=== PATIENT | female | born 1975 | race Caucasian/White ===

== ENCOUNTER 2017-06-08 20:56 | Inpatient (IN) ==
[2017-06-08] MEDS ORDERED: 0.9 % Sodium Chloride 1,000 ML IVC ONE (21:13)
[2017-06-08] MEDS: *HR* Nalbuphine 20 MG/ML AMPUL IVP PRN (21:21)
--- NOTE | 2017-06-08 21:22 | Emergency Department Note ---
Disposition Clinical Impression: Abdominal pain, Ecchymosis Disposition: Still a Patient Condition: Fair Referrals: NONE,PCP [Primary Care Provider] - Forms: ED Satisfaction Letter, Work/School Release Abdominal Pain HPI - General Chief Complaint: ED Abdominal Pain Stated Complaint: Abd Pain Time Seen by Provider: 06/08/17 21:06 Source: patient Mode of arrival: ambulatory Limitations: no limitations Nursing Notes Reviewed: Yes Vital Signs Reviewed: Yes - History of Present Illness HPI Narrative: 41-year-old female presented to the emergency room with abdominal pain and abdominal distention. 4 days onset. She has noted some ecchymosis that are spontaneously of appearing throughout her abdominal wall. The pain is worsening. She is also noted some ecchymosis to the right arm as well as some lower extremity edema. She denies any vomiting. No blood in her stool or urine. She does not take any blood thinners. She denies any history of liver or kidney problems. Pain Scale: 10 - Related Data Home Medications Medication Instructions Recorded Confirmed Amitriptyline [Elavil] 50 mg PO HS 02/23/15 10/23/15 Fenofibrate [Tricor] 145 mg PO DAILY 02/23/15 10/23/15 Gabapentin [Neurontin] 800 mg PO TID 02/23/15 10/23/15 HYDROcodone/Acet 7.5/325 mg [[place] 1 tab PO Q6H 02/23/15 10/23/15 7.5-325 mg] Lipase/Protease/Amylase [[place] Dr 1 each PO TID 02/23/15 10/23/15 12,000 Units Capsule] Lisinopril [Zestril] 2.5 mg PO DAILY 02/23/15 10/23/15 Pioglitazone HCl [Actos] 30 mg PO DAILY 02/23/15 10/23/15 Simvastatin [Zocor] 20 mg PO HS 02/23/15 10/23/15 Tizanidine [Zanaflex] 4 mg PO TID 02/23/15 10/23/15 metFORMIN [Glucophage] 1,000 mg PO BIDWM 02/23/15 10/23/15 Methylphenidate HCl [Ritalin] 20 mg PO BID 10/23/15 10/23/15 Quetiapine Fumarate [Seroquel] 50 mg PO HS 10/23/15 10/23/15 Previous Rx's Medication Instructions Recorded Dicyclomine HCl [Bentyl] 20 mg PO QID #14 tablet 11/17/14 Omeprazole [PriLOSEC] 20 mg PO BIDAC #20 capsule. 11/17/14 OxyCODONE Immed Rel [Roxicodone 5 10 mg PO Q6HR PRN #30 tablet 02/25/15 MG] ClonazePAM [Klonopin] 1 mg PO BID #20 tablet 02/26/15 HYDROcodone/Acet 7.5/325 mg [[place] 1 tab PO Q6H #20 tablet 02/26/15 7.5-325 mg] Naproxen [Naprosyn] 250 mg PO BID 10 Days tablet 03/06/15 predniSONE [PredniSONE] 40 mg PO DAILY 5 Days tablet 03/06/15 Cyclobenzaprine [Flexeril] 10 mg PO TID PRN #20 tablet 03/21/15 Hydrocodone/Acetaminophen [[place] 1 - 2 tab PO Q6H PRN #15 tab 07/16/15 5-325 Tablet] diazePAM [Valium] 5 mg PO TID #10 tablet 07/16/15 Oxycodone HCl/Acetaminophen 1 each PO Q4-6H PRN #10 tablet 08/02/15 [Percocet 5-325 mg Tablet] methylPREDNISolone [Medrol] 1 each PO DAILY #1 packet 08/02/15 hydrOXYzine HCl [Hydroxyzine HCl] 50 mg PO QID 30 Days tablet 08/19/15 Dicyclomine [Bentyl] 10 mg PO DAILY PRN #30 capsule 09/22/15 Cyclobenzaprine [Flexeril] 10 mg PO TID PRN #15 tablet 11/29/15 methylPREDNISolone [Medrol] 1 each PO DAILY #1 packet 11/29/15 Oxycodone HCl/Acetaminophen 1 each PO Q6-8H PRN #15 tablet 12/09/15 [Percocet 5-325 mg Tablet] Oxycodone HCl/Acetaminophen 1 each PO QID PRN #8 tablet 08/19/16 [Percocet 5-325 mg Tablet] Promethazine [Phenergan] 25 mg PO Q6HR PRN #12 tablet 08/19/16 Hyoscyamine SL [Levsin SL] 0.125 mg SL TID #12 tab.subl 10/20/16 Sucralfate [Carafate] 1 gm PO [facility] #120 tablet 10/20/16 Allergies Allergy/AdvReac Type Severity Reaction Status Date / Time Amoxicillin Allergy Hives Verified 10/27/15 23:53 clarithromycin [From Biaxin] Allergy Hives Verified 10/27/15 23:53 moxifloxacin [From Avelox] Allergy Hives Verified 10/27/15 23:53 propoxyphene Allergy Hives Verified 10/27/15 23:53 [From Darvocet-N] All systems ED: reviewed and negative except as stated. Constitutional: Reports: as per HPI. Denies: fever, chills Eyes: Reports: as per HPI ENT ED: Reports: as per HPI Cardiovascular: Denies: chest pain, palpitations Respiratory: Denies: cough Gastrointestinal: Reports: abdominal pain, nausea Genitourinary: Reports: as per HPI Musculoskeletal: Reports: as per HPI Integumentary: Reports: as per HPI, rash, other (Ecchymosis) Neurological: Reports: as per HPI Psychiatric: Reports: as per HPI Endocrine: Reports: as per HPI Hematological/Lymphatic: Reports: as per HPI Allergic/Immunologic: Reports: as per HPI Abdominal Pain PMH - Past Medical History Medical history: Reports: diabetes, hyperlipidemia, hypertension, kidney stones , other Female Surgical History: Reports: cholecystectomy, hysterectomy, orthopedic, other, 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 Psychiatric history: Reports: anxiety, ADHD, bipolar, PTSD, previous psychiatric hospitalization, other - Social History Smoking status: Never smoker Alcohol use: Reports: none Drug use: Reports: none Physical Exam - General Limitations: no limitations General appearance: alert, in distress - Head Head exam: atraumatic, normocephalic - Eye Eye exam: Present: normal appearance - ENT ENT exam: normal exam - Chest Chest inspection: Present: normal inspection - Respiratory Respiratory exam: Present: normal lung sounds bilaterally - Cardiovascular Cardiovascular exam: Present: normal rhythm, tachycardia - Abdominal Exam Abdominal exam: Present: tenderness, distention, guarding, normal bowel sounds, other (Diffuse ecchymosis over the abdomen) - Extremities Exam Extremities exam: Present: pedal edema, other (Some scattered ecchymosis to the right forearm.) - Back Exam Back exam: Present: normal inspection - Neurological Exam Neurological exam: Present: alert, oriented X3 - Psychiatric Psychiatric exam: Present: normal affect - Skin Skin exam: Present: warm, dry, intact Course Vital Signs Temperature 97.5 F L 06/08/17 20:57 Pulse Rate 99 06/08/17 20:57 Respiratory Rate 16 06/08/17 20:57 Blood Pressure 129/86 06/08/17 20:57 O2 Sat by Pulse Oximetry 98 06/08/17 20:57 Temperature 97.5 F L 06/08/17 20:57 Pulse Rate 99 06/08/17 20:57 Respiratory Rate 16 06/08/17 20:57 Blood Pressure 129/86 06/08/17 20:57 O2 Sat by Pulse Oximetry 98 06/08/17 20:57 Oxygen Delivery Oxygen Delivery Room Air Abdominal Pain - MDM Narrative Medical decision making narrative: Patient will be signed out to Dr. Cortés - Medical Records Medical records reviewed: Yes I reviewed the patient's medical records. - Lab Data Lab results reviewed: Yes I reviewed the patient's lab results. Lab Results 06/08/17 Range/Units 21:15 PT 11.2 (9.4-12.1) Seconds INR 1.0 APTT 32.4 (26.0-36.0) Seconds
[2017-06-08] MEDS ORDERED: Ondansetron 4 MG/2 ML VIAL IVP ONE ×2 (21:49→22:26)
[2017-06-08 21:50] LABS: Prothrombin Time 11.2 Seconds (9.4-12.1)
[2017-06-08 21:52] LABS: Activated Partial Thrombo Time 32.4 Seconds (26.0-36.0)
[2017-06-08 21:56] LABS: Basophils % 0.3 %; Eosinophils # 0.2 K/mcL (0.0-0.6); Eosinophils % 2.3 %; Immature Granulocytes % 0.1 % (0-4); Lymphocytes # 3.2 K/mcL (0.6-4.6); Mean Corpuscular Volume 84.3 fL (83.0-100.0); Mean Platelet Volume 10.2 fL (9.4-12.4); Monocytes # 0.6 K/mcL (0.0-1.3); Monocytes % 5.9 %; Platelet Count 218 K/mcL (140-400); Red Blood Count 4.15 M/mcL (3.82-4.97); Red Cell Distribution Width 12.9 % (11.5-14.5); Segmented Neutrophils % 59.4 %
--- NOTE | 2017-06-08 22:17 | Emergency Department Note ---
Disposition Clinical Impression: Ecchymosis Abdominal pain Qualifiers: Abdominal location: unspecified location Qualified Code(s): R10.9 - Unspecified abdominal pain Nausea & vomiting Qualifiers: Vomiting type: unspecified Vomiting Intractability: unspecified Qualified Code( s): R11.2 - Nausea with vomiting, unspecified Disposition: Admitted As Inpatient Condition: Fair Referrals: NONE,PCP [Primary Care Provider] - Forms: ED Satisfaction Letter, Work/School Release Time of Disposition: 00:02 General Adult HPI - General Chief complaint: ED Abdominal Pain Stated complaint: Abd Pain Time Seen by Provider: 06/08/17 21:06 Source: patient Mode of arrival: ambulatory Limitations: no limitations - History of Present Illness Pain Scale: 10 - Related Data Home Medications Medication Instructions Recorded Confirmed Amitriptyline [Elavil] 50 mg PO HS 02/23/15 10/23/15 Fenofibrate [Tricor] 145 mg PO DAILY 02/23/15 10/23/15 Gabapentin [Neurontin] 800 mg PO TID 02/23/15 10/23/15 HYDROcodone/Acet 7.5/325 mg [[place] 1 tab PO Q6H 02/23/15 10/23/15 7.5-325 mg] Lipase/Protease/Amylase [[place]amara Victor 1 each PO TID 02/23/15 10/23/15 12,000 Units Capsule] Lisinopril [Zestril] 2.5 mg PO DAILY 02/23/15 10/23/15 Pioglitazone HCl [Actos] 30 mg PO DAILY 02/23/15 10/23/15 Simvastatin [Zocor] 20 mg PO HS 02/23/15 10/23/15 Tizanidine [Zanaflex] 4 mg PO TID 02/23/15 10/23/15 metFORMIN [Glucophage] 1,000 mg PO BIDWM 02/23/15 10/23/15 Methylphenidate HCl [Ritalin] 20 mg PO BID 10/23/15 10/23/15 Quetiapine Fumarate [Seroquel] 50 mg PO HS 10/23/15 10/23/15 Previous Rx's Medication Instructions Recorded Dicyclomine HCl [Bentyl] 20 mg PO QID #14 tablet 11/17/14 Omeprazole [PriLOSEC] 20 mg PO BIDAC #20 capsule. 11/17/14 OxyCODONE Immed Rel [Roxicodone 5 10 mg PO Q6HR PRN #30 tablet 02/25/15 MG] ClonazePAM [Klonopin] 1 mg PO BID #20 tablet 02/26/15 HYDROcodone/Acet 7.5/325 mg [[place] 1 tab PO Q6H #20 tablet 02/26/15 7.5-325 mg] Naproxen [Naprosyn] 250 mg PO BID 10 Days tablet 03/06/15 predniSONE [PredniSONE] 40 mg PO DAILY 5 Days tablet 03/06/15 Cyclobenzaprine [Flexeril] 10 mg PO TID PRN #20 tablet 03/21/15 Hydrocodone/Acetaminophen [[place] 1 - 2 tab PO Q6H PRN #15 tab 07/16/15 5-325 Tablet] diazePAM [Valium] 5 mg PO TID #10 tablet 07/16/15 Oxycodone HCl/Acetaminophen 1 each PO Q4-6H PRN #10 tablet 08/02/15 [Percocet 5-325 mg Tablet] methylPREDNISolone [Medrol] 1 each PO DAILY #1 packet 08/02/15 hydrOXYzine HCl [Hydroxyzine HCl] 50 mg PO QID 30 Days tablet 08/19/15 Dicyclomine [Bentyl] 10 mg PO DAILY PRN #30 capsule 09/22/15 Cyclobenzaprine [Flexeril] 10 mg PO TID PRN #15 tablet 11/29/15 methylPREDNISolone [Medrol] 1 each PO DAILY #1 packet 11/29/15 Oxycodone HCl/Acetaminophen 1 each PO Q6-8H PRN #15 tablet 12/09/15 [Percocet 5-325 mg Tablet] Oxycodone HCl/Acetaminophen 1 each PO QID PRN #8 tablet 08/19/16 [Percocet 5-325 mg Tablet] Promethazine [Phenergan] 25 mg PO Q6HR PRN #12 tablet 08/19/16 Hyoscyamine SL [Levsin SL] 0.125 mg SL TID #12 tab.subl 10/20/16 Sucralfate [Carafate] 1 gm PO QIDAC #120 tablet 10/20/16 Allergies Allergy/AdvReac Type Severity Reaction Status Date / Time Amoxicillin Allergy Hives Verified 10/27/15 23:53 clarithromycin [From Biaxin] Allergy Hives Verified 10/27/15 23:53 moxifloxacin [From Avelox] Allergy Hives Verified 10/27/15 23:53 propoxyphene Allergy Hives Verified 10/27/15 23:53 [From Darvocet-N] Constitutional: Reports: as per HPI. Denies: fever, chills Eyes: Reports: as per HPI ENT ED: Reports: as per HPI Cardiovascular: Denies: chest pain, palpitations Respiratory: Denies: cough Gastrointestinal: Reports: abdominal pain, nausea Genitourinary: Reports: as per HPI Musculoskeletal: Reports: as per HPI Integumentary: Reports: as per HPI, rash, other (Ecchymosis) Neurological: Reports: as per HPI Psychiatric: Reports: as per HPI Endocrine: Reports: as per HPI Hematological/Lymphatic: Reports: as per HPI Allergic/Immunologic: Reports: as per HPI Past Medical History - Past Medical History Medical history: Reports: diabetes, hyperlipidemia, hypertension, kidney stones , other Surgical history: Reports: cholecystectomy, hysterectomy, orthopedic, other Psychiatric history: Reports: anxiety, ADHD, bipolar, PTSD, previous psychiatric hospitalization, 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 Peralta who was worked up by Dr. Peralta of labs and CT scan pending. Complains of diffuse abdominal pain not able to eat or drink. She has had bruising on her anterior abdominal wall. Vital signs are stable. Initial exam shows the abdomen to be diffusely tender without guarding or rebound. Time: 22:17 Reevaluation #2: Patient states she still feels nauseated cannot eat. Patient will be admitted for further evaluation and treatment. Time: 00:01 - Consultations Consultation #1: Discussed with Dr. Heller, admit. Time: 00:03 Vital Signs Temperature 97.5 F L 06/08/17 20:57 Pulse Rate 99 06/08/17 20:57 Respiratory Rate 16 06/08/17 20:57 Blood Pressure 129/86 06/08/17 20:57 O2 Sat by Pulse Oximetry 98 06/08/17 20:57 Temperature 97.5 F L 06/08/17 20:57 Pulse Rate 79 06/08/17 23:50 Respiratory Rate 22 06/08/17 23:50 Blood Pressure 134/58 06/08/17 23:50 O2 Sat by Pulse Oximetry 96 06/08/17 23:50 Oxygen Delivery Oxygen Delivery Room Air Medical Decision Making - Lab Data Result diagrams: 06/08/17 21:15 06/08/17 21:15 Lab Results 06/08/17 06/08/17 06/08/17 Range/Units 21:15 21:15 21:15 WBC 10.0 (4.3-11.1) K/mcL RBC 4.15 (3.82-4.97) M/mcL Hgb 11.2 L (11.5-15.4) g/dL Hct 35.0 L (35.3-44.9) % MCV 84.3 (83.0-100.0) fL MCH 26.9 L (28.0-33.3) pg MCHC 32.0 (31.6-35.5) g/dL RDW 12.9 (11.5-14.5) % Plt Count 218 (140-400) K/mcL MPV 10.2 (9.4-12.4) fL Immature Gran % 0.1 (0-4) % Seg Neutrophils % 59.4 % Lymphocytes % 32.0 % Monocytes % 5.9 % Eosinophils % 2.3 % Basophils % 0.3 % Neutrophils # 6.0 (1.6-8.9) K/mcL Lymphocytes # 3.2 (0.6-4.6) K/mcL Monocytes # 0.6 (0.0-1.3) K/mcL Eosinophils # 0.2 (0.0-0.6) K/mcL Basophils # 0.0 (0.0-0.2) K/mcL PT 11.2 (9.4-12.1) Seconds INR 1.0 APTT 32.4 (26.0-36.0) Seconds Sodium 134 L (136-145) mEq/L Potassium 3.6 (3.5-5.1) mEq/L Chloride 98 (98-107) mEq/L Carbon Dioxide 22 L (23-29) mEq/L BUN 11 (6-20) mg/dL Creatinine 0.58 L (0.60-1.20) mg/dL Est GFR ( Amer) > 60 (> 60) Est GFR (Non-Af Amer) > 60 (> 60) BUN/Creatinine Ratio 19 (6-26) Glucose 180 H (70-105) mg/dL Calculated Osmolality 282 (280-300) Calcium 9.0 (8.6-10.3) mg/dL Total Bilirubin 0.4 (0.3-1.0) mg/dL Direct Bilirubin 0.1 (0.0-0.2) mg/dL Indirect Bilirubin 0.3 (0.0-1.2) mg/dL AST 17 (13-39) Units/L ALT 13 (7-52) Units/L Alkaline Phosphatase 61 (34-104) Units/L Serum Total Protein 6.4 (6.4-8.9) g/dL Albumin 4.1 (3.5-5.7) g/dL Globulin 2.3 L (2.4-3.5) g/dL Albumin/Globulin Ratio 1.8 (1.1-2.2) Lipase 41 (11-82) Units/L
[2017-06-08] MEDS ORDERED: *HR* FentaNYL (PF) 100 MCG/2 ML VIAL IVP ONE (22:26)
[2017-06-08 22:29] LABS: Hemoglobin 11.2 g/dL (11.5-15.4)
[2017-06-08 22:31] LABS: Mean Corpuscular Hemoglobin 26.9 pg (28.0-33.3)
[2017-06-08 23:17] LABS: Alanine Aminotransferase 13 Units/L (7-52); Albumin 4.1 g/dL (3.5-5.7); Albumin/Globulin Ratio 1.8 (1.1-2.2); Alkaline Phosphatase 61 Units/L (34-104); Aspartate Amino Transferase 17 Units/L (13-39); BUN/Creatinine Ratio 19 (6-26); Bilirubin,Direct 0.1 mg/dL (0.0-0.2); Bilirubin,Indirect 0.3 mg/dL (0.0-1.2); Bilirubin,Total 0.4 mg/dL (0.3-1.0); Blood Urea Nitrogen 11 mg/dL (6-20); Carbon Dioxide 22 mEq/L (23-29); Chloride 98 mEq/L (98-107); Globulin 2.3 g/dL (2.4-3.5); Glucose 180 mg/dL (70-105); Lipase 41 Units/L (11-82); Osmolality,Calculated 282 (280-300); Potassium 3.6 mEq/L (3.5-5.1); Sodium 134 mEq/L (136-145); Total Protein 6.4 g/dL (6.4-8.9); eGFR For African Americans > 60 (> 60); eGFR For Non-African Americans > 60 (> 60)
[2017-06-09] MEDS ORDERED: *HR* FentaNYL (PF) 100 MCG/2 ML VIAL IVP ONE
[2017-06-09] MEDS ORDERED: Naloxone 0.4 MG/ML INJ IVP PRN (05:05)
[2017-06-09] MEDS ORDERED: 0.9 % Sodium Chloride 1,000 ML IVC SCH (05:15)
--- NOTE | 2017-06-09 05:15 | Internal Med History&Physical ---
Date of Encounter: 06/09/17 Time of Encounter: 05:11 Assessment and Plan (1) Ecchymosis Current visit: Yes Status: Acute 41/female Patient has extensive ecchymosis over her anterior abdominal wall. Patient has a multiple ecchymosis in various stages in her both upper as well as lower extremities. Platelet count: Normal PT/INR: Within normal limit BUN/creatinine: Within normal limit Bilirubin/AST-ALT: Within normal limits CT abdomen pelvis: Within normal limits Patient denies any abuse/trauma Plan: Admit as observation Close observation of bruises. We need hematology oncology review. Please call consult tomorrow morning. I examined this patient with BATSHEVA Rodrigues in her room. Patient's family member was at bedside. Plan of care explained to the patient. Verbalize understanding. (2) Abdominal pain Current visit: Yes Status: Acute Patient has persistent abdominal pain. Patient claims that her abdominal pain is more than 6 months duration. Qualifiers: Abdominal location: unspecified location Qualified Code(s): R10.9 - Unspecified abdominal pain (3) Diabetes mellitus Current visit: Yes Status: Acute We will start subcutaneous insulin order set. We will follow the recommendations from subcutaneous insulin orders. 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 We will follow and keep a close observation Qualifiers: Vomiting type: unspecified Vomiting Intractability: unspecified Qualified Code(s): R11.2 - Nausea with vomiting, unspecified (5) DVT prophylaxis Current visit: Yes Status: Acute SCD In view of the multiple bruises this is not a candidate for pharmacological DVT prophylaxis Medical decision making: This patient has a moderate to severe risk of worsening in spite of being on appropriate medication due to the underlying chronic comorbid conditions Internal Medicine - H&P: HPI Chief complaint: multiple bruises Admitted From: Emergency Dept Plans for Post Hospital Care: Home History of present illness: Ms. Henderson is a 41 year old female who lives in [facility] and has a primary care from the [facility] system. Patient came to emergency department as she was getting multiple bruises in different sites with the different intensity and spreading irregularly for the past 5 days. Patient was complaining of ongoing bruises for past 5 days. In last 48 hours the bruises over her abdomen was progressively getting worse and that was the reason she decided to come to this hospital for further evaluation. Patient denies any trauma/abuse/physical encounter which can lead to this bruises. Patient also concerned that for the past 6 months she has worsening swelling of her legs for which she was getting evaluated by her primary physician. Patient was evaluated in the emergency room. CT abdomen was done. CT abdomen did not show any intra-abdominal abnormality but it did show increased density within the subcutaneous fat and the anterior upper abdominal wall which was compatible with known history of ecchymosis. There was no fluid collection. Patient was admitted for further workup. Past Med Surg Social Fam HX - Past Medical History Medical history: diabetes, hyperlipidemia, hypertension, kidney stones, other Psychiatric history: anxiety, ADHD, bipolar, PTSD, previous psychiatric hospitalization, other - Past Surgical History Surgical History: cholecystectomy, hysterectomy, orthopedic, other - Social History Smoking Status: Never smoker Smokeless Tobacco Status: No Alcohol use: none Drug use: none - Family History Mother Living Status: Still Living Hx Family Cardiac Disorders: Yes (high blood pressure, high cholesterol) Hx Family Endocrine Disorder: Yes (diabetes) Internal Medicine - H&P: Meds Dicyclomine HCl [Bentyl] 20 mg PO QID #14 tablet 11/17/14 [Rx] Omeprazole [PriLOSEC] 20 mg PO BIDAC #20 capsule. 11/17/14 [Rx] Amitriptyline [Elavil] 50 mg PO HS 02/23/15 [History] Fenofibrate [Tricor] 145 mg PO DAILY 02/23/15 [History] Gabapentin [Neurontin] 800 mg PO TID 02/23/15 [History] HYDROcodone/Acet 7.5/325 mg [[place] 7.5-325 mg] 1 tab PO Q6H 02/23/15 [History] Lipase/Protease/Amylase [Tamara Victor 12,000 Units Capsule] 1 each PO TID 02/23/15 [ History] Lisinopril [Zestril] 2.5 mg PO DAILY 02/23/15 [History] Pioglitazone HCl [Actos] 30 mg PO DAILY 02/23/15 [History] Simvastatin [Zocor] 20 mg PO HS 02/23/15 [History] Tizanidine [Zanaflex] 4 mg PO TID 02/23/15 [History] metFORMIN [Glucophage] 1,000 mg PO BIDWM 02/23/15 [History] OxyCODONE Immed Rel [Roxicodone 5 MG] 10 mg PO Q6HR PRN #30 tablet 02/25/15 [Rx] ClonazePAM [Klonopin] 1 mg PO BID #20 tablet 02/26/15 [Rx] HYDROcodone/Acet 7.5/325 mg [[place] 7.5-325 mg] 1 tab PO Q6H #20 tablet 02/26/15 [Rx] Naproxen [Naprosyn] 250 mg PO BID 10 Days tablet 03/06/15 [Rx] predniSONE [PredniSONE] 40 mg PO DAILY 5 Days tablet 03/06/15 [Rx] Cyclobenzaprine [Flexeril] 10 mg PO TID PRN #20 tablet 03/21/15 [Rx] Hydrocodone/Acetaminophen [[place] 5-325 Tablet] 1 - 2 tab PO Q6H PRN #15 tab 12/22 [Rx] diazePAM [Valium] 5 mg PO TID #10 tablet 07/16/15 [Rx] Oxycodone HCl/Acetaminophen [Percocet 5-325 mg Tablet] 1 each PO Q4-6H PRN #10 tablet 08/02/15 [Rx] methylPREDNISolone [Medrol] 1 each PO DAILY #1 packet 08/02/15 [Rx] hydrOXYzine HCl [Hydroxyzine HCl] 50 mg PO QID 30 Days tablet 08/19/15 [Rx] Dicyclomine [Bentyl] 10 mg PO DAILY PRN #30 capsule 09/22/15 [Rx] Methylphenidate HCl [Ritalin] 20 mg PO BID 10/23/15 [History] Quetiapine Fumarate [Seroquel] 50 mg PO HS 10/23/15 [History] Cyclobenzaprine [Flexeril] 10 mg PO TID PRN #15 tablet 11/29/15 [Rx] methylPREDNISolone [Medrol] 1 each PO DAILY #1 packet 11/29/15 [Rx] Oxycodone HCl/Acetaminophen [Percocet 5-325 mg Tablet] 1 each PO Q6-8H PRN #15 tablet 12/09/15 [Rx] Oxycodone HCl/Acetaminophen [Percocet 5-325 mg Tablet] 1 each PO QID PRN #8 tablet 08/19/16 [Rx] Promethazine [Phenergan] 25 mg PO Q6HR PRN #12 tablet 08/19/16 [Rx] Hyoscyamine SL [Levsin SL] 0.125 mg SL TID #12 tab.subl 10/20/16 [Rx] Sucralfate [Carafate] 1 gm PO QIDAC #120 tablet 10/20/16 [Rx] 3 Allergy/AdvReac Type Severity Reaction Status Date / Time Amoxicillin Allergy Hives Verified 10/27/15 23:53 clarithromycin [From Biaxin] Allergy Hives Verified 10/27/15 23:53 moxifloxacin [From Avelox] Allergy Hives Verified 10/27/15 23:53 propoxyphene Allergy Hives Verified 10/27/15 23:53 [From Darvocet-N] All Systems PM: A 10-system review of systems was performed and is negative for pertinent findings except as documented above in the HPI. - Constitutional Constitutional: no chills, no fever(s), no night sweats - EENT Eyes: no change in vision, no discharge, no pain, no photophobia Ears: no ear discharge, no ear pain, no tinnitus Nose, mouth and throat: no dysphagia, no nasal discharge, no neck pain, no sore throat - Cardiovascular Cardiovascular ROS IM: no chest pain, no diaphoresis, no dyspnea, no lightheadedness, no palpitations, no syncope - Respiratory Respiratory: no cough, no dyspnea, no wheezing, no excessive phlegm production - Gastrointestinal Gastrointestinal: no abdominal pain, no diarrhea, no hematemesis, no hematochezia, no melena, no nausea, no vomiting - Genitourinary Genitourinary: no change in urinary stream, no dysuria, no flank pain, no hematuria - Musculoskeletal Musculoskeletal ROS IM: no numbness, no tingling Additional comments: Patient has multiple bruises all over her body P - Integumentary Integumentary IM: no rash, no unusual bruising - Neurological Neurological ROS: no confusion, no convulsions, no focal weakness, no numbness, no tingling, no tremor(s) - Hematologic/Lymphatic Hematologic/Lymphatic: no easy bruising - Constitutional Vitals: Temp Pulse Resp BP Pulse Ox 98.1 F 84 14 133/73 97 06/09/17 04:47 06/09/17 04:47 06/09/17 04:47 06/09/17 04:47 06/09/17 04:47 General appearance: Present: A&O X 3, pleasant, no acute distress, answers questions appropriately - Head Head exam: Present: atraumatic, normocephalic - Eye Eye exam: Present: PERRL, conjuntiva pink, sclera anicteric Pupils: Present: PERRL - Neck Neck exam general surgery: Present: supple, trachea midline. Absent: lymphadenopathy - Respiratory Respiratory exam: Present: CTAB. Absent: accessory muscle use, rales, rhonchi, wheezes - Cardiovascular Cardiovascular exam: Present: RRR, +S1, +S2. Absent: diastolic murmur, gallop, rubs, systolic murmur - GI/Abdominal GI/Abdominal exam: Present: normal bowel sounds, soft, no peritoneal signs. Absent: distended, tenderness Additional comments: Patient has extensive bruises on her anterior abdominal wall. Patient has bruises also on bilateral extremity. Patient also has a bruise on the inner side of the thyroid which was told to me by RN. I have examined this patient with BATSHEVA Rodrigues. - Extremities Exam Extremities exam: Present: warm, radial pulses palpable and symmetrical. Absent : calf tenderness, cyanotic, pedal edema - Neurological Exam Neurological exam: Present: CN II-XII intact, oriented X3, no focal deficits. Absent: pronater drift, facial droop, speech deficit - Skin Skin exam: Present: dry, intact Internal Med - H&P Results - Labs CBC & Chem 7: 06/08/17 21:15 06/08/17 21:15
[2017-06-09] MEDS ORDERED: Dextrose Gel 15 GM/37.5 ML TUBE PO PRN ×2 (05:17)
[2017-06-09] MEDS ORDERED: *HR* Dextrose 50 % in Water (Syg) 50 ML SYRINGE IVP PRN (05:17)
[2017-06-09] MEDS: *HR* OxyCODONE Immed Rel 5 MG TABLET PO PRN ×3 (05:24→17:43)
[2017-06-09 06:52] LABS: Basophils % 0.4 %; Red Blood Count 3.41 M/mcL (3.82-4.97)
[2017-06-09 06:54] LABS: Eosinophils # 0.2 K/mcL (0.0-0.6); Eosinophils % 2.7 %; Hematocrit 29.5 % (35.3-44.9); Immature Granulocytes % 0.2 % (0-4); Lymphocytes # 3.2 K/mcL (0.6-4.6); Lymphocytes % 39.5 %; Mean Corpuscular Volume 86.5 fL (83.0-100.0); Mean Platelet Volume 10.9 fL (9.4-12.4); Monocytes # 0.5 K/mcL (0.0-1.3); Monocytes % 6.6 %; Neutrophils # 4.1 K/mcL (1.6-8.9); Platelet Count 196 K/mcL (140-400); Prothrombin Time 10.5 Seconds (9.4-12.1); Red Cell Distribution Width 12.9 % (11.5-14.5); Segmented Neutrophils % 50.6 %
[2017-06-09] MEDS: Gabapentin 400 MG CAPSULE PO SCH ×3 (08:10→21:05)
[2017-06-09] MEDS: clonazePAM 1 MG TABLET PO SCH ×2 (08:11→21:05)
[2017-06-09] MEDS: tiZANidine 4 MG TABLET PO SCH ×3 (08:11→21:05)
[2017-06-09] MEDS: Fenofibrate 54 MG TABLET PO SCH (08:14)
[2017-06-09 08:30] LABS: Hemoglobin 8.4 g/dL (11.5-15.4); Mean Corpuscular Hemoglobin 29.6 pg (28.0-33.3)
[2017-06-09] MEDS: Methylphenidate HCl 10 MG TABLET PO SCH ×2 (08:48→21:02)
[2017-06-09] MEDS: Insulin LISPRO 300 UNITS/3 ML VIAL SQ SCH ×3 (09:22→17:34)
[2017-06-09] MEDS: *HR* Nalbuphine 20 MG/ML AMPUL IVP PRN (09:23)
[2017-06-09 09:27] LABS: Cholesterol 940 mg/dL (< 200); HDL Cholesterol 29 mg/dL (40-59); Triglycerides 3551 mg/dL (< 150)
[2017-06-09 09:28] LABS: Chol/HDL Ratio 32.4 (0-4.9)
[2017-06-09 09:43] LABS: Alanine Aminotransferase 12 Units/L (7-52); Alkaline Phosphatase 48 Units/L (34-104); Aspartate Amino Transferase 16 Units/L (13-39); BUN/Creatinine Ratio 22 (6-26); Bilirubin,Total 0.1 mg/dL (0.3-1.0); Blood Urea Nitrogen 12 mg/dL (6-20); Carbon Dioxide 18 mEq/L (23-29); Chloride 103 mEq/L (98-107); Glucose 282 mg/dL (70-105); Magnesium 1.4 mg/dL (1.6-2.6); Osmolality,Calculated 280 (280-300); Phosphorous 3.7 mg/dL (2.7-4.5); Potassium 3.8 mEq/L (3.5-5.1); Total Protein 5.8 g/dL (6.4-8.9); eGFR For African Americans > 60 (> 60); eGFR For Non-African Americans > 60 (> 60)
[2017-06-09 09:44] LABS: Albumin 3.5 g/dL (3.5-5.7); Albumin/Globulin Ratio 1.5 (1.1-2.2); Globulin 2.3 g/dL (2.4-3.5); Sodium 130 mEq/L (136-145)
[2017-06-09 12:56] LABS: Bilirubin,Urine Negative (Negative); Blood,Urine Negative (Negative); Clarity,Urine Cloudy (Clear); Color,Urine Yellow (Yellow); Glucose,Urine (UA) 500 mg/dL (Normal); Ketones,Urine Negative (Negative); Leukocyte Esterase,Urine Trace (Negative); Nitrite,Urine Negative (Negative); Protein,Urine Negative (Neg-Trace); Specific Gravity,Urine 1.016 (1.010-1.025); Urobilinogen,Urine Normal (Normal)
[2017-06-09 12:59] LABS: Bacteria,Urine None Seen per hpf (None-Few); Hyaline Casts,Urine None Seen per lpf (None-Few); Squamous Epithelial Cell,Urine Many per lpf (None-Few)
[2017-06-09] MEDS: *HR* HYDROcodone/Acet 5/325 mg TABLET PO PRN ×2 (15:24→21:05)
--- NOTE | 2017-06-09 18:58 | Event Note ---
Date of Encounter: 06/09/17 Time of Encounter: 18:49 S: Patient had no acute events overnight after admission. She states that she still has significant abdominal pain, generalized. Daughter is in room today. She has no other complaints. O: Vitals - Temp 98.2 degrees F., HR 93, RR 15, BP 116/72 Gen - Awake, alert, in mild distress due to pain HEENT - NCAT, PERRLA, EOMI, hearing grossly intact, oropharynx benign Resp - Normal WOB, CTAB, no W/R/R CV - RRR, normal S1 and S2, no M/R/G, trace BLE edema GI - Soft, mild generalized TTP across epigastrium, no rebound or guarding, no distension, no masses, normal bowel sounds, no HSP Skin - Warm, dry, multiple ecchymoses across abdomen, BUE, and BLE in multiple stages of healing Psych - Normal mood and congruent affect, no depression or anxiety A/P: 1) Ecchymoses - Heme/onc consulted; appreciate input. Hgb down somewhat this AM. Given abdominal pain as per below, obtain FOBT. Continue omeprazole. 2) Abdominal Pain - FOBT and omeprazole as per above. Continue zofran PRN for N /V. Continue home pain medications.
[2017-06-10 02:53] LABS: Hepatitis A Antibody IgM Nonreactive (Nonreactive); Hepatitis B Surface Antigen Nonreactive (Nonreactive); Hepatitis C Virus Antibody Nonreactive (Nonreactive)
[2017-06-10 02:58] LABS: Hepatitis B Core IgM Reactive (Nonreactive)
[2017-06-10] MEDS: clonazePAM 1 MG TABLET PO SCH (08:06)
[2017-06-10] MEDS: tiZANidine 4 MG TABLET PO SCH ×3 (08:06→21:08)
[2017-06-10] MEDS: Gabapentin 400 MG CAPSULE PO SCH ×3 (08:13→21:09)
[2017-06-10] MEDS: *HR* HYDROcodone/Acet 5/325 mg TABLET PO PRN ×2 (08:13→16:31)
[2017-06-10] MEDS: Methylphenidate HCl 10 MG TABLET PO SCH (08:14)
[2017-06-10] MEDS: Fenofibrate 54 MG TABLET PO SCH (08:14)
[2017-06-10] MEDS: Insulin LISPRO 300 UNITS/3 ML VIAL SQ SCH ×4 (08:15→22:14)
[2017-06-10 09:35] LABS: Basophils % 0.4 %; Eosinophils # 0.1 K/mcL (0.0-0.6); Eosinophils % 1.7 %; Hematocrit 30.1 % (35.3-44.9); Immature Granulocytes % 0.3 % (0-4); Lymphocytes # 2.6 K/mcL (0.6-4.6); Lymphocytes % 33.5 %; Mean Corpuscular Volume 88.3 fL (83.0-100.0); Mean Platelet Volume 10.4 fL (9.4-12.4); Monocytes # 0.4 K/mcL (0.0-1.3); Monocytes % 5.7 %; Neutrophils # 4.6 K/mcL (1.6-8.9); Platelet Count 147 K/mcL (140-400); Red Blood Count 3.41 M/mcL (3.82-4.97); Red Cell Distribution Width 13.1 % (11.5-14.5); Segmented Neutrophils % 58.4 %
[2017-06-10 09:58] LABS: BUN/Creatinine Ratio 19 (6-26); Blood Urea Nitrogen 10 mg/dL (6-20); Calcium 8.8 mg/dL (8.6-10.3); Carbon Dioxide 22 mEq/L (23-29); Chloride 99 mEq/L (98-107); Glucose 233 mg/dL (70-105); Osmolality,Calculated 279 (280-300); Potassium 3.5 mEq/L (3.5-5.1); Sodium 131 mEq/L (136-145); eGFR For African Americans > 60 (> 60); eGFR For Non-African Americans > 60 (> 60)
[2017-06-10 11:11] LABS: Mean Corpuscular HGB Conc 34.9 g/dL (31.6-35.5)
[2017-06-10 11:12] LABS: Hemoglobin 9.7 g/dL (11.5-15.4)
[2017-06-10] MEDS ORDERED: *HR* Magnesium Sulfate 1 GM/2 ML VIAL IM ONE (11:26)
[2017-06-10] MEDS: Pantoprazole 40 MG VIAL IVP SCH ×2 (12:25→16:38)
[2017-06-10 14:32] LABS: Hematocrit 29.4 % (35.3-44.9)
--- NOTE | 2017-06-10 17:39 | Oncology Inp Consult Note ---
<Adele Wilder L - Last Filed: 06/11/17 10:53> Date of Encounter: 06/10/17 Time of Encounter: 16:00 Assessment and Plan (1) Ecchymosis Status: Acute Assessment and plan: Workup for ecchymosis and abdominal distention of unknown etiology. Platelet, PT/INR, BUN/creatinine, Bilirubin/AST-ALT normal. Lab work from 06/08 indicating acute hepatitis B infection. CT abdomen pelvis did not show any intra-abdominal abnormality but it did show increased density within the subcutaneous fat and the anterior upper abdominal wall which was compatible with known history of ecchymosis Patient denies any abuse/trauma, denies illegal substance abuse. Hgb stable at 10, however hgb has decreased over hospital stay. fecal hemoccult pending. Will obtain ESR, CRP, Iron studies, MADELEINE, urine tox, cryoglobulin panel, PFA-100 for further assessment. Abdominal pain/distention and ecchymosis may be related to acute hepatitis infection, however vasculitis/cryoglobulinemia remains in differentials pending further workup. Please refer to Dr. Caldwell's attestation below for further details. - Data of Consult Patient: new to practice Consult date: 06/10/17 Requesting Physician: Tony Rivas Primary Care Provider: Macrina Montes CNP - Consult Narrative Reason for consult: unexplained ecchymosis History of present illness: Ms. Henderson is a 41 year old female with past medical history significant for spondylolisthesis and diabetes mellitus. Patient presented to emergency department with report of multiple bruises in different sites with the different intensity and spreading irregularly for the past 5 days. Most recently within the past 48 hours she found bruises over her abdomen which were progressively getting worse and that was the reason she decided to come to this hospital for further evaluation. Patient denies any trauma/abuse/physical encounter which can lead to this bruises. CT abdomen did not show any intra-abdominal abnormality but it did show increased density within the subcutaneous fat and the anterior upper abdominal wall which was compatible with known history of ecchymosis. There was no fluid collection. Ms. Henderson is postmenopausal following partial hysterectomy, she does not report issues with prior menstrual periods, she has undergone major previous surgeries without reported adverse effects following. No other family member has prior issues associated with hemophilia type disorders. Past Med Surg Social Fam HX - Past Medical History Medical history: diabetes, hyperlipidemia, hypertension, kidney stones, other Psychiatric history: anxiety, ADHD, bipolar, PTSD, previous psychiatric hospitalization, other - Past Surgical History Surgical History: cholecystectomy, hysterectomy, orthopedic, other - Social History Smoking Status: Never smoker Smokeless Tobacco Status: No Alcohol use: none Drug use: none - Family History Mother Living Status: Still Living Hx Family Cardiac Disorders: Yes (high blood pressure, high cholesterol) Hx Family Endocrine Disorder: Yes (diabetes) Medications and Allergies Fenofibrate [Tricor] 145 mg PO DAILY 02/23/15 [History] Gabapentin [Neurontin] 800 mg PO TID 02/23/15 [History] Lipase/Protease/Amylase [Creon Dr 12,000 Units Capsule] 1 each PO TID 02/23/15 [ History] Lisinopril [Zestril] 2.5 mg PO DAILY 02/23/15 [History] Pioglitazone HCl [Actos] 30 mg PO DAILY 02/23/15 [History] Simvastatin [Zocor] 20 mg PO HS 02/23/15 [History] metFORMIN [Glucophage] 1,000 mg PO BIDWM 02/23/15 [History] Naproxen [Naprosyn] 250 mg PO BID 10 Days tablet 03/06/15 [Rx] Cyclobenzaprine [Flexeril] 10 mg PO TID PRN #15 tablet 11/29/15 [Rx] Promethazine [Phenergan] 25 mg PO Q6HR PRN #12 tablet 08/19/16 [Rx] Hyoscyamine SL [Levsin SL] 0.125 mg SL TID #12 tab.subl 10/20/16 [Rx] Sucralfate [Carafate] 1 gm PO QIDAC #120 tablet 10/20/16 [Rx] Methylphenidate HCl [Ritalin] 20 mg PO 0800,1200 06/10/17 [History] Quetiapine Fumarate [SEROquel] 100 mg PO HS 06/10/17 [History] Quetiapine Fumarate [Seroquel] 50 mg PO 0900,1600 06/10/17 [History] Venlafaxine HCl [Venlafaxine HCl ER] 150 mg PO DAILY 06/10/17 [History] Omeprazole [PriLOSEC] 40 mg PO BID 06/11/17 [History] Oxycodone HCl/Acetaminophen [Percocet 5-325 mg Tablet] 1 each PO Q12H PRN [History] Tizanidine HCl [Zanaflex] 2 mg PO Q6H PRN 06/11/17 [History] 3 Allergy/AdvReac Type Severity Reaction Status Date / Time Amoxicillin Allergy Hives Verified 10/27/15 23:53 clarithromycin [From Biaxin] Allergy Hives Verified 10/27/15 23:53 moxifloxacin [From Avelox] Allergy Hives Verified 10/27/15 23:53 propoxyphene Allergy Hives Verified 10/27/15 23:53 [From Darvocet-N] Constitutional: Present: as per HPI. Absent: chills, fever(s), frequent falls Eyes: Absent: change in vision Cardiovascular: Absent: chest pain, irregular heart rhythm, palpitations Respiratory: Absent: cough, dyspnea Gastrointestinal: Present: abdominal pain, bloating, constipation, hematemesis, hematochezia, melena. Absent: nausea, vomiting Genitourinary: Absent: dysuria, hematuria Musculoskeletal: Absent: joint swelling Integumentary: Present: as per HPI Neurological: Absent: focal weakness, frequent falls Hematologic/Lymphatic: Present: as per HPI, easy bruising Oncology - Exam - Constitutional Vitals: Temp Pulse Resp BP Pulse Ox 97.9 F 85 16 108/81 98 06/10/17 16:19 06/10/17 16:19 06/10/17 16:19 06/10/17 16:19 06/10/17 16:19 General appearance: cooperative, no acute distress, no febrile - Head Head exam: Present: atraumatic - ENT ENT exam: Present: mucous membranes moist - Respiratory Respiratory exam: Present: CTAB. Absent: respiratory distress - Cardiovascular Cardiovascular exam: Present: RRR, +S1, +S2 - GI/Abdominal GI/Abdominal exam: Present: distended, normal bowel sounds, soft, tenderness Additional comments: scattered ecchymosis to abdomen - Extremities Exam Extremities exam: Present: normal inspection, pedal edema. Absent: calf tenderness - Neurological Exam Neurological exam: Present: alert, oriented X3, no focal deficits, strengths equal and symetr throughout - Psychiatric Psychiatric exam: Present: normal affect, normal mood - Skin Skin exam: Present: pallor, warm Additional comments: scattered ecchymosis to abdomen and BLE Oncology - Results Labs: Short CBC 06/10/17 06/10/17 Range/Units 08:58 13:44 WBC 7.8 (4.3-11.1) K/mcL Hgb 9.7 L 10.0 L (11.5-15.4) g/dL Hct 30.1 L 29.4 L (35.3-44.9) % Plt Count 147 (140-400) K/mcL Neutrophils # 4.6 (1.6-8.9) K/mcL BMP 06/10/17 08:58 Sodium 131 L Potassium 3.5 Chloride 99 Carbon Dioxide 22 L BUN 10 Creatinine 0.53 L Glucose 233 H Calcium 8.8 Cardiac Enzymes 06/09/17 Range/Units 17:19 Troponin I < 0.03 (< 0.04) ng/mL Consult Discharge Plan - Plan Referrals: Macrina Montes CNP [Primary Care Provider] - <Denton Caldwell - Last Filed: 06/12/17 08:20> Date of Encounter: 06/10/17 - Data of Consult Requesting Physician: Wilfred Beatty DO Primary Care Provider: Macrina Montes CNP - Consult Narrative History of present illness: Ms. Henderson is a 41 year old female Oncology - Exam - Constitutional Vitals: Temp Pulse Resp BP Pulse Ox 98.1 F 83 15 95/52 98 06/12/17 07:05 06/12/17 07:05 06/12/17 07:05 06/12/17 07:05 06/12/17 07:05 Oncology - Results Labs: Short CBC 06/11/17 06/11/17 06/12/17 Range/Units 08:41 14:51 06:07 WBC 9.0 6.8 (4.3-11.1) K/mcL Hgb 10.8 L 11.0 L 11.0 L (11.5-15.4) g/dL Hct 31.7 L 32.0 L 29.9 L (35.3-44.9) % Plt Count 175 186 (140-400) K/mcL Neutrophils # 5.2 2.8 (1.6-8.9) K/mcL BMP 06/11/17 14:51 Sodium 131 L Potassium 3.8 Chloride 98 Carbon Dioxide 25 BUN 9 Creatinine 0.64 Glucose 249 H Calcium 8.7 Liver Function 06/11/17 Range/Units 14:51 Total Bilirubin 0.3 (0.3-1.0) mg/dL AST 16 (13-39) Units/L ALT 11 (7-52) Units/L Alkaline Phosphatase 51 (34-104) Units/L Albumin 3.3 L (3.5-5.7) g/dL - Attending Attestation sdeen and examined patient and agree with assessment and plan. Patient has bruising. Unclear etiology. Also has acute hepatitis B infection. could be vacuilitic phenomenon. Coagulation profile is normal. Anemia of unclear etiology also.
[2017-06-10] MEDS: *HR* OxyCODONE Immed Rel 5 MG TABLET PO PRN (19:16)
--- NOTE | 2017-06-10 19:45 | Internal Med Progress Note ---
Date of Encounter: 06/10/17 Time of Encounter: 19:43 - Assessment and plan (1) Ecchymosis Current Visit: Yes Status: Acute Assessment and plan: Somewhat improving. Heme/onc consulted; appreciate input. Will follow their recommendations. I personally discussed case with heme/onc Dr. Caldwell. He thinks this may be related to acute hepatitis B infection. He will order additional tests. Will continue to monitor. (2) Abdominal pain Current Visit: Yes Status: Acute Assessment and plan: Unchanged. Continue pain control. Denies N/V. Tolerating cardiac diet. Continue anti-emetics PRN. Hemoglobin up today. Continue IV protonix. Recheck CBC in AM. Qualifiers: Abdominal location: unspecified location Qualified Code(s): R10.9 - Unspecified abdominal pain (3) Nausea & vomiting Current Visit: Yes Status: Acute Assessment and plan: As per above. Qualifiers: Vomiting type: unspecified Vomiting Intractability: unspecified Qualified Code(s): R11.2 - Nausea with vomiting, unspecified (4) DVT prophylaxis Current Visit: Yes Status: Acute Assessment and plan: Continue SCDs. Defer anticoagulation due to possible GI bleed and bruising. (5) Diabetes mellitus Current Visit: Yes Status: Acute Assessment and plan: Continue accuchecks and SSI QID AC/HS. 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 She still complains of abdominal pain. She states N/V controlled. Tolerating diet. She has constipation. She denies fever, chills, dizziness, or lightheadedness. She has no other complaints. - Constitutional Vitals: Temp Pulse Resp BP Pulse Ox 97.9 F 85 16 108/81 98 06/10/17 16:19 06/10/17 16:19 06/10/17 16:19 06/10/17 16:19 06/10/17 16:19 General appearance: Present: A&O X 3, no acute distress, answers questions appropriately - Respiratory Respiratory exam: Present: CTAB. Absent: accessory muscle use, rales, rhonchi, wheezes Additional comments: Normal WOB - Cardiovascular Cardiovascular exam: Present: RRR, +S1, +S2. Absent: diastolic murmur, gallop, rubs, systolic murmur Additional comments: Trace BUE and BLE edema - GI/Abdominal GI/Abdominal exam: Present: normal bowel sounds, soft. Absent: distended, hepatomegaly, mass, splenomegaly Additional comments: Moderate TTP diffusely across abdomen - Psychiatric Psychiatric exam: Present: normal affect, normal mood. Absent: anxious, depressed - Skin Skin exam: Present: dry, intact, warm. Absent: cyanosis, rash Additional comments: Multiple bruises across multiple stages of healing across abdomen, BUE, and BLE Internal Medicine: Result - Labs CBC & Chem 7: 06/10/17 13:44 06/10/17 08:58 Labs: Short CBC 06/10/17 06/10/17 Range/Units 08:58 13:44 WBC 7.8 (4.3-11.1) K/mcL Hgb 9.7 L 10.0 L (11.5-15.4) g/dL Hct 30.1 L 29.4 L (35.3-44.9) % Plt Count 147 (140-400) K/mcL Neutrophils # 4.6 (1.6-8.9) K/mcL BMP 06/10/17 08:58 Sodium 131 L Potassium 3.5 Chloride 99 Carbon Dioxide 22 L BUN 10 Creatinine 0.53 L Glucose 233 H Calcium 8.8 - ABG Interpretation ABG results: PT/INR, D-dimer PT 10.5 Seconds (9.4-12.1) 06/09/17 05:21 - VTE Reasons for not Prescribing Prophylaxis: Medical contraindication Documentation of Mechanical Device: Intermittent pneumatic compression device Consult Discharge Plan - Plan Referrals: NONE,PCP [Non-Partnered Physician] -
[2017-06-10 20:19] LABS: Hematocrit 31.3 % (35.3-44.9); Hemoglobin 11.1 g/dL (11.5-15.4)
[2017-06-10 20:57] LABS: % Iron Saturation 15 % (15-50); Ferritin 280 ng/ml (10-120); Iron 47 mcg/dL (50-170); Transferrin 218 mg/dL (203-362)
[2017-06-10] MEDS: Sennosides/Docusate Sodium TABLET PO SCH (21:09)
[2017-06-11] MEDS: Acetaminophen 325 MG TABLET PO PRN ×2 (01:05→07:30)
[2017-06-11 01:29] LABS: Hematocrit 29.8 % (35.3-44.9); Hemoglobin 10.4 g/dL (11.5-15.4)
[2017-06-11 01:31] LABS: Basophils % 0.4 %; Eosinophils # 0.2 K/mcL (0.0-0.6); Eosinophils % 2.9 %; Hematocrit 30.6 % (35.3-44.9); Hemoglobin 10.3 g/dL (11.5-15.4); Immature Granulocytes % 0.3 % (0-4); Lymphocytes # 3.7 K/mcL (0.6-4.6); Lymphocytes % 49.1 %; Mean Corpuscular HGB Conc 33.7 g/dL (31.6-35.5); Mean Corpuscular Hemoglobin 30.2 pg (28.0-33.3); Mean Corpuscular Volume 89.7 fL (83.0-100.0); Mean Platelet Volume 10.5 fL (9.4-12.4); Monocytes # 0.5 K/mcL (0.0-1.3); Monocytes % 6.3 %; Neutrophils # 3.1 K/mcL (1.6-8.9); Platelet Count 154 K/mcL (140-400); Red Blood Count 3.41 M/mcL (3.82-4.97); Red Cell Distribution Width 12.9 % (11.5-14.5)
[2017-06-11 02:46] LABS: BUN/Creatinine Ratio 16 (6-26); Blood Urea Nitrogen 9 mg/dL (6-20); Calcium 8.6 mg/dL (8.6-10.3); Carbon Dioxide 24 mEq/L (23-29); Chloride 98 mEq/L (98-107); Glucose 191 mg/dL (70-105); Osmolality,Calculated 276 (280-300); Potassium 3.7 mEq/L (3.5-5.1); Sodium 131 mEq/L (136-145); eGFR For African Americans > 60 (> 60); eGFR For Non-African Americans > 60 (> 60)
[2017-06-11] MEDS: Pantoprazole 40 MG VIAL IVP SCH ×2 (05:00→17:00)
[2017-06-11] MEDS ORDERED: Acetaminophen 325 MG TABLET PO ONE (09:22)
[2017-06-11 09:24] LABS: Hematocrit 31.7 % (35.3-44.9); Hemoglobin 10.8 g/dL (11.5-15.4)
[2017-06-11] MEDS: Gabapentin 400 MG CAPSULE PO SCH ×3 (09:37→20:42)
[2017-06-11] MEDS: Fenofibrate 54 MG TABLET PO SCH (09:37)
[2017-06-11] MEDS: Sennosides/Docusate Sodium TABLET PO SCH ×2 (09:38→20:42)
[2017-06-11] MEDS: Methylphenidate HCl 10 MG TABLET PO SCH ×2 (09:38→12:28)
[2017-06-11] MEDS: tiZANidine 4 MG TABLET PO SCH (09:38)
[2017-06-11] MEDS: Insulin LISPRO 300 UNITS/3 ML VIAL SQ SCH ×4 (09:39→21:26)
[2017-06-11] MEDS: *HR* HYDROcodone/Acet 5/325 mg TABLET PO PRN ×2 (12:28→20:42)
[2017-06-11] MEDS ORDERED: tiZANidine 4 MG TABLET PO PRN (13:58)
--- NOTE | 2017-06-11 14:27 | Internal Med Progress Note ---
<Jeffrey Pompa - Last Filed: 06/11/17 16:19> Date of Encounter: 06/11/17 Time of Encounter: 14:25 - Assessment and plan (1) Ecchymosis Current Visit: Yes Status: Acute Assessment and plan: Patient has ecchymosis over the abdomen with abdominal pain This is possibly secondary to acute hepatitis B infection. Patient does state that her boyfriend has been exposed to hepatitis B was not made aware of this until she found papers stating that he had been exposed. Patient denies any trauma, abuse or falls that may be the cause of the ecchymosis. Will obtain a CBC, CMP, lipase, amylase, lipid panel, HIV testing and ultrasound of the liver and Doppler of the abdomen and pelvis. Will continue to monitor. (2) Abdominal pain Current Visit: Yes Status: Acute Assessment and plan: Patient is still having abdominal pain We will recheck laboratory testing and obtain ultrasound to evaluate the liver and abdominal vasculature. Qualifiers: Abdominal location: unspecified location Qualified Code(s): R10.9 - Unspecified abdominal pain (3) Hepatitis B Current Visit: Yes Status: Suspected Assessment and plan: Patient has had exposure to her boyfriend who may have had Hep B Hep B core IgM antibody was reactive. Qualifiers: Viral hepatitis chronicity: acute Hepatic coma status: without hepatic coma Hepatitis delta agent presence: without delta-agent Qualified Code(s): B16.9 - Acute hepatitis B without delta-agent and without hepatic coma (4) Anemia Current Visit: Yes Status: Acute Assessment and plan: Patient has a hemoglobin of 10.8. Has been as low as 8.4 on this admission. Currently stable no need for transfusion at this time. Will continue to monitor the patients Hbg Qualifiers: Anemia type: unspecified type Qualified Code(s): D64.9 - Anemia, unspecified (5) Hyperlipidemia Current Visit: Yes Status: Chronic Assessment and plan: Patient is significantly elevated triglycerides at 3551 Cholesterol of 940 LDL and VLDL were not performed due to the elevated triglycerides. Qualifiers: Hyperlipidemia type: mixed hyperlipidemia Qualified Code(s): E78.2 - Mixed hyperlipidemia (6) Nausea & vomiting Current Visit: Yes Status: Acute Assessment and plan: Patient was asking for more food at the time of exam. Qualifiers: Vomiting type: unspecified Vomiting Intractability: unspecified Qualified Code(s): R11.2 - Nausea with vomiting, unspecified (7) Diabetes mellitus Current Visit: Yes Status: Acute Assessment and plan: Continue with sliding scale insulin. Qualifiers: Diabetes mellitus type: type 2 Diabetes mellitus complication status: with unspecified complications Diabetes mellitus terminal clerk insulin use: unspecified [facility] insulin use status Qualified Code(s): E11.8 - Type 2 diabetes mellitus with unspecified complications (8) DVT prophylaxis Current Visit: Yes Status: Acute Assessment and plan: SCDs Avoid anticoagulation at this point due to unknown definitive reason for ecchymosis - Subjective Interval history: Patient states that she does not feel her well and is having ongoing abdominal pain. She states that she has had ecchymosis over her abdomen for the past 4-5 days prior to being admitted. She states that she has not had any falls or injuries. She does state that she recently broke up with her boyfriend who she found out have been exposed to possible hepatitis B. She states that she was never notified of this but found paper stating that he had been exposed. - Constitutional Vitals: Temp Pulse Resp BP Pulse Ox 99.6 F 91 18 104/67 96 06/11/17 10:19 06/11/17 10:19 06/11/17 10:19 06/11/17 10:19 06/11/17 10:19 General appearance: Present: A&O X 3, no acute distress, answers questions appropriately - Head Head exam: Present: atraumatic, normocephalic - Neck Neck exam general surgery: Present: full ROM, normal inspection, trachea midline - Respiratory Respiratory exam: Present: CTAB. Absent: accessory muscle use, rales, rhonchi, wheezes - Cardiovascular Cardiovascular exam: Present: RRR, +S1, +S2. Absent: diastolic murmur, gallop, rubs, systolic murmur - GI/Abdominal GI/Abdominal exam: Present: distended, normal bowel sounds, soft, tenderness ( Diffuse tenderness throughout the abdomen) Additional comments: Patient has ecchymosis over the upper abdomen bilaterally - Extremities Exam Additional comments: Patient has nonpitting edema in bilateral lower extremities. - Neurological Exam Neurological exam: Present: alert, motor sensory deficit, oriented X3, no focal deficits. Absent: facial droop, speech deficit - Psychiatric Psychiatric exam: Present: normal affect, normal mood - Skin Skin exam: Present: dry, intact, warm Additional comments: Ecchymosis over the upper abdomen. Internal Medicine: Result - Labs CBC & Chem 7: 06/11/17 14:51 06/11/17 14:51 Labs: Short CBC 06/10/17 06/10/17 06/11/17 Range/Units 13:44 18:57 01:00 WBC 7.5 (4.3-11.1) K/mcL Hgb 10.0 L 11.1 L 10.3 L (11.5-15.4) g/dL Hct 29.4 L 31.3 L 30.6 L (35.3-44.9) % Plt Count 154 (140-400) K/mcL Neutrophils # 3.1 (1.6-8.9) K/mcL 06/11/17 06/11/17 Range/Units 01:00 08:41 WBC (4.3-11.1) K/mcL Hgb 10.4 L 10.8 L (11.5-15.4) g/dL Hct 29.8 L 31.7 L (35.3-44.9) % Plt Count (140-400) K/mcL Neutrophils # (1.6-8.9) K/mcL BMP 06/11/17 01:00 Sodium 131 L Potassium 3.7 Chloride 98 Carbon Dioxide 24 BUN 9 Creatinine 0.58 L Glucose 191 H Calcium 8.6 - ABG Interpretation ABG results: PT/INR, D-dimer PT 10.5 Seconds (9.4-12.1) 06/09/17 05:21 - VTE Reasons for not Prescribing Prophylaxis: Medical contraindication Documentation of Mechanical Device: Intermittent pneumatic compression device Consult Discharge Plan - Plan Referrals: Macrina Montes CNP [Primary Care Provider] - <Wilfred Beatty - Last Filed: 06/11/17 19:37> Date of Encounter: 06/11/17 - Assessment and plan (1) Hepatitis B Current Visit: Yes Status: Suspected Qualifiers: Viral hepatitis chronicity: acute Hepatic coma status: without hepatic coma Hepatitis delta agent presence: without delta-agent Qualified Code(s): B16.9 - Acute hepatitis B without delta-agent and without hepatic coma (2) Abdominal pain Current Visit: Yes Status: Acute Qualifiers: Abdominal location: generalized Qualified Code(s): R10.84 - Generalized abdominal pain (3) Diabetes mellitus Current Visit: Yes Status: Acute Qualifiers: Diabetes mellitus type: type 2 Diabetes mellitus complication status: with hyperglycemia Diabetes mellitus [facility] insulin use: without terminal clerk use Qualified Code(s): E11.65 - Type 2 diabetes mellitus with hyperglycemia (4) Hyperlipidemia Current Visit: Yes Status: Chronic Qualifiers: Hyperlipidemia type: mixed hyperlipidemia Qualified Code(s): E78.2 - Mixed hyperlipidemia (5) Ecchymosis Current Visit: Yes Status: Acute - Constitutional Vitals: Temp Pulse Resp BP Pulse Ox 98.0 F 90 18 105/64 95 06/11/17 14:26 06/11/17 14:26 06/11/17 14:26 06/11/17 14:26 06/11/17 14:26 Internal Medicine: Result - Labs CBC & Chem 7: 06/11/17 14:51 06/11/17 14:51 Labs: Short CBC 06/10/17 06/11/17 06/11/17 Range/Units 18:57 01:00 01:00 WBC 7.5 (4.3-11.1) K/mcL Hgb 11.1 L 10.3 L 10.4 L (11.5-15.4) g/dL Hct 31.3 L 30.6 L 29.8 L (35.3-44.9) % Plt Count 154 (140-400) K/mcL Neutrophils # 3.1 (1.6-8.9) K/mcL 06/11/17 06/11/17 Range/Units 08:41 14:51 WBC 9.0 (4.3-11.1) K/mcL Hgb 10.8 L 11.0 L (11.5-15.4) g/dL Hct 31.7 L 32.0 L (35.3-44.9) % Plt Count 175 (140-400) K/mcL Neutrophils # 5.2 (1.6-8.9) K/mcL BMP 06/11/17 06/11/17 01:00 14:51 Sodium 131 L 131 L Potassium 3.7 3.8 Chloride 98 98 Carbon Dioxide 24 25 BUN 9 9 Creatinine 0.58 L 0.64 Glucose 191 H 249 H Calcium 8.6 8.7 Liver Function 06/11/17 Range/Units 14:51 Total Bilirubin 0.3 (0.3-1.0) mg/dL AST 16 (13-39) Units/L ALT 11 (7-52) Units/L Alkaline Phosphatase 51 (34-104) Units/L Albumin 3.3 L (3.5-5.7) g/dL - ABG Interpretation ABG results: PT/INR, D-dimer PT 11.6 Seconds (9.4-12.1) 06/11/17 14:51 - Attending Attestation I examined this patient and my medical decision-making was reviewed with the Resident Physician on 06/11/17. I agree with the documented findings, disposition and treatment plan as described except to the extent set forth below. Ms Henderson is currently admitted for abd pain and ecchymoses with recent hep B infection. She remains moderate to high risk due to potential for worsening clinical status. Ms Henderson is still having abd pain. She feels swollen and diffusely tender. Having low grade temp today. No nausea. Exam alert Moderate distress Mucus membranes dry Heart reg No wheeze Abd distended. Diffusely tender. Bowel sounds heard. No rebound. Ecchymoses noted Edema bilateral lower extremities. I/P 1. Abd pain 2. Recent Hep B Further diagnoses and plan as above. Check duplex of liver to r/o thrombus. Repeat labs. May need GI eval.
[2017-06-11 15:05] LABS: Basophils % 0.4 %; Eosinophils % 2.5 %; Immature Granulocytes % 0.3 % (0-4); Lymphocytes % 32.9 %; Mean Corpuscular HGB Conc 34.4 g/dL (31.6-35.5); Mean Corpuscular Hemoglobin 30.4 pg (28.0-33.3); Mean Corpuscular Volume 88.4 fL (83.0-100.0); Mean Platelet Volume 10.4 fL (9.4-12.4); Monocytes % 5.8 %; Platelet Count 175 K/mcL (140-400); Red Blood Count 3.62 M/mcL (3.82-4.97); Red Cell Distribution Width 12.4 % (11.5-14.5); Segmented Neutrophils % 58.1 %
[2017-06-11 15:06] LABS: Eosinophils # 0.2 K/mcL (0.0-0.6); Monocytes # 0.5 K/mcL (0.0-1.3); Neutrophils # 5.2 K/mcL (1.6-8.9)
[2017-06-11 15:08] LABS: INR 1.1; Prothrombin Time 11.6 Seconds (9.4-12.1)
[2017-06-11 15:10] LABS: Activated Partial Thrombo Time 31.4 Seconds (26.0-36.0)
[2017-06-11 15:25] LABS: Alanine Aminotransferase 11 Units/L (7-52); Albumin 3.3 g/dL (3.5-5.7); Albumin/Globulin Ratio 1.2 (1.1-2.2); Alkaline Phosphatase 51 Units/L (34-104); Aspartate Amino Transferase 16 Units/L (13-39); BUN/Creatinine Ratio 14 (6-26); Bilirubin,Total 0.3 mg/dL (0.3-1.0); Blood Urea Nitrogen 9 mg/dL (6-20); Calcium 8.7 mg/dL (8.6-10.3); Carbon Dioxide 25 mEq/L (23-29); Chloride 98 mEq/L (98-107); Globulin 2.7 g/dL (2.4-3.5); Glucose 249 mg/dL (70-105); Osmolality,Calculated 279 (280-300); Potassium 3.8 mEq/L (3.5-5.1); Sodium 131 mEq/L (136-145); eGFR For African Americans > 60 (> 60); eGFR For Non-African Americans > 60 (> 60)
[2017-06-11 15:26] LABS: Amylase 13 Units/L (29-103); Lipase 44 Units/L (11-82)
[2017-06-11] MEDS: *HR* OxyCODONE Immed Rel 5 MG TABLET PO PRN (15:43)
[2017-06-11 16:14] LABS: Chol/HDL Ratio 29.2 (0-4.9); Cholesterol 848 mg/dL (< 200); HDL Cholesterol 29 mg/dL (40-59); Triglycerides 1962 mg/dL (< 150)
[2017-06-11 16:19] LABS: Amphetamine Screen,Urine Negative ng/mL (Cutoff=1000); Barbiturate Screen,Urine Negative ng/mL (Cutoff=200); Benzodiazepines Screen,Urine Negative ng/mL (Cutoff=200); Cannabinoid Screen,Urine Negative ng/mL (Cutoff = 50); Cocaine Screen,Urine Negative ng/mL (Cutoff= 300); Opiate Screen,Urine Negative ng/mL (Cutoff=300); Phencyclidine Screen,Urine Negative ng/mL (Cutoff=25)
--- NOTE | 2017-06-11 17:22 | Oncology Inp Progress Note ---
<Denton Caldwell - Last Filed: 06/12/17 08:26> Date of Encounter: 06/11/17 (1) Ecchymosis Current Visit: Yes Status: Acute (2) Hepatitis B Current Visit: Yes Status: Suspected Assessment and plan: bruising of unclear etiology. Outpatient w/u may be necessary. Hgb is stable. Vasculitic w/u so far unremarkable. Iron studies are normal. Bruising is stable at the moment. f/u as outpatient. Qualifiers: Viral hepatitis chronicity: acute Hepatic coma status: without hepatic coma Hepatitis delta agent presence: without delta-agent Qualified Code(s): B16.9 - Acute hepatitis B without delta-agent and without hepatic coma - Constitutional Vitals: Vital Signs Temp Pulse Resp BP Pulse Ox 06/12/17 07:05 98.1 F 83 15 95/52 98 06/12/17 04:00 98.0 F 87 18 103/64 97 06/11/17 20:04 97.9 F 91 18 100/58 94 06/11/17 14:26 98.0 F 90 18 105/64 95 06/11/17 10:19 99.6 F 91 18 104/67 96 06/11/17 09:30 96 Intake and Output 06/11/17 06/12/17 06/12/17 16:59 00:59 08:59 Intake Total 360 / 360 0 / 0 600 / 600 Output Total 1050 / 1050 900 / 900 1500 / 1500 Balance -690 / -690 -900 / -900 -900 / -900 Intake: Oral 360 / 360 0 / 0 600 / 600 Output: Urine 1050 / 1050 900 / 900 1500 / 1500 Other: Meal Lunch Stool Size Copious Stool Consistency soft Stool Characteristics Normal for Patient Stool Color Brown # Bowel Movements 1 Weight 93.4 kg Blood Glucose* 163 221 305 Patient Weight 06/13/17 00:59 Weight 93.4 kg Oncology: Obj Data - Labs CBC & Chem 7: 06/12/17 06:07 06/11/17 14:51 Labs: Laboratory Results - last 24 hr 06/09/17 06/09/17 06/09/17 11:26 14:50 16:15 WBC RBC Hgb Hct MCV MCH MCHC RDW Plt Count MPV Immature Gran % Seg Neutrophils % Lymphocytes % Monocytes % Eosinophils % Basophils % Neutrophils # Lymphocytes # Monocytes # Eosinophils # Basophils # PT INR APTT Sodium Potassium Chloride Carbon Dioxide BUN Creatinine Est GFR ( Amer) Est GFR (Non-Af Amer) BUN/Creatinine Ratio Glucose POC Glucose 132 H 266 H Calculated Osmolality Calcium Total Bilirubin AST ALT Alkaline Phosphatase Ammonia Lactate Dehydrogenase Serum Total Protein Albumin Globulin Albumin/Globulin Ratio Triglycerides Cholesterol LDL Cholesterol, Calc VLDL Cholesterol, Calc HDL Cholesterol Cholesterol/HDL Ratio Amylase Lipase Stool Occult Blood Negative Urine Opiates Screen Ur Barbiturates Screen Ur Phencyclidine Scrn Ur Amphetamines Screen U Benzodiazepines Scrn Urine Cocaine Screen U Marijuana (THC) Screen HIV Ag/Ab Combo Qual Specimen Rejected 06/10/17 06/11/17 06/11/17 08:12 08:18 08:41 WBC RBC Hgb 10.8 L Hct 31.7 L MCV MCH MCHC RDW Plt Count MPV Immature Gran % Seg Neutrophils % Lymphocytes % Monocytes % Eosinophils % Basophils % Neutrophils # Lymphocytes # Monocytes # Eosinophils # Basophils # PT INR APTT Sodium Potassium Chloride Carbon Dioxide BUN Creatinine Est GFR ( Amer) Est GFR (Non-Af Amer) BUN/Creatinine Ratio Glucose POC Glucose 206 H 157 H Calculated Osmolality Calcium Total Bilirubin AST ALT Alkaline Phosphatase Ammonia Lactate Dehydrogenase Serum Total Protein Albumin Globulin Albumin/Globulin Ratio Triglycerides Cholesterol LDL Cholesterol, Calc VLDL Cholesterol, Calc HDL Cholesterol Cholesterol/HDL Ratio Amylase Lipase Stool Occult Blood Urine Opiates Screen Ur Barbiturates Screen Ur Phencyclidine Scrn Ur Amphetamines Screen U Benzodiazepines Scrn Urine Cocaine Screen U Marijuana (THC) Screen HIV Ag/Ab Combo Qual Specimen Rejected 06/11/17 06/11/17 06/11/17 12:20 14:51 14:51 WBC 9.0 RBC 3.62 L Hgb 11.0 L Hct 32.0 L MCV 88.4 MCH 30.4 MCHC 34.4 RDW 12.4 Plt Count 175 MPV 10.4 Immature Gran % 0.3 Seg Neutrophils % 58.1 Lymphocytes % 32.9 Monocytes % 5.8 Eosinophils % 2.5 Basophils % 0.4 Neutrophils # 5.2 Lymphocytes # 3.0 Monocytes # 0.5 Eosinophils # 0.2 Basophils # 0.0 PT INR APTT Sodium 131 L Potassium 3.8 Chloride 98 Carbon Dioxide 25 BUN 9 Creatinine 0.64 Est GFR ( Amer) > 60 Est GFR (Non-Af Amer) > 60 BUN/Creatinine Ratio 14 Glucose 249 H POC Glucose 177 H Calculated Osmolality 279 L Calcium 8.7 Total Bilirubin 0.3 AST 16 ALT 11 Alkaline Phosphatase 51 Ammonia Lactate Dehydrogenase Serum Total Protein 6.0 L Albumin 3.3 L Globulin 2.7 Albumin/Globulin Ratio 1.2 Triglycerides Cholesterol LDL Cholesterol, Calc VLDL Cholesterol, Calc HDL Cholesterol Cholesterol/HDL Ratio Amylase Lipase Stool Occult Blood Urine Opiates Screen Ur Barbiturates Screen Ur Phencyclidine Scrn Ur Amphetamines Screen U Benzodiazepines Scrn Urine Cocaine Screen U Marijuana (THC) Screen HIV Ag/Ab Combo Qual Specimen Rejected 06/11/17 06/11/17 06/11/17 14:51 14:51 14:51 WBC RBC Hgb Hct MCV MCH MCHC RDW Plt Count MPV Immature Gran % Seg Neutrophils % Lymphocytes % Monocytes % Eosinophils % Basophils % Neutrophils # Lymphocytes # Monocytes # Eosinophils # Basophils # PT 11.6 INR 1.1 APTT 31.4 Sodium Potassium Chloride Carbon Dioxide BUN Creatinine Est GFR ( Amer) Est GFR (Non-Af Amer) BUN/Creatinine Ratio Glucose POC Glucose Calculated Osmolality Calcium Total Bilirubin AST ALT Alkaline Phosphatase Ammonia Lactate Dehydrogenase Serum Total Protein Albumin Globulin Albumin/Globulin Ratio Triglycerides 1962 H Cholesterol 848 H LDL Cholesterol, Calc TNP VLDL Cholesterol, Calc TNP HDL Cholesterol 29 L Cholesterol/HDL Ratio 29.2 H Amylase Lipase Stool Occult Blood Urine Opiates Screen Ur Barbiturates Screen Ur Phencyclidine Scrn Ur Amphetamines Screen U Benzodiazepines Scrn Urine Cocaine Screen U Marijuana (THC) Screen HIV Ag/Ab Combo Qual Nonreactive Specimen Rejected 06/11/17 06/11/17 06/11/17 14:51 14:51 15:43 WBC RBC Hgb Hct MCV MCH MCHC RDW Plt Count MPV Immature Gran % Seg Neutrophils % Lymphocytes % Monocytes % Eosinophils % Basophils % Neutrophils # Lymphocytes # Monocytes # Eosinophils # Basophils # PT INR APTT Sodium Potassium Chloride Carbon Dioxide BUN Creatinine Est GFR ( Amer) Est GFR (Non-Af Amer) BUN/Creatinine Ratio Glucose POC Glucose Calculated Osmolality Calcium Total Bilirubin AST ALT Alkaline Phosphatase Ammonia Lactate Dehydrogenase 110 L Serum Total Protein Albumin Globulin Albumin/Globulin Ratio Triglycerides Cholesterol LDL Cholesterol, Calc VLDL Cholesterol, Calc HDL Cholesterol Cholesterol/HDL Ratio Amylase 13 L Lipase 44 Stool Occult Blood Urine Opiates Screen Ur Barbiturates Screen Ur Phencyclidine Scrn Ur Amphetamines Screen U Benzodiazepines Scrn Urine Cocaine Screen U Marijuana (THC) Screen HIV Ag/Ab Combo Qual Specimen Rejected Hemolyzed 06/11/17 06/11/17 06/11/17 15:48 15:50 16:27 WBC RBC Hgb Hct MCV MCH MCHC RDW Plt Count MPV Immature Gran % Seg Neutrophils % Lymphocytes % Monocytes % Eosinophils % Basophils % Neutrophils # Lymphocytes # Monocytes # Eosinophils # Basophils # PT INR APTT Sodium Potassium Chloride Carbon Dioxide BUN Creatinine Est GFR ( Amer) Est GFR (Non-Af Amer) BUN/Creatinine Ratio Glucose POC Glucose 163 H Calculated Osmolality Calcium Total Bilirubin AST ALT Alkaline Phosphatase Ammonia 78 H Lactate Dehydrogenase Serum Total Protein Albumin Globulin Albumin/Globulin Ratio Triglycerides Cholesterol LDL Cholesterol, Calc VLDL Cholesterol, Calc HDL Cholesterol Cholesterol/HDL Ratio Amylase Lipase Stool Occult Blood Urine Opiates Screen Negative Ur Barbiturates Screen Negative Ur Phencyclidine Scrn Negative Ur Amphetamines Screen Negative U Benzodiazepines Scrn Negative Urine Cocaine Screen Negative U Marijuana (THC) Screen Negative HIV Ag/Ab Combo Qual Specimen Rejected 06/12/17 06/12/17 06:07 07:04 WBC 6.8 RBC 3.36 L Hgb 11.0 L Hct 29.9 L MCV 89.0 MCH 32.7 MCHC 36.8 H RDW 12.7 Plt Count 186 MPV 10.5 Immature Gran % 0.3 Seg Neutrophils % 41.6 Lymphocytes % 47.1 Monocytes % 7.8 Eosinophils % 2.9 Basophils % 0.3 Neutrophils # 2.8 Lymphocytes # 3.2 Monocytes # 0.5 Eosinophils # 0.2 Basophils # 0.0 PT INR APTT Sodium Potassium Chloride Carbon Dioxide BUN Creatinine Est GFR ( Amer) Est GFR (Non-Af Amer) BUN/Creatinine Ratio Glucose POC Glucose 305 H Calculated Osmolality Calcium Total Bilirubin AST ALT Alkaline Phosphatase Ammonia Lactate Dehydrogenase Serum Total Protein Albumin Globulin Albumin/Globulin Ratio Triglycerides Cholesterol LDL Cholesterol, Calc VLDL Cholesterol, Calc HDL Cholesterol Cholesterol/HDL Ratio Amylase Lipase Stool Occult Blood Urine Opiates Screen Ur Barbiturates Screen Ur Phencyclidine Scrn Ur Amphetamines Screen U Benzodiazepines Scrn Urine Cocaine Screen U Marijuana (THC) Screen HIV Ag/Ab Combo Qual Specimen Rejected - Impressions Impressions Abdomen/Pelvis Ultrasound 06/11/17 20:00 IMPRESSION: Normal liver Doppler study. Diffuse hepatic steatosis. D/ / Sera Cunha MD / Sera Cunha MD Interpreting Provider: Sera Cunha MD Liver Ultrasound 06/11/17 20:00 IMPRESSION: Normal liver Doppler study. Diffuse hepatic steatosis. D/ / Sera Cunha MD / Sera Cunha MD Interpreting Provider: Sera Cunha MD - ABG Interpretation ABG results: PT/INR, D-dimer PT 11.6 Seconds (9.4-12.1) 06/11/17 14:51 Consult Discharge Plan - Plan Referrals: Macrina Montes, LYNNE [Primary Care Provider] - <Adele Wilder - Last Filed: 06/12/17 10:31> Date of Encounter: 06/11/17 Time of Encounter: 16:30 (1) Ecchymosis Current Visit: Yes Status: Acute Assessment and plan: Workup for ecchymosis and abdominal distention of unknown etiology. Platelet, PT/INR, BUN/creatinine, Bilirubin/AST-ALT normal, no elevation in amylase/lipase She does exhibit severely elevated triglycerides/cholesterol with associated increase glucose. Lab work from 06/08 indicating acute hepatitis B infection with reactive IgM Ab, would recommend follow up with GI on outpatient basis CT abdomen pelvis did not show any intra-abdominal abnormality but it did show increased density within the subcutaneous fat and the anterior upper abdominal wall which was compatible with known history of ecchymosis Patient denies any abuse/trauma, denies illegal substance abuse-awaiting urine tox screen results Hgb stable, however hgb has decreased over hospital stay. fecal hemoccult negative. ESR and CRP slightly elevated, Iron studies essentially normal; MADELEINE, cryoglobulin panel, PFA-100 for further assessment of platelet function-still pending. Abdominal pain/distention and ecchymosis may be related to acute hepatitis infection, however vasculitis/cryoglobulinemia remains in differentials pending further workup. Have also entered lab orders for LDH, Haptoglobin and von willebrand. Some of the lab tests listed above are send outs and will likely take days to result. I will arrange for further follow up in [address] Caldwell. Please refer to Dr. Caldwell's attestation below for further details. Oncology: Subj Interval history: Ms. Henderson continues to report diffuse abdominal pain and distention. No new bruising. She denies chest pain, , h/a, dizziness of focal deficits. - Constitutional Vitals: Vital Signs Temp Pulse Resp BP Pulse Ox 06/11/17 14:26 98.0 F 90 18 105/64 95 06/11/17 10:19 99.6 F 91 18 104/67 96 06/11/17 09:30 96 06/11/17 08:13 100 F H 100 18 117/64 93 06/11/17 05:21 97.9 F 06/11/17 04:51 89 18 98/63 94 06/11/17 00:41 99.1 F 82 16 95/61 96 06/10/17 21:53 98.3 F 79 17 99/63 94 Intake and Output 06/11/17 06/11/17 06/11/17 07:59 15:59 23:59 Intake Total 360 / 360 Output Total 700 / 700 1050 / 1050 Balance -700 / -700 -690 / -690 Intake: Oral 360 / 360 Output: Urine 700 / 700 1050 / 1050 Other: Meal Lunch Stool Size Copious Stool Consistency soft Stool Characteristics Normal for Patient Stool Color Brown # Bowel Movements 1 Weight 93.3 kg Blood Glucose* 177 163 Patient Weight 06/11/17 23:59 Weight 93.3 kg General appearance: cooperative, no acute distress, no febrile - Head Head exam: Present: atraumatic - ENT ENT exam: Present: mucous membranes moist - Respiratory Respiratory exam: Present: CTAB. Absent: respiratory distress - Cardiovascular Cardiovascular exam: Present: RRR, +S1, +S2 - GI/Abdominal GI/Abdominal exam: Present: distended, normal bowel sounds, soft, tenderness Additional comments: scattered ecchymosis of different ages to abdomen, patient reports no new ecchymosis - Extremities Exam Extremities exam: Present: pedal edema. Absent: calf tenderness - Neurological Exam Neurological exam: Present: alert, oriented X3, no focal deficits, strengths equal and symetr throughout - Psychiatric Psychiatric exam: Present: normal affect, normal mood - Skin Skin exam: Present: normal color, warm Oncology: Obj Data - Labs CBC & Chem 7: 06/12/17 06:07 06/12/17 06:07 - ABG Interpretation ABG results: PT/INR, D-dimer PT 11.6 Seconds (9.4-12.1) 06/11/17 14:51
[2017-06-11] MEDS: Lactulose Oral Soln 20 GM/30 ML UDC PO SCH (20:43)
[2017-06-12] MEDS: *HR* OxyCODONE Immed Rel 5 MG TABLET PO PRN (01:29)
[2017-06-12] MEDS ORDERED: *HR* OxyCODONE Immed Rel 5 MG TABLET PO ONE (02:04)
[2017-06-12] MEDS: Pantoprazole 40 MG VIAL IVP SCH ×2 (06:24→18:35)
[2017-06-12 06:26] LABS: Basophils % 0.3 %; Eosinophils # 0.2 K/mcL (0.0-0.6); Eosinophils % 2.9 %; Hematocrit 29.9 % (35.3-44.9); Immature Granulocytes % 0.3 % (0-4); Lymphocytes # 3.2 K/mcL (0.6-4.6); Lymphocytes % 47.1 %; Mean Corpuscular HGB Conc 36.8 g/dL (31.6-35.5); Mean Corpuscular Hemoglobin 32.7 pg (28.0-33.3); Mean Platelet Volume 10.5 fL (9.4-12.4); Monocytes # 0.5 K/mcL (0.0-1.3); Monocytes % 7.8 %; Neutrophils # 2.8 K/mcL (1.6-8.9); Platelet Count 186 K/mcL (140-400); Red Blood Count 3.36 M/mcL (3.82-4.97); Red Cell Distribution Width 12.7 % (11.5-14.5); Segmented Neutrophils % 41.6 %
[2017-06-12] MEDS: *HR* HYDROcodone/Acet 5/325 mg TABLET PO PRN (06:28)
[2017-06-12 08:55] LABS: Alanine Aminotransferase 10 Units/L (7-52); Albumin/Globulin Ratio 1.4 (1.1-2.2); Alkaline Phosphatase 44 Units/L (34-104); Aspartate Amino Transferase 13 Units/L (13-39); BUN/Creatinine Ratio 18 (6-26); Bilirubin,Total 0.1 mg/dL (0.3-1.0); Blood Urea Nitrogen 10 mg/dL (6-20); Calcium 8.2 mg/dL (8.6-10.3); Carbon Dioxide 25 mEq/L (23-29); Chloride 97 mEq/L (98-107); Globulin 2.2 g/dL (2.4-3.5); Glucose 320 mg/dL (70-105); Osmolality,Calculated 285 (280-300); Sodium 132 mEq/L (136-145); Total Protein 5.2 g/dL (6.4-8.9); eGFR For African Americans > 60 (> 60); eGFR For Non-African Americans > 60 (> 60)
[2017-06-12] MEDS: Lactulose Oral Soln 20 GM/30 ML UDC PO SCH ×2 (09:04→21:58)
[2017-06-12] MEDS: Sennosides/Docusate Sodium TABLET PO SCH ×2 (09:04→21:58)
[2017-06-12] MEDS: Insulin LISPRO 300 UNITS/3 ML VIAL SQ SCH ×2 (09:04→11:33)
[2017-06-12] MEDS: Methylphenidate HCl 10 MG TABLET PO SCH ×2 (09:05→11:33)
[2017-06-12] MEDS: Fenofibrate 54 MG TABLET PO SCH (09:05)
[2017-06-12] MEDS: *HR* OxyCODONE Immed Rel 15 MG TABLET PO PRN ×3 (09:05→21:58)
[2017-06-12] MEDS: Gabapentin 400 MG CAPSULE PO SCH ×3 (09:05→21:57)
[2017-06-12] MEDS: Venlafaxine XR (24 HR) 150 MG CAP.ER.24H PO SCH (09:06)
--- NOTE | 2017-06-12 10:21 | Internal Med Progress Note ---
<Jeffrey Pompa - Last Filed: 06/12/17 13:03> Date of Encounter: 06/12/17 Time of Encounter: 10:19 - Assessment and plan (1) Ecchymosis Current Visit: Yes Status: Acute Assessment and plan: Patient has ecchymosis over the abdomen with abdominal pain This is possibly secondary to acute hepatitis B infection. Patient does state that her boyfriend has been exposed to hepatitis B was not made aware of this until she found papers stating that he had been exposed. Patient denies any trauma, abuse or falls that may be the cause of the ecchymosis. I spoke with GI and they have recommended further hepatits B testing. We will also get labs for hep D and Be Will continue to monitor US showed: Normal liver Doppler study. Diffuse hepatic steatosis. (2) Abdominal pain Current Visit: Yes Status: Acute Assessment and plan: Patient is still having abdominal pain Will continue to monitor the patient. Qualifiers: Abdominal location: generalized Qualified Code(s): R10.84 - Generalized abdominal pain (3) Hepatitis B Current Visit: Yes Status: Suspected Assessment and plan: Patient has had exposure to her boyfriend who may have had Hep B Hep B core IgM antibody was reactive. Will Consult GI Qualifiers: Viral hepatitis chronicity: acute Hepatic coma status: without hepatic coma Hepatitis delta agent presence: without delta-agent Qualified Code(s): B16.9 - Acute hepatitis B without delta-agent and without hepatic coma (4) Anemia Current Visit: Yes Status: Acute Assessment and plan: Patient has a hemoglobin of 11.0. Has been as low as 8.4 on this admission. Currently stable no need for transfusion at this time. Will continue to monitor the patients Hbg Qualifiers: Anemia type: unspecified type Qualified Code(s): D64.9 - Anemia, unspecified (5) Hyperlipidemia Current Visit: Yes Status: Chronic Assessment and plan: Patient is significantly elevated triglycerides at 1961 Cholesterol of 848 LDL and VLDL were not performed due to the elevated triglycerides. Qualifiers: Hyperlipidemia type: mixed hyperlipidemia Qualified Code(s): E78.2 - Mixed hyperlipidemia (6) Nausea & vomiting Current Visit: Yes Status: Acute Assessment and plan: Patient has been eating Qualifiers: Vomiting type: unspecified Vomiting Intractability: unspecified Qualified Code(s): R11.2 - Nausea with vomiting, unspecified (7) Diabetes mellitus Current Visit: Yes Status: Acute Assessment and plan: Continue with sliding scale insulin. Qualifiers: Diabetes mellitus type: type 2 Diabetes mellitus complication status: with hyperglycemia Diabetes mellitus penitentiary insulin use: without penitentiary use Qualified Code(s): E11.65 - Type 2 diabetes mellitus with hyperglycemia (8) DVT prophylaxis Current Visit: Yes Status: Acute Assessment and plan: SCDs Avoid anticoagulation at this point due to unknown definitive reason for ecchymosis - Subjective Interval history: Patient states that she does not feel her well and is having ongoing abdominal pain. She states that she has had ecchymosis over her abdomen for the past 4-5 days prior to being admitted. She states that she has not had any falls or injuries. She does state that she recently broke up with her boyfriend who she found out have been exposed to possible hepatitis B. She states that she was never notified of this but found paper stating that he had been exposed. Patient showed me a piece of paper stating hepatitis exposure that she says was her boyfriend's. - Constitutional Vitals: Temp Pulse Resp BP Pulse Ox 98.1 F 83 15 95/52 98 06/12/17 07:05 06/12/17 07:05 06/12/17 07:05 06/12/17 07:05 06/12/17 07:05 General appearance: Present: A&O X 3, no acute distress, answers questions appropriately - Head Head exam: Present: atraumatic, normocephalic - Neck Neck exam general surgery: Present: full ROM, normal inspection, trachea midline - Respiratory Respiratory exam: Present: CTAB. Absent: accessory muscle use, rales, rhonchi, wheezes - Cardiovascular Cardiovascular exam: Present: RRR, +S1, +S2. Absent: diastolic murmur, gallop, rubs, systolic murmur - GI/Abdominal GI/Abdominal exam: Present: distended (Mildly), soft, tenderness (Diffuse), no peritoneal signs Additional comments: Ecchymosis over the upper abdomen. - Extremities Exam Extremities exam: Present: warm. Absent: tenderness Additional comments: Nonpitting edema bilateral lower extremities. - Neurological Exam Neurological exam: Present: alert, oriented X3, no focal deficits. Absent: facial droop, speech deficit - Psychiatric Psychiatric exam: Present: normal affect, normal mood - Skin Skin exam: Present: dry, intact, warm Internal Medicine: Result - Labs CBC & Chem 7: 06/12/17 06:07 06/12/17 06:07 Labs: Short CBC 06/11/17 06/12/17 Range/Units 14:51 06:07 WBC 9.0 6.8 (4.3-11.1) K/mcL Hgb 11.0 L 11.0 L (11.5-15.4) g/dL Hct 32.0 L 29.9 L (35.3-44.9) % Plt Count 175 186 (140-400) K/mcL Neutrophils # 5.2 2.8 (1.6-8.9) K/mcL BMP 06/11/17 06/12/17 14:51 06:07 Sodium 131 L 132 L Potassium 3.8 4.0 Chloride 98 97 L Carbon Dioxide 25 25 BUN 9 10 Creatinine 0.64 0.56 L Glucose 249 H 320 H Calcium 8.7 8.2 L Liver Function 06/11/17 06/12/17 Range/Units 14:51 06:07 Total Bilirubin 0.3 0.1 L (0.3-1.0) mg/dL AST 16 13 (13-39) Units/L ALT 11 10 (7-52) Units/L Alkaline Phosphatase 51 44 (34-104) Units/L Albumin 3.3 L 3.0 L (3.5-5.7) g/dL - ABG Interpretation ABG results: PT/INR, D-dimer PT 11.6 Seconds (9.4-12.1) 06/11/17 14:51 - Impressions Impressions Abdomen/Pelvis Ultrasound 06/11/17 20:00 IMPRESSION: Normal liver Doppler study. Diffuse hepatic steatosis. D/ / Sera Cunha MD / Sera Cunha MD Interpreting Provider: Sera Cunha MD Liver Ultrasound 06/11/17 20:00 IMPRESSION: Normal liver Doppler study. Diffuse hepatic steatosis. D/ / Sera Cunha MD / Sera Cunha MD Interpreting Provider: Sera Cunha MD - VTE Reasons for not Prescribing Prophylaxis: Medical contraindication Documentation of Mechanical Device: Intermittent pneumatic compression device Consult Discharge Plan - Plan Referrals: Macrina Montes CNP [Primary Care Provider] - 06/19/17 10:00 am (You will be seeing Dr. Garcia at the [facility]. office in [place]. Thank you) <Wilfred Beatty - Last Filed: 06/12/17 18:35> Date of Encounter: 06/12/17 - Assessment and plan (1) Pancreatitis, acute Current Visit: Yes Status: Acute Assessment and plan: Acute on chronic due to lipids. Qualifiers: Pancreatitis type: other Acute pancreatitis complication: unspecified Qualified Code(s): K85.80 - Other acute pancreatitis without necrosis or infection (2) Hepatitis B Current Visit: Yes Status: Suspected Qualifiers: Viral hepatitis chronicity: acute Hepatic coma status: without hepatic coma Hepatitis delta agent presence: without delta-agent Qualified Code(s): B16.9 - Acute hepatitis B without delta-agent and without hepatic coma (3) Abdominal pain Current Visit: Yes Status: Acute Qualifiers: Abdominal location: generalized Qualified Code(s): R10.84 - Generalized abdominal pain (4) Diabetes mellitus Current Visit: Yes Status: Acute Qualifiers: Diabetes mellitus type: type 2 Diabetes mellitus complication status: with hyperglycemia Diabetes mellitus intermediate accountant insulin use: without intermediate accountant use Qualified Code(s): E11.65 - Type 2 diabetes mellitus with hyperglycemia (5) Hyperlipidemia Current Visit: Yes Status: Chronic Qualifiers: Hyperlipidemia type: mixed hyperlipidemia Qualified Code(s): E78.2 - Mixed hyperlipidemia (6) Ecchymosis Current Visit: Yes Status: Acute - Constitutional Vitals: Temp Pulse Resp BP Pulse Ox 97.5 F L 109 15 133/82 98 06/12/17 14:34 06/12/17 14:34 06/12/17 14:34 06/12/17 14:34 06/12/17 14:34 Internal Medicine: Result - Labs CBC & Chem 7: 06/12/17 06:07 06/12/17 06:07 Labs: Short CBC 06/12/17 Range/Units 06:07 WBC 6.8 (4.3-11.1) K/mcL Hgb 11.0 L (11.5-15.4) g/dL Hct 29.9 L (35.3-44.9) % Plt Count 186 (140-400) K/mcL Neutrophils # 2.8 (1.6-8.9) K/mcL BMP 06/12/17 06:07 Sodium 132 L Potassium 4.0 Chloride 97 L Carbon Dioxide 25 BUN 10 Creatinine 0.56 L Glucose 320 H Calcium 8.2 L Liver Function 06/12/17 Range/Units 06:07 Total Bilirubin 0.1 L (0.3-1.0) mg/dL AST 13 (13-39) Units/L ALT 10 (7-52) Units/L Alkaline Phosphatase 44 (34-104) Units/L Albumin 3.0 L (3.5-5.7) g/dL - ABG Interpretation ABG results: PT/INR, D-dimer PT 11.6 Seconds (9.4-12.1) 06/11/17 14:51 - Impressions Impressions Abdomen/Pelvis Ultrasound 06/11/17 20:00 IMPRESSION: Normal liver Doppler study. Diffuse hepatic steatosis. D/ / Sera Cunha MD / Sera Cunha MD Interpreting Provider: Sera Cunha MD Liver Ultrasound 06/11/17 20:00 IMPRESSION: Normal liver Doppler study. Diffuse hepatic steatosis. D/ / Sera Cunha MD / Sera Cunha MD Interpreting Provider: Sera Cunha MD - Attending Attestation I examined this patient and my medical decision-making was reviewed with the Resident Physician on 06/12/17. I agree with the documented findings, disposition and treatment plan as described except to the extent set forth below. Ms Henderson is currently admitted for abdominal pain. She has markedly elevated lipids. Ms Henderson continues to have pain. We have been able to get history now that she had severe pancreatitis in 2013 and is now on Creon. Her lipids have been high for a while. Exam Alert. Moderate distress due to pain Heart reg Lungs clear Abd remains diffusely tender Edema persists I/P 1. Probable acute on chronic pancreatitis - most likely she has very little remaining pancreatic function and therefore her amylase/lipase will not elevate. Suspect this is all due to her lipids. Will get MRI of abdomen. Start on insulin drip. 2. Hyperlipidemia - restart meds 3. DM Further diagnoses and plan as above. I am going to place her in inpatient status at this time. I feel this is acute pancreatitis related to lipids.
[2017-06-12 13:41] LABS: Hepatitis B Surface Antigen Nonreactive (Nonreactive)
[2017-06-12 13:42] LABS: Hepatitis B Surface Antibody 2490.44 mIU/mL
[2017-06-12] MEDS ORDERED: *HR* Dextrose 50 % in Water (Syg) 50 ML SYRINGE IVP PRN (15:52)
[2017-06-12] MEDS ORDERED: Insulin Human Regular 100 UNIT in 0.9 % Sodium Chloride 100 ML IVC SCH ×2 (16:00→16:15)
[2017-06-12] MEDS ORDERED: D5% in 0.45% NACL 1,000 ML IVC PRN (16:03)
[2017-06-12] MEDS: Insulin Human Regular 100 UNIT in 0.9 % Sodium Chloride 100 ML IVC SCH (21:47)
[2017-06-12] MEDS: D5% in Water 1,000 ML IVC PRN (22:57)
[2017-06-13 04:48] LABS: Basophils % 0.4 %; Eosinophils # 0.1 K/mcL (0.0-0.6); Eosinophils % 1.9 %; Hematocrit 29.2 % (35.3-44.9); Hemoglobin 10.5 g/dL (11.5-15.4); Immature Granulocytes % 0.5 % (0-4); Lymphocytes # 2.6 K/mcL (0.6-4.6); Lymphocytes % 34.9 %; Mean Corpuscular Hemoglobin 31.6 pg (28.0-33.3); Mean Platelet Volume 10.2 fL (9.4-12.4); Monocytes # 0.6 K/mcL (0.0-1.3); Monocytes % 8.4 %; Neutrophils # 4.1 K/mcL (1.6-8.9); Nucleated Red Blood Cells 0.3 /100 WBC (0); Platelet Count 214 K/mcL (140-400); Red Blood Count 3.32 M/mcL (3.82-4.97); Red Cell Distribution Width 12.3 % (11.5-14.5); Segmented Neutrophils % 53.9 %
[2017-06-13] MEDS: D5% in Water 1,000 ML IVC PRN (05:24)
[2017-06-13] MEDS: Pantoprazole 40 MG VIAL IVP SCH (05:26)
[2017-06-13 06:54] LABS: Chloride 96 mEq/L (98-107); Potassium 3.5 mEq/L (3.5-5.1)
[2017-06-13 06:55] LABS: Alkaline Phosphatase 47 Units/L (34-104); Aspartate Amino Transferase 14 Units/L (13-39); BUN/Creatinine Ratio 25 (6-26); Bilirubin,Total 0.1 mg/dL (0.3-1.0); Blood Urea Nitrogen 14 mg/dL (6-20); Calcium 8.5 mg/dL (8.6-10.3); Carbon Dioxide 25 mEq/L (23-29); Glucose 77 mg/dL (70-105); Osmolality,Calculated 271 (280-300); eGFR For African Americans > 60 (> 60); eGFR For Non-African Americans > 60 (> 60)
[2017-06-13 06:56] LABS: Alanine Aminotransferase 11 Units/L (7-52); Albumin 3.4 g/dL (3.5-5.7); Albumin/Globulin Ratio 1.4 (1.1-2.2); Globulin 2.5 g/dL (2.4-3.5); Total Protein 5.9 g/dL (6.4-8.9)
[2017-06-13 06:59] LABS: Sodium 131 mEq/L (136-145)
[2017-06-13 07:05] LABS: Cholesterol 719 mg/dL (< 200)
[2017-06-13 07:06] LABS: Chol/HDL Ratio 24.8 (0-4.9); HDL Cholesterol 29 mg/dL (40-59); Triglycerides 2184 mg/dL (< 150)
[2017-06-13] MEDS: *HR* HYDROcodone/Acet 5/325 mg TABLET PO PRN ×2 (07:53→12:48)
[2017-06-13] MEDS: Gabapentin 400 MG CAPSULE PO SCH ×2 (07:53→16:00)
[2017-06-13] MEDS: Fenofibrate 54 MG TABLET PO SCH (07:53)
[2017-06-13] MEDS: Methylphenidate HCl 10 MG TABLET PO SCH ×2 (07:53→12:44)
[2017-06-13] MEDS: Venlafaxine XR (24 HR) 150 MG CAP.ER.24H PO SCH (07:54)
[2017-06-13] MEDS: Sennosides/Docusate Sodium TABLET PO SCH (07:54)
[2017-06-13] MEDS: Lactulose Oral Soln 20 GM/30 ML UDC PO SCH (07:54)
[2017-06-13] MEDS: Insulin Human Regular 100 UNIT in 0.9 % Sodium Chloride 100 ML IVC SCH (08:12)
[2017-06-13 09:34] LABS: Hepatitis B Core IgM Reactive (Nonreactive)
[2017-06-13] MEDS ORDERED: Insulin LISPRO 300 UNITS/3 ML VIAL SQ SCH ×2 (10:00→11:30)
--- NOTE | 2017-06-13 11:00 | Discharge Summary ---
<Jeffrey Pompa - Last Filed: 06/13/17 13:57> Date of Encounter: 06/13/17 Time of Encounter: 10:56 - Discharge Diagnosis (1) Ecchymosis Priority: Primary Status: Acute (2) Abdominal pain Priority: Primary Status: Acute Qualifiers: Abdominal location: generalized Qualified Code(s): R10.84 - Generalized abdominal pain (3) Hepatitis B Priority: Primary Status: Suspected Qualifiers: Viral hepatitis chronicity: acute Hepatic coma status: without hepatic coma Hepatitis delta agent presence: without delta-agent Qualified Code(s): B16.9 - Acute hepatitis B without delta-agent and without hepatic coma (4) Anemia Priority: Primary Status: Acute Qualifiers: Anemia type: unspecified type Qualified Code(s): D64.9 - Anemia, unspecified (5) Hyperlipidemia Priority: Primary Status: Chronic Qualifiers: Hyperlipidemia type: mixed hyperlipidemia Qualified Code(s): E78.2 - Mixed hyperlipidemia (6) Nausea & vomiting Priority: Secondary Status: Acute Qualifiers: Vomiting type: unspecified Vomiting Intractability: unspecified Qualified Code(s): R11.2 - Nausea with vomiting, unspecified (7) Diabetes mellitus Priority: Secondary Status: Acute Qualifiers: Diabetes mellitus type: type 2 Diabetes mellitus complication status: with hyperglycemia Diabetes mellitus long term care social worker insulin use: without long term care social worker use Qualified Code(s): E11.65 - Type 2 diabetes mellitus with hyperglycemia (8) DVT prophylaxis Priority: Secondary Status: Acute Hospital course: Ms. Henderson is a 41 year old female that presented with abdominal pain and ecchymosis. Patient was somewhat of a poor historian due to not providing all the information when asked. Patient was found to have possible hepatitis B. Patient states that she has possible exposure to a boyfriend who may have had an exposure to hepatitis but she was unaware until she found a medical paper of his that said that he had been exposed to hepatitis. Patient also has a history of pancreatitis secondary to hyperlipidemia. She states that her episode of pancreatitis was in 2013 and her lipase at that time was 36,000. A concern for possible pancreatitis and her lipase has been within normal limits, CT scan was negative, ultrasound showed hepatic steatosis and the MRI did not show any acute findings. There is concern for possible chronic pancreatitis due to the patient still having significantly elevated lipids. Her triglycerides have been greater than 2-3000. We have attempted to lower triglycerides with an insulin drip however this has been unsuccessful. We feel at this time that is necessary for the patient to be transferred to a tertiary care center for further evaluation and management. It is likely this patient may require a rn hyperbaric which is unavailable here at [place]. I called and spoke the transfer line at [facility] and we are waiting on a bed for this patient. Discharge discussed with: patient, family - Time Spent with Patient Total time spent providing and/or coordinating discharge services: Greater than 30 minutes Specific discharge activities: 40 - Discharge Medications Home Medications: Fenofibrate [Tricor] 145 mg PO DAILY 02/23/15 [History] Gabapentin [Neurontin] 800 mg PO TID 02/23/15 [History] Lipase/Protease/Amylase [Creon Dr 12,000 Units Capsule] 1 each PO TID 02/23/15 [ History] Lisinopril [Zestril] 2.5 mg PO DAILY 02/23/15 [History] Pioglitazone HCl [Actos] 30 mg PO DAILY 02/23/15 [History] Simvastatin [Zocor] 20 mg PO HS 02/23/15 [History] metFORMIN [Glucophage] 1,000 mg PO BIDWM 02/23/15 [History] Naproxen [Naprosyn] 250 mg PO BID 10 Days tablet 03/06/15 [Rx] Cyclobenzaprine [Flexeril] 10 mg PO TID PRN #15 tablet 11/29/15 [Rx] Promethazine [Phenergan] 25 mg PO Q6HR PRN #12 tablet 08/19/16 [Rx] Hyoscyamine SL [Levsin SL] 0.125 mg SL TID #12 tab.subl 10/20/16 [Rx] Sucralfate [Carafate] 1 gm PO QIDAC #120 tablet 10/20/16 [Rx] Methylphenidate HCl [Ritalin] 20 mg PO 0800,1200 06/10/17 [History] Quetiapine Fumarate [SEROquel] 100 mg PO HS 06/10/17 [History] Quetiapine Fumarate [Seroquel] 50 mg PO 0900,1600 06/10/17 [History] Venlafaxine HCl [Venlafaxine HCl ER] 150 mg PO DAILY 06/10/17 [History] Omeprazole [PriLOSEC] 40 mg PO BID 06/11/17 [History] Oxycodone HCl/Acetaminophen [Percocet 5-325 mg Tablet] 1 each PO Q12H PRN [History] Tizanidine HCl [Zanaflex] 2 mg PO Q6H PRN 06/11/17 [History] Allergies/Adverse Reactions: 3 Allergy/AdvReac Type Severity Reaction Status Date / Time Amoxicillin Allergy Hives Verified 10/27/15 23:53 clarithromycin [From Biaxin] Allergy Hives Verified 10/27/15 23:53 moxifloxacin [From Avelox] Allergy Hives Verified 10/27/15 23:53 propoxyphene Allergy Hives Verified 10/27/15 23:53 [From Darvocet-N] Date of admission: 06/12/17 18:34 Primary care physician: Macrina Montes CNP Discharging clinician: Jeffrey Pompa Anticipated date of discharge: 06/13/17 - Constitutional Vitals: Temp Pulse Resp BP Pulse Ox 97.9 F 101 15 105/67 95 06/13/17 10:04 06/13/17 10:04 06/13/17 10:04 06/13/17 10:04 06/13/17 10:04 General appearance: Present: A&O X 3, no acute distress, answers questions appropriately - Head Head exam: Present: atraumatic, normocephalic - Neck Neck exam general surgery: Present: full ROM, normal inspection, trachea midline - Respiratory Respiratory exam: Present: CTAB. Absent: accessory muscle use, rales, rhonchi, wheezes - Cardiovascular Cardiovascular exam: Present: RRR, +S1, +S2. Absent: diastolic murmur, gallop, rubs, systolic murmur - GI/Abdominal GI/Abdominal exam: Present: soft, tenderness (Diffuse abdominal tenderness), no peritoneal signs Additional comments: Ecchymosis over the upper abdomen. - Extremities Exam Extremities exam: Present: pedal edema (Nonpitting edema bilateral lower extremities), warm. Absent: tenderness - Neurological Exam Neurological exam: Present: alert, oriented X3, no focal deficits. Absent: facial droop, speech deficit - Psychiatric Psychiatric exam: Present: normal affect, normal mood - Skin Skin exam: Present: dry, intact, warm - Patient Status Disposition: Transfer Short-Term Hosp Condition: Fair Overall status at discharge: patient is not back to baseline - Discharge Instructions Follow Up With: Macrina Montes CNP [Primary Care Provider] - 06/19/17 10:00 am (You will be seeing Dr. Garcia at the [address] office in [place]. Thank you) - VTE Reasons for not Prescribing Prophylaxis: Medical contraindication Documentation of Mechanical Device: Intermittent pneumatic compression device <Wilfred Beatty Suraj - Last Filed: 06/13/17 18:24> Orders not resulted at time of discharge: Pending orders 06/14/17 04:00 Complete Blood Count [HEME] AM 0400 Comprehensive Metabolic Panel AM 0400 Lipid Panel AM 0400 Date of Encounter: 06/13/17 - Discharge Diagnosis (1) Pancreatitis, acute Priority: Primary Status: Acute Qualifiers: Pancreatitis type: other Acute pancreatitis complication: unspecified Qualified Code(s): K85.80 - Other acute pancreatitis without necrosis or infection (2) Hepatitis B Status: Acute Qualifiers: Viral hepatitis chronicity: acute Hepatic coma status: without hepatic coma Hepatitis delta agent presence: without delta-agent Qualified Code(s): B16.9 - Acute hepatitis B without delta-agent and without hepatic coma (3) Hyperlipidemia Status: Chronic Qualifiers: Hyperlipidemia type: mixed hyperlipidemia Qualified Code(s): E78.2 - Mixed hyperlipidemia (4) Abdominal pain Status: Chronic Qualifiers: Abdominal location: generalized Qualified Code(s): R10.84 - Generalized abdominal pain (5) Diabetes mellitus Status: Chronic Qualifiers: Diabetes mellitus type: type 2 Diabetes mellitus complication status: with hyperglycemia Diabetes mellitus long term care social worker insulin use: without custodial use Qualified Code(s): E11.65 - Type 2 diabetes mellitus with hyperglycemia (6) Ecchymosis Priority: Secondary Status: Chronic Hospital course: Ms. Henderson is a 41 year old female - Time Spent with Patient Total time spent providing and/or coordinating discharge services: 39min Date of admission: 06/12/17 18:34 Primary care physician: Macrina Montes CNP - Constitutional Vitals: Temp Pulse Resp BP Pulse Ox 98.2 F 104 15 121/76 96 06/13/17 15:23 06/13/17 15:23 06/13/17 15:23 06/13/17 15:23 06/13/17 15:23 - Attending Attestation I examined this patient and my medical decision-making was reviewed with the Resident Physician on 06/13/17. I agree with the documented findings, disposition and treatment plan as described except to the extent set forth below. Ms Henderson has been admitted for acute abdominal pain. She has hx of pancreatitis and most likely has chronic pancreatitis. Her lipids are markedly elevated and despite treatment here they have not improved. She also appears to have fatty liver and subacute hep B. At this time we have decided that she should be transferred to another facility. She needs hepatology and endocrinology for further evaluation. Exam alert Resting Abd remains diffusely tender Edema persists Plan Transfer to [facility] when bed available.
[2017-06-13 15:25] VITALS: BP 121/76
[2017-06-13] MEDS: *HR* OxyCODONE Immed Rel 15 MG TABLET PO PRN (16:01)
[2017-06-14 12:43] LABS: Plt Function ADP Closure TIME 82 Seconds (57-162); Plt Function Epi Closure Time 117 Seconds (74-171)
[2017-06-15 08:24] LABS: Ristocetin Cofactor-VWF Active 74 % (51-215); Von Willebrand Factor Ag 104 % (52-214)
[2017-06-15 08:27] LABS: Hepatitis B Core Ab Total POSITIVE (Negative)
[2017-06-15 08:36] LABS: Hepatitis Be Antigen NEGATIVE (Negative)
[2017-06-16 16:18] LABS: HBV Quant by PCR <20 IU/mL
[2017-06-17 08:25] LABS: Hepatitis Be Antibody POSITIVE (Negative)
[2017-06-17 08:47] LABS: HBV Quant Interpretation NOT DETECTED (Not Detected); HBV Quant Log by PCR <1.3 log IU
== END 2017-06-13 18:20 | disposition critical access hospital (66) | DRG 441 ==
LOC: 3ANU 20:56 → EMEROO 20:56 → SUATTDRO 06-09 00:39 → 3ANU 06-09 00:45
PROVIDERS: ADMIT Internal Medicine; ATTEND Internal Medicine

== ENCOUNTER 2017-09-17 17:08 | Observation (INO) ==
[2017-09-17 18:35] LABS: Basophils # 0.1 K/mcL (0.0-0.2); Basophils % 0.5 %; Eosinophils # 0.2 K/mcL (0.0-0.6); Eosinophils % 1.4 %; Hematocrit 33.4 % (35.3-44.9); Hemoglobin 11.5 g/dL (11.5-15.4); Immature Granulocytes % 0.2 % (0-4); Lymphocytes % 37.9 %; Mean Corpuscular HGB Conc 34.4 g/dL (31.6-35.5); Mean Corpuscular Hemoglobin 29.8 pg (28.0-33.3); Mean Corpuscular Volume 86.5 fL (83.0-100.0); Mean Platelet Volume 9.4 fL (9.4-12.4); Monocytes # 0.5 K/mcL (0.0-1.3); Monocytes % 4.5 %; Neutrophils # 5.9 K/mcL (1.6-8.9); Platelet Count 249 K/mcL (140-400); Red Blood Count 3.86 M/mcL (3.82-4.97); Red Cell Distribution Width 11.9 % (11.5-14.5); Segmented Neutrophils % 55.5 %
[2017-09-17 18:53] LABS: Alanine Aminotransferase 10 Units/L (7-52); Albumin 4.3 g/dL (3.5-5.7); Albumin/Globulin Ratio 1.5 (1.1-2.2); Alkaline Phosphatase 42 Units/L (34-104); Amylase 87 Units/L (29-103); Aspartate Amino Transferase 11 Units/L (13-39); BUN/Creatinine Ratio 18 (6-26); Bilirubin,Total 0.2 mg/dL (0.3-1.0); Blood Urea Nitrogen 13 mg/dL (6-20); Calcium 9.1 mg/dL (8.6-10.3); Carbon Dioxide 23 mEq/L (23-29); Chloride 105 mEq/L (98-107); Globulin 2.9 g/dL (2.4-3.5); Glucose 153 mg/dL (70-105); Lipase 57 Units/L (11-82); Osmolality,Calculated 287 (280-300); Potassium 3.7 mEq/L (3.5-5.1); Sodium 137 mEq/L (136-145); Total Protein 7.2 g/dL (6.4-8.9); eGFR For African Americans > 60 (> 60); eGFR For Non-African Americans > 60 (> 60)
[2017-09-17] MEDS ORDERED: 0.9 % Sodium Chloride 1,000 ML IVC ONE ×2 (19:15→21:53)
[2017-09-17] MEDS ORDERED: *HR* FentaNYL (PF) 100 MCG/2 ML VIAL IVP ONE ×2 (19:15→20:53)
[2017-09-17] MEDS ORDERED: Ondansetron 4 MG/2 ML VIAL IVP ONE (19:17)
[2017-09-17] MEDS ORDERED: Isovue-370 500 ML INFUS..BTL IV ONE (19:17)
--- NOTE | 2017-09-17 19:22 | Emergency Department Note ---
Disposition Clinical Impression: Nausea, Intractable pain Abdominal pain Qualifiers: Abdominal location: epigastric Qualified Code(s): R10.13 - Epigastric pain Chronic pancreatitis Qualifiers: Pancreatitis type: unspecified pancreatitis type Qualified Code(s): K86.1 - Other chronic pancreatitis Disposition: Admitted As Inpatient Condition: Fair Instructions: Pancreatitis (ED) Reasons to Return/Additional Instructions: Return to the emergency department if your abdominal pain worsens despite a clear-fluid only diet. Return to the emergency department he developed any new or concerning symptoms. Please follow-up at your scheduled appointment with gastroenterology. Please call their office first thing tomorrow morning to discuss this emergency department visit and attempts to move that appointment up to a closer date. Prescriptions: Ondansetron ODT [Zofran ODT] 4 mg SL Q4HR PRN #6 tab.rapdis PRN Reason: Nausea Referrals: Jose Arango MD [Primary Care Provider] - Forms: ED Satisfaction Letter Time of Disposition: 21:27 Abdominal Pain HPI - General Chief Complaint: ED GI Bleed Stated Complaint: rectal bleeding, low hgb Time Seen by Provider: 09/17/17 18:51 Source: patient Nursing Notes Reviewed: Yes Vital Signs Reviewed: Yes - History of Present Illness HPI Narrative: Mrs. Henderson, a 41yo female, presents from home at the instruction of her PCP ( at [facility]) for evaluation of generalized abdominal pain and low hemoglobin (Hbg 10 per patient). Patient has a history of chronic pancreatitis (secondary to hyperlipidemia) and has generalized abdominal pain most prominent in the epigastrium which is consistent to her chronic pancreatitis. For the last 5 days, she has had loose stools. Initially with maroon discoloration now with flecks of red in her stools. She was treated 3 weeks ago for C. difficile colitis at [facility] inpatient. Her bowels did return to normal after discharge. She notes her stools are now foul smelling similar to her previous C. difficile. Abdominal surgical history: cholecystectomy, hysterectomy, right oophorectomy ROS: Pos: as above Neg: fever, chills, vomiting, chest pain, palpitations, diaphoresis, dyspnea, changes in urination, back pain. Pain Scale: 9 - Related Data Home Medications Medication Instructions Recorded Confirmed Fenofibrate [Tricor] 145 mg PO DAILY 02/23/15 06/24/17 Gabapentin [Neurontin] 800 mg PO TID 02/23/15 06/24/17 Lipase/Protease/Amylase [Creon Dr 1 each PO TID 02/23/15 06/24/17 12,000 Units Capsule] Lisinopril [Zestril] 2.5 mg PO DAILY 02/23/15 06/24/17 Pioglitazone HCl [Actos] 30 mg PO DAILY 02/23/15 06/24/17 metFORMIN [Glucophage] 1,000 mg PO BIDWM 02/23/15 06/24/17 Methylphenidate HCl [Ritalin] 20 mg PO 0800,1200 06/10/17 06/24/17 Quetiapine Fumarate [SEROquel] 100 mg PO HS 06/10/17 06/24/17 Venlafaxine HCl [Venlafaxine HCl 75 mg PO DAILY 06/10/17 06/24/17 ER] Omeprazole [PriLOSEC] 40 mg PO BID 06/11/17 06/24/17 Oxycodone HCl/Acetaminophen 1 each PO Q12H PRN 06/11/17 06/24/17 [Percocet 5-325 mg Tablet] Tizanidine HCl [Zanaflex] 2 mg PO Q6H PRN 06/11/17 06/24/17 Atorvastatin [Lipitor] 80 mg PO HS 06/24/17 06/24/17 Previous Rx's Medication Instructions Recorded Naproxen [Naprosyn] 250 mg PO BID 10 Days tablet 03/06/15 Cyclobenzaprine [Flexeril] 10 mg PO TID PRN #15 tablet 11/29/15 Sucralfate [Carafate] 1 gm PO QIDAC #120 tablet 10/20/16 Hyoscyamine SL [Levsin SL] 0.125 mg SL Q4HR PRN #7 tab.subl 06/21/17 Promethazine [Phenergan] 25 mg PO Q6HR PRN #7 tablet 06/21/17 Allergies Allergy/AdvReac Type Severity Reaction Status Date / Time Amoxicillin Allergy Hives Verified 09/17/17 22:00 clarithromycin [From Biaxin] Allergy Hives Verified 09/17/17 22:00 moxifloxacin [From Avelox] Allergy Hives Verified 09/17/17 22:00 propoxyphene Allergy Hives Verified 09/17/17 22:00 [From [facility]] All systems ED: reviewed and negative except as stated. 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 Head: atraumatic, normocephalic Eye: normal appearance, no scleral icterus, no conjunctival injection ENT: mucous membranes moist, normal external ear exam Neck: normal inspection, trachea midline, full ROM Chest: normal inspection, symmetric chest rise Respiratory: Good respiratory effort. Bilateral breath sounds are clear without wheezing, crackles, or rhonchi. Cardiovascular: Regular rate and rhythm. No clicks, rubs, gallops, or murmors. Normal heart sounds. Abdomen: Bowel sounds present normoactive x-4 quadrants. Abdomen is soft, nondistended, no guarding, no rebound. Diffuse moderate abdominal tenderness most prominent in the epigastrium and hypogastrium. Rectal exam: [employer] present. External hemorrhoid present. Florinda of red on gloved finger tip. No overt blood. No stool. FOBT submitted. Musculoskeletal: Spontaneously moving all extremities. Skin: warm, dry, intact. Neuro: Alert and oriented x4. Sensation light touch intact. Psych: Patient's affect is appropriate for situation. - General Limitations: no limitations General appearance: alert Course Course Narrative: Patient is was for a rate of 20 otherwise normal vital signs. On my bedside exam, she does appear to be in pain; provide fentanyl Zofran. She is not anemic on laboratory workup today with hemoglobin 11.5. Serum hematology is unremarkable. Serum chemistries unremarkable; specifically normal lipase and unremarkable liver function tests. Even with normal lipase, to him patient's chronic pancreatitis, this could be a flare. Urinalysis is not concerning for UTI. Rectal exam showed hemorrhoid; FOBT negative. Chest x-ray unremarkable. CT abdomen pelvis with contrast shows no acute abnormality. His pain poorly controlled with serial doses of fentanyl-50 g 75 g. I provided to liter IV fluid bolus. I discussed this with the patient. She was given the choice of discharge home for self-management versus admission for pain control. She prefers admission for intractable pain, nausea, continue management of her chronic pancreatitis. I discussed the patient with the admitting hospitalist who agrees to accept the patient for continued evaluation and management. Chest X-Ray 09/17/17 17:19 IMPRESSION: Stable appearing chest without acute cardiopulmonary process. D/ / Morgan Rollins MD / Morgan Rollins MD Interpreting Provider: Morgan Rollins MD Abdomen/Pelvis CT 09/17/17 19:17 IMPRESSION: No specific, acute CT abnormality appreciated. D/ / Rivera Grover / Rivera Grover Interpreting Provider: Rivera Grover Vital Signs Temperature 98.3 F 09/17/17 17:10 Pulse Rate 71 09/17/17 17:10 Respiratory Rate 20 09/17/17 17:10 Blood Pressure 117/74 09/17/17 17:10 O2 Sat by Pulse Oximetry 96 09/17/17 17:10 Temperature 98.3 F 09/17/17 17:10 Pulse Rate 73 09/17/17 21:54 Respiratory Rate 20 09/17/17 19:37 Blood Pressure 109/58 09/17/17 21:54 O2 Sat by Pulse Oximetry 98 09/17/17 19:37 Oxygen Delivery Oxygen Delivery Room Air Abdominal Pain - Lab Data Result diagrams: 09/17/17 18:00 09/17/17 18:00 Lab Results 09/17/17 09/17/17 09/17/17 Range/Units 18:00 18:00 19:28 WBC 10.6 (4.3-11.1) K/mcL RBC 3.86 (3.82-4.97) M/mcL Hgb 11.5 (11.5-15.4) g/dL Hct 33.4 L (35.3-44.9) % MCV 86.5 (83.0-100.0) fL MCH 29.8 (28.0-33.3) pg MCHC 34.4 (31.6-35.5) g/dL RDW 11.9 (11.5-14.5) % Plt Count 249 (140-400) K/mcL MPV 9.4 (9.4-12.4) fL Immature Gran % 0.2 (0-4) % Seg Neutrophils % 55.5 % Lymphocytes % 37.9 % Monocytes % 4.5 % Eosinophils % 1.4 % Basophils % 0.5 % Neutrophils # 5.9 (1.6-8.9) K/mcL Lymphocytes # 4.0 (0.6-4.6) K/mcL Monocytes # 0.5 (0.0-1.3) K/mcL Eosinophils # 0.2 (0.0-0.6) K/mcL Basophils # 0.1 (0.0-0.2) K/mcL Sodium 137 (136-145) mEq/L Potassium 3.7 (3.5-5.1) mEq/L Chloride 105 (98-107) mEq/L Carbon Dioxide 23 (23-29) mEq/L BUN 13 (6-20) mg/dL Creatinine 0.73 (0.60-1.20) mg/dL Est GFR ( Amer) > 60 (> 60) Est GFR (Non-Af Amer) > 60 (> 60) BUN/Creatinine Ratio 18 (6-26) Glucose 153 H (70-105) mg/dL Calculated Osmolality 287 (280-300) Calcium 9.1 (8.6-10.3) mg/dL Total Bilirubin 0.2 L (0.3-1.0) mg/dL AST 11 L (13-39) Units/L ALT 10 (7-52) Units/L Alkaline Phosphatase 42 (34-104) Units/L Serum Total Protein 7.2 (6.4-8.9) g/dL Albumin 4.3 (3.5-5.7) g/dL Globulin 2.9 (2.4-3.5) g/dL Albumin/Globulin Ratio 1.5 (1.1-2.2) Amylase 87 (29-103) Units/L Lipase 57 (11-82) Units/L Urine Color Yellow (Yellow) Urine Clarity Clear (Clear) Urine pH 6.0 (5.0-8.0) pH Units Ur Specific [place] 1.018 (1.010-1.025) Urine Protein Negative (Neg-Trace) mg/dL Urine Glucose (UA) Normal (Normal) mg/dL Urine Ketones Negative (Negative) mg/dL Urine Blood Negative (Negative) Urine Nitrite Negative (Negative) Urine Bilirubin Negative (Negative) Urine Urobilinogen Normal (Normal) mg/dL Ur Leukocyte Esterase Negative (Negative) Ur Culture Indicated? NO (NO) Stool Occult Blood (Negative) 09/17/17 Range/Units 20:17 WBC (4.3-11.1) K/mcL RBC (3.82-4.97) M/mcL Hgb (11.5-15.4) g/dL Hct (35.3-44.9) % MCV (83.0-100.0) fL MCH (28.0-33.3) pg MCHC (31.6-35.5) g/dL RDW (11.5-14.5) % Plt Count (140-400) K/mcL MPV (9.4-12.4) fL Immature Gran % (0-4) % Seg Neutrophils % % Lymphocytes % % Monocytes % % Eosinophils % % Basophils % % Neutrophils # (1.6-8.9) K/mcL Lymphocytes # (0.6-4.6) K/mcL Monocytes # (0.0-1.3) K/mcL Eosinophils # (0.0-0.6) K/mcL Basophils # (0.0-0.2) K/mcL Sodium (136-145) mEq/L Potassium (3.5-5.1) mEq/L Chloride (98-107) mEq/L Carbon Dioxide (23-29) mEq/L BUN (6-20) mg/dL Creatinine (0.60-1.20) mg/dL Est GFR ( Amer) (> 60) Est GFR (Non-Af Amer) (> 60) BUN/Creatinine Ratio (6-26) Glucose (70-105) mg/dL Calculated Osmolality (280-300) Calcium (8.6-10.3) mg/dL Total Bilirubin (0.3-1.0) mg/dL AST (13-39) Units/L ALT (7-52) Units/L Alkaline Phosphatase (34-104) Units/L Serum Total Protein (6.4-8.9) g/dL Albumin (3.5-5.7) g/dL Globulin (2.4-3.5) g/dL Albumin/Globulin Ratio (1.1-2.2) Amylase (29-103) Units/L Lipase (11-82) Units/L Urine Color (Yellow) Urine Clarity (Clear) Urine pH (5.0-8.0) pH Units Ur Specific [place] (1.010-1.025) Urine Protein (Neg-Trace) mg/dL Urine Glucose (UA) (Normal) mg/dL Urine Ketones (Negative) mg/dL Urine Blood (Negative) Urine Nitrite (Negative) Urine Bilirubin (Negative) Urine Urobilinogen (Normal) mg/dL Ur Leukocyte Esterase (Negative) Ur Culture Indicated? (NO) Stool Occult Blood Negative (Negative)
[2017-09-17 19:54] LABS: Bilirubin,Urine Negative (Negative); Blood,Urine Negative (Negative); Clarity,Urine Clear (Clear); Color,Urine Yellow (Yellow); Glucose,Urine (UA) Normal (Normal); Ketones,Urine Negative (Negative); Leukocyte Esterase,Urine Negative (Negative); Nitrite,Urine Negative (Negative); Protein,Urine Negative (Neg-Trace); Specific Gravity,Urine 1.018 (1.010-1.025); Urobilinogen,Urine Normal (Normal)
--- NOTE | 2017-09-17 22:05 | Emergency Department Note ---
Disposition Clinical Impression: Abdominal pain Qualifiers: Abdominal location: epigastric Qualified Code(s): R10.13 - Epigastric pain Disposition: Admitted As Inpatient Condition: Fair Instructions: Pancreatitis (ED) Reasons to Return/Additional Instructions: Return to the emergency department if your abdominal pain worsens despite a clear-fluid only diet. Return to the emergency department he developed any new or concerning symptoms. Please follow-up at your scheduled appointment with gastroenterology. Please call their office first thing tomorrow morning to discuss this emergency department visit and attempts to move that appointment up to a closer date. Prescriptions: Ondansetron ODT [Zofran ODT] 4 mg SL Q4HR PRN #6 tab.rapdis PRN Reason: Nausea Referrals: Jose Arango MD [Primary Care Provider] - Forms: ED Satisfaction Letter General Adult HPI - General Chief complaint: ED GI Bleed Stated complaint: rectal bleeding, low hgb Time Seen by Provider: 09/17/17 18:51 Source: patient Limitations: no limitations Nursing Notes Reviewed: Yes Vital Signs Reviewed: Yes - History of Present Illness Pain Scale: 9 - Related Data Home Medications Medication Instructions Recorded Confirmed Fenofibrate [Tricor] 145 mg PO DAILY 02/23/15 09/17/17 Gabapentin [Neurontin] 800 mg PO TID 02/23/15 09/17/17 Lipase/Protease/Amylase [Creon Dr 1 each PO TID 02/23/15 09/17/17 12,000 Units Capsule] Lisinopril [Zestril] 2.5 mg PO DAILY 02/23/15 09/17/17 Pioglitazone HCl [Actos] 30 mg PO DAILY 02/23/15 09/17/17 metFORMIN [Glucophage] 1,000 mg PO BIDWM 02/23/15 09/17/17 Methylphenidate HCl [Ritalin] 20 mg PO 0800,1200 06/10/17 09/17/17 Quetiapine Fumarate [SEROquel] 100 mg PO HS 06/10/17 09/17/17 Venlafaxine HCl [Venlafaxine HCl 75 mg PO DAILY 06/10/17 09/17/17 ER] Omeprazole [PriLOSEC] 40 mg PO BID 06/11/17 09/17/17 Oxycodone HCl/Acetaminophen 1 each PO TID PRN 06/11/17 09/17/17 [Percocet 5-325 mg Tablet] Tizanidine HCl [Zanaflex] 2 mg PO Q6H PRN 06/11/17 09/17/17 Atorvastatin [Lipitor] 80 mg PO HS 06/24/17 09/17/17 Previous Rx's Medication Instructions Recorded Naproxen [Naprosyn] 250 mg PO BID 10 Days tablet 03/06/15 Cyclobenzaprine [Flexeril] 10 mg PO TID PRN #15 tablet 11/29/15 Sucralfate [Carafate] 1 gm PO QIDAC #120 tablet 10/20/16 Hyoscyamine SL [Levsin SL] 0.125 mg SL Q4HR PRN #7 tab.subl 06/21/17 Promethazine [Phenergan] 25 mg PO Q6HR PRN #7 tablet 06/21/17 Ondansetron ODT [Zofran ODT] 4 mg SL Q4HR PRN #6 tab.rapdis 09/17/17 Allergies Allergy/AdvReac Type Severity Reaction Status Date / Time Amoxicillin Allergy Hives Verified 09/17/17 22:00 clarithromycin [From Biaxin] Allergy Hives Verified 09/17/17 22:00 moxifloxacin [From Avelox] Allergy Hives Verified 09/17/17 22:00 propoxyphene Allergy Hives Verified 09/17/17 22:00 [From Darvocet-N] Past Medical History - Past Medical History Medical history: Reports: diabetes, hyperlipidemia, hypertension, kidney stones , other Surgical history: Reports: cholecystectomy, hysterectomy, orthopedic, other Psychiatric history: Reports: anxiety, ADHD, bipolar, PTSD, previous psychiatric hospitalization, other 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 history: Reports: bilateral tubal ligation - Social History Smoking Status: Never smoker Smokeless Tobacco Status: No Alcohol use: Reports: none Drug use: Reports: none Physical Exam - General Limitations: no limitations General appearance: alert Course Vital Signs Temperature 98.3 F 09/17/17 17:10 Pulse Rate 71 09/17/17 17:10 Respiratory Rate 20 09/17/17 17:10 Blood Pressure 117/74 09/17/17 17:10 O2 Sat by Pulse Oximetry 96 09/17/17 17:10 Temperature 98.3 F 09/17/17 17:10 Pulse Rate 73 06/12/18 21:54 Respiratory Rate 20 09/17/17 19:37 Blood Pressure 109/58 09/17/17 21:54 O2 Sat by Pulse Oximetry 98 09/17/17 19:37 Oxygen Delivery Oxygen Delivery Room Air Medical Decision Making - Lab Data Result diagrams: 09/17/17 18:00 09/17/17 18:00 Lab Results 09/17/17 09/17/17 09/17/17 Range/Units 18:00 18:00 19:28 WBC 10.6 (4.3-11.1) K/mcL RBC 3.86 (3.82-4.97) M/mcL Hgb 11.5 (11.5-15.4) g/dL Hct 33.4 L (35.3-44.9) % MCV 86.5 (83.0-100.0) fL MCH 29.8 (28.0-33.3) pg MCHC 34.4 (31.6-35.5) g/dL RDW 11.9 (11.5-14.5) % Plt Count 249 (140-400) K/mcL MPV 9.4 (9.4-12.4) fL Immature Gran % 0.2 (0-4) % Seg Neutrophils % 55.5 % Lymphocytes % 37.9 % Monocytes % 4.5 % Eosinophils % 1.4 % Basophils % 0.5 % Neutrophils # 5.9 (1.6-8.9) K/mcL Lymphocytes # 4.0 (0.6-4.6) K/mcL Monocytes # 0.5 (0.0-1.3) K/mcL Eosinophils # 0.2 (0.0-0.6) K/mcL Basophils # 0.1 (0.0-0.2) K/mcL Sodium 137 (136-145) mEq/L Potassium 3.7 (3.5-5.1) mEq/L Chloride 105 (98-107) mEq/L Carbon Dioxide 23 (23-29) mEq/L BUN 13 (6-20) mg/dL Creatinine 0.73 (0.60-1.20) mg/dL Est GFR ( Amer) > 60 (> 60) Est GFR (Non-Af Amer) > 60 (> 60) BUN/Creatinine Ratio 18 (6-26) Glucose 153 H (70-105) mg/dL Calculated Osmolality 287 (280-300) Calcium 9.1 (8.6-10.3) mg/dL Total Bilirubin 0.2 L (0.3-1.0) mg/dL AST 11 L (13-39) Units/L ALT 10 (7-52) Units/L Alkaline Phosphatase 42 (34-104) Units/L Serum Total Protein 7.2 (6.4-8.9) g/dL Albumin 4.3 (3.5-5.7) g/dL Globulin 2.9 (2.4-3.5) g/dL Albumin/Globulin Ratio 1.5 (1.1-2.2) Amylase 87 (29-103) Units/L Lipase 57 (11-82) Units/L Urine Color Yellow (Yellow) Urine Clarity Clear (Clear) Urine pH 6.0 (5.0-8.0) pH Units Ur Specific [place] 1.018 (1.010-1.025) Urine Protein Negative (Neg-Trace) mg/dL Urine Glucose (UA) Normal (Normal) mg/dL Urine Ketones Negative (Negative) mg/dL Urine Blood Negative (Negative) Urine Nitrite Negative (Negative) Urine Bilirubin Negative (Negative) Urine Urobilinogen Normal (Normal) mg/dL Ur Leukocyte Esterase Negative (Negative) Ur Culture Indicated? NO (NO) Stool Occult Blood (Negative) 09/17/17 Range/Units 20:17 WBC (4.3-11.1) K/mcL RBC (3.82-4.97) M/mcL Hgb (11.5-15.4) g/dL Hct (35.3-44.9) % MCV (83.0-100.0) fL MCH (28.0-33.3) pg MCHC (31.6-35.5) g/dL RDW (11.5-14.5) % Plt Count (140-400) K/mcL MPV (9.4-12.4) fL Immature Gran % (0-4) % Seg Neutrophils % % Lymphocytes % % Monocytes % % Eosinophils % % Basophils % % Neutrophils # (1.6-8.9) K/mcL Lymphocytes # (0.6-4.6) K/mcL Monocytes # (0.0-1.3) K/mcL Eosinophils # (0.0-0.6) K/mcL Basophils # (0.0-0.2) K/mcL Sodium (136-145) mEq/L Potassium (3.5-5.1) mEq/L Chloride (98-107) mEq/L Carbon Dioxide (23-29) mEq/L BUN (6-20) mg/dL Creatinine (0.60-1.20) mg/dL Est GFR ( Amer) (> 60) Est GFR (Non-Af Amer) (> 60) BUN/Creatinine Ratio (6-26) Glucose (70-105) mg/dL Calculated Osmolality (280-300) Calcium (8.6-10.3) mg/dL Total Bilirubin (0.3-1.0) mg/dL AST (13-39) Units/L ALT (7-52) Units/L Alkaline Phosphatase (34-104) Units/L Serum Total Protein (6.4-8.9) g/dL Albumin (3.5-5.7) g/dL Globulin (2.4-3.5) g/dL Albumin/Globulin Ratio (1.1-2.2) Amylase (29-103) Units/L Lipase (11-82) Units/L Urine Color (Yellow) Urine Clarity (Clear) Urine pH (5.0-8.0) pH Units Ur Specific [place] (1.010-1.025) Urine Protein (Neg-Trace) mg/dL Urine Glucose (UA) (Normal) mg/dL Urine Ketones (Negative) mg/dL Urine Blood (Negative) Urine Nitrite (Negative) Urine Bilirubin (Negative) Urine Urobilinogen (Normal) mg/dL Ur Leukocyte Esterase (Negative) Ur Culture Indicated? (NO) Stool Occult Blood Negative (Negative) Attestation Statement - Attestation Attestation: I, eTja Vázquez, examined this patient and my medical decision-making was reviewed with the BOX PRESS OPERATOR/PA/Advanced Practice Nurse/Resident Physician. I agree with the documented findings, disposition and treatment plan as described except to the extent set forth below. 41-year-old female presents emergency Department with concerns of nausea, abdominal pain. Patient states she she has been having difficulty with by mouth intake over the past 2 weeks. Patient states any by mouth intake makes her abdominal pain worse. She initially presented for concerns of rectal bleeding, and concerns of anemia. Patient hemoglobin had improved compared to her previous. CT of the abdomen today and her laboratory evaluation was largely within normal limits. Patient states she has chronic pancreatitis and this pain feels similar to her previous pancreatitis exacerbations. Patient states that her. Lipase does not usually elevated with her pancreatitis. She does not have a GI physician. Patient was given 2 doses of IV pain medication in the emergency department she was given IV fluids and nausea medication. She states her pain has not improved and she does not feel comfortable to return home. Patient will be admitted to the hospitalist for further care and evaluation of her abdominal pain.
[2017-09-18] MEDS: *HR* OxyCODONE/APAP 5/325 TABLET PO PRN ×4 (00:06→20:14)
[2017-09-18] MEDS: *HR* Promethazine 25 MG/ML VIAL IVP PRN ×2 (00:06→06:55)
[2017-09-18] MEDS ORDERED: Acetaminophen/Butalbital/CaffeineTABLET PO ONE (01:35)
[2017-09-18] MEDS ORDERED: Naloxone 0.4 MG/ML INJ IVP PRN (02:35)
[2017-09-18] MEDS ORDERED: D5% in Water 1,000 ML IVC PRN ×2 (02:38→06:50)
[2017-09-18] MEDS ORDERED: *HR* Dextrose 50 % in Water (Syg) 50 ML SYRINGE IVP PRN ×2 (02:38→06:50)
[2017-09-18] MEDS ORDERED: Dextrose Gel 15 GM/37.5 ML TUBE PO PRN ×4 (02:38→06:50)
--- NOTE | 2017-09-18 02:48 | Internal Med History&Physical ---
Date of Encounter: 09/18/17 Time of Encounter: 01:10 Internal Medicine - H&P: HPI Chief complaint: nausea, vomiting, abdominal pain, rectal bleeding Admitted From: Emergency Dept Plans for Post Hospital Care: Home History of present illness: Ms. Henderson is a 41 year old female who presents with a one to two-day history of abdominal pain, protracted nausea, vomiting, and reported rectal bleeding. She was recently hospitalized at [facility] for C. difficile colitis. She finished antibiotics and reportedly recovered from that. However, over the last 2 days, she developed the above symptoms. Her PCP recommended coming to [place] for further workup and GI consultation. Workup in ER was unremarkable but because her symptoms and chronic pancreatitis history, she was admitted to hospitalist service. Upon my assessment of the patient, she was sleeping when I entered the room. She is arousable. She looks dehydrated. She does report significant nausea, vomiting, abdominal cramping, and some diarrhea with blood-tinged stool. She denies any fevers, chills, or night sweats. She reports a history of chronic pancreatitis. She had cholecystectomy many years ago. She does not drink any alcohol. She did have an MRI of her pancreas and abdomen a few months ago which was unremarkable. She has never had an ERCP and/or recent EGD. Of note, she did have acute hepatitis B a few months ago, which she contracted from her boyfriend. She did not know that he had hepatitis B. She denies any history of IV drug use or blood transfusions. Presently, patient feels a little better than her initial presentation. She does look dry, however. She also is complaining of thirst and would like to try some clear liquids. She reports that her chronic pancreatitis is likely due to hypertriglyceridemia. However, she has not seen a GI specialist in many years. Past Med Surg Social Fam HX - Past Medical History Attestation: Yes The following information was validated with the patient. Source: patient, old records reviewed Medical history: diabetes, hyperlipidemia, hypertension, kidney stones Additional medical history: chronic pancreatitis Psychiatric history: anxiety, ADHD, bipolar, PTSD, previous psychiatric hospitalization, other - Past Surgical History Surgical History: cholecystectomy, hysterectomy, orthopedic, other Additional surgical history: back/ left foot sx - Social History Smoking Status: Never smoker Smokeless Tobacco Status: No Alcohol use: none Drug use: none Current living situation: Home, With Family Activity Level: Independent ambulation Recent Out of Country Travel Within the Last 8 Weeks: No - Family History Mother Living Status: Still Living Hx Family Cardiac Disorders: Yes (high blood pressure, high cholesterol) Hx Family Endocrine Disorder: Yes (diabetes) Internal Medicine - H&P: Meds Fenofibrate [Tricor] 145 mg PO DAILY 02/23/15 [History] Gabapentin [Neurontin] 800 mg PO TID 02/23/15 [History] Lipase/Protease/Amylase [Creon Dr 12,000 Units Capsule] 1 each PO TID 02/23/15 [ History] Lisinopril [Zestril] 2.5 mg PO DAILY 02/23/15 [History] Pioglitazone HCl [Actos] 30 mg PO DAILY 02/23/15 [History] metFORMIN [Glucophage] 1,000 mg PO BIDWM 02/23/15 [History] Naproxen [Naprosyn] 250 mg PO BID 10 Days tablet 03/06/15 [Rx] Cyclobenzaprine [Flexeril] 10 mg PO TID PRN #15 tablet 11/29/15 [Rx] Sucralfate [Carafate] 1 gm PO QIDAC #120 tablet 10/20/16 [Rx] Methylphenidate HCl [Ritalin] 20 mg PO 0800,1200 06/10/17 [History] Quetiapine Fumarate [SEROquel] 100 mg PO HS 06/10/17 [History] Venlafaxine HCl [Venlafaxine HCl ER] 75 mg PO DAILY 06/10/17 [History] Omeprazole [PriLOSEC] 40 mg PO BID 06/11/17 [History] Oxycodone HCl/Acetaminophen [Percocet 5-325 mg Tablet] 1 each PO TID PRN [History] Tizanidine HCl [Zanaflex] 2 mg PO Q6H PRN 06/11/17 [History] Hyoscyamine SL [Levsin SL] 0.125 mg SL Q4HR PRN #7 tab.subl 06/21/17 [Rx] Promethazine [Phenergan] 25 mg PO Q6HR PRN #7 tablet 06/21/17 [Rx] Atorvastatin [Lipitor] 80 mg PO HS 06/24/17 [History] 3 Allergy/AdvReac Type Severity Reaction Status Date / Time Amoxicillin Allergy Hives Verified 09/17/17 22:00 clarithromycin [From Biaxin] Allergy Hives Verified 09/17/17 22:00 moxifloxacin [From Avelox] Allergy Hives Verified 09/17/17 22:00 propoxyphene Allergy Hives Verified 09/17/17 22:00 [From Darvocet-N] - Constitutional Constitutional: no chills, no fever(s), no night sweats - EENT Eyes: no blurry vision, no change in vision Ears: no ear pain, no tinnitus Nose, mouth and throat: no sinus pressure, no sore throat - Cardiovascular Cardiovascular ROS IM: no chest pain, no dyspnea, no dyspnea on exertion - Respiratory Respiratory: no cough, no dyspnea - Gastrointestinal Gastrointestinal: abdominal pain, cramping, diarrhea, nausea, vomiting, other ( + rectal bleed), no melena - Genitourinary Genitourinary: no dysuria, no flank pain, no hematuria - Musculoskeletal Musculoskeletal ROS IM: no back pain, no joint swelling - Integumentary Integumentary IM: no rash, no jaundice - Neurological Neurological ROS: headache(s) (migraine), no focal weakness, no frequent falls - Psychiatric Psychiatric: no anxiety, no depression - Endocrine Endocrine IM: no polydipsia, no polyuria - Allergic/Immunologic Allergic/Immunologic: GI upset with certain foods - Constitutional Vitals: Temp Pulse Resp BP Pulse Ox 97.9 F 72 16 126/79 99 09/17/17 23:01 09/17/17 23:01 09/17/17 23:01 09/17/17 23:01 09/17/17 23:01 General appearance: Present: cooperative, mild distress, A&O X 3, pleasant, answers questions appropriately Exam: looks dry - Head Head exam: Present: normal inspection - Eye Eye exam: Present: EOMI, normal appearance, PERRL. Absent: scleral icterus Pupils: Present: normal accommodation - ENT ENT exam: Present: mucous membranes dry, normal exam, normal oropharynx - Neck Neck exam general surgery: Present: full ROM, supple. Absent: tenderness, nuchal rigidity, thyromegaly - Respiratory Respiratory exam: Present: CTAB. Absent: chest wall tenderness, rales, rhonchi , wheezes - Cardiovascular Cardiovascular exam: Present: RRR, +S1, +S2. Absent: diastolic murmur, systolic murmur - GI/Abdominal GI/Abdominal exam: Present: normal bowel sounds, tenderness (mild to moderate diffuse/no-specific), no peritoneal signs. Absent: guarding, hepatomegaly, mass , rebound, splenomegaly - Extremities Exam Extremities exam: Present: full ROM, normal capillary refill, warm, radial pulses palpable and symmetrical. Absent: calf tenderness, joint swelling, pedal edema, tenderness - Back Exam Back exam: Present: normal inspection. Absent: CVA tenderness (L), CVA tenderness (R) - Neurological Exam Neurological exam: Present: alert, CN II-XII intact, oriented X3, no focal deficits - Psychiatric Psychiatric exam: Present: normal affect, normal mood - Skin Skin exam: Present: dry, intact, warm Internal Med - H&P Results - Labs CBC & Chem 7: 09/17/17 18:00 09/17/17 18:00 - Diagnostic Studies Chest x-ray Status: image reviewed by me (negative) CT scan - abdomen Status: image reviewed by me (negative) - Assessment and plan (1) Nausea & vomiting Current Visit: Yes Status: Acute Assessment and plan: 1. Will treat with IV Phenergan and IVF hydration. 2. NPO, followed by clear liquid diet trial. 3. Likely due to chronic pancreatitis flare. Qualifiers: Vomiting type: unspecified Vomiting Intractability: unspecified Qualified Code(s): R11.2 - Nausea with vomiting, unspecified (2) Dehydration Current Visit: Yes Status: Acute Assessment and plan: 1. IVF hydration as well as oral fluid/clear liquid diet trial. 2. Monitor fluid balance and GI symptoms. (3) Chronic pancreatitis Current Visit: Yes Status: Chronic Assessment and plan: 1. Consult GI per patient and PCP request. 2. Continue pancreatic enzyme supplements. 3. Resume home meds when clinically appropriate and patient can tolerate them. 4. Trend amylase and lipase levels. 5. Recent abdominal/pancreas MRI negative. Qualifiers: Pancreatitis type: other Qualified Code(s): K86.1 - Other chronic pancreatitis (4) Rectal bleeding Current Visit: Yes Status: Acute Assessment and plan: 1. Hemoglobin normal. 2. Will check for C. Diff colitis and treat with Flagyl empirically for now. 2. Trend H/H. 4. May need upper/lower endoscopy --- if stable, can be done as outpatient. (5) DVT prophylaxis Current Visit: Yes Status: Acute Assessment and plan: 1. Heparin SQ.
[2017-09-18] MEDS: 0.9 % Sodium Chloride w KCl 20 MEQ/1,000 ML MLS IVC SCH ×2 (03:26→13:49)
[2017-09-18 05:17] LABS: Basophils % 0.5 %; Eosinophils # 0.2 K/mcL (0.0-0.6); Hematocrit 28.8 % (35.3-44.9); Immature Granulocytes % 0.1 % (0-4); Lymphocytes % 51.3 %; Mean Corpuscular Hemoglobin 29.4 pg (28.0-33.3); Mean Corpuscular Volume 86.5 fL (83.0-100.0); Mean Platelet Volume 9.5 fL (9.4-12.4); Monocytes # 0.4 K/mcL (0.0-1.3); Monocytes % 4.8 %; Neutrophils # 3.2 K/mcL (1.6-8.9); Platelet Count 223 K/mcL (140-400); Red Blood Count 3.33 M/mcL (3.82-4.97); Red Cell Distribution Width 12.3 % (11.5-14.5); Segmented Neutrophils % 41.3 %
[2017-09-18 05:20] LABS: Prothrombin Time 10.5 Seconds (9.4-12.1)
[2017-09-18 05:23] LABS: Activated Partial Thrombo Time 31.9 Seconds (26.0-36.0)
[2017-09-18 05:32] LABS: Alanine Aminotransferase 8 Units/L (7-52); Albumin 3.5 g/dL (3.5-5.7); Albumin/Globulin Ratio 1.5 (1.1-2.2); Alkaline Phosphatase 33 Units/L (34-104); Amylase 67 Units/L (29-103); Aspartate Amino Transferase 9 Units/L (13-39); BUN/Creatinine Ratio 19 (6-26); Bilirubin,Total 0.2 mg/dL (0.3-1.0); Blood Urea Nitrogen 10 mg/dL (6-20); Carbon Dioxide 22 mEq/L (23-29); Chloride 112 mEq/L (98-107); Chol/HDL Ratio 4.5 (0-4.9); Cholesterol 166 mg/dL (< 200); Globulin 2.4 g/dL (2.4-3.5); Glucose 135 mg/dL (70-105); HDL Cholesterol 37 mg/dL (40-59); Hemoglobin 9.8 g/dL (11.5-15.4); Lipase 52 Units/L (11-82); Magnesium 1.5 mg/dL (1.6-2.6); Osmolality,Calculated 293 (280-300); Potassium 3.6 mEq/L (3.5-5.1); Sodium 141 mEq/L (136-145); Total Protein 5.9 g/dL (6.4-8.9); Triglycerides 635 mg/dL (< 150); eGFR For African Americans > 60 (> 60); eGFR For Non-African Americans > 60 (> 60)
[2017-09-18] MEDS ORDERED: Insulin LISPRO 300 UNITS/3 ML VIAL SQ SCH (06:00)
[2017-09-18] MEDS: Sucralfate 1 GM TABLET PO SCH ×4 (06:56→21:49)
[2017-09-18] MEDS: *HR* Heparin 5,000 UNIT/ML VIAL SQ SCH ×2 (06:56→18:20)
[2017-09-18] MEDS ORDERED: Acetaminophen/Butalbital/CaffeineTABLET PO PRN (07:00)
[2017-09-18 08:11] LABS: Estimated Average Glucose 154 mg/dl
[2017-09-18] MEDS: Insulin LISPRO 300 UNITS/3 ML VIAL SQ SCH ×4 (09:28→21:49)
[2017-09-18] MEDS: MetroNIDAZOLE 500 MG/100 ML 500 MG/100 ML BAG IVPB SCH ×3 (10:00→23:53)
[2017-09-18] MEDS ORDERED: Hyoscyamine SL 0.125 MG TAB.SUBL SL PRN ×2 (10:49→13:17)
[2017-09-18] MEDS ORDERED: tiZANidine 4 MG TABLET PO PRN (10:49)
[2017-09-18 10:51] LABS: Hematocrit 28.8 % (35.3-44.9); Hemoglobin 9.9 g/dL (11.5-15.4)
--- NOTE | 2017-09-18 10:57 | Gastroenterology Consult Note ---
Date of Encounter: 09/18/17 Time of Encounter: 10:15 - Assessment and plan (1) Chronic pancreatitis Current Visit: Yes Status: Chronic Assessment and plan: CT A/P with no acute abnormality. MRI abdomen 06/12/2017 with no acute findings , pancreatic duct normal, CBD 10mm, s/p cholecystectomy, no pancreatic lesion. Triglycerides 635., Lipase 52. Continue IV fluids, pain control, and antiemetics. Continue Creon. Avoid all alcohol. Qualifiers: Pancreatitis type: other Qualified Code(s): K86.1 - Other chronic pancreatitis (2) Anemia Current Visit: No Status: Acute Assessment and plan: Hgb on admission was 11.5 and today Hgb 9.8. Continue to monitor CBC and transfuse PRBC as needed. Qualifiers: Anemia type: unspecified type Qualified Code(s): D64.9 - Anemia, unspecified (3) Rectal bleeding Current Visit: Yes Status: Acute Assessment and plan: One episode of BRBPR. Will discuss with Dr. Gonsalez need for colonoscopy. (4) Nausea & vomiting Current Visit: Yes Status: Acute Assessment and plan: Likely secondary to chronic pancreatitis. Continue antiemetics. Qualifiers: Vomiting type: unspecified Vomiting Intractability: unspecified Qualified Code(s): R11.2 - Nausea with vomiting, unspecified (5) Abdominal pain Current Visit: Yes Status: Chronic Qualifiers: Abdominal location: epigastric Qualified Code(s): R10.13 - Epigastric pain - Time Spent With Patient Total time spent is greater than 50% in coordination of care (as documented) at patient's floor/unit and/or counseling patient: GI History of Present Illness - Data of Consult Patient: new to practice Consult date: 09/18/17 Requesting Physician: Lebron Adair - Consult Narrative Reason for consult: Chronic pancreatitis, GI bleed History of present illness: Ms. Henderson is a 41 year old female with PMHx of chronic pancreatitis, DM, HLD, HTN who presented to the ED for evaluation of abdominal pain, nausea, vomiting, and diarrhea with one episode of blood-tinged stool. She was recently hospitalized at [facility] for C. difficile colitis and has completed antibiotics. She denies alcohol use. She denies fever, chills, chest pain shortness of breath, melena. She is taking creon due to her chronic pancreatitis. Lipase [address] A/P with no acute abnormality. Fecal occult blood test was negative. Hgb on admission was 11.5 and today Hgb 9.8. Pt was started on Flagyl for empiric treatment of Cdiff. Of note, she did have acute hepatitis B a few months ago, which she contracted from her boyfriend. She denies any history of IV drug use or blood transfusions. Procedures: Colonoscopy 01/12/2015 Dr. Vela: External hemorrhoids, mild chronic inflammation. NSAIDs: None Anticoagulation: None Past Med Surg Social Fam HX - Past Medical History Medical history: diabetes, hyperlipidemia, hypertension, kidney stones Additional medical history: chronic pancreatitis Psychiatric history: anxiety, ADHD, bipolar, PTSD, previous psychiatric hospitalization, other - Past Surgical History Surgical History: cholecystectomy, hysterectomy, orthopedic, other Additional surgical history: back/ left foot sx - Social History Smoking Status: Never smoker Smokeless Tobacco Status: No Alcohol use: none Drug use: none - Family History Mother Living Status: Still Living Hx Family Cardiac Disorders: Yes (high blood pressure, high cholesterol) Hx Family Endocrine Disorder: Yes (diabetes) - Gastrointestinal Gastrointestinal: Present: as per HPI - Constitutional Constitutional: as per HPI - EENT Eyes: as per HPI Ears: Present: as per HPI Nose, mouth and throat: Present: as per HPI - Cardiovascular Cardiovascular ROS: Present: as per HPI - Respiratory Respiratory IM: Present: as per HPI - Genitourinary Genitourinary: Absent: change in color, Urinary frequency - Neurological ROS Neurological GI: Present: as per HPI - Hematologic/Lymphatic Hematologic/Lymphatic pediatric: Present: as per HPI - Musculoskeletal Musculoskeletal ROS GI: Present: as per HPI - Integumentary Integumentary GI: Present: as per HPI - Psychiatric ROS Psychiatric GI: Present: as per HPI - Endocrine Endocrine IM: Present: as per HPI - Constitutional Vitals: Temp Pulse Resp BP Pulse Ox 98.1 F 70 16 132/82 99 09/18/17 05:19 09/18/17 05:19 09/18/17 05:19 09/18/17 05:19 09/18/17 05:19 General appearance: Present: cooperative, A&O X 3, no acute distress, answers questions appropriately - Head Head exam: Present: atraumatic, normocephalic - Eye Eye exam: Present: normal appearance, sclera anicteric - ENT ENT exam: Present: mucous membranes moist - Neck Neck exam general surgery: Present: normal inspection, trachea midline - Respiratory Respiratory exam: Present: CTAB. Absent: rales, rhonchi, wheezes - Cardiovascular Cardiovascular exam: Present: RRR, +S1, +S2 - GI/Abdominal GI/Abdominal exam: Present: normal bowel sounds, soft, tenderness (diffuse mild pain with palpation), no peritoneal signs. Absent: distended, firm, guarding - Rectal Rectal exam: Present: deferred - Extremities Exam Extremities exam: Present: warm - Neurological Exam Neurological exam: Present: no focal deficits - Psychiatric Psychiatric exam: Present: normal affect, normal mood - Skin Skin exam: Present: dry, intact, normal color, warm Results - Labs CBC & Chem 7: 09/18/17 10:36 09/18/17 04:27 Labs: Last Result Calcium 8.0 mg/dL (8.6-10.3) L 09/18/17 04:27 Triglycerides 635 mg/dL (< 150) H 09/18/17 04:27 Stool Occult Blood Negative (Negative) 09/17/17 20:17 Entire Visit Hgb 9.9 g/dL (11.5-15.4) L 09/18/17 10:36 Hct 28.8 % (35.3-44.9) L 09/18/17 10:36 PT 10.5 Seconds (9.4-12.1) 09/18/17 04:27 Total Bilirubin 0.2 mg/dL (0.3-1.0) L 09/18/17 04:27 AST 9 Units/L (13-39) L 09/18/17 04:27 ALT 8 Units/L (7-52) 09/18/17 04:27 Amylase 67 Units/L (29-103) 09/18/17 04:27 Lipase 52 Units/L (11-82) 09/18/17 04:27 - ABG ABG results: PT/INR, D-dimer PT 10.5 Seconds (9.4-12.1) 09/18/17 04:27 Consult Discharge Plan - Plan Referrals: Jose Arango MD [Primary Care Provider] -
[2017-09-18] MEDS: Methylphenidate HCl 10 MG TABLET PO SCH (13:50)
--- NOTE | 2017-09-18 15:38 | Internal Med Progress Note ---
Date of Encounter: 09/18/17 Time of Encounter: 15:33 - Assessment and plan (1) Rectal bleeding Current Visit: Yes Status: Acute Assessment and plan: Check for C diff Trend H&H GI consulted, recs appreciated. Hemodynamically stable (2) Nausea & vomiting Current Visit: Yes Status: Acute Assessment and plan: IV phenergan and fluid hydration Possibly acute/chronic pancreatitis but CT showed no acute findings. Lipase within normal limits. - ADAT, NPO at midnight in case patient to get endoscopy Qualifiers: Vomiting type: unspecified Vomiting Intractability: unspecified Qualified Code(s): R11.2 - Nausea with vomiting, unspecified (3) DVT prophylaxis Current Visit: Yes Status: Acute Assessment and plan: SCD (4) Chronic pancreatitis Current Visit: Yes Status: Chronic Assessment and plan: 1. Consult GI per patient and PCP request. 2. Continue pancreatic enzyme supplements. 3. Resume home meds when clinically appropriate and patient can tolerate them. 4. Trend amylase and lipase levels. 5. Recent abdominal/pancreas MRI negative. Qualifiers: Pancreatitis type: other Qualified Code(s): K86.1 - Other chronic pancreatitis (5) Dehydration Current Visit: Yes Status: Acute Assessment and plan: 1. IVF hydration as well as oral fluid/clear liquid diet trial. 2. Monitor fluid balance and GI symptoms. - Time Spent With Patient Total time spent is greater than 50% in coordination of care (as documented) at patient's floor/unit and/or counseling patient: - Subjective Interval history: Patient complaining of minor abdominal pain. She complains mostly of migraine at this point. Only able to tolerate clear liquids and states unable to handle food at this time. - Constitutional Vitals: Temp Pulse Resp BP Pulse Ox 97.6 F 73 18 113/75 99 09/18/17 11:22 09/18/17 11:22 09/18/17 11:22 09/18/17 11:22 09/18/17 11:22 General appearance: Present: cooperative, mild distress, A&O X 3, pleasant, answers questions appropriately - Head Head exam: Present: atraumatic, normocephalic - Eye Eye exam: Present: PERRL, conjuntiva pink, sclera anicteric Pupils: Present: PERRL - Neck Neck exam general surgery: Present: supple, trachea midline. Absent: lymphadenopathy - Respiratory Respiratory exam: Present: CTAB. Absent: accessory muscle use, rales, rhonchi, wheezes - Cardiovascular Cardiovascular exam: Present: RRR, +S1, +S2. Absent: diastolic murmur, gallop, rubs, systolic murmur - GI/Abdominal GI/Abdominal exam: Present: normal bowel sounds, soft, tenderness, no peritoneal signs. Absent: distended - Extremities Exam Extremities exam: Present: warm, radial pulses palpable and symmetrical. Absent : calf tenderness, cyanotic, pedal edema - Neurological Exam Neurological exam: Present: CN II-XII intact, oriented X3, no focal deficits. Absent: pronater drift, facial droop, speech deficit - Skin Skin exam: Present: dry, intact Internal Medicine: Result - Labs CBC & Chem 7: 09/18/17 10:36 09/18/17 04:27 Labs: Short CBC 09/18/17 09/18/17 Range/Units 04:27 10:36 WBC 7.9 (4.3-11.1) K/mcL Hgb 9.8 L D 9.9 L (11.5-15.4) g/dL Hct 28.8 L 28.8 L (35.3-44.9) % Plt Count 223 (140-400) K/mcL Neutrophils # 3.2 (1.6-8.9) K/mcL BMP 09/18/17 04:27 Sodium 141 Potassium 3.6 Chloride 112 H Carbon Dioxide 22 L BUN 10 Creatinine 0.54 L Glucose 135 H Calcium 8.0 L Liver Function 09/18/17 Range/Units 04:27 Total Bilirubin 0.2 L (0.3-1.0) mg/dL AST 9 L (13-39) Units/L ALT 8 (7-52) Units/L Alkaline Phosphatase 33 L (34-104) Units/L Albumin 3.5 (3.5-5.7) g/dL - ABG Interpretation ABG results: PT/INR, D-dimer PT 10.5 Seconds (9.4-12.1) 09/18/17 04:27 Consult Discharge Plan - Plan Referrals: Jose Arango MD [Primary Care Provider] -
[2017-09-18] MEDS ORDERED: SUMAtriptan succinate 50 MG TABLET PO PRN (15:47)
[2017-09-18] MEDS ORDERED: Prochlorperazine 10 MG/2 ML VIAL IVP ONE (15:48)
[2017-09-18 16:12] LABS: Hematocrit 28.5 % (35.3-44.9); Hemoglobin 9.5 g/dL (11.5-15.4)
[2017-09-18] MEDS: Gabapentin 400 MG CAPSULE PO SCH ×2 (16:41→21:49)
[2017-09-19] MEDS: *HR* Heparin 5,000 UNIT/ML VIAL SQ SCH (05:30)
[2017-09-19] MEDS: *HR* OxyCODONE/APAP 5/325 TABLET PO PRN ×3 (05:30→18:09)
[2017-09-19 06:25] LABS: Basophils % 0.6 %; Eosinophils # 0.1 K/mcL (0.0-0.6); Hematocrit 32.9 % (35.3-44.9); Hemoglobin 10.9 g/dL (11.5-15.4); Immature Granulocytes % 0.2 % (0-4); Lymphocytes # 2.8 K/mcL (0.6-4.6); Lymphocytes % 55.1 %; Mean Corpuscular HGB Conc 33.1 g/dL (31.6-35.5); Mean Corpuscular Hemoglobin 29.6 pg (28.0-33.3); Mean Corpuscular Volume 89.4 fL (83.0-100.0); Mean Platelet Volume 9.6 fL (9.4-12.4); Monocytes # 0.3 K/mcL (0.0-1.3); Monocytes % 6.6 %; Neutrophils # 1.8 K/mcL (1.6-8.9); Platelet Count 228 K/mcL (140-400); Red Blood Count 3.68 M/mcL (3.82-4.97); Red Cell Distribution Width 12.1 % (11.5-14.5); Segmented Neutrophils % 35.5 %
[2017-09-19 06:42] LABS: BUN/Creatinine Ratio 10 (6-26); Blood Urea Nitrogen 6 mg/dL (6-20); Calcium 8.4 mg/dL (8.6-10.3); Carbon Dioxide 24 mEq/L (23-29); Chloride 111 mEq/L (98-107); Glucose 126 mg/dL (70-105); Osmolality,Calculated 289 (280-300); Potassium 4.4 mEq/L (3.5-5.1); Sodium 140 mEq/L (136-145); eGFR For African Americans > 60 (> 60); eGFR For Non-African Americans > 60 (> 60)
[2017-09-19] MEDS: Fenofibrate 54 MG TABLET PO SCH (08:27)
[2017-09-19] MEDS: Venlafaxine XR (24 HR) 75 MG CAP.ER.24H PO SCH (08:27)
[2017-09-19] MEDS: Methylphenidate HCl 10 MG TABLET PO SCH ×2 (08:27→12:11)
[2017-09-19] MEDS: Gabapentin 400 MG CAPSULE PO SCH ×3 (08:27→21:06)
[2017-09-19] MEDS: MetroNIDAZOLE 500 MG/100 ML 500 MG/100 ML BAG IVPB SCH (08:28)
[2017-09-19] MEDS: Sucralfate 1 GM TABLET PO SCH ×4 (08:28→21:07)
[2017-09-19] MEDS: Insulin LISPRO 300 UNITS/3 ML VIAL SQ SCH ×4 (08:28→21:11)
--- NOTE | 2017-09-19 10:51 | Internal Med Progress Note ---
Date of Encounter: 09/19/17 Time of Encounter: 10:15 - Assessment and plan (1) C. difficile colitis Current Visit: Yes Status: Acute Assessment and plan: Stop IV Flagyl, start PO vancomycin. Unclear if she was compliant when originally treated 2 weeks ago. States she took abx for 7 days. Then changed to 2 weeks. (2) Chronic pancreatitis Current Visit: Yes Status: Chronic Assessment and plan: Amylase lipase are normal. CT abdomen does not show any new acute findings. GI is following. Qualifiers: Pancreatitis type: other Qualified Code(s): K86.1 - Other chronic pancreatitis (3) Rectal bleeding Current Visit: Yes Status: Acute Assessment and plan: Hemoglobin 10.9 today and stable. Pending GI evaluation today. (4) HTN (hypertension) Current Visit: Yes Status: Chronic Qualifiers: Qualified Code(s): I10 - Essential (primary) hypertension (5) Diabetes mellitus Current Visit: No Status: Chronic Qualifiers: Diabetes mellitus type: type 2 Diabetes mellitus terminal computer operator insulin use: without terminal computer operator use Diabetes mellitus complication status: with hyperglycemia Qualified Code(s): E11.65 - Type 2 diabetes mellitus with hyperglycemia (6) Hyperlipidemia Current Visit: No Status: Chronic Qualifiers: Hyperlipidemia type: mixed hyperlipidemia Qualified Code(s): E78.2 - Mixed hyperlipidemia (7) DVT prophylaxis Current Visit: Yes Status: Acute Assessment and plan: SCDs - Time Spent With Patient Total time spent is greater than 50% in coordination of care (as documented) at patient's floor/unit and/or counseling patient: 25 - 35 minutes - Subjective Interval history: She reports diarrhea. "Apple sauce" consistency stool. Still has abdominal pain. - Constitutional Vitals: Temp Pulse Resp BP Pulse Ox 97.9 F 65 16 112/74 98 09/19/17 07:07 09/19/17 07:07 09/19/17 07:07 09/19/17 07:07 09/19/17 07:07 General appearance: Present: cooperative, mild distress, A&O X 3, pleasant, answers questions appropriately Exam: Physical exam Gen: Comfortable, laying in bed, in no visible distress HEENT: Normocephalic, atraumatic. No conjunctival icterus. Moist oral mucosa. Neck: Supple Lungs: Clear to auscultation, no foreign sounds Heart: Normal S1-S2, no murmurs rubs or gallops Abdomen: Normoactive bowel sounds, no guarding rigidity, vague abdominal tenderness Extremities: No edema clubbing or cyanosis Neuro: Alert oriented 3, no focal deficits Skin: No skin lesions Internal Medicine: Result - Labs CBC & Chem 7: 09/19/17 05:48 09/19/17 05:48 Labs: Short CBC 09/18/17 09/18/17 09/19/17 Range/Units 10:36 15:56 05:48 WBC 5.0 (4.3-11.1) K/mcL Hgb 9.9 L 9.5 L 10.9 L (11.5-15.4) g/dL Hct 28.8 L 28.5 L 32.9 L (35.3-44.9) % Plt Count 228 (140-400) K/mcL Neutrophils # 1.8 (1.6-8.9) K/mcL BMP 09/19/17 05:48 Sodium 140 Potassium 4.4 Chloride 111 H Carbon Dioxide 24 BUN 6 Creatinine 0.60 Glucose 126 H Calcium 8.4 L - ABG Interpretation ABG results: PT/INR, D-dimer PT 10.5 Seconds (9.4-12.1) 09/18/17 04:27 Consult Discharge Plan - Plan Referrals: Jose Arango MD [Primary Care Provider] -
[2017-09-19] MEDS: Vancomycin Oral Soln 125 MG/2.5 ML UDC PO SCH ×3 (12:11→21:17)
[2017-09-19 16:03] LABS: Hematocrit 30.8 % (35.3-44.9); Hemoglobin 10.6 g/dL (11.5-15.4)
[2017-09-20] MEDS: *HR* OxyCODONE/APAP 5/325 TABLET PO PRN ×4 (00:39→19:43)
[2017-09-20 04:43] LABS: Basophils % 0.6 %; Eosinophils # 0.2 K/mcL (0.0-0.6); Eosinophils % 2.4 %; Hematocrit 30.1 % (35.3-44.9); Hematocrit 30.3 % (35.3-44.9); Hemoglobin 10.5 g/dL (11.5-15.4); Hemoglobin 10.6 g/dL (11.5-15.4); Immature Granulocytes % 0.2 % (0-4); Lymphocytes # 3.4 K/mcL (0.6-4.6); Lymphocytes % 52.7 %; Mean Corpuscular HGB Conc 34.7 g/dL (31.6-35.5); Mean Corpuscular Hemoglobin 30.3 pg (28.0-33.3); Mean Corpuscular Volume 87.3 fL (83.0-100.0); Mean Platelet Volume 9.5 fL (9.4-12.4); Monocytes # 0.4 K/mcL (0.0-1.3); Monocytes % 6.1 %; Neutrophils # 2.4 K/mcL (1.6-8.9); Platelet Count 219 K/mcL (140-400); Red Blood Count 3.47 M/mcL (3.82-4.97); Red Cell Distribution Width 11.9 % (11.5-14.5)
[2017-09-20 05:02] LABS: BUN/Creatinine Ratio 9 (6-26); Blood Urea Nitrogen 6 mg/dL (6-20); Calcium 8.7 mg/dL (8.6-10.3); Carbon Dioxide 24 mEq/L (23-29); Chloride 109 mEq/L (98-107); Glucose 114 mg/dL (70-105); Osmolality,Calculated 288 (280-300); Potassium 4.2 mEq/L (3.5-5.1); Sodium 140 mEq/L (136-145); eGFR For African Americans > 60 (> 60); eGFR For Non-African Americans > 60 (> 60)
[2017-09-20] MEDS: Insulin LISPRO 300 UNITS/3 ML VIAL SQ SCH ×4 (07:32→21:29)
[2017-09-20] MEDS: Venlafaxine XR (24 HR) 75 MG CAP.ER.24H PO SCH (09:01)
[2017-09-20] MEDS: Sucralfate 1 GM TABLET PO SCH ×4 (09:01→21:29)
[2017-09-20] MEDS: Methylphenidate HCl 10 MG TABLET PO SCH ×2 (09:01→12:02)
[2017-09-20] MEDS: Gabapentin 400 MG CAPSULE PO SCH ×3 (09:01→21:00)
[2017-09-20] MEDS: Fenofibrate 54 MG TABLET PO SCH (09:02)
[2017-09-20] MEDS: Vancomycin Oral Soln 125 MG/2.5 ML UDC PO SCH ×4 (09:46→21:01)
--- NOTE | 2017-09-20 15:34 | Internal Med Progress Note ---
<Rom Giraldo - Last Filed: 09/20/17 15:42> Date of Encounter: 09/20/17 Time of Encounter: 09:30 - Assessment and plan (1) C. difficile colitis Current Visit: Yes Status: Acute Assessment and plan: Continuing PO vancomycin. Unclear if she was compliant when originally treated 2 weeks ago. States she took abx for 7 days. Then changed to 2 weeks. (2) Rectal bleeding Current Visit: Yes Status: Acute Assessment and plan: Hemoglobin 10.5 (10.6, 10.6, 10.9), stable. Patient reports hemorrhoids in past , reports Dr. Vela performed colonoscopy; no mass identified, no famhx of colon cancer. GI following, likely outpatient colonoscopy, she is NPO for possible inpatient EGD. (3) Chronic pancreatitis Current Visit: Yes Status: Chronic Assessment and plan: Amylase lipase are normal. CT abdomen does not show any new acute findings. GI following. Patient takes Tricor for hypertriglyceridemia, currently in 600s versus 3000s earlier in the year; also on Creon. Qualifiers: Pancreatitis type: other Qualified Code(s): K86.1 - Other chronic pancreatitis (4) Diabetes mellitus Current Visit: No Status: Chronic Assessment and plan: On low-dose SSI Qualifiers: Diabetes mellitus type: type 2 Diabetes mellitus terminal make up operator insulin use: without skilled nursing use Diabetes mellitus complication status: with hyperglycemia Qualified Code(s): E11.65 - Type 2 diabetes mellitus with hyperglycemia (5) Hyperlipidemia Current Visit: No Status: Chronic Assessment and plan: Taking Tricor for hypertriglyceridemia. Qualifiers: Hyperlipidemia type: mixed hyperlipidemia Qualified Code(s): E78.2 - Mixed hyperlipidemia (6) DVT prophylaxis Current Visit: Yes Status: Acute Assessment and plan: intermittent pneumatic compression (7) HTN (hypertension) Current Visit: Yes Status: Chronic Assessment and plan: Maily normotensive this admisssion; on Lisinopril 2.5mg po daily Qualifiers: Qualified Code(s): I10 - Essential (primary) hypertension - Time Spent With Patient Total time spent is greater than 50% in coordination of care (as documented) at patient's floor/unit and/or counseling patient: - Subjective Interval history: Patient's pain is controlled, mild abdominal pain, no nausea or vomiting. Denies fever, dyspnea, has had 1 episode of diarrhea (non-bloody) today, x4 yesterday. Recent hospitalization in [facility] for C diff; re-initiating po vanc in -patient at [facility] - Constitutional Vitals: Temp Pulse Resp BP Pulse Ox 98.3 F 71 16 124/72 99 09/20/17 10:59 09/20/17 10:59 09/20/17 10:59 09/20/17 10:59 09/20/17 10:59 General appearance: Present: cooperative, mild distress, A&O X 3, pleasant, answers questions appropriately - Head Head exam: Present: atraumatic, normal inspection - Eye Eye exam: Present: EOMI - ENT ENT exam: Present: mucous membranes moist - Respiratory Respiratory exam: Present: CTAB. Absent: accessory muscle use - Cardiovascular Cardiovascular exam: Present: RRR, +S1, +S2. Absent: JVD, systolic murmur, tachycardia - GI/Abdominal Additional comments: oblique scar, old, no distention, soft, mild tenderness to palpation epigastric - Extremities Exam Extremities exam: Present: warm. Absent: pedal edema - Neurological Exam Neurological exam: Absent: facial droop, speech deficit - Psychiatric Psychiatric exam: Present: normal affect, normal mood - Skin Skin exam: Absent: cyanosis, diaphoretic Internal Medicine: Result - Labs CBC & Chem 7: 09/20/17 04:20 09/20/17 04:20 Labs: Short CBC 09/19/17 09/20/17 09/20/17 Range/Units 15:33 04:20 04:20 WBC 6.4 (4.3-11.1) K/mcL Hgb 10.6 L 10.6 L 10.5 L (11.5-15.4) g/dL Hct 30.8 L 30.1 L 30.3 L (35.3-44.9) % Plt Count 219 (140-400) K/mcL Neutrophils # 2.4 (1.6-8.9) K/mcL BMP 09/20/17 04:20 Sodium 140 Potassium 4.2 Chloride 109 H Carbon Dioxide 24 BUN 6 Creatinine 0.64 Glucose 114 H Calcium 8.7 - ABG Interpretation ABG results: PT/INR, D-dimer PT 10.5 Seconds (9.4-12.1) 09/18/17 04:27 Consult Discharge Plan - Plan Referrals: Jose Arango MD [Primary Care Provider] - Prescriptions: Vancomycin Oral Soln [Firvanq] 125 mg PO Q6H 10 Days #100 udc <Josesito Quinn - Last Filed: 09/20/17 15:52> Date of Encounter: 09/20/17 - Assessment and plan (1) DVT prophylaxis Current Visit: Yes Status: Acute (2) Diabetes mellitus Current Visit: No Status: Chronic Qualifiers: Diabetes mellitus type: type 2 Diabetes mellitus skilled nursing insulin use: without skilled nursing use Diabetes mellitus complication status: with hyperglycemia Qualified Code(s): E11.65 - Type 2 diabetes mellitus with hyperglycemia (3) Hyperlipidemia Current Visit: No Status: Chronic Qualifiers: Hyperlipidemia type: mixed hyperlipidemia Qualified Code(s): E78.2 - Mixed hyperlipidemia (4) Chronic pancreatitis Current Visit: Yes Status: Chronic Qualifiers: Pancreatitis type: other Qualified Code(s): K86.1 - Other chronic pancreatitis (5) Rectal bleeding Current Visit: Yes Status: Acute (6) C. difficile colitis Current Visit: Yes Status: Acute (7) HTN (hypertension) Current Visit: Yes Status: Chronic Qualifiers: Qualified Code(s): I10 - Essential (primary) hypertension - Time Spent With Patient Total time spent is greater than 50% in coordination of care (as documented) at patient's floor/unit and/or counseling patient: - Constitutional Vitals: Temp Pulse Resp BP Pulse Ox 98.3 F 71 16 124/72 99 09/20/17 10:59 09/20/17 10:59 09/20/17 10:59 09/20/17 10:59 09/20/17 10:59 Internal Medicine: Result - Labs CBC & Chem 7: 09/20/17 04:20 09/20/17 04:20 Labs: Short CBC 09/19/17 09/20/17 09/20/17 Range/Units 15:33 04:20 04:20 WBC 6.4 (4.3-11.1) K/mcL Hgb 10.6 L 10.6 L 10.5 L (11.5-15.4) g/dL Hct 30.8 L 30.1 L 30.3 L (35.3-44.9) % Plt Count 219 (140-400) K/mcL Neutrophils # 2.4 (1.6-8.9) K/mcL BMP 09/20/17 04:20 Sodium 140 Potassium 4.2 Chloride 109 H Carbon Dioxide 24 BUN 6 Creatinine 0.64 Glucose 114 H Calcium 8.7 - ABG Interpretation ABG results: PT/INR, D-dimer PT 10.5 Seconds (9.4-12.1) 09/18/17 04:27 - Attending Attestation I examined this patient and my medical decision-making was reviewed with the Resident Physician Dr. Giraldo. I agree with the documented findings, disposition and treatment plan as described except to the extent set forth below. Ms. Henderson is a 41 year old female who presents with a one to two-day history of abdominal pain, protracted nausea, vomiting, and reported rectal bleeding. She was recently hospitalized at [facility] for C. difficile colitis. She finished antibiotics and reportedly recovered from that. However, over the last 2 days, she developed the above symptoms.She had C. Diff positive so started her on PO Vancomycin and her diarrhea started improving now Gen: A, A, O x3 Chest: Diminsihed BS b/l Abd: Sfot, NT, BS+ a/p 1. Acute C. Diff colitis cont PO Vancomycin 2. Acute GI bleed - mostly due to C. Diff colitis improving Stable Hb No anemia noticed GI on board. .. Out pt EGD and Colonoscopy
[2017-09-20 17:27] LABS: Hematocrit 33.3 % (35.3-44.9); Hemoglobin 11.6 g/dL (11.5-15.4)
[2017-09-21 01:14] LABS: Hematocrit 30.3 % (35.3-44.9); Hemoglobin 10.5 g/dL (11.5-15.4); Mean Corpuscular HGB Conc 34.7 g/dL (31.6-35.5); Mean Corpuscular Hemoglobin 29.7 pg (28.0-33.3); Mean Corpuscular Volume 85.8 fL (83.0-100.0); Mean Platelet Volume 9.5 fL (9.4-12.4); Platelet Count 250 K/mcL (140-400); Red Blood Count 3.53 M/mcL (3.82-4.97); Red Cell Distribution Width 11.9 % (11.5-14.5)
[2017-09-21 01:27] LABS: BUN/Creatinine Ratio 17 (6-26); Blood Urea Nitrogen 12 mg/dL (6-20); Calcium 9.5 mg/dL (8.6-10.3); Carbon Dioxide 21 mEq/L (23-29); Chloride 102 mEq/L (98-107); Glucose 264 mg/dL (70-105); Osmolality,Calculated 287 (280-300); Potassium 3.9 mEq/L (3.5-5.1); Sodium 134 mEq/L (136-145); eGFR For African Americans > 60 (> 60); eGFR For Non-African Americans > 60 (> 60)
[2017-09-21] MEDS: *HR* OxyCODONE/APAP 5/325 TABLET PO PRN ×2 (01:38→08:21)
[2017-09-21 07:23] VITALS: BP 112/69
[2017-09-21] MEDS: Fenofibrate 54 MG TABLET PO SCH (08:19)
[2017-09-21] MEDS: Venlafaxine XR (24 HR) 75 MG CAP.ER.24H PO SCH (08:20)
[2017-09-21] MEDS: Sucralfate 1 GM TABLET PO SCH (08:20)
[2017-09-21] MEDS: Gabapentin 400 MG CAPSULE PO SCH (08:21)
[2017-09-21] MEDS: Insulin LISPRO 300 UNITS/3 ML VIAL SQ SCH (08:21)
[2017-09-21] MEDS: Methylphenidate HCl 10 MG TABLET PO SCH (08:21)
[2017-09-21] MEDS: Vancomycin Oral Soln 125 MG/2.5 ML UDC PO SCH (08:23)
--- NOTE | 2017-09-21 09:10 | Discharge Summary ---
- NOTES TO OUTPATIENT PROVIDER Notes to Outpatient Provider: f/u with GI Dr. Gonsalez in 1 week. avoid diary products Orders not resulted at time of discharge: Pending orders 09/21/17 16:00 Hemoglobin and Hematocrit [HEME] Q12H Date of Encounter: 09/21/17 Time of Encounter: 09:08 - Discharge Diagnosis (1) C. difficile colitis Priority: Primary Status: Acute (2) Rectal bleeding Priority: Primary Status: Acute (3) Diabetes mellitus Priority: Secondary Status: Chronic Qualifiers: Diabetes mellitus type: type 2 Diabetes mellitus assisted insulin use: without terminal operations manager use Diabetes mellitus complication status: with hyperglycemia Qualified Code(s): E11.65 - Type 2 diabetes mellitus with hyperglycemia (4) Hyperlipidemia Priority: Secondary Status: Chronic Qualifiers: Hyperlipidemia type: mixed hyperlipidemia Qualified Code(s): E78.2 - Mixed hyperlipidemia (5) Chronic pancreatitis Priority: Secondary Status: Chronic Qualifiers: Pancreatitis type: other Qualified Code(s): K86.1 - Other chronic pancreatitis (6) HTN (hypertension) Priority: Secondary Status: Chronic Qualifiers: Qualified Code(s): I10 - Essential (primary) hypertension (7) DVT prophylaxis Priority: Secondary Status: Acute Hospital course: Ms. Henderson is a 41 year old female who presents with a one to two-day history of abdominal pain, protracted nausea, vomiting, and reported rectal bleeding. She was recently hospitalized at [facility] for C. difficile colitis. She finished antibiotics and reportedly recovered from that. However, over the last 2 days, she developed the above symptoms. She had C. Diff positive so started her on PO Vancomycin and her diarrhea started improving now. She did have bright red blood per rectum initially, which resolved now. Her Hb stayed stable @ 10.5. Pt was evaluated by GI who recommend to treat C. Diff first then follow with them as an out pt for further work up. So will d/c her home with PO Vancomycin for now and recommend to f/u with GI in 1-2 weeks. Also held her PPI and started her on probiotic lactobacillus too. - Time Spent with Patient Total time spent providing and/or coordinating discharge services: - Discharge Medications Prescriptions: Lactobacillus [Culturelle] 1 each PO BID #60 cap.sprink Vancomycin Oral Soln [Firvanq] 125 mg PO Q6H 10 Days #100 udc Home Medications: Fenofibrate [Tricor] 145 mg PO DAILY 02/23/15 [History] Gabapentin [Neurontin] 800 mg PO TID 02/23/15 [History] Lipase/Protease/Amylase [Creon Dr 12,000 Units Capsule] 1 each PO TID 02/23/15 [ History] Lisinopril [Zestril] 2.5 mg PO DAILY 02/23/15 [History] Pioglitazone HCl [Actos] 30 mg PO DAILY 02/23/15 [History] metFORMIN [Glucophage] 1,000 mg PO BIDWM 02/23/15 [History] Cyclobenzaprine [Flexeril] 10 mg PO TID PRN #15 tablet 11/29/15 [Rx] Sucralfate [Carafate] 1 gm PO QIDAC #120 tablet 10/20/16 [Rx] Methylphenidate HCl [Ritalin] 20 mg PO 0800,1200 06/10/17 [History] Quetiapine Fumarate [Seroquel] 100 mg PO HS 06/10/17 [History] Venlafaxine HCl [Venlafaxine HCl ER] 75 mg PO DAILY 06/10/17 [History] Oxycodone HCl/Acetaminophen [Percocet 5-325 mg Tablet] 1 each PO TID PRN [History] Tizanidine HCl [Zanaflex] 2 mg PO Q6H PRN 06/11/17 [History] Hyoscyamine SL [Levsin Sl] 0.125 mg SL Q4HR PRN #7 tab.subl 06/21/17 [Rx] Promethazine [Phenergan] 25 mg PO Q6HR PRN #7 tablet 06/21/17 [Rx] Atorvastatin [Lipitor] 80 mg PO HS 06/24/17 [History] Vancomycin Oral Soln [Firvanq] 125 mg PO Q6H 10 Days #100 udc 09/20/17 [Rx] Lactobacillus [Culturelle] 1 each PO BID #60 cap.sprink 09/21/17 [Rx] Allergies/Adverse Reactions: 3 Allergy/AdvReac Type Severity Reaction Status Date / Time Amoxicillin Allergy Hives Verified 09/17/17 22:00 clarithromycin [From Biaxin] Allergy Hives Verified 09/17/17 22:00 moxifloxacin [From Avelox] Allergy Hives Verified 09/17/17 22:00 propoxyphene Allergy Hives Verified 09/17/17 22:00 [From Darvocet-N] Date of admission: 09/17/17 22:22 Primary care physician: Jose Arango MD Consults: 09/18/17 02:35 Consult to Gastroenterology [CONS] Routine Consulting Provider: Gastroenterology [facility] Reason for Consult: chronic panctreatitis; recent Hepatitis B; reported GI bleed Call Completed: No - Constitutional Vitals: Temp Pulse Resp BP Pulse Ox 97.7 F 97 16 112/69 97 09/21/17 07:21 09/21/17 07:21 09/21/17 07:21 09/21/17 07:21 09/21/17 07:21 General appearance: Present: cooperative, A&O X 3, pleasant, answers questions appropriately - Head Head exam: Present: atraumatic, normal inspection - Neck Neck exam general surgery: Present: supple - Respiratory Respiratory exam: Present: CTAB. Absent: accessory muscle use, rales, rhonchi, wheezes - Cardiovascular Cardiovascular exam: Present: RRR, +S1, +S2. Absent: tachycardia - GI/Abdominal GI/Abdominal exam: Present: normal bowel sounds, soft. Absent: rebound, rigid, tenderness - Extremities Exam Extremities exam: Absent: calf tenderness, pedal edema, tenderness - Back Exam Back exam: Absent: CVA tenderness (L), CVA tenderness (R) - Psychiatric Psychiatric exam: Present: normal affect, normal mood - Skin Skin exam: Absent: rash - Patient Status Disposition: Home, Self-Care Condition: Fair Overall status at discharge: patient is back to baseline - Discharge Instructions Follow Up With: Jose Arango MD [Primary Care Provider] - Ricardo Gonsalez MD [Partnered Physician] - - Diet and Activity Activity: increase activity as tolerated Diet: low salt diet
== END 2017-09-21 11:31 | disposition home or self-care (01) ==
LOC: EMEROO 17:08 → 3ANU 17:08 → SUATTDRO 22:22 → 3ANU 22:43
PROVIDERS: ADMIT Internal Medicine; ATTEND Family Medicine

== ENCOUNTER 2017-12-02 21:10 | Inpatient (IN) ==
[2017-12-03 00:42] LABS: Basophils % 0.5 %; Eosinophils # 0.2 K/mcL (0.0-0.6); Eosinophils % 2.8 %; Hemoglobin 12.1 g/dL (11.5-15.4); Immature Granulocytes % 0.2 % (0-4); Lymphocytes # 3.8 K/mcL (0.6-4.6); Lymphocytes % 45.3 %; Mean Corpuscular HGB Conc 36.7 g/dL (31.6-35.5); Mean Corpuscular Hemoglobin 30.5 pg (28.0-33.3); Mean Corpuscular Volume 83.1 fL (83.0-100.0); Mean Platelet Volume 10.1 fL (9.4-12.4); Monocytes # 0.6 K/mcL (0.0-1.3); Monocytes % 7.5 %; Neutrophils # 3.7 K/mcL (1.6-8.9); Platelet Count 261 K/mcL (140-400); Red Blood Count 3.97 M/mcL (3.82-4.97); Red Cell Distribution Width 12.6 % (11.5-14.5); Segmented Neutrophils % 43.7 %
[2017-12-03 01:07] LABS: Calcium 8.7 mg/dL (8.6-10.3); Carbon Dioxide 21 mEq/L (23-29); Chloride 98 mEq/L (98-107); Glucose 148 mg/dL (70-105); Potassium 3.1 mEq/L (3.5-5.1); Sodium 129 mEq/L (136-145); eGFR For Non-African Americans > 60 (> 60)
[2017-12-03] MEDS ORDERED: 0.9 % Sodium Chloride 1,000 ML IVC ONE (01:39)
[2017-12-03] MEDS ORDERED: 0.9 % Sodium Chloride 1,000 ML ONE (01:43)
[2017-12-03] MEDS ORDERED: 0.9 % Sodium Chloride w KCl 20 MEQ/1,000 ML MLS IVC SCH (01:45)
[2017-12-03] MEDS: *HR* OxyCODONE/APAP 5/325 TABLET PO PRN ×2 (01:57→07:53)
[2017-12-03 02:49] LABS: Magnesium 1.6 mg/dL (1.6-2.6)
[2017-12-03] MEDS: 0.9 % Sodium Chloride 1,000 ML IVC SCH ×4 (03:28→18:58)
[2017-12-03] MEDS ORDERED: Naloxone 0.4 MG/ML INJ IVP PRN (05:23)
[2017-12-03] MEDS ORDERED: Dextrose Gel 15 GM/37.5 ML TUBE PO PRN ×2 (05:24)
[2017-12-03] MEDS ORDERED: D5% in Water 1,000 ML IVC PRN (05:24)
[2017-12-03] MEDS ORDERED: *HR* Dextrose 50 % in Water (Syg) 50 ML SYRINGE IVP PRN (05:24)
[2017-12-03] MEDS: Insulin LISPRO 300 UNITS/3 ML VIAL SQ SCH ×3 (06:41→18:56)
--- NOTE | 2017-12-03 08:12 | Internal Med History&Physical ---
Date of Encounter: 12/03/17 Time of Encounter: 04:10 Internal Medicine - H&P: HPI Chief complaint: Abdominal pain Admitted From: Hospital to Hospital Transfer Plans for Post Hospital Care: Home History of present illness: Ms. Henderson is a 42 year old female Patient presented to [facility] ER for abdominal pain. She has had significant history of C. dif treatment, chronic pancreatitis, and diabetes. She has a long history of this pain, stating that it recently worsened while she was in the shower shaving her legs when she suddenly had lower abdominal pain that worsened to right sided pain. She says that she has been having this abdominal pain for some time and has seen multiple providers for it, but non definitive diagnosis has resulted. She has had colonoscopy and multiple imaging studies. She went to the [facility] ER for further evaluation. At [facility], she was thought to be in early DKA, she had an elevated blood glucose of 412, an anion gap of 15 and lactic acidosis of 2.9. The requested transfer to [place] for further management. Upon my assessment, I ordered stat repeat labs and her DKA seemed to have resolved. her blood sugar was 148, she had a potassium of 3.1, a lipase of 201 and sodium of 129. Her anion gap had closed and repeat lactic acid was 0.9. She continued to complain of abdominal pain. She denied chest pain, shortness of breath, fever, nausea and vomiting. Past Med Surg Social Fam HX - Past Medical History Medical history: diabetes, hyperlipidemia, hypertension, kidney stones Additional medical history: chronic pancreatitis Psychiatric history: anxiety, ADHD, bipolar, PTSD, previous psychiatric hospitalization, other - Past Surgical History Surgical History: cholecystectomy, hysterectomy, orthopedic, other Additional surgical history: back/ left foot sx - Social History Smoking Status: Never smoker Smokeless Tobacco Status: No Alcohol use: none Drug use: none - Family History Mother Living Status: Still Living Hx Family Cardiac Disorders: Yes (high blood pressure, high cholesterol) Hx Family Endocrine Disorder: Yes (DM 2) Internal Medicine - H&P: Meds Fenofibrate [Tricor] 145 mg PO DAILY 02/23/15 [History] Gabapentin [Neurontin] 800 mg PO TID 02/23/15 [History] Lipase/Protease/Amylase [Creon Dr 12,000 Units Capsule] 1 each PO TID 02/23/15 [ History] Lisinopril [Zestril] 2.5 mg PO DAILY 02/23/15 [History] Pioglitazone HCl [Actos] 30 mg PO DAILY 02/23/15 [History] metFORMIN [Glucophage] 1,000 mg PO BIDWM 02/23/15 [History] Cyclobenzaprine [Flexeril] 10 mg PO TID PRN #15 tablet 11/29/15 [Rx] Sucralfate [Carafate] 1 gm PO QIDAC #120 tablet 10/20/16 [Rx] Methylphenidate HCl [Ritalin] 20 mg PO 0800,1200 06/10/17 [History] Quetiapine Fumarate [Seroquel] 100 mg PO HS 06/10/17 [History] Venlafaxine HCl [Venlafaxine HCl ER] 75 mg PO DAILY 06/10/17 [History] Oxycodone HCl/Acetaminophen [Percocet 5-325 mg Tablet] 1 each PO TID PRN [History] Tizanidine HCl [Zanaflex] 2 mg PO Q6H PRN 06/11/17 [History] Promethazine [Phenergan] 25 mg PO Q6HR PRN #7 tablet 06/21/17 [Rx] Atorvastatin [Lipitor] 80 mg PO HS 06/24/17 [History] Lactobacillus [Culturelle] 1 each PO BID #60 cap.sprink 09/21/17 [Rx] 3 Allergy/AdvReac Type Severity Reaction Status Date / Time Amoxicillin Allergy Hives Verified 09/17/17 22:00 clarithromycin [From Biaxin] Allergy Hives Verified 09/17/17 22:00 moxifloxacin [From Avelox] Allergy Hives Verified 09/17/17 22:00 propoxyphene Allergy Hives Verified 09/17/17 22:00 [From Darvocet-N] All Systems PM: A 10-system review of systems was performed and is negative for pertinent findings except as documented above in the HPI. - Constitutional Vitals: Temp Pulse Resp BP Pulse Ox 97.8 F 89 18 108/67 98 12/03/17 07:41 12/03/17 07:41 12/03/17 07:41 12/03/17 07:41 12/03/17 04:04 General appearance: Present: cooperative, mild distress, A&O X 3, pleasant, answers questions appropriately Exam: as above - Head Head exam: Present: normal inspection - Eye Eye exam: Present: EOMI, normal appearance - Respiratory Respiratory exam: Present: CTAB. Absent: chest wall tenderness, wheezes - Cardiovascular Cardiovascular exam: Present: RRR. Absent: diastolic murmur, systolic murmur - GI/Abdominal GI/Abdominal exam: Present: normal bowel sounds, soft, tenderness Additional comments: Tender to palpation, right side more than left. - Extremities Exam Extremities exam: Present: warm, radial pulses palpable and symmetrical. Absent : pedal edema, tenderness - Neurological Exam Neurological exam: Present: no focal deficits, strengths equal and symetr throughout. Absent: motor sensory deficit, facial droop, speech deficit - Skin Skin exam: Present: dry, normal color, warm Internal Med - H&P Results - Labs CBC & Chem 7: 12/03/17 00:16 12/03/17 00:16 Labs: Short CBC 12/03/17 Range/Units 00:16 WBC 8.4 (4.3-11.1) K/mcL Hgb 12.1 (11.5-15.4) g/dL Hct 33.0 L (35.3-44.9) % Plt Count 261 (140-400) K/mcL Neutrophils # 3.7 (1.6-8.9) K/mcL BMP 12/03/17 00:16 Sodium 129 L Potassium 3.1 L Chloride 98 Carbon Dioxide 21 L BUN > 130 H Creatinine 0.64 Glucose 148 H Calcium 8.7 - Assessment and plan (1) Chronic pancreatitis Current Visit: No Status: Chronic Assessment and plan: Patient has a lipase of 201. According to our records, her last lipase was 52 back in September of 2017. I think pancreatitis can explain her pain. She has not been able to eat due to the pain. NPO for now until pain improves IV fluids Continue to monitor. Qualifiers: Pancreatitis type: other Qualified Code(s): K86.1 - Other chronic pancreatitis (2) Abdominal pain Current Visit: No Status: Chronic Assessment and plan: Likely secondary to above Qualifiers: Abdominal location: epigastric Qualified Code(s): R10.13 - Epigastric pain (3) C. difficile colitis Current Visit: No Status: Acute Assessment and plan: Patient states that she was recently treated, no diarrhea since arrival, no diarrhea at [facility]. Recheck stool panel Contact precautions unless cleared of infection. (4) Diabetes mellitus Current Visit: No Status: Chronic Assessment and plan: Patient not in DKA. Continue to monitor Blood sugar checks Q6H low dose sliding scale insulin. Qualifiers: Diabetes mellitus type: type 2 Diabetes mellitus long-term insulin use: without manager long term care use Diabetes mellitus complication status: with hyperglycemia Qualified Code(s): E11.65 - Type 2 diabetes mellitus with hyperglycemia (5) Hypokalemia Current Visit: Yes Status: Acute Assessment and plan: Replete recheck in AM. - Time Spent With Patient Total time spent is greater than 50% in coordination of care (as documented) at patient's floor/unit and/or counseling patient: Greater than 35 minutes
--- NOTE | 2017-12-03 12:14 | Event Note ---
Date of Encounter: 12/03/17 Time of Encounter: 12:11 Patient seen and examined at bedside. Patient had no events since admission. History and physical was reviewed and I agree with the assessment and plan. Patient states that her abdominal pain is improving and she is less nauseous. Start clear liquid diet and continue IV fluids. Potassium was replaced. We will add when necessary morphine for analgesia. We will check labs in a.m.; will restart pancreatic enzymes and fenofibrate.
[2017-12-03 14:00] LABS: Adenovirus F 40/41 PCR Not detected (Not detect); Astrovirus PCR Not detected (Not detect); C.difficile Toxin A/B by PCR See reflex test (Not detect); Campylobacter by PCR Not detected (Not detect); Cryptosporidium by PCR Not detected (Not detect); Cyclospora cayetanensis PCR Not detected (Not detect); E. coli O157 by PCR Not detected (Not detect); Entamoeba histolytica PCR Not detected (Not detect); Enteroaggregative E.coli(EAEC) Not detected (Not detect); Enteropathogenic E.coli(EPEC) Not detected (Not detect); Enterotoxigenic E.coli (ETEC) Not detected (Not detect); Giardia lamblia PCR Not detected (Not detect); Norovirus GI/GII PCR Not detected (Not detect); Plesiomonas shigelloides PCR Not detected (Not detect); Rotavirus A PCR Not detected (Not detect); Salmonella PCR Not detected (Not detect); Sapovirus PCR Not detected (Not detect); Shig/EnteroinvasiveE coli EIEC Not detected (Not detect); Shigalike tox-prod E coli STEC Not detected (Not detect); Vibrio PCR Not detected (Not detect); Vibrio cholerae PCR Not detected (Not detect); Yersinia enterocolitica PCR Not detected (Not detect)
[2017-12-03] MEDS: *HR* OxyCODONE/APAP 10/325 TABLET PO PRN ×2 (14:14→20:33)
[2017-12-03] MEDS: *HR* Heparin 5,000 UNIT/ML VIAL SQ SCH ×2 (14:18→20:33)
[2017-12-03] MEDS: Ketorolac 30 MG/ML VIAL IVP PRN (17:22)
[2017-12-03] MEDS: Vancomycin Oral Soln 125 MG/2.5 ML UDC PO SCH ×2 (18:57→20:34)
[2017-12-03] MEDS: *HR* Promethazine 25 MG/ML VIAL IVP PRN (22:50)
[2017-12-03] MEDS: Acetaminophen 325 MG TABLET PO PRN (22:50)
[2017-12-04] MEDS: Insulin LISPRO 300 UNITS/3 ML VIAL SQ SCH ×4 (00:20→20:00)
[2017-12-04 01:36] LABS: Basophils % 0.3 %; Eosinophils # 0.2 K/mcL (0.0-0.6); Eosinophils % 3.2 %; Hematocrit 27.2 % (35.3-44.9); Immature Granulocytes % 0.2 % (0-4); Lymphocytes # 3.4 K/mcL (0.6-4.6); Lymphocytes % 57.3 %; Mean Corpuscular HGB Conc 36.4 g/dL (31.6-35.5); Mean Corpuscular Hemoglobin 32.1 pg (28.0-33.3); Mean Corpuscular Volume 88.3 fL (83.0-100.0); Mean Platelet Volume 10.4 fL (9.4-12.4); Monocytes # 0.3 K/mcL (0.0-1.3); Monocytes % 5.7 %; Platelet Count 172 K/mcL (140-400); Red Blood Count 3.08 M/mcL (3.82-4.97); Segmented Neutrophils % 33.3 %
[2017-12-04 01:39] LABS: Hemoglobin 9.9 g/dL (11.5-15.4)
[2017-12-04] MEDS: 0.9 % Sodium Chloride 1,000 ML IVC SCH ×3 (02:20→10:47)
[2017-12-04 04:42] LABS: BUN/Creatinine Ratio 21 (6-26); Blood Urea Nitrogen 10 mg/dL (6-20); Calcium 7.1 mg/dL (8.6-10.3); Carbon Dioxide 16 mEq/L (23-29); Chloride 104 mEq/L (98-107); Glucose 269 mg/dL (70-105); Osmolality,Calculated 285 (280-300); Potassium 3.7 mEq/L (3.5-5.1); Sodium 133 mEq/L (136-145); eGFR For Non-African Americans > 60 (> 60)
[2017-12-04] MEDS: *HR* Heparin 5,000 UNIT/ML VIAL SQ SCH ×2 (06:33→13:56)
[2017-12-04] MEDS: *HR* OxyCODONE/APAP 10/325 TABLET PO PRN ×3 (06:40→19:11)
[2017-12-04] MEDS: Methylphenidate HCl 10 MG TABLET PO SCH ×2 (07:57→12:31)
[2017-12-04] MEDS: Lactobacillus 1 EACH CAP.SPRINK PO SCH ×2 (07:57→19:59)
[2017-12-04] MEDS: Fenofibrate 54 MG TABLET PO SCH (07:57)
[2017-12-04] MEDS: Vancomycin Oral Soln 125 MG/2.5 ML UDC PO SCH ×4 (07:58→19:59)
[2017-12-04] MEDS: Ketorolac 30 MG/ML VIAL IVP PRN ×2 (08:05→16:40)
[2017-12-04 08:47] LABS: Blood Urea Nitrogen Corrected Result mg/dL (6-20)
[2017-12-04] MEDS ORDERED: Ondansetron 4 MG/2 ML VIAL IVP PRN (12:47)
--- NOTE | 2017-12-04 12:47 | Internal Med Progress Note ---
Hospitalist Progress Note - Encounter Date of Encounter: 12/04/17 Time of Encounter: 12:44 - Subjective Interval History: Patient seen and examined at bedside. Patient no acute overnight events. Today the patient is complaining of abdominal pain and generalized body swelling. I told the patient that I do not appreciate any difference or any swelling. Has had decrease in her bowel movements and they are becoming more solid starting the vancomycin; patient states that she feels like she has alot of gas and is nauseated. Denies any chest pain, shortness of breath, fevers. - Exam Vitals: Temp Pulse Resp BP Pulse Ox 98.0 F 82 16 116/77 96 12/04/17 12:23 12/04/17 12:23 12/04/17 12:23 12/04/17 12:23 12/04/17 12:23 Exam: Constitutional: No acute distress, Alert, no appreciated generalized swelling that the patient complains about, other than very minimal edema around left upper extremity IV Psych: AAO x 3 HEENT: NCAT, EOMI Neck: supple, no JVD Cardio: regular rate and rhythm, +s1s2, no murmurs Resp: clear to ascultation bilaterally, no wheezes/rales/ronchi Abd: soft, mildly distended, mild ttp throughout with abd exam, however no significant pain response elicited with palpation during respiratory exam, bs present, no garding/rebound/regidity Extremities: no clubbing/cyanosis/edema appreciated - Assessment and Plan (1) Acute on chronic pancreatitis Current Visit: Yes Status: Acute Assessment and Plan: Pt presented with abdominal pain and hx of chronic pancreatitis; lipase was 201 this admission and 52 in September of 2017 -tolerating clear liquid diet -pancreatic enzymes and fenofibrate restrted -also with diarrhea and positive c diff toxin -> started on oral vanco -mild abd distension today; will order xray (2) C. difficile colitis Current Visit: Yes Status: Acute Assessment and Plan: Pt with hx of c diff colitis but presented with abd pain and diarrhea -c diff toxin positive; could be due to prior infection but oral vanco started yesterday with improvment in diarreah and pt reports more formed stools -will continue oral vanco for 10 total days -mild abd distension today; will order xray (3) Hypokalemia Current Visit: Yes Status: Acute Assessment and Plan: replaced and resolved (4) Nausea Current Visit: Yes Status: Acute Assessment and Plan: Persistant nausea likely 2/2 chronic pancreatitis and c diff colitis -zofran ordered (5) Abdominal pain Current Visit: No Status: Chronic Assessment and Plan: abdominal pain likely be multi-factorial secondary to acute on chronic pancreatitis and Clostridium difficile colitis - ivf were administered for pancreatitis; dc today - tolerating clear liquid diet; advance as tolerated - oral vanco for c diff colitis - analgesia - pain continues so will repeat lipase today DVT Prophylaxis: heparin sq - Time Spent with Patient Total time spent is greater than 50% in coordination of care (as documented) at patient's floor/unit and/or counseling patient: 25 - 35 minutes Plan of Care Discussed with: patient Internal Medicine: Result - Labs CBC & Chem 7: 12/04/17 01:17 12/04/17 01:17 Labs: Short CBC 12/04/17 Range/Units 01:17 WBC 6.0 (4.3-11.1) K/mcL Hgb 9.9 L D (11.5-15.4) g/dL Hct 27.2 L (35.3-44.9) % Plt Count 172 (140-400) K/mcL Neutrophils # 2.0 (1.6-8.9) K/mcL BMP 12/03/17 12/04/17 00:16 01:17 Sodium 133 L Potassium 3.7 Chloride 104 Carbon Dioxide 16 L BUN Corrected Result L 10 Creatinine 0.47 L Glucose 269 H Calcium 7.1 L - VTE Documentation of Mechanical Device: Intermittent pneumatic compression device Consult Discharge Plan - Plan Referrals: Jose Arango MD [Primary Care Provider] - (5) Abdominal pain Qualifiers: Abdominal location: epigastric Qualified Code(s): R10.13 - Epigastric pain
[2017-12-04 13:22] LABS: Lipase 125 Units/L (11-82)
[2017-12-04] MEDS: *HR* Promethazine 25 MG/ML VIAL IVP PRN (15:10)
[2017-12-04] MEDS ORDERED: Fluticasone Propionate Nasal 50 MCG/SPRAY BOTTLE NS PRN (15:21)
[2017-12-04] MEDS: Gabapentin 400 MG CAPSULE PO SCH (19:59)
[2017-12-05] MEDS: *HR* Heparin 5,000 UNIT/ML VIAL SQ SCH ×4 (00:22→21:14)
[2017-12-05] MEDS: Insulin LISPRO 300 UNITS/3 ML VIAL SQ SCH ×5 (00:49→21:15)
[2017-12-05 01:31] LABS: Basophils % 0.5 %; Eosinophils # 0.2 K/mcL (0.0-0.6); Eosinophils % 2.9 %; Hematocrit 28.2 % (35.3-44.9); Immature Granulocytes % 0.3 % (0-4); Lymphocytes # 2.4 K/mcL (0.6-4.6); Lymphocytes % 38.4 %; Mean Corpuscular HGB Conc 35.5 g/dL (31.6-35.5); Mean Corpuscular Hemoglobin 30.6 pg (28.0-33.3); Mean Corpuscular Volume 86.2 fL (83.0-100.0); Mean Platelet Volume 9.9 fL (9.4-12.4); Monocytes # 0.4 K/mcL (0.0-1.3); Neutrophils # 3.3 K/mcL (1.6-8.9); Platelet Count 180 K/mcL (140-400); Red Blood Count 3.27 M/mcL (3.82-4.97); Red Cell Distribution Width 12.9 % (11.5-14.5); Segmented Neutrophils % 51.9 %
[2017-12-05 01:53] LABS: BUN/Creatinine Ratio 12 (6-26); Blood Urea Nitrogen 5 mg/dL (6-20); Calcium 7.6 mg/dL (8.6-10.3); Carbon Dioxide 22 mEq/L (23-29); Chloride 109 mEq/L (98-107); Glucose 214 mg/dL (70-105); Magnesium 1.6 mg/dL (1.6-2.6); Osmolality,Calculated 278 (280-300); Potassium 3.6 mEq/L (3.5-5.1); Sodium 132 mEq/L (136-145); eGFR For Non-African Americans > 60 (> 60)
[2017-12-05] MEDS: *HR* OxyCODONE/APAP 10/325 TABLET PO PRN ×2 (05:55→14:09)
[2017-12-05] MEDS: Vancomycin Oral Soln 125 MG/2.5 ML UDC PO SCH ×4 (09:03→21:14)
[2017-12-05] MEDS: Lactobacillus 1 EACH CAP.SPRINK PO SCH ×2 (09:04→21:14)
[2017-12-05] MEDS: Venlafaxine XR (24 HR) 75 MG CAP.ER.24H PO SCH (09:04)
[2017-12-05] MEDS: Fenofibrate 54 MG TABLET PO SCH (09:04)
[2017-12-05] MEDS: Gabapentin 400 MG CAPSULE PO SCH ×3 (09:04→21:13)
[2017-12-05] MEDS: Cholecalciferol (D-3) 1,000 UNIT TABLET PO SCH (09:04)
[2017-12-05] MEDS: Methylphenidate HCl 10 MG TABLET PO SCH ×2 (09:04→12:02)
[2017-12-05] MEDS: *HR* Promethazine 25 MG/ML VIAL IVP PRN (09:10)
--- NOTE | 2017-12-05 11:59 | Internal Med Progress Note ---
Hospitalist Progress Note - Encounter Date of Encounter: 12/05/17 Time of Encounter: 11:56 - Subjective Interval History: Patient seen and examined at bedside. Patient no acute overnight events. Pt states she is nauseous and started vomiting last evening which has continued. Pt states her BMs are less frequent and somewhat loose but more formed. no chest pain, sob, afebrile. - Exam Vitals: Temp Pulse Resp BP Pulse Ox 98.0 F 86 20 112/68 94 12/05/17 08:05 12/05/17 08:05 12/05/17 08:05 12/05/17 08:05 12/05/17 08:05 Exam: Constitutional: No acute distress, Alert Psych: AAO x 3 HEENT: NCAT, EOMI Neck: supple, no JVD Cardio: regular rate and rhythm, +s1s2, no murmurs Resp: clear to ascultation bilaterally Abd: soft, not distended today, bs postivie, no gaurding/rebound/regidity Extremities: no clubbing/cyanosis/edema appreciated - Assessment and Plan (1) Abdominal pain Current Visit: Yes Status: Chronic Assessment and Plan: abdominal pain likely be multi-factorial secondary to acute on chronic pancreatitis and Clostridium difficile colitis - ivf were administered for pancreatitis; dced lipase improved - tolerating clear liquid diet; with intermitent vomiting - oral vanco for c diff colitis - analgesia - pain continues so will repeat lipase today - will consult GI for recs and to establish care at [place] per pt request - abd xray unremarkable (2) Acute on chronic pancreatitis Current Visit: Yes Status: Acute Assessment and Plan: Pt presented with abdominal pain and hx of chronic pancreatitis; lipase was 201 this admission and 52 in September of 2017 -tolerating clear liquid diet -pancreatic enzymes and fenofibrate restrted -also with diarrhea and positive c diff toxin -> started on oral vanco -xray of abd unremarkable -lipase improved from admission -gi consulted (3) C. difficile colitis Current Visit: Yes Status: Acute Assessment and Plan: Pt with hx of c diff colitis but presented with abd pain and diarrhea -c diff toxin positive; could be due to prior infection but oral vanco started yesterday with improvment in diarreah and pt reports more formed stools -will continue oral vanco for 10 total days -xray unremarkable of abd -gi consulted for recs (4) Hypokalemia Current Visit: Yes Status: Acute Assessment and Plan: replaced and resolved (5) Nausea Current Visit: Yes Status: Acute Assessment and Plan: Persistant nausea likely 2/2 chronic pancreatitis and c diff colitis -zofran ordered and helped but now with reported vomiting; continue antiemetic DVT Prophylaxis: hep sq - Time Spent with Patient Total time spent is greater than 50% in coordination of care (as documented) at patient's floor/unit and/or counseling patient: less than 15 minutes Plan of Care Discussed with: patient Internal Medicine: Result - Labs CBC & Chem 7: 12/05/17 01:15 12/05/17 01:15 Labs: Short CBC 12/05/17 Range/Units 01:15 WBC 6.3 (4.3-11.1) K/mcL Hgb 10.0 L (11.5-15.4) g/dL Hct 28.2 L (35.3-44.9) % Plt Count 180 (140-400) K/mcL Neutrophils # 3.3 (1.6-8.9) K/mcL BMP 12/04/17 12/05/17 01:17 01:15 Sodium 133 L 132 L Potassium 3.7 3.6 Chloride 104 109 H Carbon Dioxide 16 L 22 L BUN 10 5 L Creatinine 0.47 L 0.41 L Glucose 269 H 214 H Calcium 7.1 L 7.6 L - Impressions Impressions Chest/Abdomen X-ray 12/04/17 12:39 IMPRESSION: No acute findings. D/ / Danny Souza / Danny Souza Interpreting Provider: Danny Souza - VTE Documentation of Mechanical Device: Intermittent pneumatic compression device Consult Discharge Plan - Plan Referrals: Jose Arango MD [Primary Care Provider] - (1) Abdominal pain Qualifiers: Abdominal location: epigastric Qualified Code(s): R10.13 - Epigastric pain
[2017-12-05] MEDS: Ketorolac 30 MG/ML VIAL IVP PRN ×2 (12:02→18:42)
[2017-12-05] MEDS ORDERED: Isovue-370 500 ML INFUS..BTL IV ONE (20:41)
[2017-12-05] MEDS ORDERED: GI Cocktail 40 ML EACH PO ONE (20:44)
[2017-12-05] MEDS: OXYCODONE Oral CONC 10 MG/0.5 ML ORAL.SYG SL PRN (21:11)
[2017-12-05 21:20] LABS: Hematocrit 28.6 % (35.3-44.9); Hemoglobin 10.1 g/dL (11.5-15.4)
[2017-12-05] MEDS: Pantoprazole 40 MG in 0.9 % Sodium Chloride Mini Bag 100 ML IVC SCH (22:27)
[2017-12-06 01:43] LABS: Basophils % 0.5 %; Eosinophils # 0.1 K/mcL (0.0-0.6); Eosinophils % 2.4 %; Hematocrit 26.1 % (35.3-44.9); Hemoglobin 9.2 g/dL (11.5-15.4); Immature Granulocytes % 0.2 % (0-4); Lymphocytes # 1.9 K/mcL (0.6-4.6); Lymphocytes % 32.3 %; Mean Corpuscular HGB Conc 35.2 g/dL (31.6-35.5); Mean Corpuscular Hemoglobin 30.4 pg (28.0-33.3); Mean Corpuscular Volume 86.1 fL (83.0-100.0); Monocytes # 0.4 K/mcL (0.0-1.3); Neutrophils # 3.4 K/mcL (1.6-8.9); Platelet Count 157 K/mcL (140-400); Red Blood Count 3.03 M/mcL (3.82-4.97); Red Cell Distribution Width 12.6 % (11.5-14.5); Segmented Neutrophils % 57.6 %
[2017-12-06 01:59] LABS: BUN/Creatinine Ratio 18 (6-26); Blood Urea Nitrogen 8 mg/dL (6-20); Calcium 7.9 mg/dL (8.6-10.3); Carbon Dioxide 24 mEq/L (23-29); Chloride 103 mEq/L (98-107); Glucose 270 mg/dL (70-105); Osmolality,Calculated 282 (280-300); Potassium 3.5 mEq/L (3.5-5.1); Sodium 132 mEq/L (136-145); eGFR For Non-African Americans > 60 (> 60)
[2017-12-06] MEDS: Pantoprazole 40 MG in 0.9 % Sodium Chloride Mini Bag 100 ML IVC SCH ×3 (03:25→16:42)
[2017-12-06] MEDS: OXYCODONE Oral CONC 10 MG/0.5 ML ORAL.SYG SL PRN ×3 (05:58→19:24)
[2017-12-06] MEDS: *HR* Heparin 5,000 UNIT/ML VIAL SQ SCH ×3 (05:59→21:53)
[2017-12-06] MEDS: Insulin LISPRO 300 UNITS/3 ML VIAL SQ SCH ×4 (09:20→22:21)
[2017-12-06] MEDS: Gabapentin 400 MG CAPSULE PO SCH ×3 (09:21→22:02)
[2017-12-06] MEDS: Lactobacillus 1 EACH CAP.SPRINK PO SCH ×2 (09:21→22:02)
[2017-12-06] MEDS: Cholecalciferol (D-3) 1,000 UNIT TABLET PO SCH (09:21)
[2017-12-06] MEDS: Fenofibrate 54 MG TABLET PO SCH (09:22)
[2017-12-06] MEDS: Methylphenidate HCl 10 MG TABLET PO SCH ×2 (09:23→12:20)
[2017-12-06] MEDS: Venlafaxine XR (24 HR) 75 MG CAP.ER.24H PO SCH (09:24)
[2017-12-06] MEDS: Acetaminophen 325 MG TABLET PO PRN (09:24)
[2017-12-06] MEDS: Vancomycin Oral Soln 125 MG/2.5 ML UDC PO SCH ×4 (09:25→22:04)
--- NOTE | 2017-12-06 11:49 | Gastroenterology Consult Note ---
Addendum entered and electronically signed by Chuck Elizabeth CNP 12/06/17 12 :23: Albumin not available, complete CMP. WBC normal. CT negative. Not severe Cdiff at this time. Continue Vanco. Original Note: <Chuck Elizabeth - Last Filed: 12/06/17 11:46> Date of Encounter: 12/06/17 Time of Encounter: 11:15 - Assessment and plan (1) C. difficile colitis Current Visit: Yes Status: Acute Assessment and plan: She was treated in September for Cdiff with Flagyl which was changed to PO Vanco at discharge. She states she has been treated with PO Vanco "several times" for Cdiff. She states she was recently started on "Vanco for 8 weeks" by her PCP, but another provider told her to only take it for 10 days. She was started on PO Vanco and symptoms improved, but last night diarrhea worsened after eating. Consider Vanco taper or consult ID for further recommendations. (2) Chronic pancreatitis Current Visit: No Status: Chronic Assessment and plan: MRI abdomen 06/12/2017 with no acute findings, pancreatic duct normal, CBD 10mm , s/p cholecystectomy, no pancreatic lesion. CTA A/P with no acute findings identified in the abdomen and pelvis. Check IgG4, ionized calcium, triglycerides , and MADELEINE. Continue supportive care. Continue Creon. Qualifiers: Pancreatitis type: other Qualified Code(s): K86.1 - Other chronic pancreatitis (3) Anemia Current Visit: No Status: Acute Assessment and plan: Hgb 12.1 on admission and today Hgb 9.2. Continue to monitor CBC and transfuse PRBC as needed. Will discuss scopes with Dr. Mesa. Qualifiers: Anemia type: unspecified type Qualified Code(s): D64.9 - Anemia, unspecified - Time Spent With Patient Total time spent is greater than 50% in coordination of care (as documented) at patient's floor/unit and/or counseling patient: GI History of Present Illness - Data of Consult Patient: known to practice within the last 3 years Consult date: 12/06/17 Requesting Physician: Minor Carvalho DO - Consult Narrative Reason for consult: Chronic pancreatitis, Cdiff History of present illness: Ms. Henderson is a 42 year old female with PMHx of chronic pancreatitis, DM, HLD, HTN, Cdiff, who presented to the ED at [facility] for abdominal pain. She reports the pain recently worsened while she was in the shower shaving her legs when she suddenly had lower abdominal pain that worsened to right sided pain. At [facility], she was thought to be in early DKA, she had an elevated blood glucose of 412, an anion gap of 15 and lactic acidosis of 2.9. The requested transfer to [place] for further management. CTA A/P with no acute findings identified in the abdomen and pelvis. C diff was positive, and she was started on oral Vanco. She was treated in September for Cdiff with Flagyl which was changed to PO Vanco at discharge. She states she has been treated with PO Vanco "several times" for Cdiff. She states she was recently started on "Vanco for 8 weeks" by her PCP, but another provider told her to only take it for 10 days. She states she tried eating solid food last night, but started having watery diarrhea "almost immediately". She reports bright red blood per rectum that started last night. Procedures: Colonoscopy 01/12/2015 Dr. Vela: External hemorrhoids, mild chronic inflammation. NSAIDs: None Anticoagulation: None Past Med Surg Social Fam HX - Past Medical History Medical history: diabetes, hyperlipidemia, hypertension, kidney stones Additional medical history: chronic pancreatitis Psychiatric history: anxiety, ADHD, bipolar, PTSD, previous psychiatric hospitalization, other - Past Surgical History Surgical History: cholecystectomy, hysterectomy, orthopedic, other Additional surgical history: back/ left foot sx - Social History Smoking Status: Never smoker Smokeless Tobacco Status: No Alcohol use: none Drug use: none - Family History Mother Living Status: Still Living Hx Family Cardiac Disorders: Yes (high blood pressure, high cholesterol) Hx Family Endocrine Disorder: Yes (DM 2) - Gastrointestinal Gastrointestinal: Present: as per HPI - Constitutional Constitutional: as per HPI - EENT Eyes: as per HPI Ears: Present: as per HPI Nose, mouth and throat: Present: as per HPI - Cardiovascular Cardiovascular ROS: Present: as per HPI - Respiratory Respiratory IM: Present: as per HPI - Genitourinary Genitourinary: Absent: change in color, Urinary frequency - Neurological ROS Neurological GI: Present: as per HPI - Hematologic/Lymphatic Hematologic/Lymphatic pediatric: Present: as per HPI - Musculoskeletal Musculoskeletal ROS GI: Present: as per HPI - Integumentary Integumentary GI: Present: as per HPI - Psychiatric ROS Psychiatric GI: Present: as per HPI - Endocrine Endocrine IM: Present: as per HPI - Constitutional Vitals: Temp Pulse Resp BP Pulse Ox 98.1 F 82 14 129/84 96 12/06/17 10:55 12/06/17 10:55 12/06/17 10:55 12/06/17 10:55 12/06/17 10:55 General appearance: Present: cooperative, A&O X 3, no acute distress, answers questions appropriately - Head Head exam: Present: atraumatic, normocephalic - Eye Eye exam: Present: normal appearance, sclera anicteric - ENT ENT exam: Present: mucous membranes dry - Neck Neck exam general surgery: Present: normal inspection, trachea midline - Respiratory Respiratory exam: Present: CTAB - Cardiovascular Cardiovascular exam: Present: RRR, +S1, +S2 - GI/Abdominal GI/Abdominal exam: Present: distended, soft, tenderness (generalized), no peritoneal signs. Absent: firm, guarding - Rectal Rectal exam: Present: deferred - Extremities Exam Extremities exam: Present: warm - Neurological Exam Neurological exam: Present: no focal deficits - Psychiatric Psychiatric exam: Present: normal affect, normal mood - Skin Skin exam: Present: dry, intact, normal color, warm Results - Labs CBC & Chem 7: 12/06/17 00:51 12/06/17 00:51 Labs: Last Result Calcium 7.9 mg/dL (8.6-10.3) L 12/06/17 00:51 Entire Visit Hgb 9.2 g/dL (11.5-15.4) L 12/06/17 00:51 Hct 26.1 % (35.3-44.9) L 12/06/17 00:51 Lipase 125 Units/L (11-82) H 12/04/17 01:17 - Impressions Impressions Abdomen/Pelvis CTA 12/05/17 20:41 IMPRESSION: 1. No evidence of acute aortic abnormality. No aneurysm. No extravasation. 2. No acute findings identified in the abdomen and pelvis. 3. Nonspecific free fluid in the pelvis. D/ / Sergio Santiago MD / Sergio Santiago MD Interpreting Provider: Sergio Santiago MD Consult Discharge Plan - Plan Referrals: Jose Arango MD [Primary Care Provider] - <Deangelo Mesa - Last Filed: 12/06/17 17:11> Date of Encounter: 12/06/17 Time of Encounter: 13:00 - Time Spent With Patient Total time spent is greater than 50% in coordination of care (as documented) at patient's floor/unit and/or counseling patient: GI History of Present Illness - Data of Consult Requesting Physician: Minor Carvalho DO - Consult Narrative History of present illness: Ms. Henderson is a 42 year old female - Constitutional Vitals: Temp Pulse Resp BP Pulse Ox 98.2 F 93 16 117/71 96 12/06/17 15:40 12/06/17 15:40 12/06/17 15:40 12/06/17 15:40 12/06/17 15:40 Results - Labs CBC & Chem 7: 12/06/17 00:51 12/06/17 12:57 Labs: Last Result Calcium 8.5 mg/dL (8.6-10.3) L 12/06/17 12:57 Triglycerides 2194 mg/dL (< 150) H 12/06/17 10:11 Entire Visit Hgb 9.2 g/dL (11.5-15.4) L 12/06/17 00:51 Hct 26.1 % (35.3-44.9) L 12/06/17 00:51 Total Bilirubin 0.4 mg/dL (0.3-1.0) 12/06/17 12:57 AST 84 Units/L (13-39) H 12/06/17 12:57 ALT 53 Units/L (7-52) H 12/06/17 12:57 Lipase 125 Units/L (11-82) H 12/04/17 01:17 - Impressions Impressions Abdomen/Pelvis CTA 12/05/17 20:41 IMPRESSION: 1. No evidence of acute aortic abnormality. No aneurysm. No extravasation. 2. No acute findings identified in the abdomen and pelvis. 3. Nonspecific free fluid in the pelvis. D/ / Sergio Santiago MD / Sergio Santiago MD Interpreting Provider: Sergio Santiago MD - Attending Attestation I have personally performed a face to face evaluation on this patient. I have reviewed and agree with the care plan. History and Exam by me shows: Pt seen. Complaining of pain and recatl bleeding/diarrhea. O/E : Abd mild tandernes. A; Pt C-diff Hx but now with rectal bleed and CT with duodenitis r/o PUD. Not responding to PO Vanco but by defination C-diff not severe. Rec: EGD to r/o PUD due to abn CT of duodenum and colon to bernardo sure no other etiology.
--- NOTE | 2017-12-06 12:35 | Internal Med Progress Note ---
Hospitalist Progress Note - Encounter Date of Encounter: 12/06/17 Time of Encounter: 12:33 - Subjective Interval History: Patient seen and examined at bedside. Patient continues to have abdominal pain. Diarrhea was improving however worsened yesterday with advancement of diet. Diet was changed back to clear liquid diet. CT of the abdomen was obtained which was largely unremarkable. His night. Awaiting GI consult with recommendations. Patient denies any chest pain, shortness of breath. Admits to abdominal pain and occasional nausea. Denies further vomiting. - Exam Vitals: Temp Pulse Resp BP Pulse Ox 98.1 F 82 14 129/84 96 12/06/17 10:55 12/06/17 10:55 12/06/17 10:55 12/06/17 10:55 12/06/17 10:55 Exam: Constitutional: No acute distress, Alert Psych: AAO x 3 HEENT: NCAT Neck: supple, no JVD Cardio: regular rate and rhythm Resp: clear to ascultation bilaterally Abd: soft, mild ttp throughout, no distension, BS hyperactive no gaurding/ rebound/regidity Extremities: no clubbing/cyanosis/edema appreciated - Assessment and Plan (1) Abdominal pain Current Visit: Yes Status: Chronic Assessment and Plan: abdominal pain likely be multi-factorial secondary to acute on chronic pancreatitis and Clostridium difficile colitis - ivf were administered for pancreatitis; dced lipase improved - tolerated CLD which was advanced but with worsening of diarrhea last night; now on CLD again - oral vanco for c diff colitis; likely long taper - analgesia - pain continues; await gi recs - GI consult pending - abd xray unremarkable - CT abd and pelvis unremarkable last evening - developed blood in stool last night (2) Acute on chronic pancreatitis Current Visit: Yes Status: Acute Assessment and Plan: Pt presented with abdominal pain and hx of chronic pancreatitis; lipase was 201 this admission and 52 in September of 2017 -tolerating clear liquid diet -continue pancreatic enzymes and fenofibrate -also with diarrhea and positive c diff toxin -> started on oral vanco -xray of abd unremarkable -lipase improved from admission -gi consulted, await recs (3) C. difficile colitis Current Visit: Yes Status: Acute Assessment and Plan: Pt with hx of c diff colitis but presented with abd pain and diarrhea -c diff toxin positive; could be due to prior infection but oral vanco started -diarrhea was improving but now worsening with advancement of diet -will continue oral vanco for long taper likely -xray unremarkable of abd -gi consulted for recs (4) Anemia Current Visit: Yes Status: Acute Assessment and Plan: pt with hbg of 12.1 on admission now down to 9.2 -developed blood in stool last night -ct abd and plevis unremarkable -hemodynamically stable -suspect 2/2 dilution and GI bleed -mcv 86 -GI consulted; await recs -no active bleeding currently (5) Hypokalemia Current Visit: Yes Status: Acute Assessment and Plan: replaced and resolved (6) Nausea Current Visit: Yes Status: Acute Assessment and Plan: Persistant nausea likely 2/2 chronic pancreatitis and c diff colitis -improved -continue zofran prn - Time Spent with Patient Total time spent is greater than 50% in coordination of care (as documented) at patient's floor/unit and/or counseling patient: 25 - 35 minutes Plan of Care Discussed with: patient Internal Medicine: Result - Labs CBC & Chem 7: 12/06/17 00:51 12/06/17 00:51 Labs: Short CBC 12/05/17 12/06/17 Range/Units 21:07 00:51 WBC 5.9 (4.3-11.1) K/mcL Hgb 10.1 L 9.2 L (11.5-15.4) g/dL Hct 28.6 L 26.1 L (35.3-44.9) % Plt Count 157 (140-400) K/mcL Neutrophils # 3.4 (1.6-8.9) K/mcL BMP 12/06/17 00:51 Sodium 132 L Potassium 3.5 Chloride 103 Carbon Dioxide 24 BUN 8 Creatinine 0.44 L Glucose 270 H Calcium 7.9 L - Impressions Impressions Abdomen/Pelvis CTA 12/05/17 20:41 IMPRESSION: 1. No evidence of acute aortic abnormality. No aneurysm. No extravasation. 2. No acute findings identified in the abdomen and pelvis. 3. Nonspecific free fluid in the pelvis. D/ / Sergio Santiago MD / Sergio Santiago MD Interpreting Provider: Sergio Santiago MD - VTE Documentation of Mechanical Device: Intermittent pneumatic compression device Consult Discharge Plan - Plan Referrals: Jose Arango MD [Primary Care Provider] - (1) Abdominal pain Qualifiers: Abdominal location: epigastric Qualified Code(s): R10.13 - Epigastric pain
[2017-12-06 13:52] LABS: Alanine Aminotransferase 53 Units/L (7-52); Albumin 3.6 g/dL (3.5-5.7); Albumin/Globulin Ratio 1.3 (1.1-2.2); Alkaline Phosphatase 76 Units/L (34-104); Aspartate Amino Transferase 84 Units/L (13-39); BUN/Creatinine Ratio 10 (6-26); Bilirubin,Total 0.4 mg/dL (0.3-1.0); Blood Urea Nitrogen 5 mg/dL (6-20); Calcium 8.5 mg/dL (8.6-10.3); Carbon Dioxide 24 mEq/L (23-29); Chloride 102 mEq/L (98-107); Globulin 2.8 g/dL (2.4-3.5); Glucose 143 mg/dL (70-105); Osmolality,Calculated 284 (280-300); Potassium 3.5 mEq/L (3.5-5.1); Sodium 137 mEq/L (136-145); Total Protein 6.4 g/dL (6.4-8.9); eGFR For Non-African Americans > 60 (> 60)
[2017-12-06] MEDS ORDERED: SODIUM CHLORIDE/NAHCO3/KCL/PEG 4,000 ML SOLN.RECON PO ONE (14:01)
[2017-12-06] MEDS: *HR* Promethazine 25 MG/ML VIAL IVP PRN (22:20)
[2017-12-06] MEDS ORDERED: *HR* HYDROcodone/Acet 7.5/325 mg TABLET PO ONE (23:05)
[2017-12-07] MEDS: OXYCODONE Oral CONC 10 MG/0.5 ML ORAL.SYG SL PRN ×4 (01:11→17:43)
[2017-12-07 01:44] LABS: Basophils % 0.5 %; Eosinophils # 0.3 K/mcL (0.0-0.6); Hematocrit 30.2 % (35.3-44.9); Immature Granulocytes % 0.4 % (0-4); Lymphocytes # 2.7 K/mcL (0.6-4.6); Lymphocytes % 32.9 %; Mean Corpuscular HGB Conc 35.8 g/dL (31.6-35.5); Mean Corpuscular Hemoglobin 31.3 pg (28.0-33.3); Mean Corpuscular Volume 87.5 fL (83.0-100.0); Monocytes # 0.5 K/mcL (0.0-1.3); Monocytes % 6.5 %; Neutrophils # 4.7 K/mcL (1.6-8.9); Platelet Count 186 K/mcL (140-400); Red Blood Count 3.45 M/mcL (3.82-4.97); Red Cell Distribution Width 12.6 % (11.5-14.5); Segmented Neutrophils % 56.7 %
[2017-12-07 01:49] LABS: Hemoglobin 10.8 g/dL (11.5-15.4)
[2017-12-07 02:30] LABS: BUN/Creatinine Ratio 6 (6-26); Blood Urea Nitrogen 3 mg/dL (6-20); Calcium 8.9 mg/dL (8.6-10.3); Carbon Dioxide 25 mEq/L (23-29); Chloride 103 mEq/L (98-107); Glucose 120 mg/dL (70-105); Magnesium 1.6 mg/dL (1.6-2.6); Osmolality,Calculated 284 (280-300); Phosphorous 2.8 mg/dL (2.7-4.5); Sodium 138 mEq/L (136-145); eGFR For Non-African Americans > 60 (> 60)
[2017-12-07] MEDS: *HR* Heparin 5,000 UNIT/ML VIAL SQ SCH ×3 (06:26→21:47)
[2017-12-07] MEDS: Methylphenidate HCl 10 MG TABLET PO SCH ×2 (08:31→11:38)
[2017-12-07] MEDS: Gabapentin 400 MG CAPSULE PO SCH ×3 (08:31→21:48)
[2017-12-07] MEDS: Venlafaxine XR (24 HR) 75 MG CAP.ER.24H PO SCH (08:31)
[2017-12-07] MEDS: Pantoprazole 40 MG in 0.9 % Sodium Chloride Mini Bag 100 ML IVC SCH ×2 (08:32)
[2017-12-07] MEDS: Fenofibrate 54 MG TABLET PO SCH (08:33)
[2017-12-07] MEDS: Cholecalciferol (D-3) 1,000 UNIT TABLET PO SCH (08:33)
[2017-12-07] MEDS: Lactobacillus 1 EACH CAP.SPRINK PO SCH ×2 (08:33→21:48)
[2017-12-07] MEDS: Insulin LISPRO 300 UNITS/3 ML VIAL SQ SCH ×4 (08:33→21:51)
[2017-12-07] MEDS: Vancomycin Oral Soln 125 MG/2.5 ML UDC PO SCH ×4 (08:38→21:47)
[2017-12-07] MEDS: tiZANidine 4 MG TABLET PO PRN ×2 (08:51→21:56)
[2017-12-07] MEDS: *HR* Promethazine 25 MG/ML VIAL IVP PRN ×2 (08:51→21:55)
--- NOTE | 2017-12-07 09:14 | Internal Med Progress Note ---
Hospitalist Progress Note - Encounter Date of Encounter: 12/07/17 Time of Encounter: 09:11 - Subjective Interval History: Patient seen and examined at bedside. Patient continues to have abdominal pain. Patient states she continues to have some blood in her bowel movements states that the blood is darker today and is not a significant amount. Patient states that she continues to have intermittent nausea. Patient denies chest pain, shortness of breath, fevers, chills. GI evaluated the patient and will take for EGD and colonoscopy today. We will attempt to advance diet after procedures as tolerated. - Exam Vitals: Temp Pulse Resp BP Pulse Ox 98.1 F 76 18 121/81 94 12/07/17 07:56 12/07/17 07:56 12/07/17 07:56 12/07/17 07:56 12/07/17 07:56 Exam: Constitutional: No acute distress Psych: AAO x 3 HEENT: NCAT Neck: supple Cardio: regular rate and rhythm Resp: clear to ascultation bilaterally Abd: soft, mild ttp throughout, no distension, BS hyperactive, no gaurding/ rebound/regidity, non toxic Extremities: no clubbing/cyanosis/edema - Assessment and Plan (1) Abdominal pain Current Visit: Yes Status: Chronic Assessment and Plan: abdominal pain likely be multi-factorial secondary to acute on chronic pancreatitis and Clostridium difficile colitis - ivf were administered for pancreatitis; dced lipase improved - oral vanco for c diff colitis; likely long taper - analgesia - pain continues - GI following; reccomended long vanco taper - abd xray unremarkable - CT abd and pelvis unremarkable - EGD and clonoscopy today - attempt to advance diet after procedures today (2) Acute on chronic pancreatitis Current Visit: Yes Status: Acute Assessment and Plan: Pt presented with abdominal pain and hx of chronic pancreatitis; lipase was 201 this admission and 52 in September of 2017 -tolerating clear liquid diet -continue pancreatic enzymes and fenofibrate -also with diarrhea and positive c diff toxin -> started on oral vanco -xray of abd unremarkable -lipase improved from admission -gi following (3) C. difficile colitis Current Visit: Yes Status: Acute Assessment and Plan: Pt with hx of c diff colitis but presented with abd pain and diarrhea -c diff toxin positive; could be due to prior infection but oral vanco started -diarrhea was improving but now worsening with advancement of diet -will continue oral vanco for long taper -xray unremarkable of abd -gi following; having egd and colonoscopy today; rec long vanco taper (4) Anemia Current Visit: Yes Status: Acute Assessment and Plan: pt with hbg of 12.1 on admission down to 9.2 but increased to 10.8 today -developed blood in stool -ct abd and plevis unremarkable -hemodynamically stable -suspect 2/2 dilution and GI bleed -mcv normocytic -no active bleeding currently -egd and colonoscopy today (5) Hypokalemia Current Visit: Yes Status: Acute Assessment and Plan: replaced and resolved (6) Nausea Current Visit: Yes Status: Acute Assessment and Plan: Persistant nausea likely 2/2 chronic pancreatitis and c diff colitis -improved -continue zofran prn DVT Prophylaxis: hep sq - Time Spent with Patient Total time spent is greater than 50% in coordination of care (as documented) at patient's floor/unit and/or counseling patient: 25 - 35 minutes Plan of Care Discussed with: patient Internal Medicine: Result - Labs CBC & Chem 7: 12/07/17 01:04 12/07/17 01:04 Labs: Short CBC 12/07/17 Range/Units 01:04 WBC 8.2 (4.3-11.1) K/mcL Hgb 10.8 L D (11.5-15.4) g/dL Hct 30.2 L (35.3-44.9) % Plt Count 186 (140-400) K/mcL Neutrophils # 4.7 (1.6-8.9) K/mcL BMP 12/06/17 12/07/17 12:57 01:04 Sodium 137 138 Potassium 3.5 4.0 Chloride 102 103 Carbon Dioxide 24 25 BUN 5 L 3 L Creatinine 0.52 L 0.48 L Glucose 143 H 120 H Calcium 8.5 L 8.9 Liver Function 12/06/17 Range/Units 12:57 Total Bilirubin 0.4 (0.3-1.0) mg/dL AST 84 H (13-39) Units/L ALT 53 H (7-52) Units/L Alkaline Phosphatase 76 (34-104) Units/L Albumin 3.6 (3.5-5.7) g/dL - VTE Documentation of Mechanical Device: Intermittent pneumatic compression device Consult Discharge Plan - Plan Referrals: Jose Arango MD [Primary Care Provider] - (1) Abdominal pain Qualifiers: Abdominal location: epigastric Qualified Code(s): R10.13 - Epigastric pain (4) Anemia Qualifiers: Anemia type: other cause Other causes of anemia: other cause, not classified Qualified Code(s): D64.89 - Other specified anemias
[2017-12-07 09:29] LABS: VBG Ionized Calcium 1.16 mmol/L (1.15-1.35)
--- NOTE | 2017-12-07 11:34 | Event Note ---
Date of Encounter: 12/07/17 Time of Encounter: 11:32 Notified by RN the patient's LUE IV infiltrated with IV Protonix. Pharmacy recommend elevation and ice compress which we will preform. Patient complaining of tingling in her left arm and chest discomfort. Patient denies any shortness of breath or palpitations. EKG obtained and is unremarkable. Patient continues to ask for increase in pain medications. Notified RN she can give her scheduled pain medication early. Reassured patient; pulses palpable and normal sensation. Will monitor.
--- NOTE | 2017-12-07 13:07 | Anesthesia Evaluation PreOp ---
Date of Encounter: 12/07/17 Time of Encounter: 13:25 - Past History Planned Operation: Double Endo Cardiac History: HTN, Hyperlipidemia Pulmonary History: ARNALDO Dx LATEX CASTER History: Other (Back Pain Anxiety) Other Medical History: Diabetes Type II, GERD Anesthesia History: No Prior Anesthetic Complications : No (Hysterectomy) Alcohol Use: none Drug use: none Medications and Allergies Fenofibrate [Tricor] 145 mg PO DAILY 02/23/15 [History] Gabapentin [Neurontin] 800 mg PO TID 02/23/15 [History] Lipase/Protease/Amylase [Creon Dr 12,000 Units Capsule] 1 each PO TID 02/23/15 [ History] Lisinopril [Zestril] 2.5 mg PO DAILY 02/23/15 [History] metFORMIN [Glucophage] 1,000 mg PO BIDWM 02/23/15 [History] Methylphenidate HCl [Ritalin] 20 mg PO 0800,1200 06/10/17 [History] Quetiapine Fumarate [Seroquel] 100 mg PO HS 06/10/17 [History] Venlafaxine HCl [Venlafaxine HCl ER] 75 mg PO DAILY 06/10/17 [History] Oxycodone HCl/Acetaminophen [Percocet 5-325 mg Tablet] 1 each PO TID PRN [History] Tizanidine HCl [Zanaflex] 2 mg PO Q6H PRN 06/11/17 [History] Atorvastatin [Lipitor] 80 mg PO HS 06/24/17 [History] Ergocalciferol (VITAMIN D2) [Vitamin D2] 2,000 unit PO DAILY 12/03/17 [History] Fluticasone Propionate Nasal [Flonase] 2 spr NS DAILY PRN 12/03/17 [History] Glimepiride [Amaryl] 1 mg PO DAILY 12/03/17 [History] Lactobacillus [Culturelle] 1 cap PO BID 12/03/17 [History] Omeprazole [PriLOSEC] 40 mg PO BID 12/03/17 [History] Ondansetron [Zofran ODT] 8 mg PO Q8H PRN 12/03/17 [History] 3 Allergy/AdvReac Type Severity Reaction Status Date / Time Amoxicillin Allergy Hives Verified 12/03/17 08:45 clarithromycin [From Biaxin] Allergy Hives Verified 12/03/17 08:45 moxifloxacin [From Avelox] Allergy Hives Verified 12/03/17 08:45 propoxyphene Allergy Hives Verified 12/03/17 08:45 [From Darvocet-N] - Meds/Allergy Pre-op Review Medications Reviewed: Yes Allergies Reviewed: Yes Beta Blockers on Current Med List: No Anesthesia Results - Labs 12/07/17 01:04 12/07/17 01:04 Laboratory Tests 12/07/17 12/07/17 01:04 01:04 Hgb 10.8 L D Hct 30.2 L Plt Count 186 Sodium 138 Potassium 4.0 BUN 3 L Creatinine 0.48 L - Imaging EKG: report reviewed (SR) Anesthesia Exam Vital Signs/O2 Sat/Glucose, Most Current Temp Pulse Resp BP Pulse Ox 12/07/17 11:41 97.6 F 70 16 123/77 94 Height: 5'9 Weight: 169 lbs NPO (# of Hours): MN Pain Scale: 0 - HEENT Pupil (Motor): Pupils equal, EOMI Mallampati: III Teeth: Normal Oral Opening: Less than or equal to 3 - LATEX CASTER LOC: Oriented LATEX CASTER Motor: Normal RUE, Normal LUE, Normal RLE, Normal LLE, Normal Face LATEX CASTER Sensory: Normal: RUE, LUE, RLE, LLE, Face - Cardiac Rhythm: Regular Murmur: None JVD: No Carotid Bruit: No - Pulmonary Breath Sounds: bilateral Clear Respiratory Effort: Symmetrical Anesthesia Assess/Plan ASA Score: 3 (HTN ARNALDO DM) Modified [place] Scale for Level of Consciousness: Cooperative, oriented, and tranquil Anesthetic Plan: MAC Monitoring Plan: Standard Monitors Recovery Plan: Other (Discussed MAC, agrees to proceed)
[2017-12-07] MEDS ORDERED: *HR* Propofol 200 MG/20 ML VIAL IVP ONE ×2 (13:15→13:43)
[2017-12-07] MEDS ORDERED: Lidocaine -MPF 2% 2 ML VIAL ONE (13:15)
[2017-12-07] MEDS ORDERED: *HR* FentaNYL (PF) 100 MCG/2 ML VIAL ONE (13:27)
[2017-12-08 01:29] LABS: Basophils % 0.4 %; Eosinophils # 0.3 K/mcL (0.0-0.6); Eosinophils % 3.7 %; Hemoglobin 10.2 g/dL (11.5-15.4); Immature Granulocytes % 0.4 % (0-4); Lymphocytes # 2.4 K/mcL (0.6-4.6); Lymphocytes % 35.3 %; Mean Corpuscular HGB Conc 35.2 g/dL (31.6-35.5); Mean Corpuscular Hemoglobin 30.9 pg (28.0-33.3); Mean Corpuscular Volume 87.9 fL (83.0-100.0); Mean Platelet Volume 10.5 fL (9.4-12.4); Monocytes # 0.5 K/mcL (0.0-1.3); Monocytes % 7.1 %; Neutrophils # 3.6 K/mcL (1.6-8.9); Platelet Count 182 K/mcL (140-400); Red Cell Distribution Width 12.5 % (11.5-14.5); Segmented Neutrophils % 53.1 %
[2017-12-08 01:50] LABS: BUN/Creatinine Ratio 11 (6-26); Blood Urea Nitrogen 5 mg/dL (6-20); Calcium 8.7 mg/dL (8.6-10.3); Carbon Dioxide 28 mEq/L (23-29); Chloride 98 mEq/L (98-107); Glucose 208 mg/dL (70-105); Osmolality,Calculated 281 (280-300); Potassium 3.7 mEq/L (3.5-5.1); Sodium 134 mEq/L (136-145); eGFR For Non-African Americans > 60 (> 60)
[2017-12-08] MEDS: *HR* Heparin 5,000 UNIT/ML VIAL SQ SCH ×3 (05:07→20:57)
[2017-12-08] MEDS: OXYCODONE Oral CONC 10 MG/0.5 ML ORAL.SYG SL PRN ×3 (05:46→20:57)
--- NOTE | 2017-12-08 08:10 | Internal Med Progress Note ---
Hospitalist Progress Note - Encounter Date of Encounter: 12/08/17 Time of Encounter: 08:08 - Subjective Interval History: Patient seen and examined at bedside. Pt had egd and colonoscopy yesterday; were unremarkable. Pt states her diarrhea is much improved and has only gone once. Tolerating full liquid diet. Continues to have abdominal pain, reports nausea improved. Denies chest pain/sob/palpitations. Right arm pain almost resolved from infiltrated IV. RN reports that pts daughter has been bringing lots of food into the room; there is a question of if she has been compliant with ordered diet. - Exam Vitals: Temp Pulse Resp BP Pulse Ox 97.7 F 82 16 117/71 94 12/08/17 07:45 12/08/17 07:45 12/08/17 07:45 12/08/17 07:45 12/08/17 07:45 Exam: Constitutional: No acute distress Psych: AAO x 3 HEENT: NCAT Neck: supple Cardio: regular rate and rhythm Resp: clear to ascultation bilaterally Abd: soft, mild ttp throughout, no distension, BS normoactive, no gaurding/ rebound/regidity, non toxic Extremities: no clubbing/cyanosis/edema; RUE mildy erythematous around IV site that infiltrated yesterday; much improved. - Assessment and Plan (1) Abdominal pain Current Visit: Yes Status: Chronic Assessment and Plan: abdominal pain likely be multi-factorial secondary to acute on chronic pancreatitis and Clostridium difficile colitis - ivf were administered for pancreatitis; dced, lipase improved - oral vanco for c diff colitis; likely long taper - analgesia - pain continues; likely chronic; doubt will resolve completely - GI following; reccomended long vanco taper - abd xray unremarkable - CT abd and pelvis unremarkable - EGD and clonoscopy unremarkable - continue full liquid diet and advance slowly due to her not tolerating rapid advancement prior - encouraged compliance with diet - add ensure (2) Acute on chronic pancreatitis Current Visit: Yes Status: Acute Assessment and Plan: Pt presented with abdominal pain and hx of chronic pancreatitis; lipase was 201 this admission and 52 in September of 2017 -tolerating full liquid diet; andvance tomorrow -continue pancreatic enzymes and fenofibrate -also with diarrhea and positive c diff toxin -> started on oral vanco -xray of abd unremarkable -lipase improved from admission -gi following (3) C. difficile colitis Current Visit: Yes Status: Acute Assessment and Plan: Pt with hx of c diff colitis but presented with abd pain and diarrhea -c diff toxin positive; could be due to prior infection but oral vanco started -diarrhea was improving but now worsening with advancement of diet -will continue oral vanco for long taper -xray unremarkable of abd -ct abd unremarkable -gi following; having egd and colonoscopy today; rec long vanco taper (4) Anemia Current Visit: Yes Status: Acute Assessment and Plan: pt with hbg of 12.1 on admission down to 9.2; stable at 10.2 -developed blood in stool; resovled -ct abd and plevis unremarkable -hemodynamically stable -suspect 2/2 dilution and GI bleed -mcv normocytic -no active bleeding currently -egd and colonoscopy unremarkable (5) Hypokalemia Current Visit: Yes Status: Acute Assessment and Plan: replaced and resolved (6) Nausea Current Visit: Yes Status: Acute Assessment and Plan: Persistant nausea likely 2/2 chronic pancreatitis and c diff colitis -improved -continue zofran prn DVT Prophylaxis: hep sq - Summary of Assessment and Plan Summary of Assessment and Plan: Patient tolerating full liquid diet will continue full liquid diet and adventure today we will advance to regular diet tomorrow and anticipate discharge tomorrow. There is a question regarding the patient's compliant with her diet, encouraged compliance. She continues to ask for pain medication increase in frequency, explained at length again that increasing narcotics could further and worsen her abdominal pain. - Time Spent with Patient Total time spent is greater than 50% in coordination of care (as documented) at patient's floor/unit and/or counseling patient: 25 - 35 minutes Plan of Care Discussed with: patient Internal Medicine: Result - Labs CBC & Chem 7: 12/08/17 01:14 12/08/17 01:14 Labs: Short CBC 12/08/17 Range/Units 01:14 WBC 6.8 (4.3-11.1) K/mcL Hgb 10.2 L (11.5-15.4) g/dL Hct 29.0 L (35.3-44.9) % Plt Count 182 (140-400) K/mcL Neutrophils # 3.6 (1.6-8.9) K/mcL BMP 12/08/17 01:14 Sodium 134 L Potassium 3.7 Chloride 98 Carbon Dioxide 28 BUN 5 L Creatinine 0.47 L Glucose 208 H Calcium 8.7 - VTE Documentation of Mechanical Device: Intermittent pneumatic compression device Consult Discharge Plan - Plan Referrals: Jose Arango MD [Primary Care Provider] - (1) Abdominal pain Qualifiers: Abdominal location: epigastric Qualified Code(s): R10.13 - Epigastric pain (4) Anemia Qualifiers: Anemia type: other cause Other causes of anemia: other cause, not classified Qualified Code(s): D64.89 - Other specified anemias
[2017-12-08] MEDS: Insulin LISPRO 300 UNITS/3 ML VIAL SQ SCH ×4 (09:41→20:46)
[2017-12-08] MEDS: Gabapentin 400 MG CAPSULE PO SCH ×3 (09:46→20:56)
[2017-12-08] MEDS: Methylphenidate HCl 10 MG TABLET PO SCH ×2 (09:47→13:01)
[2017-12-08] MEDS: Fenofibrate 54 MG TABLET PO SCH (09:47)
[2017-12-08] MEDS: Cholecalciferol (D-3) 1,000 UNIT TABLET PO SCH (09:47)
[2017-12-08] MEDS: Lactobacillus 1 EACH CAP.SPRINK PO SCH ×2 (09:48→20:56)
[2017-12-08] MEDS: Venlafaxine XR (24 HR) 75 MG CAP.ER.24H PO SCH (09:48)
[2017-12-08] MEDS: Vancomycin Oral Soln 125 MG/2.5 ML UDC PO SCH ×4 (09:49→20:57)
[2017-12-08] MEDS: *HR* Promethazine 25 MG/ML VIAL IVP PRN (10:05)
[2017-12-08] MEDS ORDERED: Ondansetron ODT 4 MG TAB.RAPDIS SL PRN (14:38)
[2017-12-08] MEDS: tiZANidine 4 MG TABLET PO PRN (17:40)
[2017-12-09] MEDS: OXYCODONE Oral CONC 10 MG/0.5 ML ORAL.SYG SL PRN ×2 (03:01→09:01)
[2017-12-09] MEDS: *HR* Heparin 5,000 UNIT/ML VIAL SQ SCH (06:36)
[2017-12-09] MEDS: Cholecalciferol (D-3) 1,000 UNIT TABLET PO SCH (08:57)
[2017-12-09] MEDS: Insulin LISPRO 300 UNITS/3 ML VIAL SQ SCH ×2 (08:57→12:50)
[2017-12-09] MEDS: Venlafaxine XR (24 HR) 75 MG CAP.ER.24H PO SCH (08:58)
[2017-12-09] MEDS: Gabapentin 400 MG CAPSULE PO SCH (08:58)
[2017-12-09] MEDS: Fenofibrate 54 MG TABLET PO SCH (08:58)
[2017-12-09] MEDS: Lactobacillus 1 EACH CAP.SPRINK PO SCH (08:58)
[2017-12-09] MEDS: Methylphenidate HCl 10 MG TABLET PO SCH ×2 (08:58→12:49)
[2017-12-09] MEDS: Vancomycin Oral Soln 125 MG/2.5 ML UDC PO SCH ×2 (09:11→13:30)
--- NOTE | 2017-12-09 10:17 | Discharge Summary ---
- NOTES TO OUTPATIENT PROVIDER Notes to Outpatient Provider: Follow up with GI; saw Dr. Mesa inpatient. Follow up with psychiatry for anxiety. Given 8 week Rx for oral vanco for C. diff colitis; please taper at end of the course appropriately. Orders not resulted at time of discharge: Pending orders 12/06/17 10:11 MADELEINE IgG NEIDA rflx IFA Routine Immunoglobulin G Subclass 4 Routine 12/07/17 11:12 EKG [ECG 12 lead ECG] [ECG] NOW 12/07/17 14:33 Surgical Pathology [PTH] Routine 12/07/17 14:53 Surgical Pathology [PTH] Routine Date of Encounter: 12/09/17 Time of Encounter: 10:15 - Discharge Diagnosis (1) C. difficile colitis Priority: Primary Status: Acute (2) Abdominal pain Priority: Secondary Status: Chronic Qualifiers: Abdominal location: epigastric Qualified Code(s): R10.13 - Epigastric pain (3) Acute on chronic pancreatitis Priority: Secondary Status: Acute (4) Anemia Priority: Secondary Status: Acute Qualifiers: Anemia type: other cause Other causes of anemia: other cause, not classified Qualified Code(s): D64.89 - Other specified anemias (5) Hypokalemia Priority: Secondary Status: Acute (6) Nausea Priority: Secondary Status: Acute Hospital course: Ms. Henderson is a 42 year old female presented to the emergency room with abdominal pain. Patient was admitted for acute on chronic pancreatitis. Patient diarrhea diarrhea and was found to be C. difficile positive. Patient has had 2 recent episodes of CHF versus treated with Flagyl second was treated with oral vancomycin for 10 days. GI saw the patient and recommended 8 weeks of oral vancomycin. Patient also had prolonged course of intractable nausea and vomiting and abdominal pain. Patient developed blood in stool and was seen by GI. Patient had colonoscopy and EGD which were unremarkable. Patient's hemoglobin was stable. Patient had CT of the abdomen and pelvis which was unremarkable. Patient had hypokalemia that was resolved prior to discharge. The patient slowly improved throughout her stay and was tolerating diet prior to discharge. Patient will follow-up with GI as an outpatient. Patient should follow-up with her psychiatrist for her anxiety issues. Patient stable for discharge and agreeable to discharge on 12/09/2017. All questions answered. Patient is to follow with primary care physician within one week. Patient was instructed to return to the ED for worsening of symptoms. Discharge discussed with: patient, family, nurse - Time Spent with Patient Total time spent providing and/or coordinating discharge services: Greater than 30 minutes - Discharge Medications Prescriptions: Vancomycin Oral Soln [Firvanq] 125 mg PO QID 56 Days #560 ml Home Medications: Fenofibrate [Tricor] 145 mg PO DAILY 02/23/15 [History] Gabapentin [Neurontin] 800 mg PO TID 02/23/15 [History] Lipase/Protease/Amylase [Creon Dr 12,000 Units Capsule] 1 each PO TID 02/23/15 [ History] Methylphenidate HCl [Ritalin] 20 mg PO 0800,1200 06/10/17 [History] Quetiapine Fumarate [Seroquel] 100 mg PO HS 06/10/17 [History] Venlafaxine HCl [Venlafaxine HCl ER] 75 mg PO DAILY 06/10/17 [History] Oxycodone HCl/Acetaminophen [Percocet 5-325 mg Tablet] 1 each PO TID PRN [History] Tizanidine HCl [Zanaflex] 2 mg PO Q6H PRN 06/11/17 [History] Atorvastatin [Lipitor] 80 mg PO HS 06/24/17 [History] Ergocalciferol (VITAMIN D2) [Vitamin D2] 2,000 unit PO DAILY 12/03/17 [History] Fluticasone Propionate Nasal [Flonase] 2 spr NS DAILY PRN 12/03/17 [History] Glimepiride [Amaryl] 1 mg PO DAILY 12/03/17 [History] Lactobacillus [Culturelle] 1 cap PO BID 12/03/17 [History] Omeprazole [PriLOSEC] 40 mg PO BID 12/03/17 [History] Ondansetron [Zofran ODT] 8 mg PO Q8H PRN 12/03/17 [History] Vancomycin Oral Soln [Firvanq] 125 mg PO QID 56 Days #560 ml 12/09/17 [Rx] Allergies/Adverse Reactions: 3 Allergy/AdvReac Type Severity Reaction Status Date / Time Amoxicillin Allergy Hives Verified 12/03/17 08:45 clarithromycin [From Biaxin] Allergy Hives Verified 12/03/17 08:45 moxifloxacin [From Avelox] Allergy Hives Verified 12/03/17 08:45 propoxyphene Allergy Hives Verified 12/03/17 08:45 [From Darvocet-N] Date of admission: 12/03/17 15:39 Primary care physician: Jose Arango MD Consults: 12/02/17 23:48 Consult to [employer] [CONS] Routine Reason for SW Consult: patient needs insurance approval for ensures or equivelant. 12/05/17 11:54 Consult to Gastroenterology [CONS] Routine Consulting Provider: Gastroenterology [facility] Reason for Consult: chronic pancreatitis, c diff, abd pain nausea/vomiting; wants to establish GI care here Call Completed: Yes - Constitutional Vitals: Temp Pulse Resp BP Pulse Ox 98.4 F 78 16 104/79 96 12/09/17 06:30 12/09/17 06:30 12/09/17 06:30 12/09/17 06:30 12/09/17 06:30 General appearance: Present: cooperative, mild distress, A&O X 3, pleasant, answers questions appropriately Exam: Constitutional: No acute distress Psych: AAO x 3 HEENT: NCAT Neck: supple Cardio: regular rate and rhythm Resp: clear to ascultation bilaterally Abd: soft, nt/nd, bs normoactive, guarding rebound or rigidity Extremities: no clubbing/cyanosis/edema; infiltrated ivs removed on bl upper extremities and no erthythema - Patient Status Disposition: Home, Self-Care Condition: Good Functional capacity at discharge: independent ambulation Overall status at discharge: patient is progressing back to baseline - Discharge Instructions Instructions: Clostridium Difficile Infection (DC) Follow Up With: Jose Arango MD [Primary Care Provider] - - Diet and Activity Activity: increase activity as tolerated Diet: other (slowly advance your diet and avoid fatty and fried foods) - VTE Documentation of Mechanical Device: Intermittent pneumatic compression device
[2017-12-09 11:38] VITALS: BP 107/83
[2017-12-10 13:40] LABS: ANA IgG by ELISA NONE DETECTED (None Detected)
== END 2017-12-09 14:00 | disposition home or self-care (01) | DRG 371 ==
LOC: 2NNU → SUATTDRO 22:53 → 3NENU 12-03 15:17
PROVIDERS: ADMIT Pediatrics; ATTEND Internal Medicine
PROC: ENDOCBX (2017-12-07 11:10)
PROC: ENDOEBX (2017-12-07 11:10)

== ENCOUNTER 2018-01-28 18:51 | Inpatient (IN) ==
[2018-01-28] MEDS: *HR* Promethazine 25 MG/ML VIAL IVP PRN (05:42)
[2018-01-28 05:51] LABS: Hematocrit 31.3 % (35.3-44.9); Hemoglobin 10.7 g/dL (11.5-15.4); Mean Corpuscular HGB Conc 34.2 g/dL (31.6-35.5); Mean Corpuscular Volume 84.8 fL (83.0-100.0); Mean Platelet Volume 10.4 fL (9.4-12.4); Platelet Count 167 K/mcL (140-400); Red Blood Count 3.69 M/mcL (3.82-4.97); Red Cell Distribution Width 12.2 % (11.5-14.5)
[2018-01-28 06:13] LABS: BUN/Creatinine Ratio 25 (6-26); Blood Urea Nitrogen 19 mg/dL (6-20); Calcium 8.7 mg/dL (8.6-10.3); Carbon Dioxide 22 mEq/L (23-29); Chloride 103 mEq/L (98-107); Glucose 164 mg/dL (70-105); Osmolality,Calculated 288 (280-300); Potassium 3.9 mEq/L (3.5-5.1); Sodium 136 mEq/L (136-145); eGFR For Non-African Americans > 60 (> 60)
--- NOTE | 2018-01-28 07:33 | Internal Med History&Physical ---
Date of Encounter: 01/28/18 Time of Encounter: 04:00 Internal Medicine - H&P: HPI Chief complaint: Chronic C. dif, pancreatitis. Admitted From: Hospital to Hospital Transfer Plans for Post Hospital Care: Home History of present illness: Ms. Henderson is a 42 year old female Patient presented from [facility] ER with chronic history of C. dif, as well as pancreatitis. She was last admitted at the end of December, for similar complaints. She states that this time she has had nausea and vomiting as well as continued diarrhea. She went to her doctor on the , but she is still not getting better. She went to [facility] for further evaluation. She has been on fpc vancomycin, plan is to continue for 8 total weeks, and then perhaps have a fecal transplant. Patient also states that she has been having epigastric abdomi nal pain for the last 4-5 weeks. She has a history of chronic pancreatitis, pain is worse with eating and drinking, but not always. She was transferred to [facility] for further management of her C. dif and pancreatitis. Upon my assessment patient states that she has had C. dif since August of this year. She has had phenergan at home but it does not seem to be working. She has had some blood in her stool as well for this time. Her bowel movements are no longer runny, but instead are mushy. She denies chest pain and abdominal pain. Past Med Surg Social Fam HX - Past Medical History Medical history: diabetes, hyperlipidemia, hypertension, kidney stones Additional medical history: chronic pancreatitis Psychiatric history: anxiety, ADHD, bipolar, PTSD, previous psychiatric hospitalization, other - Past Surgical History Surgical History: cholecystectomy, hysterectomy, orthopedic, other Additional surgical history: back/ left foot sx - Social History Smoking Status: Never smoker Smokeless Tobacco Status: No Alcohol use: none Drug use: none - Family History Mother Living Status: Still Living Hx Family Cardiac Disorders: Yes (high blood pressure, high cholesterol) Hx Family Endocrine Disorder: Yes (DM 2) Internal Medicine - H&P: Meds Fenofibrate [Tricor] 145 mg PO DAILY 02/23/15 [History] Gabapentin [Neurontin] 800 mg PO TID 02/23/15 [History] Lipase/Protease/Amylase [Creon Dr 12,000 Units Capsule] 1 each PO TID 02/23/15 [History] Methylphenidate HCl [Ritalin] 20 mg PO 0800,1200 06/10/17 [History] Quetiapine Fumarate [Seroquel] 100 mg PO HS 06/10/17 [History] Venlafaxine HCl [Venlafaxine HCl ER] 75 mg PO DAILY 06/10/17 [History] Oxycodone HCl/Acetaminophen [Percocet 5-325 mg Tablet] 1 each PO TID PRN 06/11/17 [History] Tizanidine HCl [Zanaflex] 2 mg PO Q6H PRN 06/11/17 [History] Atorvastatin [Lipitor] 80 mg PO HS 06/24/17 [History] Ergocalciferol (VITAMIN D2) [Vitamin D2] 2,000 unit PO DAILY 12/03/17 [History] Fluticasone Propionate Nasal [Flonase] 2 spr NS DAILY PRN 12/03/17 [History] Glimepiride [Amaryl] 1 mg PO DAILY 12/03/17 [History] Lactobacillus [Culturelle] 1 cap PO BID 12/03/17 [History] Omeprazole [PriLOSEC] 40 mg PO BID 12/03/17 [History] Ondansetron [Zofran ODT] 8 mg PO Q8H PRN 12/03/17 [History] Vancomycin Oral Soln [Firvanq] 125 mg PO QID 56 Days #560 ml 12/09/17 [Rx] Allergy/AdvReac Type Severity Reaction Status Date / Time Amoxicillin Allergy Hives Verified 12/03/17 08:45 clarithromycin [From Biaxin] Allergy Hives Verified 12/03/17 08:45 moxifloxacin [From Avelox] Allergy Hives Verified 12/03/17 08:45 propoxyphene Allergy Hives Verified 12/03/17 08:45 [From Darvocet-N] All Systems PM: A 10-system review of systems was performed and is negative for pertinent findings except as documented above in the HPI. - Constitutional Vitals: Temp Pulse Resp BP Pulse Ox 97.9 F 79 15 110/68 97 01/28/18 07:02 01/28/18 07:02 01/28/18 07:02 01/28/18 07:02 01/28/18 07:02 General appearance: Present: cooperative, pleasant, no acute distress, answers questions appropriately Exam: As above - Head Head exam: Present: normal inspection - Eye Eye exam: Present: EOMI, normal appearance - Neck Neck exam general surgery: Present: full ROM - Respiratory Respiratory exam: Present: CTAB. Absent: decreased breath sounds, respiratory distress, wheezes - Cardiovascular Cardiovascular exam: Present: RRR. Absent: diastolic murmur, systolic murmur - GI/Abdominal GI/Abdominal exam: Present: guarding, normal bowel sounds, tenderness. Absent: hyperactive bowel sounds, hypoactive bowel sounds Additional comments: Epigastric tenderness, with less tender areas in lower right and left quadrants. - Extremities Exam Extremities exam: Present: warm, radial pulses palpable and symmetrical. Absent: calf tenderness, pedal edema, tenderness - Neurological Exam Neurological exam: Present: no focal deficits, strengths equal and symetr throughout. Absent: motor sensory deficit, facial droop, speech deficit - Skin Skin exam: Present: dry, normal color, warm Internal Med - H&P Results - Labs CBC & Chem 7: 01/28/18 05:33 01/28/18 05:33 Labs: Short CBC 01/28/18 Range/Units 05:33 WBC 8.4 (4.3-11.1) K/mcL Hgb 10.7 L (11.5-15.4) g/dL Hct 31.3 L (35.3-44.9) % Plt Count 167 (140-400) K/mcL [facility] 01/28/18 05:33 Sodium 136 Potassium 3.9 Chloride 103 Carbon Dioxide 22 L BUN 19 Creatinine 0.76 Glucose 164 H Calcium 8.7 - Assessment and plan (1) Abdominal pain Current Visit: No Status: Chronic Assessment and plan: Secondary to pancreatitis and C. dif, treatment as below. Qualifiers: Abdominal location: epigastric Qualified Code(s): R10.13 - Epigastric pain (2) C. difficile colitis Current Visit: No Status: Acute Assessment and plan: Patient currently completing 8 week course of vancomycin. Maybe some difficulty considering patient NPO for pancreatitis. Contact precautions Continue oral vancomycin Start Cholestyramine as well to help with toxin binding if tolerated. (3) Acute on chronic pancreatitis Current Visit: No Status: Acute Assessment and plan: Patient's lipase now 320. Has long history of this. Patient received IV fluids at [facility] NPO until pain improves, then advance diet as tolerated. IV fluids Continue to monitor. (4) Nausea & vomiting Current Visit: No Status: Resolved Assessment and plan: Patient takes phenergan at home, which seems to help. Continue phenergan as needed. Qualifiers: Vomiting type: unspecified Vomiting Intractability: unspecified Qualified Code(s): R11.2 - Nausea with vomiting, unspecified (5) Diabetes mellitus Current Visit: No Status: Chronic Assessment and plan: Patient does have history of poorly controlled blood sugars. Patient not on insulin at home. Continue to monitor Patient NPO, Accuchecks Q6H Low dose sliding scale insulin as needed. Qualifiers: Diabetes mellitus type: type 2 Diabetes mellitus fpc insulin use: w ithout traffic enumerator use Diabetes mellitus complication status: with hyperglycemia Qualified Code(s): E11.65 - Type 2 diabetes mellitus with hyperglycemia (6) DVT prophylaxis Current Visit: No Status: Acute Assessment and plan: SCDs - Time Spent With Patient Total time spent is greater than 50% in coordination of care (as documented) at patient's floor/unit and/or counseling patient: Greater than 35 minutes
[2018-01-28] MEDS: Insulin LISPRO 300 UNITS/3 ML VIAL SQ SCH ×4 (10:00→22:24)
[2018-01-28] MEDS: Vancomycin Oral Soln 125 MG/2.5 ML UDC PO SCH ×4 (10:02→22:21)
[2018-01-28] MEDS: OXYCODONE Oral CONC 10 MG/0.5 ML ORAL.SYG SL PRN ×4 (10:18→22:37)
[2018-01-28] MEDS: Cholestyramine 4 GM POWD.PACK PO SCH ×3 (12:00→22:22)
[2018-01-28] MEDS: Methylphenidate HCl 10 MG TABLET PO SCH (12:50)
[2018-01-28] MEDS: tiZANidine 4 MG TABLET PO SCH ×2 (14:40→22:22)
[2018-01-28] MEDS: Gabapentin 400 MG CAPSULE PO SCH ×2 (14:40→22:22)
--- NOTE | 2018-01-28 14:43 | Internal Med Progress Note ---
<Mj Treviño - Last Filed: 01/28/18 15:18> Hospitalist Progress Note - Encounter Date of Encounter: 01/28/18 Time of Encounter: 14:34 - Subjective Interval History: Pt seen and examined at bedside resting comfortably in no acute distress. States she has hx of chronic c diff infection and chronic pancreatitis. Notes over the past 2-3 weeks, she has been having non-bloody, non-bilious vomiting multiples times per day, and varying episodes of bloody diarrhea. Notes persistent nausea. Similar symptoms have persisted for the past 6 months with multiple hospital stays. Pt diagnosed with C. Diff infection on previous adm ission and started on snf vanco for total of 8 weeks. Currently notes she feels mild abdominal tenderness. Denies fevers/chills, headache, chest pain, SOB, nausea, dysuria, lower extremity pain. - Exam Vitals: Temp Pulse Resp BP Pulse Ox 97.9 F 78 15 116/76 96 01/28/18 10:23 01/28/18 10:23 01/28/18 10:23 01/28/18 10:23 01/28/18 10:23 Exam: GEN: 42 y/o F, pleasant, resting comfortably at bedside in no acute distress HEENT: EOMI, PERRLA, No anterior cervical lymphadenopathy, supple, Full ROM CARDIO: RRR, no murmurs, rubs, gallops PULM: CTAB, no wheezes, rales, rhonchi, crackles ABDOMEN: diffuse mild abdominal tenderness to palpation, more pronounced in epigastric region; soft, non distended; negative rovsing's; hx cholecystectomy EXT: full strength; radial pulses palpable NEURO: CN 2 - 12 intact - Assessment and Plan (1) C. difficile colitis Current Visit: No Status: Acute Assessment and Plan: Pt currently completing 8 week course vancomycin due to c diff colitis Hx of similar symptoms for the past 6 months with multiple admissions at [facility] PLAN: Contact precautions Cont Oral Vancomycin - currently in 8th week since start Cont with cholestyramine to help with diarrheal symptoms Plan to have pt f/u outpatient regarding possible fecal transplant (2) Acute on chronic pancreatitis Current Visit: No Status: Acute Assessment and Plan: Lipase at presentation = 320 Received IVF at [facility] ER prior to ER PLAN: Cont IV Fluids Will advance to clear liquids, then advance diet as tolerated Cont to monitor (3) Diabetes mellitus Current Visit: No Status: Chronic Assessment and Plan: Hx of poorly controlled blood sugars; managed with metformin at home - not on insulin PLAN: Cont to monitor Accuchecks q6h Low dose sliding scale insulin as needed (4) Anxiety Current Visit: Yes Status: Acute Assessment and Plan: Cont home meds - venlafaxine (5) ADHD Current Visit: Yes Status: Acute Assessment and Plan: Cont home meds - Rittalin (6) Bipolar disorder Current Visit: Yes Status: Acute Assessment and Plan: Cont home meds - Seroquel (7) PTSD (post-traumatic stress disorder) Current Visit: Yes Status: Acute Assessment and Plan: Cont home meds (8) DVT prophylaxis Current Visit: No Status: Acute Assessment and Plan: Cont with use of SCDs - Time Spent with Patient Total time spent is greater than 50% in coordination of care (as documented) at patient's floor/unit and/or counseling patient: less than 15 minutes Plan of Care Discussed with: patient Internal Medicine: Result - Labs CBC & Chem 7: 01/28/18 05:33 01/28/18 05:33 Labs: Short CBC 01/28/18 Range/Units 05:33 WBC 8.4 (4.3-11.1) K/mcL Hgb 10.7 L (11.5-15.4) g/dL Hct 31.3 L (35.3-44.9) % Plt Count 167 (140-400) K/mcL [facility] 01/28/18 05:33 Sodium 136 Potassium 3.9 Chloride 103 Carbon Dioxide 22 L BUN 19 Creatinine 0.76 Glucose 164 H Calcium 8.7 Consult Discharge Plan - Plan Referrals: NONE,PCP [Primary Care Provider] - <Spencer Britton - Last Filed: 01/28/18 17:36> Hospitalist Progress Note - Exam Vitals: Temp Pulse Resp BP Pulse Ox 98.1 F 82 15 105/61 96 01/28/18 16:02 01/28/18 16:02 01/28/18 16:02 01/28/18 16:02 01/28/18 16:02 - Time Spent with Patient Total time spent is greater than 50% in coordination of care (as documented) at patient's floor/unit and/or counseling patient: Internal Medicine: Result - Labs CBC & Chem 7: 01/28/18 05:33 01/28/18 05:33 Labs: Short CBC 01/28/18 Range/Units 05:33 WBC 8.4 (4.3-11.1) K/mcL Hgb 10.7 L (11.5-15.4) g/dL Hct 31.3 L (35.3-44.9) % Plt Count 167 (140-400) K/mcL [facility] 01/28/18 05:33 Sodium 136 Potassium 3.9 Chloride 103 Carbon Dioxide 22 L BUN 19 Creatinine 0.76 Glucose 164 H Calcium 8.7 - Attending Attestation I examined this patient and my medical decision-making was reviewed with the Resident Physician. I agree with the documented findings, disposition and treatment plan as described except to the extent set forth below. <Mj Treviño - Last Filed: 01/28/18 15:18> (3) Diabetes mellitus Qualifiers: Diabetes mellitus type: type 2 Diabetes mellitus snf insulin use: without computer terminal operator use Diabetes mellitus complication status: with hyperglycemia Qualified Code(s): E11.65 - Type 2 diabetes mellitus with hyperglycemia (5) ADHD Qualifiers: Attention deficit-hyperactivity disorder type: unspecified Qualified Code(s): F90.9 - Attention-deficit hyperactivity disorder, unspecified type (6) Bipolar disorder Qualifiers: Active/Remission status: remission status unspecified Qualified Code(s): F31.9 - Bipolar disorder, unspecified
[~2018-01-28 18:51] MED LIST: *HR* Dextrose 50 % in Water (Syg) 50 ML SYRINGE IVP PRN; 0.9 % Sodium Chloride 1,000 ML IVC ONE; D5% in Water 1,000 ML IVC PRN; Dextrose Gel 15 GM/37.5 ML TUBE PO PRN; Fluticasone Propionate Nasal 50 MCG/SPRAY BOTTLE NS PRN; Naloxone 0.4 MG/ML INJ IVP PRN; OXYCODONE Oral CONC 10 MG/0.5 ML ORAL.SYG SL PRN
[2018-01-28] MEDS: Lactobacillus 1 EACH CAP.SPRINK PO SCH (22:22)
[2018-01-29 03:47] LABS: Basophils % 0.5 %; Eosinophils # 0.2 K/mcL (0.0-0.6); Eosinophils % 3.2 %; Hematocrit 29.2 % (35.3-44.9); Hemoglobin 9.7 g/dL (11.5-15.4); Immature Granulocytes % 0.2 % (0-4); Lymphocytes # 2.7 K/mcL (0.6-4.6); Lymphocytes % 49.1 %; Mean Corpuscular HGB Conc 33.2 g/dL (31.6-35.5); Mean Corpuscular Volume 87.4 fL (83.0-100.0); Mean Platelet Volume 10.2 fL (9.4-12.4); Monocytes # 0.4 K/mcL (0.0-1.3); Monocytes % 7.6 %; Neutrophils # 2.2 K/mcL (1.6-8.9); Platelet Count 148 K/mcL (140-400); Red Blood Count 3.34 M/mcL (3.82-4.97); Red Cell Distribution Width 12.2 % (11.5-14.5); Segmented Neutrophils % 39.4 %
[2018-01-29 04:09] LABS: Alanine Aminotransferase 11 Units/L (7-52); Albumin 3.2 g/dL (3.5-5.7); Albumin/Globulin Ratio 1.3 (1.1-2.2); Alkaline Phosphatase 43 Units/L (34-104); Aspartate Amino Transferase 15 Units/L (13-39); BUN/Creatinine Ratio 17 (6-26); Bilirubin,Total 0.2 mg/dL (0.3-1.0); Blood Urea Nitrogen 9 mg/dL (6-20); Calcium 7.9 mg/dL (8.6-10.3); Carbon Dioxide 24 mEq/L (23-29); Chloride 107 mEq/L (98-107); Globulin 2.4 g/dL (2.4-3.5); Glucose 162 mg/dL (70-105); Osmolality,Calculated 286 (280-300); Potassium 3.9 mEq/L (3.5-5.1); Sodium 137 mEq/L (136-145); Total Protein 5.6 g/dL (6.4-8.9); eGFR For Non-African Americans > 60 (> 60)
[2018-01-29] MEDS: OXYCODONE Oral CONC 10 MG/0.5 ML ORAL.SYG SL PRN ×2 (06:52→10:54)
[2018-01-29] MEDS: *HR* Promethazine 25 MG/ML VIAL IVP PRN (06:57)
[2018-01-29] MEDS: Venlafaxine XR (24 HR) 75 MG CAP.ER.24H PO SCH (09:00)
[2018-01-29] MEDS: tiZANidine 4 MG TABLET PO SCH ×3 (09:00→20:27)
[2018-01-29] MEDS: Fenofibrate 54 MG TABLET PO SCH (09:00)
[2018-01-29] MEDS: Cholestyramine 4 GM POWD.PACK PO SCH ×2 (09:00→10:52)
[2018-01-29] MEDS: Methylphenidate HCl 10 MG TABLET PO SCH ×2 (09:01→12:50)
[2018-01-29] MEDS: Cholecalciferol (D-3) 1,000 UNIT TABLET PO SCH (09:01)
[2018-01-29] MEDS: Lactobacillus 1 EACH CAP.SPRINK PO SCH ×2 (09:01→20:26)
[2018-01-29] MEDS: Gabapentin 400 MG CAPSULE PO SCH ×3 (09:01→20:28)
[2018-01-29] MEDS: Acetaminophen 325 MG TABLET PO PRN (09:01)
[2018-01-29] MEDS: Insulin LISPRO 300 UNITS/3 ML VIAL SQ SCH ×4 (09:02→21:57)
[2018-01-29] MEDS: Vancomycin Oral Soln 125 MG/2.5 ML UDC PO SCH ×4 (09:02→20:25)
[2018-01-29] MEDS ORDERED: Ondansetron 4 MG/2 ML VIAL IVP PRN (09:26)
--- NOTE | 2018-01-29 09:55 | Internal Med Progress Note ---
<Louise Karimi - Last Filed: 01/29/18 11:43> Hospitalist Progress Note - Encounter Time of Encounter: 09:18 - Subjective Interval History: Pt seen and examined at bedside. Hospital day 1. Pt was brought from [facility] by ambulance yesterday morning according to her daughter due to nausea, vomiting and persistent diarrhea for several days. Pt states she has had nausea for the last month. She has been taking vancomycin, which is to be continued for a total of 8 weeks, she is currently on week 8. Pt daughter was in the room with her and states she has a chronic hx of c diff and chronic pancreatitis. She was having watery, loose diarrhea 6-7X yesterday but has not had any today. She could not recall seeing blood in her stool. Pt admits to abdominal pain after eating and drinking. Today Pt mildy uncomfortable due to onset of a migraine without aura that occured this morning. Pt admits to vomiting 4-5 times today but denies bile or blood in the vomitus. Denies fever, SOB, chest pain and hematuria. Admits to nausea, hot flashes, chills, H/A, diffuse abdominal pain primarily in the epigastric region which occasionally radiates to the mid back and mild dysuria. - Exam Vitals: Temp Pulse Resp BP Pulse Ox 97.8 F 78 16 132/90 97 01/29/18 06:56 01/29/18 06:56 01/29/18 06:56 01/29/18 06:56 01/29/18 06:56 Exam: General: mildy agitated, distressed d/t migraine HEENT: Normocephalic, atraumatic, moist mucus membranes Cardiovascular: RRR, no murmurs, no rubs, no gallops Pulmonary: CTAB, no wheezing, no rhonchi Abdomen: diffuse abdominal tenderness to palpation, soft, nondistended, normal BS X4 Extremities: no leg edema Skin: warm and dry, no lesions, no rashes - Assessment and Plan (1) C. difficile colitis Current Visit: Yes Status: Chronic Assessment and Plan: Patient has a h/o chronic c diff currently being treated with vancomycin for 8 weeks -awaiting fecal transplant tested + for c diff tox B gene on 12/03/17 pt has no signs of toxic megacolon she is afebrile has no white count and abdominal exam shows no signs of rebound tenderness or guarding plan -contact precautions -continue vancomycin currently week 8 -continue cholestyramine -keep outpatient f/u for fecal transplant (2) Nausea & vomiting Current Visit: Yes Status: Acute Assessment and Plan: pt was vomiting 3 days before coming into the ER -tolerating PO intake plan -continue zofran and phenergan -fluids are d/c (3) Acute on chronic pancreatitis Current Visit: Yes Status: Acute Assessment and Plan: Patient has a chronic h/o pancreatitis -on admission her lipase 320 plan -pancreatic replacement enzymes -clear liquid diet is tolerated -fluids have been d/c -pain control (4) Diabetes Current Visit: Yes Status: Acute Assessment and Plan: Has h/o type II DM - glucose this morning was 162 -on low dose corrective scale (5) GERD (gastroesophageal reflux disease) Current Visit: No Status: Chronic Assessment and Plan: Chronic GERD -on prilosec (6) ADHD Current Visit: No Status: Chronic Assessment and Plan: Chronic ADHD -on Ritalin (7) Anxiety Current Visit: No Status: Chronic Assessment and Plan: Chronic Anxiety -On Effexor (8) DVT prophylaxis Current Visit: No Status: Acute Assessment and Plan: On SCDs (9) HTN (hypertension) Current Visit: No Status: Chronic Assessment and Plan: Chronic HTN -on Lisinopril -132/90 today -controlled (10) Hyperlipidemia Current Visit: No Status: Chronic Assessment and Plan: Chronic HLD -on atorvastatin, fenofibrate (11) Hepatitis B Current Visit: No Status: Acute Assessment and Plan: tested + for hep B in june of 2017 -outpatient GI f/u - Time Spent with Patient Total time spent is greater than 50% in coordination of care (as documented) at patient's floor/unit and/or counseling patient: less than 15 minutes Internal Medicine: Result - Labs CBC & Chem 7: 01/29/18 03:35 01/29/18 03:35 Labs: Short CBC 01/29/18 Range/Units 03:35 WBC 5.6 (4.3-11.1) K/mcL Hgb 9.7 L (11.5-15.4) g/dL Hct 29.2 L (35.3-44.9) % Plt Count 148 (140-400) K/mcL Neutrophils # 2.2 (1.6-8.9) K/mcL BMP 01/29/18 03:35 Sodium 137 Potassium 3.9 Chloride 107 Carbon Dioxide 24 BUN 9 Creatinine 0.52 L Glucose 162 H Calcium 7.9 L Liver Function 01/29/18 Range/Units 03:35 Total Bilirubin 0.2 L (0.3-1.0) mg/dL AST 15 (13-39) Units/L ALT 11 (7-52) Units/L Alkaline Phosphatase 43 (34-104) Units/L Albumin 3.2 L (3.5-5.7) g/dL Consult Discharge Plan - Plan Referrals: NONE,PCP [Primary Care Provider] - <Spencer Britton - Last Filed: 01/29/18 18:10> Hospitalist Progress Note - Encounter Date of Encounter: 01/29/18 - Exam Vitals: Temp Pulse Resp BP Pulse Ox 97.8 F 78 16 132/90 97 01/29/18 06:56 01/29/18 06:56 01/29/18 06:56 01/29/18 06:56 01/29/18 06:56 - Assessment and Plan (1) Bipolar disorder Current Visit: Yes Status: Acute (2) Diabetes Current Visit: Yes Status: Acute (3) Nausea & vomiting Current Visit: Yes Status: Acute (4) C. difficile colitis Current Visit: Yes Status: Chronic (5) Anemia Current Visit: No Status: Acute (6) ADHD Current Visit: No Status: Chronic (7) Abdominal pain Current Visit: No Status: Chronic (8) Diabetes mellitus Current Visit: No Status: Chronic (9) GERD (gastroesophageal reflux disease) Current Visit: No Status: Chronic (10) HTN (hypertension) Current Visit: No Status: Chronic (11) Hyperlipidemia Current Visit: No Status: Chronic - Time Spent with Patient Total time spent is greater than 50% in coordination of care (as documented) at patient's floor/unit and/or counseling patient: less than 15 minutes Internal Medicine: Result - Labs CBC & Chem 7: 01/29/18 03:35 01/29/18 03:35 Labs: Short CBC 01/29/18 Range/Units 03:35 WBC 5.6 (4.3-11.1) K/mcL Hgb 9.7 L (11.5-15.4) g/dL Hct 29.2 L (35.3-44.9) % Plt Count 148 (140-400) K/mcL Neutrophils # 2.2 (1.6-8.9) K/mcL BMP 01/29/18 03:35 Sodium 137 Potassium 3.9 Chloride 107 Carbon Dioxide 24 BUN 9 Creatinine 0.52 L Glucose 162 H Calcium 7.9 L Liver Function 01/29/18 Range/Units 03:35 Total Bilirubin 0.2 L (0.3-1.0) mg/dL AST 15 (13-39) Units/L ALT 11 (7-52) Units/L Alkaline Phosphatase 43 (34-104) Units/L Albumin 3.2 L (3.5-5.7) g/dL - Attending Attestation I examined this patient and my medical decision-making was reviewed with the Medical Student. I agree with the documented findings, disposition and treatment plan as described except to the extent set forth below. Trying to advance diet patient felt nauseated and unable to tolerate PO. She complained of migraines this AM. Abdominal pain still present. She denies fevers/chills. VS: Reviewed Physical: Gen: NAD, CVS: RRR, Lungs: CTAB, Abd: soft, mild TTP diffusely, normal bowel sounds, ext: no edema. A/P: 1. Abdominal pain 2. C diff infection 3. Chronic pancreatitis - NPO at midnight for GI consult - Consult GI, recommendations appreciated. - DC cholestyramine - Continue oral vancomycin - Resume IV fluids since patient will be NPO. <Louise Karimi - Last Filed: 01/29/18 11:43> (2) Nausea & vomiting Qualifiers: Vomiting type: unspecified Vomiting Intractability: unspecified Qualified Code(s): R11.2 - Nausea with vomiting, unspecified (4) Diabetes Qualifiers: Diabetes mellitus type: type 2 Diabetes mellitus meterman insulin use: unspecified skilled nursing insulin use status Diabetes mellitus complication status: with unspecified complications Qualified Code(s): E11.8 - Type 2 diabetes mellitus with unspecified complications (5) GERD (gastroesophageal reflux disease) Qualifiers: Esophagitis presence: without esophagitis Qualified Code(s): K21.9 - Gastro- esophageal reflux disease without esophagitis (6) ADHD Qualifiers: Attention deficit-hyperactivity disorder type: unspecified Qualified Code(s): F90.9 - Attention-deficit hyperactivity disorder, unspecified type (9) HTN (hypertension) Qualifiers: Qualified Code(s): I10 - Essential (primary) hypertension (10) Hyperlipidemia Qualifiers: Hyperlipidemia type: mixed hyperlipidemia Qualified Code(s): E78.2 - Mixed hyperlipidemia (11) Hepatitis B Qualifiers: Viral hepatitis chronicity: acute Hepatic coma status: without hepatic coma Hepatitis delta agent presence: without delta-agent Qualified Code(s): B16.9 - Acute hepatitis B without delta-agent and without hepatic coma <Spencer Britton - Last Filed: 01/29/18 18:10> (1) Bipolar disorder Qualifiers: Active/Remission status: remission status unspecified Qualified Code(s): F31.9 - Bipolar disorder, unspecified (2) Diabetes Qualifiers: Diabetes mellitus type: type 2 Diabetes mellitus meterman insulin use: unspecified meterman insulin use status Diabetes mellitus complication status: with unspecified complications Qualified Code(s): E11.8 - Type 2 diabetes mellitus with unspecified complications (3) Nausea & vomiting Qualifiers: Vomiting type: unspecified Vomiting Intractability: unspecified Qualified Code(s): R11.2 - Nausea with vomiting, unspecified (5) Anemia Qualifiers: Anemia type: unspecified type Qualified Code(s): D64.9 - Anemia, unspecified (6) ADHD Qualifiers: Attention deficit-hyperactivity disorder type: unspecified Qualified Code(s): F90.9 - Attention-deficit hyperactivity disorder, unspecified type (7) Abdominal pain Qualifiers: Abdominal location: epigastric Qualified Code(s): R10.13 - Epigastric pain (8) Diabetes mellitus Qualifiers: Diabetes mellitus type: type 2 Diabetes mellitus skilled nursing insulin use: without meterman use Diabetes mellitus complication status: with hyperglycemia Qualified Code(s): E11.65 - Type 2 diabetes mellitus with hyperglycemia (9) GERD (gastroesophageal reflux disease) Qualifiers: Esophagitis presence: without esophagitis Qualified Code(s): K21.9 - Gastro- esophageal reflux disease without esophagitis (10) HTN (hypertension) Qualifiers: Qualified Code(s): I10 - Essential (primary) hypertension (11) Hyperlipidemia Qualifiers: Hyperlipidemia type: mixed hyperlipidemia Qualified Code(s): E78.2 - Mixed hyperlipidemia
[2018-01-29] MEDS ORDERED: *HR* OxyCODONE Immed Rel 5 MG TABLET PO PRN (13:39)
[2018-01-29] MEDS: *HR* OxyCODONE Immed Rel 5 MG TABLET PO PRN ×2 (15:23→20:28)
[2018-01-29] MEDS: 0.9 % Sodium Chloride 1,000 ML IVC SCH ×2 (18:29→22:44)
[2018-01-30] MEDS: *HR* OxyCODONE Immed Rel 5 MG TABLET PO PRN ×6 (00:40→21:46)
[2018-01-30 06:12] LABS: Basophils % 0.4 %; Eosinophils # 0.2 K/mcL (0.0-0.6); Hematocrit 32.3 % (35.3-44.9); Hemoglobin 11.4 g/dL (11.5-15.4); Immature Granulocytes % 0.4 % (0-4); Lymphocytes # 3.3 K/mcL (0.6-4.6); Lymphocytes % 42.8 %; Mean Corpuscular HGB Conc 35.3 g/dL (31.6-35.5); Mean Corpuscular Hemoglobin 30.6 pg (28.0-33.3); Mean Platelet Volume 9.9 fL (9.4-12.4); Monocytes # 0.4 K/mcL (0.0-1.3); Monocytes % 5.7 %; Neutrophils # 3.7 K/mcL (1.6-8.9); Platelet Count 208 K/mcL (140-400); Red Blood Count 3.72 M/mcL (3.82-4.97); Red Cell Distribution Width 12.2 % (11.5-14.5); Segmented Neutrophils % 47.7 %
[2018-01-30 06:22] LABS: Mean Corpuscular Volume 86.8 fL (83.0-100.0)
[2018-01-30 06:31] LABS: BUN/Creatinine Ratio 13 (6-26); Blood Urea Nitrogen 8 mg/dL (6-20); Calcium 8.9 mg/dL (8.6-10.3); Carbon Dioxide 24 mEq/L (23-29); Chloride 102 mEq/L (98-107); Glucose 170 mg/dL (70-105); Osmolality,Calculated 278 (280-300); Sodium 133 mEq/L (136-145); eGFR For Non-African Americans > 60 (> 60)
[2018-01-30] MEDS: Acetaminophen 325 MG TABLET PO PRN (06:37)
[2018-01-30] MEDS: Insulin LISPRO 300 UNITS/3 ML VIAL SQ SCH ×4 (07:28→22:02)
[2018-01-30] MEDS: Venlafaxine XR (24 HR) 75 MG CAP.ER.24H PO SCH (08:49)
[2018-01-30] MEDS: Lactobacillus 1 EACH CAP.SPRINK PO SCH ×2 (08:49→21:46)
[2018-01-30] MEDS: Gabapentin 400 MG CAPSULE PO SCH ×3 (08:49→21:45)
[2018-01-30] MEDS: Cholecalciferol (D-3) 1,000 UNIT TABLET PO SCH (08:50)
[2018-01-30] MEDS: Fenofibrate 54 MG TABLET PO SCH (08:51)
[2018-01-30] MEDS: Methylphenidate HCl 10 MG TABLET PO SCH ×2 (08:51→12:03)
[2018-01-30] MEDS: tiZANidine 4 MG TABLET PO SCH ×3 (08:51→21:45)
[2018-01-30] MEDS: Vancomycin Oral Soln 125 MG/2.5 ML UDC PO SCH ×4 (08:52→21:44)
[2018-01-30] MEDS: 0.9 % Sodium Chloride 1,000 ML IVC SCH ×2 (08:55→17:19)
--- NOTE | 2018-01-30 10:47 | Internal Med Progress Note ---
<Louise Karimi - Last Filed: 01/30/18 15:00> Hospitalist Progress Note - Encounter Date of Encounter: 01/30/18 Time of Encounter: 07:45 - Subjective Interval History: Pt seen and examined at bedside. Hospital day 2. Today pt resting in her bed comfortably. She denies vomiting and admits to one episode of mild diarrhea this morning. She does admit to watery loose diarrhea yesterday without blood in the stool. Pt denies fever, SOB, chest pain, hematuria and chills. Pt admits to diffuse abdominal pain worse in the epigastric region, nausea, H/A, and mild dysuria. Pt currently has IV in place and is NPO d/t GI consult. - Exam Vitals: Temp Pulse Resp BP Pulse Ox 98.0 F 80 15 100/62 96 01/30/18 07:20 01/30/18 07:20 01/30/18 07:20 01/30/18 07:20 01/30/18 07:20 Exam: General: AAOX3, NAD HEENT: Normocephalic, atraumatic Cardiovascular: RRR, no murmurs, no rubs, no gallops Pulmonary: CTAB, no wheezing, no rhonchi Abdomen: diffuse abdominal tenderness to palpation, soft, nondistended, normal BS X4 Extremities: no leg edema Skin: warm and dry, no lesions, no rashes - Assessment and Plan (1) C. difficile colitis Current Visit: Yes Status: Chronic Assessment and Plan: Patient has a h/o chronic c diff that is currently being treated with vancomycin for 8 weeks -awaiting fecal transplant tested + for c diff tox B gene on 12/03/17 pt has no signs of toxic megacolon she is afebrile has no white count and abdominal exam shows no signs of rebound tenderness or guarding plan -contact precautions -continue vancomycin currently on week 8 -cholestyramine has been d/c -GI consult -NPO currently, start on clear liquids advance diet as tolerated -IV fluids -keep outpatient f/u for fecal transplant (2) Acute on chronic pancreatitis Current Visit: Yes Status: Acute Assessment and Plan: pt has a chronic h/o pancreatitis -lipase on admission was 320 plan -pancreatic replacement enzymes -NPO -IV fluids -pain control (3) Nausea & vomiting Current Visit: Yes Status: Acute Assessment and Plan: pt vomiting yesterday and c/o nausea today -NPO Plan -continue zofran and phenergan -IV fluids (4) Diabetes Current Visit: Yes Status: Acute Assessment and Plan: H/o type II DM -glucose today was 170 -on low dose corrective scale (5) GERD (gastroesophageal reflux disease) Current Visit: No Status: Chronic Assessment and Plan: Chronic GERD -on prilosec (6) ADHD Current Visit: No Status: Chronic Assessment and Plan: Chronic ADHD -on Ritalin (7) Anxiety Current Visit: No Status: Chronic Assessment and Plan: Chronic Anxiety -on Effexor (8) DVT prophylaxis Current Visit: No Status: Acute Assessment and Plan: on SCDs (9) HTN (hypertension) Current Visit: No Status: Chronic Assessment and Plan: Chronic HTN -on Lisinopril -100/62 today -controlled (10) Hyperlipidemia Current Visit: No Status: Chronic Assessment and Plan: Chronic HLD -on atorvastatin, fenofibrate (11) Hepatitis B Current Visit: No Status: Acute Assessment and Plan: tested + for hep B in june of 2017 -outpatient GI f/u - Time Spent with Patient Total time spent is greater than 50% in coordination of care (as documented) at patient's floor/unit and/or counseling patient: Internal Medicine: Result - Labs CBC & Chem 7: 01/30/18 05:57 01/30/18 05:57 Labs: Short CBC 01/30/18 Range/Units 05:57 WBC 7.8 (4.3-11.1) K/mcL Hgb 11.4 L D (11.5-15.4) g/dL Hct 32.3 L (35.3-44.9) % Plt Count 208 (140-400) K/mcL Neutrophils # 3.7 (1.6-8.9) K/mcL BMP 01/30/18 05:57 Sodium 133 L Potassium 4.0 Chloride 102 Carbon Dioxide 24 BUN 8 Creatinine 0.62 Glucose 170 H Calcium 8.9 Consult Discharge Plan - Plan Referrals: Macrina Montes, SOCIAL SERVICE MANAGER [Advanced Practice Nurse] - <Mj Treviño - Last Filed: 01/30/18 15:59> Hospitalist Progress Note - Subjective Interval History: I have re-performed and reviewed the history documented by the medical student, and I confirm its accuracy except as noted below - Exam Vitals: Temp Pulse Resp BP Pulse Ox 98.4 F 112 13 121/74 97 01/30/18 13:56 01/30/18 13:56 01/30/18 13:56 01/30/18 13:56 01/30/18 13:56 - Assessment and Plan (1) C. difficile colitis Current Visit: Yes Status: Chronic Assessment and Plan: PLAN: Cont contact precautions Cont vancomycin Cont Cholestyramine Cont IVF Advance to clear liquid diet Plan to f/u for fecal transplant vs cont of vanc vs switch to fidaxomicin (2) Acute on chronic pancreatitis Current Visit: No Status: Acute Assessment and Plan: H/O chronic pancreatitis Lipase on admission = 320 Triglycerides = 2413 PLAN: Cont IVF Cont pancreatic enzymes Pain Control Advance to clear liquid diet (3) Diabetes mellitus Current Visit: No Status: Chronic Assessment and Plan: HX DM type II Glucose this AM: 170 PLAN: Low dose sliding scale (4) Anxiety Current Visit: No Status: Chronic Assessment and Plan: Cont venlafaxine (5) ADHD Current Visit: No Status: Chronic Assessment and Plan: Cont methylphenidate (6) Bipolar disorder Current Visit: Yes Status: Acute Assessment and Plan: Cont Seroquel (7) PTSD (post-traumatic stress disorder) Current Visit: Yes Status: Acute (8) DVT prophylaxis Current Visit: No Status: Acute Assessment and Plan: SCDS - Time Spent with Patient Total time spent is greater than 50% in coordination of care (as documented) at patient's floor/unit and/or counseling patient: less than 15 minutes Plan of Care Discussed with: patient Internal Medicine: Result - Labs CBC & Chem 7: 01/30/18 05:57 01/30/18 05:57 Labs: Short CBC 01/30/18 Range/Units 05:57 WBC 7.8 (4.3-11.1) K/mcL Hgb 11.4 L D (11.5-15.4) g/dL Hct 32.3 L (35.3-44.9) % Plt Count 208 (140-400) K/mcL Neutrophils # 3.7 (1.6-8.9) K/mcL BMP 01/30/18 05:57 Sodium 133 L Potassium 4.0 Chloride 102 Carbon Dioxide 24 BUN 8 Creatinine 0.62 Glucose 170 H Calcium 8.9 <Ghanem,Shima Rheem - Last Filed: 01/30/18 16:31> Hospitalist Progress Note - Exam Vitals: Temp Pulse Resp BP Pulse Ox 98.4 F 112 13 121/74 97 01/30/18 13:56 01/30/18 13:56 01/30/18 13:56 01/30/18 13:56 01/30/18 13:56 - Assessment and Plan (1) Bipolar disorder Current Visit: Yes Status: Acute (2) Diabetes Current Visit: Yes Status: Acute (3) Nausea & vomiting Current Visit: Yes Status: Acute (4) C. difficile colitis Current Visit: Yes Status: Chronic (5) Anemia Current Visit: No Status: Acute (6) ADHD Current Visit: No Status: Chronic (7) Abdominal pain Current Visit: No Status: Chronic (8) Diabetes mellitus Current Visit: No Status: Chronic (9) GERD (gastroesophageal reflux disease) Current Visit: No Status: Chronic (10) HTN (hypertension) Current Visit: No Status: Chronic (11) Hyperlipidemia Current Visit: No Status: Chronic - Time Spent with Patient Total time spent is greater than 50% in coordination of care (as documented) at patient's floor/unit and/or counseling patient: Internal Medicine: Result - Labs CBC & Chem 7: 01/30/18 05:57 01/30/18 05:57 Labs: Short CBC 01/30/18 Range/Units 05:57 WBC 7.8 (4.3-11.1) K/mcL Hgb 11.4 L D (11.5-15.4) g/dL Hct 32.3 L (35.3-44.9) % Plt Count 208 (140-400) K/mcL Neutrophils # 3.7 (1.6-8.9) K/mcL BMP 01/30/18 05:57 Sodium 133 L Potassium 4.0 Chloride 102 Carbon Dioxide 24 BUN 8 Creatinine 0.62 Glucose 170 H Calcium 8.9 - Attending Attestation I examined this patient and my medical decision-making was reviewed with the Medical Student and the Resident Physician. I agree with the documented findings, disposition and treatment plan as described except to the extent set forth below. Patient has persisting abdominal pain and feels bloated. She denies fevers/chills. States pain is unchanged. VS: Reviewed Physical: Gen: NAD, CVS: RRR, Lungs: CTAB, Abd: soft, mild TTP diffusely, normal bowel sounds, ext: trace lower extremity edema A/P: 1. Abdominal pain 2. C diff infection 3. Chronic pancreatitis - GI consulted, keep NPO until eval - Consult GI, recommendations appreciated. - Continue oral vancomycin <Louise Karimi - Last Filed: 01/30/18 15:00> (3) Nausea & vomiting Qualifiers: Vomiting type: unspecified Vomiting Intractability: unspecified Qualified Code(s): R11.2 - Nausea with vomiting, unspecified (4) Diabetes Qualifiers: Diabetes mellitus type: type 2 Diabetes mellitus group home insulin use: unspecified group home insulin use status Diabetes mellitus complication status: with unspecified complications Qualified Code(s): E11.8 - Type 2 diabetes mellitus with unspecified complications (5) GERD (gastroesophageal reflux disease) Qualifiers: Esophagitis presence: without esophagitis Qualified Code(s): K21.9 - Gastro-e sophageal reflux disease without esophagitis (6) ADHD Qualifiers: Attention deficit-hyperactivity disorder type: unspecified Qualified Code(s): F90.9 - Attention-deficit hyperactivity disorder, unspecified type (9) HTN (hypertension) Qualifiers: Qualified Code(s): I10 - Essential (primary) hypertension (10) Hyperlipidemia Qualifiers: Hyperlipidemia type: mixed hyperlipidemia Qualified Code(s): E78.2 - Mixed hyperlipidemia (11) Hepatitis B Qualifiers: Viral hepatitis chronicity: acute Hepatic coma status: without hepatic coma Hepatitis delta agent presence: without delta-agent Qualified Code(s): B16.9 - Acute hepatitis B without delta-agent and without hepatic coma <Mj Treviño - Last Filed: 01/30/18 15:59> (3) Diabetes mellitus Qualifiers: Diabetes mellitus type: type 2 Diabetes mellitus exterminator termite insulin use: without group home use Diabetes mellitus complication status: with hyperglycemia Qualified Code(s): E11.65 - Type 2 diabetes mellitus with hyperglycemia (5) ADHD Qualifiers: Attention deficit-hyperactivity disorder type: unspecified Qualified Code(s): F90.9 - Attention-deficit hyperactivity disorder, unspecified type (6) Bipolar disorder Qualifiers: Active/Remission status: remission status unspecified Qualified Code(s): F31.9 - Bipolar disorder, unspecified <Spencer Britton - Last Filed: 01/30/18 16:31> (1) Bipolar disorder Qualifiers: Active/Remission status: remission status unspecified Qualified Code(s): F31.9 - Bipolar disorder, unspecified (2) Diabetes Qualifiers: Diabetes mellitus type: type 2 Diabetes mellitus group home insulin use: u nspecified group home insulin use status Diabetes mellitus complication status: with unspecified complications Qualified Code(s): E11.8 - Type 2 diabetes mellitus with unspecified complications (3) Nausea & vomiting Qualifiers: Vomiting type: unspecified Vomiting Intractability: unspecified Qualified Code(s): R11.2 - Nausea with vomiting, unspecified (5) Anemia Qualifiers: Anemia type: unspecified type Qualified Code(s): D64.9 - Anemia, unspecified (6) ADHD Qualifiers: Attention deficit-hyperactivity disorder type: unspecified Qualified Code(s): F90.9 - Attention-deficit hyperactivity disorder, unspecified type (7) Abdominal pain Qualifiers: Abdominal location: epigastric Qualified Code(s): R10.13 - Epigastric pain (8) Diabetes mellitus Qualifiers: Diabetes mellitus type: type 2 Diabetes mellitus exterminator termite insulin use: without exterminator termite use Diabetes mellitus complication status: with hyperglycemia Qualified Code(s): E11.65 - Type 2 diabetes mellitus with hyperglycemia (9) GERD (gastroesophageal reflux disease) Qualifiers: Esophagitis presence: without esophagitis Qualified Code(s): K21.9 - Gastro- esophageal reflux disease without esophagitis (10) HTN (hypertension) Qualifiers: Qualified Code(s): I10 - Essential (primary) hypertension (11) Hyperlipidemia Qualifiers: Hyperlipidemia type: mixed hyperlipidemia Qualified Code(s): E78.2 - Mixed hyperlipidemia
[2018-01-30] MEDS ORDERED: Diphenoxylate/Atropine 1 TAB TABLET PO ONE (11:12)
--- NOTE | 2018-01-30 11:18 | Gastroenterology Consult Note ---
<Chuck Elizabeth - Last Filed: 01/30/18 11:15> Date of Encounter: 01/30/18 Time of Encounter: 10:20 - Assessment and plan (1) C. difficile colitis Current Visit: Yes Status: Chronic Assessment and plan: Patient has been on PO Vanco 4 times per day for the past 8 weeks. She continues to have frequent diarrhea/loose stools. Start cholestyramine twice a day, Lactobacillus twice a day, and give one dose of Lomotil now. Continue PO Vancomycin. Consider fecal transplant. (2) Chronic pancreatitis Current Visit: No Status: Chronic Assessment and plan: Likely secondary to hypertriglyceridemia. On 12/06 IgG4 <1, MADELEINE negative, triglycerides 2194. Recheck triglycerides today. Continue IV fluids, antibiotics, and pain control. Qualifiers: Pancreatitis type: other Qualified Code(s): K86.1 - Other chronic pancreatitis (3) Abdominal pain Current Visit: No Status: Chronic Assessment and plan: Secondary to pancreatitis. Qualifiers: Abdominal location: epigastric Qualified Code(s): R10.13 - Epigastric pain (4) Hepatitis B Current Visit: No Status: Acute Assessment and plan: Follow up in GI office as outpatient for treatment. Qualifiers: Viral hepatitis chronicity: acute Hepatic coma status: without hepatic coma Hepatitis delta agent presence: without delta-agent Qualified Code(s): B16.9 - Acute hepatitis B without delta-agent and without hepatic coma - Time Spent With Patient Total time spent is greater than 50% in coordination of care (as documented) at patient's floor/unit and/or counseling patient: GI History of Present Illness - Data of Consult Patient: known to practice within the last 3 years Consult date: 01/30/18 Requesting Physician: Roger Patel MD - Consult Narrative Reason for consult: Chronic pancreatitis, chronic cdiff History of present illness: Ms. Henderson is a 42 year old female with PMHx of DM, HLD, HTN, kidney stones. She presented from [facility] ER with history of chronic C diff (since September of this year) and pancreatitis. She was last admitted at the end of December, for similar complaints. She states that this time she has had nausea and vomiting as well as continued diarrhea. She went to her doctor on the , but she is still not getting better. She went to [facility] for further evaluation. She was treated in September for Cdiff with Flagyl which was changed to PO Vanco at discharge. She states she has been treated with PO Vanco "several times" for Cdiff. She states she was recently started on "Vanco for 8 weeks" by her PCP and then perhaps have a fecal transplant. Patient also states that she has been having epigastric abdominal pain for the last 4-5 weeks. Over the past 2-3 weeks, she has been having non-bloody, non-bilious vomiting multiples times per day, and varying episodes of bloody diarrhea. She has a history of chronic pancreatitis, pain is worse with eating and drinking. She was transferred to [place] for further management of her C. diff and pancreatitis. WBC on admission was 8.4 with creat 0.76, by definition, non-severe Cdiff. CTA abd/pelvis on 12/05/2017 was negative. We were consulted due to diffuse abdominal pain nausea. Procedures: Colonoscopy 12/07/2017 Dr. Mesa: Normal mucosa in entire colon, stool in entire colon. Biopsies with no evidence of IBD, infectious colitis, ischemic colitis and microscopic colitis EGD 12/07/[address] Mesa: Mild chronic gastritis. Colonoscopy 01/12/2015 Dr. Vela: External hemorrhoids, mild chronic inflammation. NSAIDs: None Anticoagulation: None Past Med Surg Social Fam HX - Past Medical History Medical history: diabetes, hyperlipidemia, hypertension, kidney stones Additional medical history: chronic pancreatitis Psychiatric history: anxiety, ADHD, bipolar, PTSD, previous psychiatric hospitalization, other - Past Surgical History Surgical History: cholecystectomy, hysterectomy, orthopedic, other Additional surgical history: back/ left foot sx - Social History Smoking Status: Never smoker Smokeless Tobacco Status: No Alcohol use: none Drug use: none - Family History Mother Living Status: Still Living Hx Family Cardiac Disorders: Yes (high blood pressure, high cholesterol) Hx Family Endocrine Disorder: Yes (DM 2) - Gastrointestinal Gastrointestinal: Present: as per HPI - Constitutional Constitutional: as per HPI - EENT Eyes: as per HPI Ears: Present: as per HPI Nose, mouth and throat: Present: as per HPI - Cardiovascular Cardiovascular ROS: Present: as per HPI - Respiratory Respiratory IM: Present: as per HPI - Genitourinary Genitourinary: Absent: change in color, Urinary frequency - Neurological ROS Neurological GI: Present: as per HPI - Hematologic/Lymphatic Hematologic/Lymphatic pediatric: Present: as per HPI - Musculoskeletal Musculoskeletal ROS GI: Present: as per HPI - Integumentary Integumentary GI: Present: as per HPI - Psychiatric ROS Psychiatric GI: Present: as per HPI - Endocrine Endocrine IM: Present: as per HPI - Constitutional Vitals: Temp Pulse Resp BP Pulse Ox 98.0 F 80 15 100/62 96 01/30/18 07:20 01/30/18 07:20 01/30/18 07:20 01/30/18 07:20 01/30/18 07:20 General appearance: Present: cooperative, A&O X 3, no acute distress, answers questions appropriately - Head Head exam: Present: atraumatic, normocephalic - Eye Eye exam: Present: normal appearance, sclera anicteric - ENT ENT exam: Present: mucous membranes dry - Neck Neck exam general surgery: Present: normal inspection, trachea midline - Respiratory Respiratory exam: Present: CTAB. Absent: rales, rhonchi, wheezes - Cardiovascular Cardiovascular exam: Present: RRR, +S1, +S2 - GI/Abdominal GI/Abdominal exam: Present: distended (slightly), normal bowel sounds, soft, tenderness (epigastric), no peritoneal signs. Absent: firm, guarding - Rectal Rectal exam: Present: deferred - Extremities Exam Extremities exam: Present: warm - Neurological Exam Neurological exam: Present: no focal deficits - Psychiatric Psychiatric exam: Present: normal affect, normal mood - Skin Skin exam: Present: dry, intact, normal color, warm Results - Labs CBC & Chem 7: 01/30/18 05:57 01/30/18 05:57 Labs: Last Result Calcium 8.9 mg/dL (8.6-10.3) 01/30/18 05:57 Entire Visit Hgb 11.4 g/dL (11.5-15.4) L D 01/30/18 05:57 Hct 32.3 % (35.3-44.9) L 01/30/18 05:57 Total Bilirubin 0.2 mg/dL (0.3-1.0) L 01/29/18 03:35 AST 15 Units/L (13-39) 01/29/18 03:35 ALT 11 Units/L (7-52) 01/29/18 03:35 Consult Discharge Plan - Plan Referrals: Macrina Montes, OPERATIONS MANAGER ASSISTANT [Advanced Practice Nurse] - <Ricardo Gonsalez - Last Filed: 01/31/18 09:50> - Time Spent With Patient Total time spent is greater than 50% in coordination of care (as documented) at patient's floor/unit and/or counseling patient: GI History of Present Illness - Data of Consult Requesting Physician: Roger Patel MD - Consult Narrative History of present illness: Ms. Henderson is a 42 year old female - Constitutional Vitals: Temp Pulse Resp BP Pulse Ox 98.0 F 70 16 109/69 95 01/31/18 03:28 01/31/18 03:28 01/31/18 03:28 01/31/18 05:59 01/31/18 03:28 Results - Labs CBC & Chem 7: 01/31/18 06:36 01/31/18 05:43 Labs: Last Result Calcium 8.3 mg/dL (8.6-10.3) L 01/31/18 05:43 Triglycerides 2413 mg/dL (< 150) H 01/30/18 05:57 Entire Visit Hgb 9.8 g/dL (11.5-15.4) L D 01/31/18 06:36 Hct 29.0 % (35.3-44.9) L 01/31/18 06:36 Total Bilirubin 0.2 mg/dL (0.3-1.0) L 01/29/18 03:35 AST 15 Units/L (13-39) 01/29/18 03:35 ALT 11 Units/L (7-52) 01/29/18 03:35 - Attending Attestation Agree I examined this patient and my medical decision-making was reviewed with the Resident Physician. I agree with the documented findings, disposition and treatment plan as described except to the extent set forth below.
[2018-01-30 12:42] LABS: Triglycerides 2413 mg/dL (< 150)
[2018-01-30] MEDS: Cholestyramine 4 GM POWD.PACK PO SCH (17:18)
[2018-01-31] MEDS: *HR* OxyCODONE Immed Rel 5 MG TABLET PO PRN ×4 (06:05→20:55)
[2018-01-31] MEDS: 0.9 % Sodium Chloride 1,000 ML IVC SCH (06:06)
[2018-01-31 06:18] LABS: BUN/Creatinine Ratio 9 (6-26); Blood Urea Nitrogen 5 mg/dL (6-20); Calcium 8.3 mg/dL (8.6-10.3); Carbon Dioxide 27 mEq/L (23-29); Chloride 105 mEq/L (98-107); Glucose 126 mg/dL (70-105); Osmolality,Calculated 287 (280-300); Potassium 3.8 mEq/L (3.5-5.1); Sodium 139 mEq/L (136-145); eGFR For Non-African Americans > 60 (> 60)
[2018-01-31 06:45] LABS: Basophils % 0.6 %; Eosinophils # 0.2 K/mcL (0.0-0.6); Eosinophils % 3.1 %; Immature Granulocytes % 0.3 % (0-4); Lymphocytes # 3.2 K/mcL (0.6-4.6); Lymphocytes % 45.1 %; Mean Corpuscular HGB Conc 33.8 g/dL (31.6-35.5); Mean Corpuscular Hemoglobin 29.2 pg (28.0-33.3); Mean Corpuscular Volume 86.3 fL (83.0-100.0); Mean Platelet Volume 9.7 fL (9.4-12.4); Monocytes # 0.5 K/mcL (0.0-1.3); Monocytes % 6.4 %; Neutrophils # 3.2 K/mcL (1.6-8.9); Platelet Count 166 K/mcL (140-400); Red Blood Count 3.36 M/mcL (3.82-4.97); Red Cell Distribution Width 12.2 % (11.5-14.5); Segmented Neutrophils % 44.5 %
[2018-01-31 06:52] LABS: Hemoglobin 9.8 g/dL (11.5-15.4)
[2018-01-31] MEDS: Cholestyramine 4 GM POWD.PACK PO SCH ×2 (08:12→15:59)
[2018-01-31] MEDS: Fenofibrate 54 MG TABLET PO SCH (08:40)
[2018-01-31] MEDS: Gabapentin 400 MG CAPSULE PO SCH ×3 (08:40→20:54)
[2018-01-31] MEDS: Venlafaxine XR (24 HR) 75 MG CAP.ER.24H PO SCH (08:40)
[2018-01-31] MEDS: tiZANidine 4 MG TABLET PO SCH ×3 (08:40→20:54)
[2018-01-31] MEDS: Lactobacillus 1 EACH CAP.SPRINK PO SCH ×2 (08:40→20:53)
[2018-01-31] MEDS: Methylphenidate HCl 10 MG TABLET PO SCH ×2 (08:41→11:48)
[2018-01-31] MEDS: Insulin LISPRO 300 UNITS/3 ML VIAL SQ SCH ×4 (08:41→20:55)
[2018-01-31] MEDS: Cholecalciferol (D-3) 1,000 UNIT TABLET PO SCH (08:41)
[2018-01-31] MEDS: Vancomycin Oral Soln 125 MG/2.5 ML UDC PO SCH ×4 (08:42→20:56)
--- NOTE | 2018-01-31 09:53 | Internal Med Progress Note ---
<Louise Karimi - Last Filed: 01/31/18 12:39> Hospitalist Progress Note - Encounter Date of Encounter: 01/31/18 Time of Encounter: 09:46 - Subjective Interval History: Pt seen and examined at bedside. Hospital day 3. Today pt resting in her bed comfortably. States she is doing better than yesterday. She admits to nausea, and diffuse abdominal pain which she states is better than yesterday. Denies vomiting and diarrhea. Pt states that she had a BM this morning that was more solid in consistency, she denied blood in the stool. She is currently on a clear liquid diet and states she wants to eat solid foods now. - Exam Vitals: Temp Pulse Resp BP Pulse Ox 98.0 F 70 16 109/69 95 01/31/18 03:28 01/31/18 03:28 01/31/18 03:28 01/31/18 05:59 01/31/18 03:28 Exam: General: AAOX3, NAD HEENT: normocephalic, atraumatic, dry mucus membranes Cardiovascular: RRR, no murmurs, no rubs Respiratory: CTAB, no wheezing, no rhonchi Abdomen: Normal bowel sounds X4, soft, nondistended, diffuse tenderness to palpation Extremities: pedal edema, no leg edema Skin: dry, warm, no lesions - Assessment and Plan (1) C. difficile colitis Current Visit: Yes Status: Chronic Assessment and Plan: pt has chronic h/o c diff plan -continue contact precautions -on vancomycin, currently on week 11/13, will finish on saturday -on cholestyramine -on IVF -on clear liquid diet -GI ordered c diff toxin PCR (2) Acute on chronic pancreatitis Current Visit: Yes Status: Acute Assessment and Plan: pt has chronic h/o pancreatitis on admission lipase was 320 Triglycerides were 2413 on 01/30/18 plan -on IVF -on pancreatic enzymes -on pain control -pt on clear liquid diet, wants solid foods (3) Diabetes Current Visit: Yes Status: Acute Assessment and Plan: pt has a chronic h/o T2DM pt glucose yesterday morning was 170-->126 this morning plan -pt on a low dose sliding scale (4) Nausea Current Visit: Yes Status: Acute Assessment and Plan: plan -on zofran and phenergan (5) GERD (gastroesophageal reflux disease) Current Visit: No Status: Chronic Assessment and Plan: pt has chronic GERD plan -on prilosec, was d/c on 01/30/18, given today 01/31/18 at 6:04 (6) Anxiety Current Visit: No Status: Chronic Assessment and Plan: pt has chronic anxiety plan -on venlafaxine (7) ADHD Current Visit: No Status: Chronic Assessment and Plan: pt has chronic ADHD plan -on methylphenidate (8) DVT prophylaxis Current Visit: No Status: Acute Assessment and Plan: pt on SCDs (9) HTN (hypertension) Current Visit: No Status: Chronic Assessment and Plan: pt has h/o chronic HTN Plan -on lisinopril (10) Hyperlipidemia Current Visit: No Status: Chronic Assessment and Plan: pt has a chronic h/o of HLD triglycerides were 2413 on 01/30/18 plan -on Atorvastatin and fenofibrate (11) Hepatitis B Current Visit: No Status: Acute Assessment and Plan: Tested positive for Hep B in june of 2017 plan -f/u outpatient GI (12) Bipolar disorder Current Visit: No Status: Chronic Assessment and Plan: pt has chronic bipolar disorder plan -on Seroquel - Time Spent with Patient Total time spent is greater than 50% in coordination of care (as documented) at patient's floor/unit and/or counseling patient: Internal Medicine: Result - Labs CBC & Chem 7: 01/31/18 06:36 01/31/18 05:43 Labs: Short CBC 01/31/18 Range/Units 06:36 WBC 7.1 (4.3-11.1) K/mcL Hgb 9.8 L D (11.5-15.4) g/dL Hct 29.0 L (35.3-44.9) % Plt Count 166 (140-400) K/mcL Neutrophils # 3.2 (1.6-8.9) K/mcL BMP 01/30/18 01/31/18 05:57 05:43 Sodium 133 L 139 Potassium 4.0 3.8 Chloride 102 105 Carbon Dioxide 24 27 BUN 8 5 L Creatinine 0.62 0.53 L Glucose 170 H 126 H Calcium 8.9 8.3 L Consult Discharge Plan - Plan Referrals: Macrina Montes, FOOD SAFETY TECHNICIAN [Advanced Practice Nurse] - <Mj Treviño - Last Filed: 01/31/18 14:31> Hospitalist Progress Note - Subjective Interval History: I have re-performed and reviewed the history documented by the medical student, and I confirm its accuracy except as noted below Pt resting comfortably at bedside, in NAD, improved from yesterday AOx3. Requesting advance in diet. Tolerating PO intake. Reports mild nausea, mild diffuse abd pain, but denies vomiting, diarrhea. Had 1BM this morning, solid, non-bloody. - Exam Vitals: Temp Pulse Resp BP Pulse Ox 98.2 F 84 16 108/79 97 01/31/18 10:16 01/31/18 10:16 01/31/18 10:16 01/31/18 10:16 01/31/18 10:16 Exam: RESP: CTAB; no wheezing, crackles, rhonchi, rales ABD: Diffuse mild abd tenderness EXT: B/L Pedal Edema - Assessment and Plan (1) C. difficile colitis Current Visit: Yes Status: Chronic Assessment and Plan: Per GI, cont with vancomycin; will recheck C Diff Toxin PCR Cont culturelle Cont omeprazole BID W/ improving symptoms, may not need fecal transplant, but will f/u outpatien Advance diet as tolerated (2) Acute on chronic pancreatitis Current Visit: No Status: Acute Assessment and Plan: Hx chronic pancreatitis Tri as of yesterday PLAN: Cont IVF Cont pancreatic enzyme replacement Cont Cholestyramine Cont Lipitor Cont fenofibrate Cont pain control as needed Cont zofran, phenergan for nausea Counseled on change in diet, exercise to manage lipids (3) Diabetes mellitus Current Visit: No Status: Chronic Assessment and Plan: Hx DMII Cont low dose sliding scale Advance diet as tolerated Accuchecks q6h (4) Anxiety Current Visit: No Status: Chronic Assessment and Plan: Cont venlafaxine (5) ADHD Current Visit: No Status: Chronic Assessment and Plan: Cont methylphenidate (6) Bipolar disorder Current Visit: No Status: Chronic Assessment and Plan: Cont seroquel (7) PTSD (post-traumatic stress disorder) Current Visit: Yes Status: Acute Assessment and Plan: Cont seroquel, venlafaxine F/U outpatient (8) DVT prophylaxis Current Visit: No Status: Acute Assessment and Plan: Cont SCDs - Time Spent with Patient Total time spent is greater than 50% in coordination of care (as documented) at patient's floor/unit and/or counseling patient: less than 15 minutes Plan of Care Discussed with: patient Internal Medicine: Result - Labs CBC & Chem 7: 01/31/18 12:02 01/31/18 05:43 Labs: Short CBC 01/31/18 01/31/18 Range/Units 06:36 12:02 WBC 7.1 8.1 (4.3-11.1) K/mcL Hgb 9.8 L D 10.0 L (11.5-15.4) g/dL Hct 29.0 L 29.8 L (35.3-44.9) % Plt Count 166 186 (140-400) K/mcL Neutrophils # 3.2 4.4 (1.6-8.9) K/mcL BMP 01/31/18 05:43 Sodium 139 Potassium 3.8 Chloride 105 Carbon Dioxide 27 BUN 5 L Creatinine 0.53 L Glucose 126 H Calcium 8.3 L <Louise Karimi - Last Filed: 01/31/18 12:39> (3) Diabetes Qualifiers: Diabetes mellitus type: type 2 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 retirement insulin use status Diabetes mellitus complication status: with unspecified complications Qualified Code(s): E11.8 - Type 2 diabetes mellitus with unspecified complications (5) GERD (gastroesophageal reflux disease) Qualifiers: Esophagitis presence: without esophagitis Qualified Code(s): K21.9 - Gastro- esophageal reflux disease without esophagitis (7) ADHD Qualifiers: Attention deficit-hyperactivity disorder type: unspecified Qualified Code(s): F90.9 - Attention-deficit hyperactivity disorder, unspecified type (9) HTN (hypertension) Qualifiers: Qualified Code(s): I10 - Essential (primary) hypertension (10) Hyperlipidemia Qualifiers: Hyperlipidemia type: mixed hyperlipidemia Qualified Code(s): E78.2 - Mixed hyperlipidemia (11) Hepatitis B Qualifiers: Viral hepatitis chronicity: acute Hepatic coma status: without hepatic coma Hepatitis delta agent presence: without delta-agent Qualified Code(s): B16.9 - Acute hepatitis B without delta-agent and without hepatic coma (12) Bipolar disorder Qualifiers: Active/Remission status: remission status unspecified Qualified Code(s): F31.9 - Bipolar disorder, unspecified <Mj Treviño - Last Filed: 01/31/18 14:31> (3) Diabetes mellitus Qualifiers: Diabetes mellitus type: type 2 Diabetes mellitus retirement insulin use: without retirement use Diabetes mellitus complication status: with hyperglycemia Qualified Code(s): E11.65 - Type 2 diabetes mellitus with hyperglycemia (5) ADHD Qualifiers: Attention deficit-hyperactivity disorder type: unspecified Qualified Code(s): F90.9 - Attention-deficit hyperactivity disorder, unspecified type (6) Bipolar disorder Qualifiers: Active/Remission status: remission status unspecified Qualified Code(s): F31.9 - Bipolar disorder, unspecified
[2018-01-31 13:16] LABS: Basophils % 0.5 %; Eosinophils # 0.3 K/mcL (0.0-0.6); Eosinophils % 3.3 %; Hematocrit 29.8 % (35.3-44.9); Immature Granulocytes % 0.4 % (0-4); Lymphocytes # 2.9 K/mcL (0.6-4.6); Lymphocytes % 35.4 %; Mean Corpuscular HGB Conc 33.6 g/dL (31.6-35.5); Mean Corpuscular Hemoglobin 28.7 pg (28.0-33.3); Mean Corpuscular Volume 85.6 fL (83.0-100.0); Mean Platelet Volume 10.3 fL (9.4-12.4); Monocytes # 0.5 K/mcL (0.0-1.3); Neutrophils # 4.4 K/mcL (1.6-8.9); Platelet Count 186 K/mcL (140-400); Red Blood Count 3.48 M/mcL (3.82-4.97); Segmented Neutrophils % 54.4 %
[2018-01-31] MEDS ORDERED: Lidocaine -MPF 1% 5 ML AMPUL INFILT ONE (13:50)
[2018-01-31] MEDS ORDERED: hydrOXYzine pamoate 25 MG CAPSULE PO PRN (17:45)
[2018-02-01] MEDS: *HR* OxyCODONE Immed Rel 5 MG TABLET PO PRN ×4 (01:31→15:18)
[2018-02-01 04:51] LABS: Basophils % 0.4 %; Eosinophils # 0.3 K/mcL (0.0-0.6); Eosinophils % 4.2 %; Hematocrit 26.7 % (35.3-44.9); Hemoglobin 9.1 g/dL (11.5-15.4); Immature Granulocytes % 0.3 % (0-4); Lymphocytes # 3.3 K/mcL (0.6-4.6); Lymphocytes % 48.2 %; Mean Corpuscular HGB Conc 34.1 g/dL (31.6-35.5); Mean Corpuscular Hemoglobin 29.3 pg (28.0-33.3); Mean Corpuscular Volume 85.9 fL (83.0-100.0); Mean Platelet Volume 10.1 fL (9.4-12.4); Monocytes # 0.5 K/mcL (0.0-1.3); Neutrophils # 2.8 K/mcL (1.6-8.9); Platelet Count 180 K/mcL (140-400); Red Blood Count 3.11 M/mcL (3.82-4.97); Red Cell Distribution Width 12.1 % (11.5-14.5); Segmented Neutrophils % 39.9 %
[2018-02-01 05:08] LABS: BUN/Creatinine Ratio 12 (6-26); Blood Urea Nitrogen 8 mg/dL (6-20); Calcium 8.5 mg/dL (8.6-10.3); Carbon Dioxide 27 mEq/L (23-29); Chloride 101 mEq/L (98-107); Glucose 328 mg/dL (70-105); Osmolality,Calculated 291 (280-300); Potassium 4.3 mEq/L (3.5-5.1); Sodium 135 mEq/L (136-145); eGFR For Non-African Americans > 60 (> 60)
[2018-02-01] MEDS: Fenofibrate 54 MG TABLET PO SCH (07:57)
[2018-02-01] MEDS: Venlafaxine XR (24 HR) 75 MG CAP.ER.24H PO SCH (07:58)
[2018-02-01] MEDS: Lactobacillus 1 EACH CAP.SPRINK PO SCH (07:58)
[2018-02-01] MEDS: tiZANidine 4 MG TABLET PO SCH ×2 (07:58→15:17)
[2018-02-01] MEDS: Methylphenidate HCl 10 MG TABLET PO SCH ×2 (07:58→12:37)
[2018-02-01] MEDS: Gabapentin 400 MG CAPSULE PO SCH ×2 (07:58→15:17)
[2018-02-01] MEDS: Cholestyramine 4 GM POWD.PACK PO SCH (07:59)
[2018-02-01] MEDS: Cholecalciferol (D-3) 1,000 UNIT TABLET PO SCH (07:59)
[2018-02-01] MEDS: Vancomycin Oral Soln 125 MG/2.5 ML UDC PO SCH ×2 (08:01→12:37)
[2018-02-01] MEDS: Insulin LISPRO 300 UNITS/3 ML VIAL SQ SCH ×2 (08:07→12:37)
[2018-02-01 08:38] LABS: Triglycerides 1527 mg/dL (< 150)
--- NOTE | 2018-02-01 10:49 | Gastroenterology Progress Note ---
Date of Encounter: 02/01/18 Time of Encounter: 11:00 - Time Spent With Patient Total time spent is greater than 50% in coordination of care (as documented) at patient's floor/unit and/or counseling patient: - Subjective Interval history: I have re-performed and reviewed the history documented by the medical student, and I confirm its accuracy except as noted below Pt resting comfortably at bedside, in NAD, improved from yesterday AOx3. Requesting advance in diet. Tolerating PO intake. Reports mild nausea, mild diffuse abd pain, but denies vomiting, diarrhea. Had 1BM this morning, solid, non-bloody. - Constitutional Vitals: Temp Pulse Resp BP Pulse Ox 98 F 88 16 119/70 96 02/01/18 07:57 02/01/18 07:57 02/01/18 07:57 02/01/18 07:57 02/01/18 07:57 General appearance: Present: cooperative, A&O X 3, no acute distress, answers questions appropriately Results - Labs CBC & Chem 7: 02/01/18 04:30 02/01/18 04:30 Labs: Last Result Calcium 8.5 mg/dL (8.6-10.3) L 02/01/18 04:30 Triglycerides 1527 mg/dL (< 150) H 02/01/18 04:30 Entire Visit Hgb 9.1 g/dL (11.5-15.4) L 02/01/18 04:30 Hct 26.7 % (35.3-44.9) L 02/01/18 04:30 Total Bilirubin 0.2 mg/dL (0.3-1.0) L 01/29/18 03:35 AST 15 Units/L (13-39) 01/29/18 03:35 ALT 11 Units/L (7-52) 01/29/18 03:35 Consult Discharge Plan - Plan Referrals: Macrina Montes, LOAF COUNTER [Advanced Practice Nurse] -
[2018-02-01 11:04] VITALS: BP 129/80
--- NOTE | 2018-02-01 13:42 | Discharge Summary ---
- NOTES TO OUTPATIENT PROVIDER Notes to Outpatient Provider: - Continue oral vancomycin until patient gets fecal transplant. Date of Encounter: 02/01/18 Time of Encounter: 13:40 - Discharge Diagnosis (1) Abdominal pain Priority: Primary Status: Chronic Qualifiers: Abdominal location: epigastric Qualified Code(s): R10.13 - Epigastric pain (2) C. 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 Diabetes mellitus complication status: with unspecified complications Qualified Code(s): E11.8 - Type 2 diabetes mellitus with unspecified complications (4) Nausea & vomiting Priority: Secondary Status: Acute Qualifiers: Vomiting type: unspecified Vomiting Intractability: unspecified Qualified Code(s): R11.2 - Nausea with vomiting, unspecified (5) Anemia Priority: Secondary Status: Acute Qualifiers: Anemia type: unspecified type Qualified Code(s): D64.9 - Anemia, unspecified (6) ADHD Priority: Secondary Status: Chronic Qualifiers: Attention deficit-hyperactivity disorder type: unspecified Qualified Code(s): F90.9 - Attention-deficit hyperactivity disorder, unspecified type (7) Diabetes mellitus Priority: Secondary Status: Chronic Qualifiers: Diabetes mellitus type: type 2 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: without marine oil 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 superintendent use Diabetes mellitus complication status: with hyperglycemia Qualified Code(s): E11.65 - Type 2 diabetes mellitus with hyperglycemia (8) GERD (gastroesophageal reflux disease) Priority: Secondary Status: Chronic Qualifiers: Esophagitis presence: without esophagitis Qualified Code(s): K21.9 - Gastro-esophageal reflux disease without esophagitis (9) HTN (hypertension) Priority: Secondary Status: Chronic Qualifiers: Hypertension type: essential hypertension Qualified Code(s): I10 - Essential (primary) hypertension (10) Hyperlipidemia Priority: Secondary Status: Chronic Qualifiers: Hyperlipidemia type: mixed hyperlipidemia Qualified Code(s): E78.2 - Mixed hyperlipidemia (11) Bipolar disorder Priority: Secondary Status: Chronic Qualifiers: Active/Remission status: remission status unspecified Qualified Code(s): F31.9 - Bipolar disorder, unspecified Hospital course: Ms. Henderson is a 42 year old female with a history of pancreatitis and C diff infection, poorly controlled diabetes presented as a transfer from [facility] ED for abdominal pain, nausea and vomiting, and diarrhea. She was was admitted at end of December at [facility] for similar complaints. She has been on [facility] vancomycin with goal of 8 weeks of therapy. Epigastric pain has been ongoing for 4 weeks. Worsened with eating and drinking. Her lipase on admission was 320 after getting IV fluids from [facility]. She was started on IV fluids and placed NPO. Her diet was advanced but had difficulty tolerating food. GI was consulted. Triglycerides were elevated 2,413. Her home triglyceride medications were started on admission. Triglycerides improved to 1,527. Patient was able to advance diet. GI evaluated patient and after patient was able to tolerate diet, she was okay for discharge. Plan is for setting up fecal transplant. She is to take vancomycin PO 250 mg BID until then. - Time Spent with Patient Total time spent providing and/or coordinating discharge services: - Discharge Medications Prescriptions: OxyCODONE Immed Rel [Roxicodone 5 MG] 5 mg PO Q4HR PRN 5 Days #30 tablet PRN Reason: Pain Cholestyramine 4 gm PO BIDAC #14 powd.pack Furosemide [Lasix] 20 mg PO DAILY #5 tablet Home Medications: Fenofibrate [Tricor] 145 mg PO DAILY 02/23/15 [History] Gabapentin [Neurontin] 800 mg PO TID 02/23/15 [History] Lipase/Protease/Amylase [Creon Dr 12,000 Units Capsule] 1 each PO TID 02/23/15 [History] Methylphenidate HCl [Ritalin] 20 mg PO 0800,1200 06/10/17 [History] Quetiapine Fumarate [Seroquel] 100 mg PO HS 06/10/17 [History] Venlafaxine HCl [Venlafaxine HCl ER] 75 mg PO DAILY 06/10/17 [History] Oxycodone HCl/Acetaminophen [Percocet 5-325 mg Tablet] 1 each PO TID PRN 06/11/17 [History] Tizanidine HCl [Zanaflex] 2 mg PO TID 06/11/17 [History] Atorvastatin [Lipitor] 80 mg PO HS 06/24/17 [History] Ergocalciferol (VITAMIN D2) [Vitamin D2] 2,000 unit PO DAILY 12/03/17 [History] Fluticasone Propionate Nasal [Flonase] 2 spr NS DAILY PRN 12/03/17 [History] Lactobacillus [Culturelle] 1 cap PO BID 12/03/17 [History] Omeprazole [PriLOSEC] 40 mg PO BID 12/03/17 [History] Lisinopril 2.5 mg PO DAILY 01/28/18 [History] Metformin HCl 1,000 mg PO BID 01/28/18 [History] Promethazine [Phenergan] 25 mg PO Q6H PRN 01/28/18 [History] Cholestyramine 4 gm PO BIDAC #14 powd.pack 02/01/18 [Rx] Fenofibrate [Tricor] 145 mg PO DAILY tablet 02/01/18 [Rx] Furosemide [Lasix] 20 mg PO DAILY #5 tablet 02/01/18 [Rx] OxyCODONE Immed Rel [Roxicodone 5 MG] 5 mg PO Q4HR PRN 5 Days #30 tablet 02/01/18 [Rx] Vancomycin Oral Soln [Firvanq] 125 mg PO QID 56 Days #560 ml 02/01/18 [Rx] Allergies/Adverse Reactions: Allergy/AdvReac Type Severity Reaction Status Date / Time Amoxicillin Allergy Hives Verified 01/28/18 11:19 clarithromycin [From Biaxin] Allergy Hives Verified 01/28/18 11:19 moxifloxacin [From Avelox] Allergy Hives Verified 01/28/18 11:19 propoxyphene Allergy Hives Verified 01/28/18 11:19 [From Darvocet-N] Date of admission: 01/28/18 18:51 Primary care physician: PCP NONE Consults: 01/29/18 13:42 Consult to Gastroenterology [CONS] Routine Consulting Provider: Gastroenterology [place] Reason for Consult: n/v, abdominal pain. Call Completed: Yes 01/31/18 08:15 Consult to Nutrition [CONS] Stat Comment: Consulting Provider: NUTRITION Reason for Dietary Consult: MST Score 01/31/18 13:51 Consult to Invasive Line Access Team [CONS] Routine Reason for Consult: Picc Line Insertion Line Type: EPIV PICC line indications: Limited vascular access Discharging clinician: Spencer Britton - Constitutional Vitals: Temp Pulse Resp BP Pulse Ox 98.1 F 92 16 129/80 96 02/01/18 10:49 02/01/18 10:49 02/01/18 10:49 02/01/18 10:49 02/01/18 10:49 General appearance: Present: cooperative, pleasant, no acute distress, answers questions appropriately Exam: RESP: CTAB; no wheezing, crackles, rhonchi, rales ABD: Diffuse mild abd tenderness, soft, non-distended. EXT: B/L Pedal Edema - Patient Status Disposition: Home, Self-Care Condition: Undetermined Functional capacity at discharge: independent ambulation Overall status at discharge: patient is progressing back to baseline - Discharge Instructions Follow Up With: Macrina Montes, HEATING AND VENTILATION ENGINEER [Advanced Practice Nurse] - - Diet and Activity Activity: increase activity as tolerated Diet: diabetic diet, low fat, low cholesterol
== END 2018-02-01 15:44 | disposition home or self-care (01) | DRG 371 ==
LOC: 3ANU
PROVIDERS: ADMIT Pediatrics; ATTEND Pediatrics

== ENCOUNTER 2018-04-21 21:19 | Inpatient (IN) ==
[2018-04-21] MEDS ORDERED: *HR* LORazepam 2 MG/ML VIAL IM ONE (21:42)
--- NOTE | 2018-04-21 21:58 | Emergency Department Note ---
Disposition Clinical Impression: Acute anxiety, Stress reaction Depression Qualifiers: Depression Type: unspecified Qualified Code(s): F32.9 - Major depressive disorder, single episode, unspecified Disposition: Still a Patient Referrals: NONE,PCP [Primary Care Provider] - Forms: ED Satisfaction Letter General Adult HPI - General Chief complaint: ED Psychiatric Symptoms Stated complaint: nervous break down. Cant breath Time Seen by Provider: 04/21/18 21:27 Source: patient - History of Present Illness Pain Scale: 2 - Related Data Home Medications Medication Instructions Recorded Confirmed Fenofibrate [Tricor] 145 mg PO DAILY 02/23/15 01/28/18 Gabapentin [Neurontin] 800 mg PO TID 02/23/15 01/28/18 Lipase/Protease/Amylase [Creon Dr 1 each PO TID 02/23/15 01/28/18 12,000 Units Capsule] Methylphenidate HCl [Ritalin] 20 mg PO 0800,1200 06/10/17 01/28/18 Quetiapine Fumarate [Seroquel] 100 mg PO HS 06/10/17 01/28/18 Venlafaxine HCl [Venlafaxine HCl 75 mg PO DAILY 06/10/17 01/28/18 ER] Oxycodone HCl/Acetaminophen 1 each PO TID PRN 06/11/17 01/28/18 [Percocet 5-325 mg Tablet] Tizanidine HCl [Zanaflex] 2 mg PO TID 06/11/17 01/28/18 Atorvastatin [Lipitor] 80 mg PO HS 06/24/17 01/28/18 Ergocalciferol (VITAMIN D2) 2,000 unit PO DAILY 12/03/17 01/28/18 [Vitamin D2] Fluticasone Propionate Nasal 2 spr NS DAILY PRN 12/03/17 01/28/18 [Flonase] Lactobacillus [Culturelle] 1 cap PO BID 12/03/17 01/28/18 Omeprazole [PriLOSEC] 40 mg PO BID 12/03/17 01/28/18 Lisinopril 2.5 mg PO DAILY 01/28/18 01/28/18 Metformin HCl 1,000 mg PO BID 01/28/18 01/28/18 Promethazine [Phenergan] 25 mg PO Q6H PRN 01/28/18 01/28/18 Previous Rx's Medication Instructions Recorded Cholestyramine 4 gm PO BIDAC #14 powd.pack 02/01/18 Fenofibrate [Tricor] 145 mg PO DAILY tablet 02/01/18 Furosemide [Lasix] 20 mg PO DAILY #5 tablet 02/01/18 Vancomycin Oral Soln [Firvanq] 125 mg PO QID 56 Days #560 ml 02/01/18 Ondansetron HCl 4 mg PO Q6H #28 tablet 02/12/18 Promethazine [Phenergan] 25 mg PO Q6HR #40 tablet 02/12/18 Allergies Allergy/AdvReac Type Severity Reaction Status Date / Time Amoxicillin Allergy Hives Verified 01/28/18 11:19 clarithromycin [From Biaxin] Allergy Hives Verified 01/28/18 11:19 moxifloxacin [From Avelox] Allergy Hives Verified 01/28/18 11:19 propoxyphene Allergy Hives Verified 01/28/18 11:19 [From Darvocet-N] Past Medical History - Past Medical History Medical history: Reports: diabetes, hyperlipidemia, hypertension, kidney stones Surgical history: Reports: cholecystectomy, hysterectomy, orthopedic, other Psychiatric history: Reports: anxiety, ADHD, bipolar, PTSD, 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 psychiatric hospitalization, 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 - Social History Smoking Status: Never smoker Smokeless Tobacco Status: No Alcohol use: Reports: none Drug use: Reports: none Physical Exam - General General appearance: alert Course Vital Signs Temperature 97.7 F 04/21/18 21:21 Pulse Rate 137 04/21/18 21:21 Respiratory Rate 28 04/21/18 21:21 Blood Pressure 133/71 04/21/18 21:21 O2 Sat by Pulse Oximetry 97 04/21/18 21:21 Temperature 97.7 F 04/21/18 21:21 Pulse Rate 137 04/21/18 21:21 Respiratory Rate 28 04/21/18 21:21 Blood Pressure 133/71 04/21/18 21:21 O2 Sat by Pulse Oximetry 97 04/21/18 21:21 Oxygen Delivery Oxygen Delivery Room Air Medical Decision Making - MDM Narrative Medical decision making narrative: patient is medically cleared. - Medical Records Medical records reviewed: Yes I reviewed the patient's medical records. - Lab Data Lab results reviewed: Yes I reviewed the patient's lab results. Result diagrams: 04/21/18 22:13 04/21/18 22:13 Lab Results 04/21/18 04/21/18 04/21/18 Range/Units 22:13 22:13 22:55 WBC 9.5 (4.3-11.1) K/mcL RBC 4.13 (3.82-4.97) M/mcL Hgb 12.1 (11.5-15.4) g/dL Hct 35.1 L (35.3-44.9) % MCV 85.0 (83.0-100.0) fL MCH 29.3 (28.0-33.3) pg MCHC 34.5 (31.6-35.5) g/dL RDW 11.9 (11.5-14.5) % Plt Count 311 (140-400) K/mcL MPV 9.3 L (9.4-12.4) fL Immature Gran % 0.2 (0-4) % Seg Neutrophils % 57.7 % Lymphocytes % 33.8 % Monocytes % 6.8 % Eosinophils % 1.1 % Basophils % 0.4 % Neutrophils # 5.5 (1.6-8.9) K/mcL Lymphocytes # 3.2 (0.6-4.6) K/mcL Monocytes # 0.6 (0.0-1.3) K/mcL Eosinophils # 0.1 (0.0-0.6) K/mcL Basophils # 0.0 (0.0-0.2) K/mcL Sodium 136 (136-145) mEq/L Potassium 3.4 L (3.5-5.1) mEq/L Chloride 99 (98-107) mEq/L Carbon Dioxide 22 L (23-29) mEq/L BUN 21 H (6-20) mg/dL Creatinine 0.68 (0.60-1.20) mg/dL Est GFR ( Amer) > 60 (> 60) Est GFR (Non-Af Amer) > 60 (> 60) BUN/Creatinine Ratio 31 H (6-26) Glucose 180 H (70-105) mg/dL Calculated Osmolality 290 (280-300) Calcium 10.0 (8.6-10.3) mg/dL TSH 3.287 (0.340-5.600) mcIU/mL Urine Color Yellow (Yellow) Urine Clarity Turbid A (Clear) Urine pH 7.0 (5.0-8.0) pH Units Ur Specific [place] 1.016 (1.010-1.025) Urine Protein 30 H (Neg-Trace) mg/dL Urine Glucose (UA) Normal (Normal) mg/dL Urine Ketones Negative (Negative) mg/dL Urine Blood Trace H (Negative) Urine Nitrite Negative (Negative) Urine Bilirubin Negative (Negative) Urine Urobilinogen Normal (Normal) mg/dL Ur Leukocyte Esterase Small H (Negative) Salicylates < 2.5 L (15.0-30.0) mg/dL Urine Opiates Screen (Wgrzey=973) ng/mL Acetaminophen < 10 L (10-20) mcg/mL Ur Barbiturates Screen (Bwguqf=408) ng/mL Ur Phencyclidine Scrn (Cutoff=25) ng/mL Ur Amphetamines Screen (Rcfsoz=4668) ng/mL U Benzodiazepines Scrn (Ztozwf=663) ng/mL Urine Cocaine Screen (Cutoff= 300) ng/mL U Marijuana (THC) Screen (Cutoff = 50) ng/mL Ur Drug Screen Interp Ethyl Alcohol < 10 (Less than 10) mg/dL 04/21/18 Range/Units 22:55 WBC (4.3-11.1) K/mcL RBC (3.82-4.97) M/mcL Hgb (11.5-15.4) g/dL Hct (35.3-44.9) % MCV (83.0-100.0) fL MCH (28.0-33.3) pg MCHC (31.6-35.5) g/dL RDW (11.5-14.5) % Plt Count (140-400) K/mcL MPV (9.4-12.4) fL Immature Gran % (0-4) % Seg Neutrophils % % Lymphocytes % % Monocytes % % Eosinophils % % Basophils % % Neutrophils # (1.6-8.9) K/mcL Lymphocytes # (0.6-4.6) K/mcL Monocytes # (0.0-1.3) K/mcL Eosinophils # (0.0-0.6) K/mcL Basophils # (0.0-0.2) K/mcL Sodium (136-145) mEq/L Potassium (3.5-5.1) mEq/L Chloride (98-107) mEq/L Carbon Dioxide (23-29) mEq/L BUN (6-20) mg/dL Creatinine (0.60-1.20) mg/dL Est GFR ( Amer) (> 60) Est GFR (Non-Af Amer) (> 60) BUN/Creatinine Ratio (6-26) Glucose (70-105) mg/dL Calculated Osmolality (280-300) Calcium (8.6-10.3) mg/dL TSH (0.340-5.600) mcIU/mL Urine Color (Yellow) Urine Clarity (Clear) Urine pH (5.0-8.0) pH Units Ur Specific [place] (1.010-1.025) Urine Protein (Neg-Trace) mg/dL Urine Glucose (UA) (Normal) mg/dL Urine Ketones (Negative) mg/dL Urine Blood (Negative) Urine Nitrite (Negative) Urine Bilirubin (Negative) Urine Urobilinogen (Normal) mg/dL Ur Leukocyte Esterase (Negative) Salicylates (15.0-30.0) mg/dL Urine Opiates Screen Negative (Eusxvk=881) ng/mL Acetaminophen (10-20) mcg/mL Ur Barbiturates Screen Negative (Rclers=781) ng/mL Ur Phencyclidine Scrn Negative (Cutoff=25) ng/mL Ur Amphetamines Screen Negative (Hqppmp=6345) ng/mL U Benzodiazepines Scrn Positive H (Zrwmjs=250) ng/mL Urine Cocaine Screen Negative (Cutoff= 300) ng/mL U Marijuana (THC) Screen Negative (Cutoff = 50) ng/mL Ur Drug Screen Interp See Below Ethyl Alcohol (Less than 10) mg/dL Critical Care Time Critical Care Time: No Attestation Statement - Attestation Attestation: I examined this patient and my medical decision-making was reviewed with the Resident Physician. I agree with the documented findings, disposition and wally tment plan as described except to the extent set forth below. 42-year-old female presented to the emergency room for anxiety and panic attacks. She felt she could not catch her breath because she is having anxiety attacks home. Patient is having thoughts of not wanting to live secondary to finding her son who had killed himself just a few weeks ago. She stated that she wanted to be with her son did not want to live anymore. Patient seems upset and helpless. She presented to the ER for evaluation. At this time, we will work up the patient to medically clear her. She has been pink slipped from the ER standpoint. We will do a medical workup and then if clear we will consult with one a for further care and evaluation for safety contract.
--- NOTE | 2018-04-21 21:59 | Emergency Department Note ---
Disposition Clinical Impression: Acute anxiety, Stress reaction Depression Qualifiers: Depression Type: unspecified Qualified Code(s): F32.9 - Major depressive disorder, single episode, unspecified Disposition: Still a Patient Referrals: NONE,PCP [Primary Care Provider] - Forms: ED Satisfaction Letter General Adult HPI - General Chief complaint: ED Psychiatric Symptoms Stated complaint: nervous break down. Cant breath Time Seen by Provider: 04/21/18 21:27 Source: patient, family Mode of arrival: ambulatory Limitations: no limitations Nursing Notes Reviewed: Yes Vital Signs Reviewed: Yes - History of Present Illness HPI Narrative: Patient is a 42-year-old female past medical history of diabetes, hypertension, kidney stones, anxiety, ADHD, bipolar, and PTSD presents [facility] department for evaluation of anxiety attack which she states she is having chest pressure and shaking. States she was recently started on Xanax by her psychiatrist. Patient states that she also is having a difficult time dealing with her son's recent . States that she found him after he shot himself with a gun. States that she does not want to live anymore and that she wants to join him in [employer]. Denies any recent drug or alcohol use. Pain Scale: 2 - Related Data Home Medications Medication Instructions Recorded Confirmed Fenofibrate [Tricor] 145 mg PO DAILY 02/23/15 01/28/18 Gabapentin [Neurontin] 800 mg PO TID 02/23/15 01/28/18 Lipase/Protease/Amylase [Creon Dr 1 each PO TID 02/23/15 01/28/18 12,000 Units Capsule] Methylphenidate HCl [Ritalin] 20 mg PO 0800,1200 06/10/17 01/28/18 Quetiapine Fumarate [Seroquel] 100 mg PO HS 06/10/17 01/28/18 Venlafaxine HCl [Venlafaxine HCl 75 mg PO DAILY 06/10/17 01/28/18 ER] Oxycodone HCl/Acetaminophen 1 each PO TID PRN 06/11/17 01/28/18 [Percocet 5-325 mg Tablet] Tizanidine HCl [Zanaflex] 2 mg PO TID 06/11/17 01/28/18 Atorvastatin [Lipitor] 80 mg PO HS 06/24/17 01/28/18 Ergocalciferol (VITAMIN D2) 2,000 unit PO DAILY 12/03/17 01/28/18 [Vitamin D2] Fluticasone Propionate Nasal 2 spr NS DAILY PRN 12/03/17 01/28/18 [Flonase] Lactobacillus [Culturelle] 1 cap PO BID 12/03/17 01/28/18 Omeprazole [PriLOSEC] 40 mg PO BID 12/03/17 01/28/18 Lisinopril 2.5 mg PO DAILY 01/28/18 01/28/18 Metformin HCl 1,000 mg PO BID 01/28/18 01/28/18 Promethazine [Phenergan] 25 mg PO Q6H PRN 01/28/18 01/28/18 Previous Rx's Medication Instructions Recorded Cholestyramine 4 gm PO BIDAC #14 powd.pack 02/01/18 Fenofibrate [Tricor] 145 mg PO DAILY tablet 02/01/18 Furosemide [Lasix] 20 mg PO DAILY #5 tablet 02/01/18 Vancomycin Oral Soln [Firvanq] 125 mg PO QID 56 Days #560 ml 02/01/18 Ondansetron HCl 4 mg PO Q6H #28 tablet 02/12/18 Promethazine [Phenergan] 25 mg PO Q6HR #40 tablet 02/12/18 Allergies Allergy/AdvReac Type Severity Reaction Status Date / Time Amoxicillin Allergy Hives Verified 01/28/18 11:19 clarithromycin [From Biaxin] Allergy Hives Verified 01/28/18 11:19 moxifloxacin [From Avelox] Allergy Hives Verified 01/28/18 11:19 propoxyphene Allergy Hives Verified 01/28/18 11:19 [From Darvocet-N] All systems ED: reviewed and negative except as stated. Review of Systems: As Per HPI Constitutional: Denies: fever, chills Cardiovascular: Reports: chest pain. Denies: palpitations, dyspnea on exertion, edema, syncope, paroxysmal nocturnal dyspnea Respiratory: Reports: cough, dyspnea. Denies: wheezes, hemoptysis, sputum production Gastrointestinal: Denies: abdominal pain, nausea, vomiting, diarrhea Genitourinary: Denies: urgency, dysuria, frequency Musculoskeletal: Denies: back pain, neck pain Integumentary: Denies: rash Psychiatric: Reports: anxiety, depression, suicidal thoughts. Denies: homicidal thoughts, auditory hallucinations, visual hallucinations Past Medical History - Past Medical History Attestation: Yes The following information was validated with the patient. 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 Admitting to suicidal thoughts. HEAD: Normocephalic; atraumatic EYES: PERRL, no scleral icterus NOSE: The nose is normal in appearance without rhinorrhea NECK: No JVD or distended neck veins RESP: Normal chest excursion with respiration; breath sounds clear and equal bilaterally; no wheezes, rhonchi, or rales CARD: Regular rhythm, without murmurs, rub or gallop ABD: Non-distended; non-tender, soft, without rigidity, rebound or guarding,no pulsatile mass CHEST: No pain with palpation SKIN: Normal for age and race; warm and dry without diaphoresis ; no apparent lesions EXTREMITIES: Pulses are 2 plus and equal times 4 extremities, no peripheral edema or calf muscle pain PSYCH: Very anxious on exam. Mood is labile. Admitting to suicidal thoughts, no plan. - General General appearance: alert Course Course Narrative: Patient reevaluated in the ER for medical clearance to be seen by the psychiatric 1A team. She required a pink slip due to her wanting to leave after she told me that she no longer wanted to live anymore. She also received Ativan to help with her anxiety. Also perform a chest x-ray as well as EKG and troponin to evaluate her chest pain. Suspected told most likely secondary to her anxiety at this time however. We will rule out a cardiac etiology. Vital Signs Temperature 97.7 F 04/21/18 21:21 Pulse Rate 137 04/21/18 21:21 Respiratory Rate 28 04/21/18 21:21 Blood Pressure 133/71 04/21/18 21:21 O2 Sat by Pulse Oximetry 97 04/21/18 21:21 Temperature 97.7 F 04/21/18 21:21 Pulse Rate 137 04/21/18 21:21 Respiratory Rate 28 04/21/18 21:21 Blood Pressure 133/71 04/21/18 21:21 O2 Sat by Pulse Oximetry 97 04/21/18 21:21 Oxygen Delivery Oxygen Delivery Room Air Medical Decision Making - Medical Records Medical records reviewed: Yes I reviewed the patient's medical records. - Lab Data Lab results reviewed: Yes I reviewed the patient's lab results. Result diagrams: 04/21/18 22:13 04/21/18 22:13 Lab Results 04/21/18 04/21/18 04/21/18 Range/Units 22:13 22:13 22:55 WBC 9.5 (4.3-11.1) K/mcL RBC 4.13 (3.82-4.97) M/mcL Hgb 12.1 (11.5-15.4) g/dL Hct 35.1 L (35.3-44.9) % MCV 85.0 (83.0-100.0) fL MCH 29.3 (28.0-33.3) pg MCHC 34.5 (31.6-35.5) g/dL RDW 11.9 (11.5-14.5) % Plt Count 311 (140-400) K/mcL MPV 9.3 L (9.4-12.4) fL Immature Gran % 0.2 (0-4) % Seg Neutrophils % 57.7 % Lymphocytes % 33.8 % Monocytes % 6.8 % Eosinophils % 1.1 % Basophils % 0.4 % Neutrophils # 5.5 (1.6-8.9) K/mcL Lymphocytes # 3.2 (0.6-4.6) K/mcL Monocytes # 0.6 (0.0-1.3) K/mcL Eosinophils # 0.1 (0.0-0.6) K/mcL Basophils # 0.0 (0.0-0.2) K/mcL Sodium 136 (136-145) mEq/L Potassium 3.4 L (3.5-5.1) mEq/L Chloride 99 (98-107) mEq/L Carbon Dioxide 22 L (23-29) mEq/L BUN 21 H (6-20) mg/dL Creatinine 0.68 (0.60-1.20) mg/dL Est GFR ( Amer) > 60 (> 60) Est GFR (Non-Af Amer) > 60 (> 60) BUN/Creatinine Ratio 31 H (6-26) Glucose 180 H (70-105) mg/dL Calculated Osmolality 290 (280-300) Calcium 10.0 (8.6-10.3) mg/dL TSH 3.287 (0.340-5.600) mcIU/mL Urine Color Yellow (Yellow) Urine Clarity Turbid A (Clear) Urine pH 7.0 (5.0-8.0) pH Units Ur Specific [place] 1.016 (1.010-1.025) Urine Protein 30 H (Neg-Trace) mg/dL Urine Glucose (UA) Normal (Normal) mg/dL Urine Ketones Negative (Negative) mg/dL Urine Blood Trace H (Negative) Urine Nitrite Negative (Negative) Urine Bilirubin Negative (Negative) Urine Urobilinogen Normal (Normal) mg/dL Ur Leukocyte Esterase Small H (Negative) Urine Microscopic RBC 0-3 (0-3) per hpf Ur Squamous Epith Cells Few (None-Few) per lpf Amorphous Sediment Moderate H (Few) Urine Mucus Few (Few) Salicylates < 2.5 L (15.0-30.0) mg/dL Urine Opiates Screen (Nhourx=470) ng/mL Acetaminophen < 10 L (10-20) mcg/mL Ur Barbiturates Screen (Dysnom=529) ng/mL Ur Phencyclidine Scrn (Cutoff=25) ng/mL Ur Amphetamines Screen (Gtymxl=6181) ng/mL U Benzodiazepines Scrn (Jjxnst=765) ng/mL Urine Cocaine Screen (Cutoff= 300) ng/mL U Marijuana (THC) Screen (Cutoff = 50) ng/mL Ur Drug Screen Interp Ethyl Alcohol < 10 (Less than 10) mg/dL 04/21/18 Range/Units 22:55 WBC (4.3-11.1) K/mcL RBC (3.82-4.97) M/mcL Hgb (11.5-15.4) g/dL Hct (35.3-44.9) % MCV (83.0-100.0) fL MCH (28.0-33.3) pg MCHC (31.6-35.5) g/dL RDW (11.5-14.5) % Plt Count (140-400) K/mcL MPV (9.4-12.4) fL Immature Gran % (0-4) % Seg Neutrophils % % Lymphocytes % % Monocytes % % Eosinophils % % Basophils % % Neutrophils # (1.6-8.9) K/mcL Lymphocytes # (0.6-4.6) K/mcL Monocytes # (0.0-1.3) K/mcL Eosinophils # (0.0-0.6) K/mcL Basophils # (0.0-0.2) K/mcL Sodium (136-145) mEq/L Potassium (3.5-5.1) mEq/L Chloride (98-107) mEq/L Carbon Dioxide (23-29) mEq/L BUN (6-20) mg/dL Creatinine (0.60-1.20) mg/dL Est GFR ( Amer) (> 60) Est GFR (Non-Af Amer) (> 60) BUN/Creatinine Ratio (6-26) Glucose (70-105) mg/dL Calculated Osmolality (280-300) Calcium (8.6-10.3) mg/dL TSH (0.340-5.600) mcIU/mL Urine Color (Yellow) Urine Clarity (Clear) Urine pH (5.0-8.0) pH Units Ur Specific [place] (1.010-1.025) Urine Protein (Neg-Trace) mg/dL Urine Glucose (UA) (Normal) mg/dL Urine Ketones (Negative) mg/dL Urine Blood (Negative) Urine Nitrite (Negative) Urine Bilirubin (Negative) Urine Urobilinogen (Normal) mg/dL Ur Leukocyte Esterase (Negative) Urine Microscopic RBC (0-3) per hpf Ur Squamous Epith Cells (None-Few) per lpf Amorphous Sediment (Few) Urine Mucus (Few) Salicylates (15.0-30.0) mg/dL Urine Opiates Screen Negative (Sjkkmd=035) ng/mL Acetaminophen (10-20) mcg/mL Ur Barbiturates Screen Negative (Zhrhcf=516) ng/mL Ur Phencyclidine Scrn Negative (Cutoff=25) ng/mL Ur Amphetamines Screen Negative (Uuctvp=3442) ng/mL U Benzodiazepines Scrn Positive H (Slxzrg=049) ng/mL Urine Cocaine Screen Negative (Cutoff= 300) ng/mL U Marijuana (THC) Screen Negative (Cutoff = 50) ng/mL Ur Drug Screen Interp See Below Ethyl Alcohol (Less than 10) mg/dL - Radiology Data Radiology results reviewed: Yes I reviewed the patient's radiology results. Chest X-Ray 04/21/18 21:42 IMPRESSION: No radiographic evidence of acute cardiopulmonary disease. D/ / Nino Shaw / Nino Shaw Interpreting Provider: Nino Shaw - EKG Data EKG #1 EKG attestation: Yes I reviewed and interpreted this EKG. EKG results narrative: EKG done at 22:03 shows sinus rhythm at a rate of 94 bpm. Normal axis. Intervals within normal limits. No signs of ST elevation, ST depression or Q waves present. S.B.A.R. - S.B.A.R. Situation: Demographics, MOA Background: Presenting Complaint, Relevant PMH, Meds, & Allergies Assessment: Vital Signs, Course and respsone to treatment, Exam Concerns, Patient/Family Expectation, Pertinant Lab Results, Outstanding Labs Recommendation: Barrier(s) to disposition, Recommendation based on pending studies, treatments, or consults S.B.A.R. Report Given to: Martha S.B.A.RMedina Repor Time: 00:20
[2018-04-21 22:29] LABS: Basophils % 0.4 %; Eosinophils # 0.1 K/mcL (0.0-0.6); Eosinophils % 1.1 %; Hematocrit 35.1 % (35.3-44.9); Hemoglobin 12.1 g/dL (11.5-15.4); Immature Granulocytes % 0.2 % (0-4); Lymphocytes # 3.2 K/mcL (0.6-4.6); Lymphocytes % 33.8 %; Mean Corpuscular HGB Conc 34.5 g/dL (31.6-35.5); Mean Corpuscular Hemoglobin 29.3 pg (28.0-33.3); Mean Platelet Volume 9.3 fL (9.4-12.4); Monocytes # 0.6 K/mcL (0.0-1.3); Monocytes % 6.8 %; Neutrophils # 5.5 K/mcL (1.6-8.9); Platelet Count 311 K/mcL (140-400); Red Blood Count 4.13 M/mcL (3.82-4.97); Red Cell Distribution Width 11.9 % (11.5-14.5); Segmented Neutrophils % 57.7 %
[2018-04-21 22:49] LABS: Acetaminophen < 10 mcg/mL (10-20); BUN/Creatinine Ratio 31 (6-26); Blood Urea Nitrogen 21 mg/dL (6-20); Carbon Dioxide 22 mEq/L (23-29); Chloride 99 mEq/L (98-107); Ethanol < 10 mg/dL (Less than 10); Glucose 180 mg/dL (70-105); Osmolality,Calculated 290 (280-300); Potassium 3.4 mEq/L (3.5-5.1); Salicylate < 2.5 mg/dL (15.0-30.0); Sodium 136 mEq/L (136-145); eGFR For Non-African Americans > 60 (> 60)
[2018-04-21] MEDS ORDERED: Ondansetron ODT 4 MG TAB.RAPDIS SL ONE (22:59)
[2018-04-21 23:02] LABS: Thyroid Stimulating Hormone 3.287 mcIU/mL (0.340-5.600)
[2018-04-21 23:05] LABS: Bilirubin,Urine Negative (Negative); Blood,Urine Trace (Negative); Clarity,Urine Turbid (Clear); Color,Urine Yellow (Yellow); Glucose,Urine (UA) Normal (Normal); Ketones,Urine Negative (Negative); Leukocyte Esterase,Urine Small (Negative); Nitrite,Urine Negative (Negative); Protein,Urine 30 mg/dL (Neg-Trace); Specific Gravity,Urine 1.016 (1.010-1.025); Urobilinogen,Urine Normal (Normal)
[2018-04-21 23:15] LABS: Amphetamine Screen,Urine Negative ng/mL (Cutoff=1000); Barbiturate Screen,Urine Negative ng/mL (Cutoff=200); Benzodiazepines Screen,Urine Positive ng/mL (Cutoff=200); Cannabinoid Screen,Urine Negative ng/mL (Cutoff = 50); Cocaine Screen,Urine Negative ng/mL (Cutoff= 300); Opiate Screen,Urine Negative ng/mL (Cutoff=300); Phencyclidine Screen,Urine Negative ng/mL (Cutoff=25)
[2018-04-21 23:27] LABS: Amorphous Sediment,Urine Moderate (Few); Mucus,Urine Few (Few); Squamous Epithelial Cell,Urine Few per lpf (None-Few)
[2018-04-21 23:28] LABS: RBC,Urine 0-3 per hpf (0-3)
[2018-04-21] MEDS ORDERED: *HR* OxyCODONE/APAP 5/325 TABLET PO ONE (23:52)
[2018-04-22] MEDS ORDERED: Haloperidol Lactate 5 MG/ML VIAL IM PRN (01:51)
[2018-04-22] MEDS ORDERED: *HR* LORazepam 1 MG TABLET PO PRN (01:51)
[2018-04-22] MEDS ORDERED: traZODone 50 MG TABLET PO PRN (01:51)
[2018-04-22] MEDS ORDERED: MOM Conc 10 ML UD.LIQ PO PRN (01:51)
[2018-04-22] MEDS ORDERED: *HR* LORazepam 2 MG/ML VIAL IM PRN (01:51)
[2018-04-22] MEDS ORDERED: Mag Hydrox/Al Hydrox/Simeth 30 ML UDC PO PRN (01:51)
[2018-04-22] MEDS ORDERED: Ibuprofen 400 MG TABLET PO PRN (01:51)
[2018-04-22] MEDS: hydrOXYzine pamoate 25 MG CAPSULE PO PRN ×2 (02:37→20:14)
--- NOTE | 2018-04-22 12:46 | Psychiatry History & Physical ---
Date of Encounter: 04/22/18 Time of Encounter: 12:36 History of Present Illness Patient Stated Chief Complaint: depression Medicare Admission Attestation: For traditional Medicare patients the provided hospital inpatient services are reasonable and necessary and in the case of services not specified as inpatient-only under 42 CFR 419.22 (n), that they are appropriately provided as inpatient services in accordance 42 CFR 412.3. For Critical Access Hospital the patient may reasonably be expected to be discharged or transferred to a hospital within 96 hours after admission to the Critical Access Hospital. Admitted From: Home Plans for Post Hospital Care: Home History of Present Illness: Ms. Henderson is a 42 year old female who was admitted secondary to SI. Client's son committed suicide via GSW two weeks ago. Client found him at home. Son's case has been high profile given that he had been posting about his suicide on Facebook. Client's boyfriend and daughter brought her to the ER this time secondary to an anxiety attack that they were worried was something medical. Client was admitted to the medical floor and transferred to when medically cleared. While in the hospital client made a statement about wanting to be with her son and she was referred to secondary to SI. Today client admits to being chronically depressed and anxious. Denies any history of suicide attempts and does not feel she is a threat to herself at this time. Admits to a passive wish but no intent or plan. Previously linked with a psychiatrist in [place] but her case was terminated due to noncompliance with appointments. PCP has been prescribing meds for the past couple of months. Client has an intake appointment to see a new psychiatrist through [facility] on the . Client re ports she takes Effexor and Seroquel and that her PCP recently put her on Xanax due to increased anxiety following her son's suicide. Client takes a lot of controlled substances including multiple pain meds, Neurontin, and Methylphenidate. Has many physical health issues such as chronic pancreatitis, and chronic back and foot pain (multiple previous surgeries for club feet). Has many metabolic problems including diabetes, high blood pressure, and high cholesterol. Past Med Surg Social Fam HX - Past Medical History Medical history: diabetes, hyperlipidemia, hypertension, kidney stones - Past Psychiatric History Psychiatric history: Reports: anxiety, depression Family psychiatric history: Unknown Family History of Suicide: Unknown - Past Surgical History Surgical History: cholecystectomy, hysterectomy, orthopedic, other - Social History Smoking Status: Never smoker Smokeless Tobacco Status: No Alcohol use: none Drug use: none - Family History Mother Living Status: Still Living Hx Family Cardiac Disorders: Yes (high blood pressure, high cholesterol) Hx Family Endocrine Disorder: Yes (DM 2) Medications & Allergies Fenofibrate [Tricor] 145 mg PO DAILY 02/23/15 [History] Gabapentin [Neurontin] 800 mg PO TID 02/23/15 [History] Lipase/Protease/Amylase [Creon Dr 12,000 Units Capsule] 1 each PO TID 02/23/15 [History] Methylphenidate HCl [Ritalin] 20 mg PO 0800,1200 06/10/17 [History] Quetiapine Fumarate [Seroquel] 100 mg PO HS 06/10/17 [History] Venlafaxine HCl [Venlafaxine HCl ER] 75 mg PO DAILY 06/10/17 [History] Oxycodone HCl/Acetaminophen [Percocet 5-325 mg Tablet] 1 each PO TID PRN 06/11/17 [History] Tizanidine HCl [Zanaflex] 2 mg PO TID 06/11/17 [History] Atorvastatin [Lipitor] 80 mg PO HS 06/24/17 [History] Ergocalciferol (VITAMIN D2) [Vitamin D2] 2,000 unit PO DAILY 12/03/17 [History] Fluticasone Propionate Nasal [Flonase] 2 spr NS DAILY PRN 12/03/17 [History] Lactobacillus [Culturelle] 1 cap PO BID 12/03/17 [History] Omeprazole [PriLOSEC] 40 mg PO BID 12/03/17 [History] Lisinopril 2.5 mg PO DAILY 01/28/18 [History] Metformin HCl 1,000 mg PO BID 01/28/18 [History] Promethazine [Phenergan] 25 mg PO Q6H PRN 01/28/18 [History] Cholestyramine 4 gm PO BIDAC #14 powd.pack 02/01/18 [Rx] Fenofibrate [Tricor] 145 mg PO DAILY tablet 02/01/18 [Rx] Furosemide [Lasix] 20 mg PO DAILY #5 tablet 02/01/18 [Rx] Vancomycin Oral Soln [Firvanq] 125 mg PO QID 56 Days #560 ml 02/01/18 [Rx] Ondansetron HCl 4 mg PO Q6H #28 tablet 02/12/18 [Rx] Promethazine [Phenergan] 25 mg PO Q6HR #40 tablet 02/12/18 [Rx] Allergy/AdvReac Type Severity Reaction Status Date / Time Amoxicillin Allergy Hives Verified 01/28/18 11:19 clarithromycin [From Biaxin] Allergy Hives Verified 01/28/18 11:19 moxifloxacin [From Avelox] Allergy Hives Verified 01/28/18 11:19 propoxyphene Allergy Hives Verified 01/28/18 11:19 [From Darvocet-N] Review of Systems Constitutional: Denies: fever, chills, weakness, weight change Eyes: Denies: eye pain, vision change Ears, Nose, Throat: Denies: ear pain, throat pain, dental pain, hearing loss, congestion Cardiovascular: Denies: chest pain, palpitations, dyspnea on exertion Respiratory: Denies: cough, dyspnea, wheezes Gastrointestinal: Reports: abdominal pain, nausea Genitourinary female: Denies: urgency, dysuria, frequency, abnormal menses, dyspareunia Musculoskeletal: Reports: back pain, other Integumentary: Denies: rash, lesions, pruritus Neurological: Reports: other Endocrine: Denies: fatigue, heat or cold intolerance Hematologic/Lymphatic: Denies: easy bruising, lymphadenopathy Allergic/Immunologic: Denies: urticaria, itchy eyes Exam - HEENT Head exam IM: Present: atraumatic Eye exam IM: Present: EOMI, normal appearance, PERRL ENT exam IM: Present: normal exam - Neurological Neurological exam: Present: CN II-XII intact - Respiratory Respiratory exam IM: Present: CTAB - GI/Abdominal GI/Abdominal exam IM: Present: normal bowel sounds, soft. Absent: tenderness - Extremities Extremities exam IM: Present: full ROM - Skin Skin exam IM: Present: dry, warm - Constitutional Vitals: Temp Pulse Resp BP Pulse Ox 97.2 F L 95 18 124/79 97 04/22/18 01:15 04/22/18 01:15 04/22/18 01:15 04/22/18 01:15 04/22/18 01:15 General appearance: age & developmentally appropriate - Musculoskeletal Gait: other Station: relaxed Strength & Tone: normal for patient - Psychiatric Patient Orientation: Yes Person, Yes Time, Yes Place Level of alertness: Alert Behavior: calm, cooperative Psychomotor activity: Normal Eye Contact: Maintains Eye Contact Mood Description: Depressed, Anxious Affect description: blunted Speech Volume: Normal Speech pattern: normal rate, normal rhythm, normal tone, fluent, spontaneous Language & Vocabulary: consistent with education Thought Process: Linear Thought Content: Yes Suicidal ideation, No Homicidal ideation, No Overt delusions Perceptual Disturbances: No Auditory hallucinations, No Visual hallucinations Attention Span Ability: Capable of Focused Attention Memory Description: Grossly Intact Patient Reliability: Reliable Historian Fund of knowledge: Yes abstraction ability, Yes average, Yes aware of current events Intelligence Estimate: Average Judgment: Limited Insight: Minimal Results - Drug Levels and Toxicology Drug Levels and Toxicology: Drug Levels and Toxicity 04/21/18 04/21/18 22:13 22:55 Urine Opiates Screen Negative Acetaminophen < 10 L Ur Barbiturates Screen Negative Ur Phencyclidine Scrn Negative Ur Amphetamines Screen Negative U Benzodiazepines Scrn Positive H Urine Cocaine Screen Negative U Marijuana (THC) Screen Negative Ethyl Alcohol < 10 - Labs Labs: Laboratory Last Values WBC 9.5 K/mcL (4.3-11.1) 04/21/18 22:13 RBC 4.13 M/mcL (3.82-4.97) 04/21/18 22:13 Hgb 12.1 g/dL (11.5-15.4) 04/21/18 22:13 Hct 35.1 % (35.3-44.9) L 04/21/18 22:13 MCV 85.0 fL (83.0-100.0) 04/21/18 22:13 MCH 29.3 pg (28.0-33.3) 04/21/18 22:13 MCHC 34.5 g/dL (31.6-35.5) 04/21/18 22:13 RDW 11.9 % (11.5-14.5) 04/21/18 22:13 Plt Count 311 K/mcL (140-400) 04/21/18 22:13 MPV 9.3 fL (9.4-12.4) L 04/21/18 22:13 Immature Gran % 0.2 % (0-4) 04/21/18 22:13 Seg Neutrophils % 57.7 % 04/21/18 22:13 Lymphocytes % 33.8 % 04/21/18 22:13 Monocytes % 6.8 % 04/21/18 22:13 Eosinophils % 1.1 % 04/21/18 22:13 Basophils % 0.4 % 04/21/18 22:13 Neutrophils # 5.5 K/mcL (1.6-8.9) 04/21/18 22:13 Lymphocytes # 3.2 K/mcL (0.6-4.6) 04/21/18 22:13 Monocytes # 0.6 K/mcL (0.0-1.3) 04/21/18 22:13 Eosinophils # 0.1 K/mcL (0.0-0.6) 04/21/18 22:13 Basophils # 0.0 K/mcL (0.0-0.2) 04/21/18 22:13 Sodium 136 mEq/L (136-145) 04/21/18 22:13 Potassium 3.4 mEq/L (3.5-5.1) L 04/21/18 22:13 Chloride 99 mEq/L (98-107) 04/21/18 22:13 Carbon Dioxide 22 mEq/L (23-29) L 04/21/18 22:13 BUN 21 mg/dL (6-20) H 04/21/18 22:13 Creatinine 0.68 mg/dL (0.60-1.20) 04/21/18 22:13 Est GFR ( Amer) > 60 (> 60) 04/21/18 22:13 Est GFR (Non-Af Amer) > 60 (> 60) 04/21/18 22:13 BUN/Creatinine Ratio 31 (6-26) H 04/21/18 22:13 Glucose 180 mg/dL (70-105) H 04/21/18 22:13 Calculated Osmolality 290 (280-300) 04/21/18 22:13 Calcium 10.0 mg/dL (8.6-10.3) 04/21/18 22:13 TSH 3.287 mcIU/mL (0.340-5.600) 04/21/18 22:13 Urine Color Yellow (Yellow) 04/21/18 22:55 Urine Clarity Turbid (Clear) A 04/21/18 22:55 Urine pH 7.0 pH Units (5.0-8.0) 04/21/18 22:55 Ur Specific [place] 1.016 (1.010-1.025) 04/21/18 22:55 Urine Protein 30 mg/dL (Neg-Trace) H 04/21/18 22:55 Urine Glucose (UA) Normal mg/dL (Normal) 04/21/18 22:55 Urine Ketones Negative mg/dL (Negative) 04/21/18 22:55 Urine Blood Trace (Negative) H 04/21/18 22:55 Urine Nitrite Negative (Negative) 04/21/18 22:55 Urine Bilirubin Negative (Negative) 04/21/18 22:55 Urine Urobilinogen Normal mg/dL (Normal) 04/21/18 22:55 Ur Leukocyte Esterase Small (Negative) H 04/21/18 22:55 Urine Microscopic RBC 0-3 per hpf (0-3) 04/21/18 22:55 Ur Squamous Epith Cells Few per lpf (None-Few) 04/21/18 22:55 Amorphous Sediment Moderate (Few) H 04/21/18 22:55 Urine Mucus Few (Few) 04/21/18 22:55 Salicylates < 2.5 mg/dL (15.0-30.0) L 04/21/18 22:13 Urine Opiates Screen Negative ng/mL (Hnztog=106) 04/21/18 22:55 Acetaminophen < 10 mcg/mL (10-20) L 04/21/18 22:13 Ur Barbiturates Screen Negative ng/mL (Pcmztp=504) 04/21/18 22:55 Ur Phencyclidine Scrn Negative ng/mL (Cutoff=25) 04/21/18 22:55 Ur Amphetamines Screen Negative ng/mL (Oqpfmc=6537) 04/21/18 22:55 U Benzodiazepines Scrn Positive ng/mL (Iwyewn=762) H 04/21/18 22:55 Urine Cocaine Screen Negative ng/mL (Cutoff= 300) 04/21/18 22:55 U Marijuana (THC) Screen Negative ng/mL (Cutoff = 50) 04/21/18 22:55 Ur Drug Screen Interp See Below 04/21/18 22:55 Ethyl Alcohol < 10 mg/dL (Less than 10) 04/21/18 22:13 - Impressions Impressions Chest X-Ray 04/21/18 21:42 IMPRESSION: No radiographic evidence of acute cardiopulmonary disease. D/ / Nino Shaw / Nino Shaw Interpreting Provider: Nino Shaw Assessment and Plan (1) Major depress dis, severe Current visit: Yes Status: Acute Plan: Admit inpatient for safety and stabilization, Close observation, Suicide Precautions per unit protocol, Encourage participation in unit milieu, Group Therapy, Monitor sleep, Monitor appetite Risks, benefits, side effects, alternatives discussed w/pt: Yes Patient agreeable to treatment: Yes Plans for Post Hospital Care: Home Estimated Length of Stay (Days): 4 (2) PTSD (post-traumatic stress disorder) Current visit: No Status: Acute Plan: Admit inpatient for safety and stabilization, Close observation, Suicide Precautions per unit protocol, Encourage participation in unit milieu, Group Therapy, Monitor sleep, Monitor appetite Risks, benefits, side effects, a lternatives discussed w/pt: Yes Patient agreeable to treatment: Yes Plans for Post Hospital Care: Home Estimated Length of Stay (Days): 4
[2018-04-22] MEDS: *HR* Metformin 500 MG TABLET PO SCH (15:41)
[2018-04-22] MEDS: Gabapentin 400 MG CAPSULE PO SCH ×2 (15:41→20:14)
[2018-04-22] MEDS: *HR* OxyCODONE/APAP 5/325 TABLET PO PRN (16:35)
[2018-04-23] MEDS: *HR* OxyCODONE/APAP 5/325 TABLET PO PRN (04:14)
[2018-04-23] MEDS: Gabapentin 400 MG CAPSULE PO SCH (08:28)
[2018-04-23] MEDS: *HR* Metformin 500 MG TABLET PO SCH (08:29)
[2018-04-23] MEDS ORDERED: Venlafaxine XR (24 HR) 75 MG CAP.ER.24H PO SCH (09:00)
[2018-04-23 09:26] VITALS: BP 117/70
--- NOTE | 2018-04-23 10:23 | Discharge Summary ---
Date of Encounter: 04/23/18 Time of Encounter: 10:19 Diagnosis - Discharge Diagnosis (1) Major depress dis, severe Status: Acute (2) PTSD (post-traumatic stress disorder) Status: Acute Medications - Discharge Medications Prescriptions: Venlafaxine XR (24 HR) [Effexor XR] 75 mg PO DAILY #30 cap.er.24h Fenofibrate [Tricor] 145 mg PO DAILY 02/23/15 [History] Gabapentin [Neurontin] 800 mg PO TID 02/23/15 [History] Lipase/Protease/Amylase [Creon Dr 12,000 Units Capsule] 1 each PO TID 02/23/15 [History] Methylphenidate HCl [Ritalin] 20 mg PO 0800,1200 06/10/17 [History] Quetiapine Fumarate [Seroquel] 100 mg PO HS 06/10/17 [History] Oxycodone HCl/Acetaminophen [Percocet 5-325 mg Tablet] 1 each PO TID PRN 06/11/17 [History] Tizanidine HCl [Zanaflex] 2 mg PO TID 06/11/17 [History] Atorvastatin [Lipitor] 80 mg PO HS 06/24/17 [History] Ergocalciferol (VITAMIN D2) [Vitamin D2] 2,000 unit PO DAILY 12/03/17 [History] Fluticasone Propionate Nasal [Flonase] 2 spr NS DAILY PRN 12/03/17 [History] Lactobacillus [Culturelle] 1 cap PO BID 12/03/17 [History] Omeprazole [PriLOSEC] 40 mg PO BID 12/03/17 [History] Lisinopril 2.5 mg PO DAILY 01/28/18 [History] Metformin HCl 1,000 mg PO BID 01/28/18 [History] Promethazine [Phenergan] 25 mg PO Q6H PRN 01/28/18 [History] Cholestyramine 4 gm PO BIDAC #14 powd.pack 02/01/18 [Rx] Fenofibrate [Tricor] 145 mg PO DAILY tablet 02/01/18 [Rx] Furosemide [Lasix] 20 mg PO DAILY #5 tablet 02/01/18 [Rx] Vancomycin Oral Soln [Firvanq] 125 mg PO QID 56 Days #560 ml 02/01/18 [Rx] Ondansetron HCl 4 mg PO Q6H #28 tablet 02/12/18 [Rx] Promethazine [Phenergan] 25 mg PO Q6HR #40 tablet 02/12/18 [Rx] Venlafaxine XR (24 HR) [Effexor XR] 75 mg PO DAILY #30 cap.er.24h 04/23/18 [Rx] Allergy/AdvReac Type Severity Reaction Status Date / Time Amoxicillin Allergy Hives Verified 01/28/18 11:19 clarithromycin [From Biaxin] Allergy Hives Verified 01/28/18 11:19 moxifloxacin [From Avelox] Allergy Hives Verified 01/28/18 11:19 propoxyphene Allergy Hives Verified 01/28/18 11:19 [From Darvocet-N] Results Procedures and tests throughout hospitalization: Completed Lab Orders Category Date Time Status Acetaminophen Stat Lab 04/21/18 22:13 Completed Basic Metabolic Panel Stat Lab 04/21/18 22:13 Completed Complete Blood Count [HEME] Stat Lab 04/21/18 22:13 Completed Drug Screen, Urine [UCHEM] Stat Lab 04/21/18 22:55 Completed Ethanol Stat Lab 04/21/18 22:13 Completed Salicylate Stat Lab 04/21/18 22:13 Completed Thyroid Stimulating Hormone Stat Lab 04/21/18 22:13 Completed Urinalysis reflex Microscopic [URIN] Stat Lab 04/21/18 22:55 Completed Completed Imaging Orders Category Date Time Status XR chest 1V portable [XR] Stat Exams 04/21/18 21:42 Completed Provider Date of admission: 04/22/18 00:55 Primary care physician: PCP NONE Discharging clinician: Christine Momin Psychiatry Exam - Constitutional Vitals: Temp Pulse Resp BP Pulse Ox 98.6 F 114 18 117/70 97 04/23/18 09:00 04/23/18 09:00 04/23/18 09:00 04/23/18 09:00 04/23/18 09:00 General appearance: age & developmentally appropriate - Musculoskeletal Gait: normal Station: relaxed Strength & Tone: normal for patient - Psychiatric Patient Orientation: Yes Person, Yes Time, Yes Place Level of alertness: Alert Behavior: calm, cooperative Psychomotor activity: Normal Eye Contact: Maintains Eye Contact Mood Description: Anxious Affect description: full range Speech Volume: Normal Speech pattern: normal rate, normal rhythm, normal tone, fluent, spontaneous Language & Vocabulary: consistent with education Thought Process: Linear, Goal Oriented Thought Content: No Suicidal ideation, No Homicidal ideation, No Overt delusions Perceptual Disturbances: No Auditory hallucinations, No Visual hallucinations Attention Span Ability: Capable of Focused Attention Memory Description: Grossly Intact Patient Reliability: Reliable Historian Fund of knowledge: Yes abstraction ability, Yes aware of current events Intelligence Estimate: Average Judgment: Fair Insight: Partial Hospital Course Hospital course: Ms. Henderson is a 42 year old female who was admitted after she made a statement to providers about wanting to be with her son who by suicide a couple of weeks ago. Client consistently denied suicidal intent or plan while on the unit. She was initially isolated to her room secondary to concerns for C-diff but this came back negative. Today she is out of her room and interacting well. Her home meds were restarted with good clinical effect. Client is not always compliant with meds or appointments on an outpatient basis. Her meds are currently prescribed by her PCP and she has an intake appointment with the [facility] for ongoing mental health care on the . Client was initially irritable when first hospitalized but today she is pleasant and conversant. Eager to see family. She will be staying with her boyfriend and has no plans to return to the [place] where her son shot himself. Also has a supportive daughter who will be living with her. No evidence of psychosis or a thought disorder. Denies SI/HI. Future oriented. Mood improved and seems to be coping well. - Time Spent with Patient Total time spent providing and/or coordinating discharge services: Assessment and Plan - Patient/Caregiver Discharge Instructions Activity: resume usual activities as tolerated Diet: regular diet - Follow up Plan Follow up with: NONE,PCP [Primary Care Provider] - Functional capacity at discharge: independent ambulation Overall status at discharge: Stable Disposition: Home, Self-Care Quality - Multiple Antipsychotics Patient discharged on 2 or more antipsychotic medications: No Procedures - Procedures Procedures: Medication Management, Crisis Stabilization, Supportive Therapy, Group Therapy
== END 2018-04-23 11:25 | disposition home or self-care (01) | DRG 885 ==
LOC: EMEROOARM 21:19 → 1ANU 04-22 00:55
PROVIDERS: ADMIT General Practice; ATTEND General Practice

== ENCOUNTER 2018-05-04 04:14 | Observation (INO) ==
--- NOTE | 2018-05-04 04:29 | Emergency Department Note ---
Disposition Clinical Impression: Leg pain, bilateral, Hypomagnesemia, Dehydration, Acute kidney injury Diarrhea Qualifiers: Diarrhea type: unspecified type Qualified Code(s): R19.7 - Diarrhea, unspecified Syncope Qualifiers: Syncope type: unspecified Qualified Code(s): R55 - Syncope and collapse Disposition: Admitted As Inpatient Condition: Fair Instructions: Syncope (ED), Acute Diarrhea (ED), Leg Pain (ED) Referrals: NONE,PCP [Primary Care Provider] - Forms: ED Satisfaction Letter Time of Disposition: 05:54 Nausea/Vomiting/Diarrhea HPI - General Chief complaint: ED Nausea/Vomiting/Diarrhea Stated complaint: Leg Swelling, Pain, NVD, Weakness, Syncope Time Seen by Provider: 05/04/18 04:16 Source: patient, family Limitations: other (Poor historian. Uncooperative with history) Nursing Notes Reviewed: Yes Vital Signs Reviewed: Yes - History of Present Illness HPI Narrative: Patient has multiple complaints including upper abdominal pain, nausea, decreased oral intake, "dehydration", lateral knee and lower extremity pain, bilateral lower extremity redness, multiple syncopal episodes, diarrhea, generalized malaise and fatigue Pt Subjective Complaint: nausea, diarrhea, abdominal pain - Related Data Home Medications Medication Instructions Recorded Confirmed Fenofibrate [Tricor] 145 mg PO DAILY 02/23/15 01/28/18 Gabapentin [Neurontin] 800 mg PO TID 02/23/15 01/28/18 Lipase/Protease/Amylase [Creon Dr 1 each PO TID 02/23/15 01/28/18 12,000 Units Capsule] Methylphenidate HCl [Ritalin] 20 mg PO 0800,1200 06/10/17 01/28/18 Quetiapine Fumarate [Seroquel] 100 mg PO HS 06/10/17 01/28/18 Oxycodone HCl/Acetaminophen 1 each PO TID PRN 06/11/17 01/28/18 [Percocet 5-325 mg Tablet] Tizanidine HCl [Zanaflex] 2 mg PO TID 06/11/17 01/28/18 Atorvastatin [Lipitor] 80 mg PO HS 06/24/17 01/28/18 Ergocalciferol (VITAMIN D2) 2,000 unit PO DAILY 12/03/17 01/28/18 [Vitamin D2] Fluticasone Propionate Nasal 2 spr NS DAILY PRN 12/03/17 01/28/18 [Flonase] Lactobacillus [Culturelle] 1 cap PO BID 12/03/17 01/28/18 Omeprazole [PriLOSEC] 40 mg PO BID 12/03/17 01/28/18 Lisinopril 2.5 mg PO DAILY 01/28/18 01/28/18 Metformin HCl 1,000 mg PO BID 01/28/18 01/28/18 Promethazine [Phenergan] 25 mg PO Q6H PRN 01/28/18 01/28/18 Previous Rx's Medication Instructions Recorded Cholestyramine 4 gm PO BIDAC #14 powd.pack 02/01/18 Fenofibrate [Tricor] 145 mg PO DAILY tablet 02/01/18 Furosemide [Lasix] 20 mg PO DAILY #5 tablet 02/01/18 Vancomycin Oral Soln [Firvanq] 125 mg PO QID 56 Days #560 ml 02/01/18 Ondansetron HCl 4 mg PO Q6H #28 tablet 02/12/18 Promethazine [Phenergan] 25 mg PO Q6HR #40 tablet 02/12/18 Venlafaxine XR (24 HR) [Effexor XR] 75 mg PO DAILY #30 cap.er.24h 04/23/18 Allergies Allergy/AdvReac Type Severity Reaction Status Date / Time Amoxicillin Allergy Hives Verified 01/28/18 11:19 clarithromycin [From Biaxin] Allergy Hives Verified 01/28/18 11:19 moxifloxacin [From Avelox] Allergy Hives Verified 01/28/18 11:19 propoxyphene Allergy Hives Verified 01/28/18 11:19 [From Darvocet-N] All systems ED: reviewed and negative except as stated. Constitutional: Reports: weakness Eyes: Reports: as per HPI ENT ED: Reports: as per HPI Cardiovascular: Reports: syncope Respiratory: Reports: as per HPI Gastrointestinal: Reports: abdominal pain, nausea, diarrhea Genitourinary: Reports: as per HPI Musculoskeletal: Reports: other (Bilateral knee and lower extremity pain) Integumentary: Reports: other (Redness to bilateral lower legs) Neurological: Reports: weakness Psychiatric: Reports: anxiety Endocrine: Reports: fatigue Hematological/Lymphatic: Reports: as per HPI Allergic/Immunologic: Reports: as per HPI Past Medical History - Past Medical History Source: patient, old records reviewed, obtained from family Medical history: Reports: diabetes, hyperlipidemia, hypertension, kidney stones Surgical history: Reports: cholecystectomy, hysterectomy, orthopedic, other Psychiatric history: Reports: anxiety, depression 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 - Social History Smoking Status: Never smoker Smokeless Tobacco Status: No Alcohol use: Reports: none Drug use: Reports: none Physical Exam - General Limitations: no limitations General appearance: anxious - Head Head exam: atraumatic - Eye Eye exam: Present: normal appearance - ENT ENT exam: normal exam - Neck Neck exam: Present: normal inspection, full ROM - Chest Chest inspection: Present: normal inspection, symmetric chest wall rise - Respiratory Respiratory exam: Present: normal lung sounds bilaterally - Cardiovascular Cardiovascular exam: Present: regular rate, normal rhythm, normal heart sounds - Abdominal Exam Abdominal exam: Present: soft, Non-Tender, normal bowel sounds, other (Protruberant) - Rectal Exam Rectal exam: Present: deferred - Extremities Exam Extremities exam: Present: normal inspection - Neurological Exam Neurological exam: Present: alert, oriented X3, CN II-XII intact - Psychiatric Psychiatric exam: Present: anxious - Skin Skin exam: Present: warm, dry, intact Course Course Narrative: Patient presents with multiple symptoms. Most notably she complains of nausea, abdominal pain, diarrhea, generalized weakness, syncope. - Reevaluation(s) Reevaluation #1: Patient reassessed. Test results discussed. She now states that her son committed suicide 3 weeks ago and she is in the grieving process and has had decreased oral intake because of her grief Vital Signs Temperature 97.9 F 05/04/18 04:22 Pulse Rate 95 05/04/18 04:22 Respiratory Rate 16 05/04/18 04:22 Blood Pressure 100/59 05/04/18 04:22 O2 Sat by Pulse Oximetry 96 05/04/18 04:22 Temperature 97.9 F 05/04/18 04:22 Pulse Rate 95 05/04/18 04:22 Respiratory Rate 16 05/04/18 04:22 Blood Pressure 100/59 05/04/18 04:22 O2 Sat by Pulse Oximetry 96 05/04/18 04:22 Oxygen Delivery Oxygen Delivery Room Air Nausea/Vomiting/Diarrhea - Medical Records Medical records reviewed: Yes I reviewed the patient's medical records. - Lab Data Lab results reviewed: Yes I reviewed the patient's lab results. Result diagrams: 05/04/18 05:17 05/04/18 05:17 Lab Results 05/04/18 05/04/18 Range/Units 05:17 05:17 WBC 11.8 H (4.3-11.1) K/mcL RBC 4.26 (3.82-4.97) M/mcL Hgb 12.3 (11.5-15.4) g/dL Hct 36.3 (35.3-44.9) % MCV 85.2 (83.0-100.0) fL MCH 28.9 (28.0-33.3) pg MCHC 33.9 (31.6-35.5) g/dL RDW 12.0 (11.5-14.5) % Plt Count 308 (140-400) K/mcL MPV 8.9 L (9.4-12.4) fL Immature Gran % 0.3 (0-4) % Seg Neutrophils % 57.6 % Lymphocytes % 31.7 % Monocytes % 8.3 % Eosinophils % 1.6 % Basophils % 0.5 % Neutrophils # 6.8 (1.6-8.9) K/mcL Lymphocytes # 3.7 (0.6-4.6) K/mcL Monocytes # 1.0 (0.0-1.3) K/mcL Eosinophils # 0.2 (0.0-0.6) K/mcL Basophils # 0.1 (0.0-0.2) K/mcL Sodium 134 L (136-145) mEq/L Potassium 3.7 (3.5-5.1) mEq/L Chloride 100 (98-107) mEq/L Carbon Dioxide 20 L (23-29) mEq/L BUN 41 H (6-20) mg/dL Creatinine 1.99 H (0.60-1.20) mg/dL Est GFR ( Amer) 33 L (> 60) Est GFR (Non-Af Amer) 28 L (> 60) BUN/Creatinine Ratio 21 (6-26) Glucose 209 H (70-105) mg/dL Calculated Osmolality 294 (280-300) Calcium 10.2 (8.6-10.3) mg/dL Magnesium 1.5 L (1.6-2.6) mg/dL Total Bilirubin 0.5 (0.3-1.0) mg/dL AST 12 L (13-39) Units/L ALT 13 (7-52) Units/L Alkaline Phosphatase 65 (34-104) Units/L Troponin I < 0.03 (< 0.04) ng/mL Serum Total Protein 7.7 (6.4-8.9) g/dL Albumin 4.4 (3.5-5.7) g/dL Globulin 3.3 (2.4-3.5) g/dL Albumin/Globulin Ratio 1.3 (1.1-2.2) Lipase 78 (11-82) Units/L - EKG Data EKG attestation: Yes I reviewed and interpreted this EKG. EKG results narrative: Normal sinus rhythm rate 96 by mouth 145 QRS 100 QT/QTC 360/455. No acute ST segment elevation
[2018-05-04 05:30] LABS: Basophils # 0.1 K/mcL (0.0-0.2); Basophils % 0.5 %; Eosinophils # 0.2 K/mcL (0.0-0.6); Eosinophils % 1.6 %; Hematocrit 36.3 % (35.3-44.9); Hemoglobin 12.3 g/dL (11.5-15.4); Immature Granulocytes % 0.3 % (0-4); Lymphocytes # 3.7 K/mcL (0.6-4.6); Lymphocytes % 31.7 %; Mean Corpuscular HGB Conc 33.9 g/dL (31.6-35.5); Mean Corpuscular Hemoglobin 28.9 pg (28.0-33.3); Mean Corpuscular Volume 85.2 fL (83.0-100.0); Mean Platelet Volume 8.9 fL (9.4-12.4); Monocytes % 8.3 %; Neutrophils # 6.8 K/mcL (1.6-8.9); Platelet Count 308 K/mcL (140-400); Red Blood Count 4.26 M/mcL (3.82-4.97); Segmented Neutrophils % 57.6 %
[2018-05-04] MEDS ORDERED: Dicyclomine 20 MG/2 ML AMPUL IM ONE (05:38)
[2018-05-04] MEDS: Ketorolac 15 MG/ML VIAL IM ONE ×2 (05:53→06:31)
[2018-05-04 05:56] LABS: Alanine Aminotransferase 13 Units/L (7-52); Albumin 4.4 g/dL (3.5-5.7); Albumin/Globulin Ratio 1.3 (1.1-2.2); Alkaline Phosphatase 65 Units/L (34-104); Aspartate Amino Transferase 12 Units/L (13-39); BUN/Creatinine Ratio 21 (6-26); Bilirubin,Total 0.5 mg/dL (0.3-1.0); Blood Urea Nitrogen 41 mg/dL (6-20); Calcium 10.2 mg/dL (8.6-10.3); Carbon Dioxide 20 mEq/L (23-29); Chloride 100 mEq/L (98-107); Globulin 3.3 g/dL (2.4-3.5); Glucose 209 mg/dL (70-105); Lipase 78 Units/L (11-82); Magnesium 1.5 mg/dL (1.6-2.6); Osmolality,Calculated 294 (280-300); Potassium 3.7 mEq/L (3.5-5.1); Sodium 134 mEq/L (136-145); Total Protein 7.7 g/dL (6.4-8.9); Troponin I < 0.03 ng/mL (< 0.04); eGFR For Non-African Americans 28 (> 60)
[2018-05-04] MEDS ORDERED: 0.9 % Sodium Chloride 1,000 ML IVC ONE (05:58)
[2018-05-04] MEDS ORDERED: Ketorolac 60 MG/2 ML VIAL IM ONE (06:15)
[2018-05-04] MEDS ORDERED: *HR* FentaNYL (PF) 100 MCG/2 ML VIAL IVP ONE (06:16)
[2018-05-04] MEDS ORDERED: Acetaminophen 325 MG TABLET PO PRN (08:42)
[2018-05-04] MEDS ORDERED: Naloxone 0.4 MG/ML INJ IVP PRN (08:42)
[2018-05-04] MEDS ORDERED: *HR* HYDROcodone/Acet 5/325 mg TABLET PO PRN (08:42)
--- NOTE | 2018-05-04 08:46 | Internal Med History&Physical ---
Date of Encounter: 05/04/18 Time of Encounter: 08:46 Internal Medicine - H&P: HPI Chief complaint: Nausea and decreased oral intake Admitted From: Emergency Dept Plans for Post Hospital Care: Home History of present illness: Ms. Henderson is a 42 year old female past medical history of diabetes hyperlipidemia hypertension kidney stones C. difficile colitis hepatitis B pancreatitis-according to the patient she experienced significant loss -April 10 her son committed suicide and home and she found her son in his room. Since this time patient has been extremely depressed and was admitted to this facility 04/22/18 for psychiatric assessment for depression she was discharged on the . Since this time patient states that she has not had any desire to eat or drink and she has had difficulty sleeping. She also has been experiencing approximately 6-10 loose bowel movements a day -she has been feeling weak and lightheaded at times feels as if she is going to pass out. She was not initiated on antidepressants which she states she just started a few days ago. In the emergency department was was noted patient did have an AK I low magnesium. She was admitted for further workup any evaluation of dehydration/ ANDREW. Currently patient does appear tearful during our conversation she does complain of some abdominal cramping but denies any nausea and is requesting something to drink. She denies any suicidal ideations however does express that she misses her son dearly and would like to see him one more time. Emotional support was given to the patient and family, I did review treatment plan with the patient,patient boyfriend and daughter who are at the bedside- verbalized understanding. Past Med Surg Social Fam HX - Past Medical History Medical history: diabetes, hyperlipidemia, hypertension, kidney stones Additional medical history: Chronic pancreatitis. C-diff Psychiatric history: anxiety, depression - Past Surgical History Surgical History: cholecystectomy, hysterectomy, orthopedic, other Additional surgical history: back/ left foot sx, partial hysterectomy, left ovary removed - Social History Smoking Status: Never smoker Smokeless Tobacco Status: No Alcohol use: none Drug use: none - Family History Mother Living Status: Still Living Hx Family Cardiac Disorders: Yes (high blood pressure, high cholesterol) Hx Family Endocrine Disorder: Yes (DM 2) Internal Medicine - H&P: Meds Fenofibrate [Tricor] 145 mg PO DAILY 02/23/15 [History] Gabapentin [Neurontin] 800 mg PO TID 02/23/15 [History] Lipase/Protease/Amylase [Creon Dr 12,000 Units Capsule] 1 each PO TID 02/23/15 [History] Methylphenidate HCl [Ritalin] 20 mg PO 0800,1200 06/10/17 [History] Quetiapine Fumarate [Seroquel] 100 mg PO HS 06/10/17 [History] Oxycodone HCl/Acetaminophen [Percocet 5-325 mg Tablet] 1 each PO TID PRN 06/11/17 [History] Tizanidine HCl [Zanaflex] 2 mg PO TID 06/11/17 [History] Atorvastatin [Lipitor] 80 mg PO HS 06/24/17 [History] Ergocalciferol (VITAMIN D2) [Vitamin D2] 2,000 unit PO DAILY 12/03/17 [History] Fluticasone Propionate Nasal [Flonase] 2 spr NS DAILY PRN 12/03/17 [History] Lactobacillus [Culturelle] 1 cap PO BID 12/03/17 [History] Omeprazole [PriLOSEC] 40 mg PO BID 12/03/17 [History] Lisinopril 2.5 mg PO DAILY 01/28/18 [History] Metformin HCl 1,000 mg PO BID 01/28/18 [History] Promethazine [Phenergan] 25 mg PO Q6H PRN 01/28/18 [History] Cholestyramine 4 gm PO BIDAC #14 powd.pack 02/01/18 [Rx] Fenofibrate [Tricor] 145 mg PO DAILY tablet 02/01/18 [Rx] Furosemide [Lasix] 20 mg PO DAILY #5 tablet 02/01/18 [Rx] Vancomycin Oral Soln [Firvanq] 125 mg PO QID 56 Days #560 ml 02/01/18 [Rx] Ondansetron HCl 4 mg PO Q6H #28 tablet 02/12/18 [Rx] Promethazine [Phenergan] 25 mg PO Q6HR #40 tablet 02/12/18 [Rx] Venlafaxine XR (24 HR) [Effexor XR] 75 mg PO DAILY #30 cap.er.24h 04/23/18 [Rx] Allergy/AdvReac Type Severity Reaction Status Date / Time Amoxicillin Allergy Hives Verified 01/28/18 11:19 clarithromycin [From Biaxin] Allergy Hives Verified 01/28/18 11:19 moxifloxacin [From Avelox] Allergy Hives Verified 01/28/18 11:19 propoxyphene Allergy Hives Verified 01/28/18 11:19 [From Darvocet-N] All Systems PM: A 10-system review of systems was performed and is negative for pertinent findings except as documented above in the HPI. - Constitutional Constitutional: weakness - EENT Eyes: no change in vision, no discharge, no pain, no photophobia Ears: no ear discharge, no ear pain, no tinnitus Nose, mouth and throat: no dysphagia, no nasal discharge, no neck pain, no sore throat - Cardiovascular Cardiovascular ROS IM: no chest pain, no diaphoresis, no dyspnea, no lightheadedness, no palpitations, no syncope - Respiratory Respiratory: no cough, no dyspnea, no wheezing, no excessive phlegm production - Gastrointestinal Gastrointestinal: abdominal pain, cramping, diarrhea, nausea - Genitourinary Genitourinary: no change in urinary stream, no dysuria, no flank pain, no hematuria - Musculoskeletal Musculoskeletal ROS IM: no numbness, no tingling - Integumentary Integumentary IM: no rash, no unusual bruising - Neurological Neurological ROS: no confusion, no convulsions, no focal weakness, no numbness, no tingling, no tremor(s) - Psychiatric Psychiatric: depression, panic attacks - Hematologic/Lymphatic Hematologic/Lymphatic: no easy bruising - Constitutional Vitals: Temp Pulse Resp BP Pulse Ox 97.7 F 87 16 106/64 100 05/04/18 07:25 05/04/18 07:25 05/04/18 07:25 05/04/18 07:25 05/04/18 07:25 Exam: . - Head Head exam: Present: atraumatic, normocephalic - Eye Eye exam: Present: PERRL, conjuntiva pink, sclera anicteric Pupils: Present: PERRL - Neck Neck exam general surgery: Present: supple, trachea midline. Absent: lymphaden opathy - Respiratory Respiratory exam: Present: CTAB. Absent: accessory muscle use, rales, rhonchi, wheezes - Cardiovascular Cardiovascular exam: Present: RRR, +S1, +S2. Absent: diastolic murmur, gallop, rubs, systolic murmur - GI/Abdominal GI/Abdominal exam: Present: soft, tenderness - Extremities Exam Extremities exam: Present: warm, radial pulses palpable and symmetrical. Absent: calf tenderness, cyanotic, pedal edema - Neurological Exam Neurological exam: Present: CN II-XII intact, oriented X3, no focal deficits. Absent: pronater drift, facial droop, speech deficit - Psychiatric Psychiatric exam: Present: depressed Additional comments: Patient is tearful throughout examination denies any suicidal ideations at this time - Skin Skin exam: Present: dry, intact Internal Med - H&P Results - Labs CBC & Chem 7: 05/04/18 05:17 05/04/18 05:17 Labs: Short CBC 05/04/18 Range/Units 05:17 WBC 11.8 H (4.3-11.1) K/mcL Hgb 12.3 (11.5-15.4) g/dL Hct 36.3 (35.3-44.9) % Plt Count 308 (140-400) K/mcL Neutrophils # 6.8 (1.6-8.9) K/mcL BMP 05/04/18 05:17 Sodium 134 L Potassium 3.7 Chloride 100 Carbon Dioxide 20 L BUN 41 H Creatinine 1.99 H Glucose 209 H Calcium 10.2 Cardiac Enzymes 05/04/18 Range/Units 05:17 Troponin I < 0.03 (< 0.04) ng/mL Liver Function 05/04/18 Range/Units 05:17 Total Bilirubin 0.5 (0.3-1.0) mg/dL AST 12 L (13-39) Units/L ALT 13 (7-52) Units/L Alkaline Phosphatase 65 (34-104) Units/L Albumin 4.4 (3.5-5.7) g/dL - Assessment and plan (1) Acute kidney injury Current Visit: Yes Status: Acute Assessment and plan: 1 etiology is multifactorial-most likely prerenal- secondary to dehydration/hypotension- patient has been experiencing depressive state. Has not been eating or drinking as well as she is taking diuretics and has been experiencing diarrhea- Currently [place] 1.99 baseline appears to be less than 1 as well as GFR is 28 which appears baseline is greater than 60-we will hold diuretics and avoid nephrotoxins. We will give IV fluids and continue to monitor creatinine closely Encourage patient to drink plenty of water Closely monitor intake and output-daily weights Monitor electrolytes and replace as needed We will check stool- obtain GI panel-to pinpoint cause (2) Dehydration Current Visit: Yes Status: Acute Assessment and plan: 1 secondary to poor oral intake diuretics and diarrhea Continue with IV fluids Monitor electrolytes and replace (3) Diarrhea Current Visit: Yes Status: Acute Assessment and plan: Obtain GI panel patient does have a history of C. difficile however states that she is tested negative 2 Qualifiers: Diarrhea type: unspecified type Qualified Code(s): R19.7 - Diarrhea, uns pecified (4) Hypomagnesemia Current Visit: Yes Status: Acute Assessment and plan: replace and monitor (5) Depression Current Visit: No Status: Acute Assessment and plan: 1 has experienced a sudden dramatic loss of her son-April 10 she was recently hospitalized in 1 a and has recently started on antidepressants. Currently she is tearful however she denies any suicidal ideations. She states that she does miss her son would like to see him again however she does not want to harm herself. We will continue with antidepressants and outpatient mental health support. 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 use: unspecified intermediate teacher insulin use status Diabetes mellitus complication status: with unspecified complications Qualified Code(s): E11.8 - Type 2 diabetes mellitus with unspecified complications (7) DVT prophylaxis Current Visit: No Status: Acute Assessment and plan: heparin subcutaneous (8) Near syncope Current Visit: Yes Status: Acute Assessment and plan: 1 patient states that she has been experiencing episodes of lightheadedness-and nearly passing out especially with position change most likely orthostatic in nature due to patient's dehydration we will obtain orthostatic vital signs Continue with IV fluids Placed on fall precautions - Time Spent With Patient Total time spent is greater than 50% in coordination of care (as documented) at patient's floor/unit and/or counseling patient:
[2018-05-04] MEDS ORDERED: *HR* Dextrose 50 % in Water (Syg) 50 ML SYRINGE IVP PRN (10:19)
[2018-05-04] MEDS ORDERED: D5% in Water 1,000 ML IVC PRN (10:19)
[2018-05-04] MEDS ORDERED: Dextrose Gel 15 GM/37.5 ML TUBE PO PRN ×2 (10:19)
[2018-05-04] MEDS: 0.9 % Sodium Chloride w KCl 20 MEQ/1,000 ML MLS IVC SCH (10:57)
[2018-05-04] MEDS: Insulin LISPRO 300 UNITS/3 ML VIAL SQ SCH ×2 (12:29→17:07)
[2018-05-04 13:32] LABS: BUN/Creatinine Ratio 34 (6-26); Blood Urea Nitrogen 40 mg/dL (6-20); Calcium 9.7 mg/dL (8.6-10.3); Carbon Dioxide 22 mEq/L (23-29); Chloride 102 mEq/L (98-107); Glucose 176 mg/dL (70-105); Magnesium 1.6 mg/dL (1.6-2.6); Osmolality,Calculated 294 (280-300); Potassium 3.7 mEq/L (3.5-5.1); Sodium 135 mEq/L (136-145); eGFR For Non-African Americans 50 (> 60)
[2018-05-04 13:38] LABS: Adenovirus F 40/41 PCR Not detected (Not detect); Astrovirus PCR Not detected (Not detect); C.difficile Toxin A/B Gene PCR Not detected (Not detect); Campylobacter by PCR Not detected (Not detect); Cryptosporidium by PCR Not detected (Not detect); Cyclospora cayetanensis PCR Not detected (Not detect); E. coli O157 by PCR Not detected (Not detect); Entamoeba histolytica PCR Not detected (Not detect); Enteroaggregative E.coli(EAEC) Not detected (Not detect); Enteropathogenic E.coli(EPEC) Not detected (Not detect); Enterotoxigenic E.coli (ETEC) Not detected (Not detect); Giardia lamblia PCR Not detected (Not detect); Norovirus GI/GII PCR Not detected (Not detect); Plesiomonas shigelloides PCR Not detected (Not detect); Rotavirus A PCR Not detected (Not detect); Salmonella PCR Not detected (Not detect); Sapovirus PCR Not detected (Not detect); Shig/EnteroinvasiveE coli EIEC Not detected (Not detect); Shigalike tox-prod E coli STEC Not detected (Not detect); Vibrio PCR Not detected (Not detect); Vibrio cholerae PCR Not detected (Not detect); Yersinia enterocolitica PCR Not detected (Not detect)
[2018-05-04] MEDS: *HR* OxyCODONE/APAP 5/325 TABLET PO PRN (17:30)
[2018-05-04] MEDS ORDERED: tiZANidine 4 MG TABLET PO SCH (17:30)
[2018-05-04] MEDS: tiZANidine 4 MG TABLET PO SCH ×2 (18:12→20:13)
[2018-05-04] MEDS ORDERED: Insulin LISPRO 300 UNITS/3 ML VIAL SQ SCH (21:00)
[2018-05-04] MEDS ORDERED: ALPRAZolam 1 MG TABLET PO PRN (21:08)
[2018-05-04] MEDS ORDERED: *HR* OxyCODONE/APAP 5/325 TABLET PO ONE (21:37)
[2018-05-05] MEDS: *HR* OxyCODONE/APAP 5/325 TABLET PO PRN ×2 (01:56→10:38)
[2018-05-05] MEDS: 0.9 % Sodium Chloride w KCl 20 MEQ/1,000 ML MLS IVC SCH (03:42)
[2018-05-05 04:52] LABS: Basophils # 0.1 K/mcL (0.0-0.2); Basophils % 0.6 %; Eosinophils # 0.2 K/mcL (0.0-0.6); Eosinophils % 2.5 %; Hematocrit 32.1 % (35.3-44.9); Hemoglobin 10.9 g/dL (11.5-15.4); Immature Granulocytes % 0.5 % (0-4); Immature Platelets 1.5 % (1.1-6.1); Lymphocytes # 3.5 K/mcL (0.6-4.6); Lymphocytes % 41.9 %; Mean Corpuscular Hemoglobin 28.8 pg (28.0-33.3); Mean Corpuscular Volume 84.7 fL (83.0-100.0); Monocytes # 0.6 K/mcL (0.0-1.3); Monocytes % 6.8 %; Platelet Count 295 K/mcL (140-400); Red Blood Count 3.79 M/mcL (3.82-4.97); Red Cell Distribution Width 11.9 % (11.5-14.5); Segmented Neutrophils % 47.7 %
[2018-05-05 05:08] LABS: BUN/Creatinine Ratio 31 (6-26); Blood Urea Nitrogen 26 mg/dL (6-20); Calcium 9.6 mg/dL (8.6-10.3); Carbon Dioxide 26 mEq/L (23-29); Chloride 102 mEq/L (98-107); Glucose 200 mg/dL (70-105); Magnesium 1.4 mg/dL (1.6-2.6); Osmolality,Calculated 294 (280-300); Sodium 137 mEq/L (136-145); eGFR For Non-African Americans > 60 (> 60)
[2018-05-05 07:10] VITALS: BP 128/62
[2018-05-05] MEDS: tiZANidine 4 MG TABLET PO SCH (08:12)
[2018-05-05] MEDS: Insulin LISPRO 300 UNITS/3 ML VIAL SQ SCH (08:12)
[2018-05-05] MEDS ORDERED: Venlafaxine XR (24 HR) 75 MG CAP.ER.24H PO SCH (09:00)
[2018-05-05] MEDS ORDERED: Gabapentin 400 MG CAPSULE PO SCH (09:00)
[2018-05-05] MEDS ORDERED: MORPHINE 15 MG PO PRN (09:37)
[2018-05-05] MEDS ORDERED: Magnesium Oxide 400 MG TABLET PO SCH (11:00)
--- NOTE | 2018-05-05 11:36 | Discharge Summary ---
<Walter Watts P - Last Filed: 05/05/18 13:10> - NOTES TO OUTPATIENT PROVIDER Notes to Outpatient Provider: Patient will follow-up with primary care provider within a week. The patient will take oral magnesium supplement for 4-5 days and review with her primary care provider. Orders not resulted at time of discharge: Pending orders 05/04/18 18:29 Urinalysis Reflex Cult & Micro [URIN] Routine Date of Encounter: 05/05/18 Time of Encounter: 11:00 - Discharge Diagnosis (1) Dehydration Priority: Primary Status: Resolved (2) Nausea & vomiting Priority: Primary Status: Acute Qualifiers: Vomiting type: unspecified Vomiting Intractability: non-intractable Qualified Code(s): R11.2 - Nausea with vomiting, unspecified (3) Hypomagnesemia Priority: Primary Status: Acute (4) Near syncope Priority: Primary Status: Resolved (5) DVT prophylaxis Priority: Primary Status: Suspected Hospital course: Ms. Henderson is a 42 year old female with past medical history of diabetes, hyperlipidemia, hypertension, kidney stones, C. difficile colitis, hepatitis B,chronic pancreatitis presented to ED for experiencing approximately 6-10 loose bowel movements a day for afew days.She has been feeling weak and lightheaded at times feels as if she is going to pass out. According to the patient her son committed suicide at home and she found her son in his room , she was admitted to this facility 04/22/18 for psychiatric assessment for depression she was discharged on the . She was admitted for further workup any evaluation of dehydration and close monitoring . Abdomin and pelvic CT done in ED : No evidence of an acute intra-abdominal or intrapelvic process. Mild hepatic steatosis and hepatomegaly. Stool test for bacterial and virla panel were negative and C diff was also negative. The patient was given IV hydration and magnesium supplement. she is gradually improving, her weakness has been getting better. Vitals are stable. We are planning to discharge her and she will follow-up with her primary care provider within a week. She will take [id number] magnesium supplement for a few days and she will review it with her primary care provider. - Time Spent with Patient Total time spent providing and/or coordinating discharge services: - Discharge Medications Prescriptions: RX: Magnesium Oxide 400 mg PO BID #14 tablet Home Medications: RX: Lipase/Protease/Amylase [Creon Dr 12,000 Units Capsule] 2 cap PO TID 02/23/15 [History] RX: Methylphenidate HCl [Ritalin] 20 mg PO BID 06/10/17 [History] RX: Oxycodone HCl/Acetaminophen [Percocet 5-325 mg Tablet] 1 tab PO Q8H PRN 06/11/17 [History] RX: Tizanidine HCl [Zanaflex] 2 mg PO TID 06/11/17 [History] RX: Fluticasone Propionate Nasal [Flonase] 2 spr NS DAILY PRN 12/03/17 [History] RX: Omeprazole [PriLOSEC] 40 mg PO BID 12/03/17 [History] RX: Lisinopril 2.5 mg PO DAILY 01/28/18 [History] RX: Metformin HCl 1,000 mg PO BID 01/28/18 [History] RX: Promethazine [Phenergan] 25 mg PO Q4H PRN 01/28/18 [History] RX: Fenofibrate [Tricor] 145 mg PO DAILY tablet 02/01/18 [Rx] RX: Venlafaxine XR (24 HR) [Effexor XR] 75 mg PO DAILY #30 cap.er.24h 04/23/18 [Rx] RX: ALPRAZolam [Xanax 1 MG Tablet] 1 mg PO TID PRN 05/04/18 [History] RX: Ondansetron HCl 4 mg PO Q6H PRN 05/04/18 [History] RX: Atorvastatin Calcium 80 mg PO DAILY 05/05/18 [History] RX: Cholecalciferol (Vitamin D3) [Vitamin D3] 50,000 unit PO QWEEK 05/05/18 [History] RX: Furosemide [Lasix] 20 mg PO DAILY PRN 05/05/18 [History] RX: Gabapentin 800 mg PO TID 05/05/18 [History] RX: Magnesium Oxide 400 mg PO BID #14 tablet 05/05/18 [Rx] RX: Morphine Immed Rel [Morphine Sulfate] 15 mg PO Q6H PRN 05/05/18 [History] RX: Quetiapine Fumarate [Seroquel] 50 mg PO BID 05/05/18 [History] RX: cloNIDine HCl [CloNIDine HCl] 0.1 mg PO 2-3XD PRN 05/05/18 [History] Allergies/Adverse Reactions: Allergy/AdvReac Type Severity Reaction Status Date / Time Amoxicillin Allergy Rash Verified 05/05/18 08:24 clarithromycin [From Biaxin] Allergy Rash Verified 05/05/18 08:24 moxifloxacin [From Avelox] Allergy Rash Verified 05/05/18 08:24 propoxyphene Allergy Rash Verified 05/05/18 08:24 [From Darvocet-N] Date of admission: 05/04/18 06:24 Primary care physician: PCP NONE Consults: 05/04/18 09:48 Consult to Tool Specialist [CONS] Routine Reason for SW Consult: Financial concerns, resources - Constitutional Vitals: Temp Pulse Resp BP Pulse Ox 97.9 F 83 16 128/62 99 05/05/18 07:09 05/05/18 07:09 05/05/18 07:09 05/05/18 07:09 05/05/18 07:09 General appearance: Present: A&O X 3, no acute distress, answers questions appropriately Exam: Gen: Alert, awake , Oriented to time,place and person, Vitals : stable Chest: Diminished BS b/l, No crackles, No rales, No wheezing Heart: S1S2+ RRR No Murmurs Abd: Soft, NT, BS + No organomegaly Ext: No edema, pulses are palpable, no tenderness Neuro: No focal neuro deficits Psych: Normal mood Skin: No rash . - Patient Status Disposition: Home, Self-Care Condition: Fair Functional capacity at discharge: independent ambulation Overall status at discharge: patient is progressing back to baseline - Discharge Instructions Instructions: Dehydration (DC) Follow Up With: NONE,PCP [Primary Care Provider] - Additional Instructions: Follow-up appointments: If there is not an appointment listed below, please call your physician and schedule a follow-up appointment. If you have congestive heart failure and your symptoms return, make an appointment with your physician. Medication List: Carry an up to date list of medications you are taking at all time. We have given you an updated medication list including any new medications that you have been prescribed. Please provide that list to your primary provider Symptoms: If your condition changes or you experience any of the following symptoms, notify your physician immediately: Unusual or worsening pain, fever, persistent nausea and vomiting, bleeding, increase in swelling (especially in your legs), sudden weight gain, extreme dizziness, chest pain, increased drainage or redness from a wound or incision. Go to the emergency department if you experience a problem with breathing. Weights: If you have a history of swelling or shortness of breath, weigh yourself daily and notify your physician if you have a weight gain of two or more pounds in one day or 5 or more pounds in a week. If you experience any of the warning signs for stroke: Sudden numbness or weakness of the face, arm or leg; especially on one side of the body, sudden confusion, trouble speaking or understanding, sudden trouble seeing in one or both eyes, sudden trouble walking, dizziness, loss of balance or coordination, sudden sever headache with no cause; Call 911 or go to the emergency room. Stroke is a medical emergency. Some risk factors for stroke: Age, cigarette smoking, diabetes, excessive alcohol consumption, family history, high blood pressure, overweight, physical inactivity, prior stroke, heart attack, diagnosis of carotid artery stenosis or other artery disease. If you smoke, STOP: Smoking or tobacco use significantly increases your risk of heart and lung disease. Your chance of disease greatly increases if you continue to smoke. For more information, call the [employer] tobacco quit line for smoking cessation 3-345-PFFM-NOW ( ) - Diet and Activity Activity: resume usual activities as tolerated Diet: diabetic diet <Josesito Quinn - Last Filed: 05/05/18 14:33> Date of Encounter: 05/05/18 - Discharge Diagnosis (1) DVT prophylaxis Status: Acute (2) Dehydration Status: Resolved (3) Diabetes Status: Acute Qualifiers: Diabetes mellitus type: type 2 Diabetes mellitus group home insulin use: unspecified group home insulin use status Diabetes mellitus complication status: with unspecified complications Qualified Code(s): E11.8 - Type 2 diabetes mellitus with unspecified complications (4) Depression Status: Acute Qualifiers: Depression Type: major depressive disorder Qualified Code(s): F32.9 - Major depressive disorder, single episode, unspecified (5) Diarrhea Status: Acute Qualifiers: Diarrhea type: unspecified type Qualified Code(s): R19.7 - Diarrhea, unspecified (6) Hypomagnesemia Status: Acute (7) Acute kidney injury Status: Acute (8) Near syncope Status: Acute Hospital course: Ms. Henderson is a 42 year old female - Time Spent with Patient Total time spent providing and/or coordinating discharge services: Date of admission: 05/04/18 06:24 Primary care physician: PCP NONE Consults: 05/04/18 09:48 Consult to Tool Specialist [CONS] Routine Reason for SW Consult: Financial concerns, resources - Constitutional Vitals: Temp Pulse Resp BP Pulse Ox 97.9 F 83 16 128/62 99 05/05/18 07:09 05/05/18 07:09 05/05/18 07:09 05/05/18 07:09 05/05/18 07:09 - Attending Attestation I examined this patient and my medical decision-making was reviewed with the Resident Physician Dr. Watts. I agree with the documented findings, disposition and treatment plan as described except to the extent set forth below. Ms. Henderson is a 42 year old female past medical history of diabetes, hyperlipidemia, hypertension, kidney stones, C. difficile colitis, hepatitis B, pancreatitis and who recently lost her son committed suicide , after that pt was admitted to our [facility] for her major depression. Now she presented to ER with diarrhea. Her C. Diff and GI panel came back as negative. Her diarrhea also improving. Pt denied any suicidal ideation. She is comfortable to go home today , so will d/c her home in stable condition. Gen: A, A, O x3 Chest: Diminished BS b/l no crackles Heart: S1S2+ RRR
[2018-05-05 13:20] LABS: Bilirubin,Urine Negative (Negative); Blood,Urine Negative (Negative); Clarity,Urine Clear (Clear); Color,Urine Yellow (Yellow); Glucose,Urine (UA) Normal (Normal); Ketones,Urine Negative (Negative); Leukocyte Esterase,Urine Negative (Negative); Nitrite,Urine Negative (Negative); Protein,Urine Negative (Neg-Trace); Specific Gravity,Urine 1.017 (1.010-1.025); Urobilinogen,Urine Normal (Normal)
[2018-05-05] MEDS ORDERED: GABAPENTIN 800 MG PO SCH (15:00)
[2018-05-05] MEDS ORDERED: *HR* Heparin 5,000 UNIT/ML VIAL SQ SCH (18:00)
[2018-05-05] MEDS ORDERED: QUETIAPINE FUMARATE 50 MG PO SCH (21:00)
[2018-05-06] MEDS ORDERED: NON-FORMULARY MEDICATION 1 EACH EACH (Atorvastatin Calcium [Atorvastatin Calcium] 80 MG) PO SCH (09:00)
--- NOTE | 2018-05-06 16:30 | Electrocardiograph Report ---
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
== END 2018-05-05 12:02 | disposition home or self-care (01) ==
LOC: 3BNU 04:14 → EMEROOARM 04:14 → SUATTDRO 06:24 → 3BNU 06:46
PROVIDERS: ADMIT Pediatrics; ATTEND Family Medicine

== ENCOUNTER 2018-07-26 23:01 | Observation (INO) ==
[2018-07-27] MEDS ORDERED: Ondansetron 4 MG/2 ML VIAL IVP PRN ×2 (01:52→11:43)
[2018-07-27] MEDS ORDERED: 0.9 % Sodium Chloride 1,000 ML IVC SCH ×2 (02:00→11:43)
[2018-07-27] MEDS: *HR* OxyCODONE/APAP 7.5/325 TABLET PO PRN ×2 (02:55→09:14)
[2018-07-27] MEDS ORDERED: *HR* Heparin 5,000 UNIT/ML VIAL SQ SCH ×2 (06:00→18:00)
[2018-07-27] MEDS ORDERED: Pantoprazole 40 MG VIAL IVP SCH (06:30)
[2018-07-27 07:34] LABS: Basophils % 0.3 %; Eosinophils # 0.2 K/mcL (0.0-0.6); Eosinophils % 2.1 %; Hemoglobin 12.2 g/dL (11.5-15.4); Immature Granulocytes % 0.2 % (0-4); Lymphocytes # 2.8 K/mcL (0.6-4.6); Lymphocytes % 33.1 %; Mean Corpuscular Volume 87.9 fL (83.0-100.0); Mean Platelet Volume 9.7 fL (9.4-12.4); Monocytes # 0.7 K/mcL (0.0-1.3); Monocytes % 7.7 %; Neutrophils # 4.9 K/mcL (1.6-8.9); Platelet Count 351 K/mcL (140-400); Red Blood Count 4.21 M/mcL (3.82-4.97); Red Cell Distribution Width 12.6 % (11.5-14.5); Segmented Neutrophils % 56.6 %
[2018-07-27 07:43] LABS: Prothrombin Time 11.5 Seconds (9.4-12.1)
--- NOTE | 2018-07-27 07:43 | Acute Care Surgery H&P ---
Date of Encounter: 07/27/18 Time of Encounter: 07:41 Assessment and Plan (1) Acute appendicitis Current Visit: Yes Status: Acute The assessment and plan as outlined above was discussed with the patient and/or family members who expressed understanding and agreement. All questions were answered. I explained to the patient given the concern about acute appendicitis I do think it would be appropriate to proceed with a laparoscopic appendectomy. Risks and benefits discussed with the patient and she agrees with the above plan. Qualifiers: Acute appendicitis type: with localized peritonitis Appendicitis gangrene presence: without gangrene Appendicitis perforation presence: without perforation Appendicitis abscess presence: without abscess Qualified Code(s): K35.30 - Acute appendicitis with localized peritonitis, without perforation or gangrene History of Present Illness Chief complaint: Right-sided abdominal pain HPI: Ms. Henderson is a 42 year old female The patient is a 42-year-old female with a past medical history significant for diabetes mellitus, hypertension, migraine headaches, and depression/anxiety who states over the past 2 days she has been having right-sided abdominal pain. She points more towards the right lower quadrant as the source of the worse pain as compared to the right upper quadrant. She states that the pain is been worsening and because of the worsening pain she presented to [facility] for further evaluation. He denies any nausea states she has been having diarrhea with no rectal bleeding. She had a CT scan concerning for appendicitis and subsequently transferred to [facility]. Past Med Surg Social Fam HX - Past Medical History Medical history: diabetes, hyperlipidemia, hypertension, kidney stones Additional medical history: Chronic pancreatitis Psychiatric history: anxiety, depression - Past Surgical History Surgical History: cholecystectomy, hysterectomy, orthopedic, other Additional surgical history: back/ left foot sx, partial hysterectomy, left ovary removed - Social History Smoking Status: Never smoker Smokeless Tobacco Status: No Alcohol use: none Drug use: none - Family History Mother Living Status: Still Living Hx Family Cardiac Disorders: Yes (high blood pressure, high cholesterol) Hx Family Endocrine Disorder: Yes (DM 2) Medications and Allergies Methylphenidate HCl [Ritalin] 20 mg PO BID 06/10/17 [History] Oxycodone HCl/Acetaminophen [Percocet 5-325 mg Tablet] 1 tab PO Q8H PRN 06/11/17 [History] Tizanidine HCl [Zanaflex] 4 mg PO TID 06/11/17 [History] Fluticasone Propionate Nasal [Flonase] 2 spr NS DAILY PRN 12/03/17 [History] Lisinopril 2.5 mg PO DAILY 01/28/18 [History] Metformin HCl 1,000 mg PO BID 01/28/18 [History] Promethazine [Phenergan] 25 mg PO Q4H PRN 01/28/18 [History] Fenofibrate [Tricor] 145 mg PO DAILY tablet 02/01/18 [Rx] ALPRAZolam [Xanax 1 MG Tablet] 1 mg PO BID PRN 05/04/18 [History] Atorvastatin Calcium 80 mg PO DAILY 05/05/18 [History] Cholecalciferol (Vitamin D3) [Vitamin D3] 50,000 unit PO QWEEK 05/05/18 [History] Furosemide [Lasix] 20 mg PO DAILY PRN 05/05/18 [History] Gabapentin 800 mg PO TID 05/05/18 [History] Morphine Immed Rel [Morphine Sulfate] 15 mg PO Q6H PRN 05/05/18 [History] Quetiapine Fumarate [Seroquel] 100 mg PO BID 05/05/18 [History] cloNIDine HCl [CloNIDine HCl] 0.1 mg PO 2-3XD PRN 05/05/18 [History] Ondansetron ODT [Zofran ODT] 4 mg SL Q8HR PRN #12 tab.rapdis 07/18/18 [Rx] Brexpiprazole [Rexulti] 2 mg PO DAILY 07/27/18 [History] Venlafaxine XR (24 HR) [Effexor XR] 225 mg PO DAILY 07/27/18 [History] Allergy/AdvReac Type Severity Reaction Status Date / Time Amoxicillin Allergy Rash Verified 05/15/18 19:32 clarithromycin [From Biaxin] Allergy Rash Verified 05/15/18 19:32 moxifloxacin [From Avelox] Allergy Rash Verified 05/15/18 19:32 propoxyphene Allergy Rash Verified 05/15/18 19:32 [From Darvocet-N] Review of Systems All systems PM: reviewed and no additional remarkable complaints except as stated All systems PM: The remainder of the systems were reviewed and are negative General Surgery Exam Initial Vital Signs Temp Pulse Resp BP Pulse Ox 98.3 F 90 15 123/76 99 07/27/18 01:47 07/27/18 01:47 07/27/18 01:47 07/27/18 01:47 07/27/18 01:47 - Eyes PERRL, normal ocular movement - Respiratory normal expansion, normal respiratory effort, clear to auscultation - Cardiovascular Cardiovascular exam: Present: RRR, no murmurs/rubs/gallops - Abdomen Abdomen general surgery: Present: bowel sounds present, soft (Pain to palpation right lower quadrant greater than right upper quadrant.) - Integumentary Integumentary general surgery: Present: warm and dry - Neurologic Present: CN 2-12 grossly intact - Musculoskeletal Present: other (no clubbing cyanosis ) Results - Labs 07/27/18 06:21 All other labs normal. - Imaging CT scan - abdomen: report reviewed, image reviewed (I personally reviewed the CT scan images and report which show some thickening of the appendix concerning for acute appendicitis. No free air or free fluid)
[2018-07-27] MEDS ORDERED: MetroNIDAZOLE 500 MG/100 ML 500 MG/100 ML BAG IVPB SCH ×2 (08:00→16:00)
[2018-07-27] MEDS ORDERED: *HR* Propofol 200 MG/20 ML VIAL IVP ONE (08:07)
[2018-07-27] MEDS ORDERED: *HR* Midazolam HCl 2 MG/2 ML VIAL ONE (08:07)
[2018-07-27] MEDS ORDERED: *HR* FentaNYL (PF) 100 MCG/2 ML VIAL ONE ×2 (08:07→10:03)
[2018-07-27] MEDS ORDERED: *HR* Rocuronium Bromide 50 MG/5 ML VIAL ONE (08:11)
[2018-07-27] MEDS ORDERED: Neostigmine Methylsulfate 3 MG/3 ML SYRINGE ONE (08:11)
[2018-07-27] MEDS ORDERED: *HR* Succinylcholine 200 MG/10 ML VIAL IVP ONE (08:11)
[2018-07-27] MEDS ORDERED: Ondansetron 4 MG/2 ML VIAL ONE (08:11)
[2018-07-27] MEDS ORDERED: Lidocaine -MPF 2% 2 ML VIAL ONE (08:11)
[2018-07-27] MEDS ORDERED: Lidocaine -MPF 4% 5 ML AMPUL ONE (08:11)
[2018-07-27] MEDS ORDERED: Dexamethasone 4 MG/ML VIAL ONE (08:11)
--- NOTE | 2018-07-27 08:23 | Anesthesia Evaluation PreOp ---
Date of Encounter: 07/27/18 Time of Encounter: 09:41 - Past History Planned Operation: Lap appy Cardiac History: HTN, Hyperlipidemia Pulmonary History: Denies Any Significant HX STRATEGY EXECUTION CONSULTANT History: Other (back pain, ptsd, ahdh, hx suicidal ideation) Other Medical History: Diabetes Type II, GERD Anesthesia History: No Prior Anesthetic Complications, Past Anesthesia (hysterectomy, back surgery, foot surgery, left ovarian resection, cholecystectomy) Alcohol Use: none Drug use: none Medications and Allergies Methylphenidate HCl [Ritalin] 20 mg PO BID 06/10/17 [History] Oxycodone HCl/Acetaminophen [Percocet 5-325 mg Tablet] 1 tab PO Q8H PRN 06/11/17 [History] Tizanidine HCl [Zanaflex] 4 mg PO TID 06/11/17 [History] Fluticasone Propionate Nasal [Flonase] 2 spr NS DAILY PRN 12/03/17 [History] Lisinopril 2.5 mg PO DAILY 01/28/18 [History] Metformin HCl 1,000 mg PO BID 01/28/18 [History] Promethazine [Phenergan] 25 mg PO Q4H PRN 01/28/18 [History] Fenofibrate [Tricor] 145 mg PO DAILY tablet 02/01/18 [Rx] ALPRAZolam [Xanax 1 MG Tablet] 1 mg PO BID PRN 05/04/18 [History] Atorvastatin Calcium 80 mg PO DAILY 05/05/18 [History] Cholecalciferol (Vitamin D3) [Vitamin D3] 50,000 unit PO QWEEK 05/05/18 [History] Furosemide [Lasix] 20 mg PO DAILY PRN 05/05/18 [History] Gabapentin 800 mg PO TID 05/05/18 [History] Morphine Immed Rel [Morphine Sulfate] 15 mg PO Q6H PRN 05/05/18 [History] Quetiapine Fumarate [Seroquel] 100 mg PO BID 05/05/18 [History] cloNIDine HCl [CloNIDine HCl] 0.1 mg PO 2-3XD PRN 05/05/18 [History] Ondansetron ODT [Zofran ODT] 4 mg SL Q8HR PRN #12 tab.rapdis 07/18/18 [Rx] Brexpiprazole [Rexulti] 2 mg PO DAILY 07/27/18 [History] Venlafaxine XR (24 HR) [Effexor XR] 225 mg PO DAILY 07/27/18 [History] Allergy/AdvReac Type Severity Reaction Status Date / Time Amoxicillin Allergy Rash Verified 05/15/18 19:32 clarithromycin [From Biaxin] Allergy Rash Verified 05/15/18 19:32 moxifloxacin [From Avelox] Allergy Rash Verified 05/15/18 19:32 propoxyphene Allergy Rash Verified 05/15/18 19:32 [From Darvocet-N] - Meds/Allergy Pre-op Review Medications Reviewed: Yes Allergies Reviewed: Yes Beta Blockers on Current Med List: No Anesthesia Results - Labs 07/27/18 06:21 - Imaging EKG: report reviewed, image reviewed (SINUS RHYTHM POSSIBLE RIGHT VENTRICULAR CONDUCTION DELAY) Anesthesia Exam Last Vital Signs Temp 97.8 F 07/27/18 06:24 Pulse 87 07/27/18 06:24 Resp 16 07/27/18 06:24 BP 121/78 07/27/18 06:24 Pulse Ox 97 07/27/18 06:24 Weight: 83 kg - HEENT Pupil (Motor): Pupils equal, EOMI Mallampati: II Teeth: Normal Oral Opening: Greater than 3 - STRATEGY EXECUTION CONSULTANT LOC: Oriented - Cardiac Rhythm: Regular Murmur: None - Pulmonary Breath Sounds: bilateral Clear Respiratory Effort: Symmetrical Anesthesia Assess/Plan ASA Score: 3 Level of consciousness: Cooperative Anesthetic Plan: General Monitoring Plan: Standard Monitors Recovery Plan: PACU
[2018-07-27] MEDS ORDERED: cefTRIAXone 1,000 MG in Water for inj. (sterile) 20 ML 10 ML IVP SCH (09:00)
[2018-07-27] MEDS ORDERED: Acetaminophen IV 1,000 MG/100 ML INFUS..BTL ONE (09:07)
[2018-07-27] MEDS ORDERED: *HR* OxyCODONE Immed Rel 5 MG TABLET PO PRN (09:09)
[2018-07-27] MEDS ORDERED: *HR* FentaNYL (PF) 100 MCG/2 ML VIAL IVP PRN (09:09)
[2018-07-27] MEDS ORDERED: *HR* Promethazine 25 MG/ML VIAL IVP PRN (09:09)
[2018-07-27] MEDS ORDERED: Bupivacaine/EPI 1:200k 0.25%PF 30 ML VIAL ONE (09:36)
[2018-07-27] MEDS ORDERED: Ketorolac 30 MG/ML VIAL ONE (10:30)
[2018-07-27] MEDS ORDERED: *HR* HYDROMORPHONE 2 MG/ML VIAL ONE (10:33)
--- NOTE | 2018-07-27 10:46 | Operative Note ---
Date of procedure: 07/27/18 Pre-op diagnosis: Right lower abdominal pain Post-op diagnosis: same Procedure: Laparoscopic appendectomy Anesthesia: GETA Surgeon: Jeremy Renee Was there an customer relations assistant present: No Estimated blood loss (cc): 10 Specimen: appendix Condition: stable Disposition: PACU Procedure in Detail: Date of surgery: 07/27/18 After properly identifying the patient, the patient was brought to the operating room placed in supine position. After proper IV sedation was achieved followed by general endotracheal intubation, the patient's abdomen was prepped and draped in a normal sterile fashion. A timeout was performed noting the patient's name and type of procedure to be performed. The super umbilical region was examined and infiltrated with half percent Marcaine solution. An 11 blade scalpel was then used to make an incision in this area down to the rectus fascia. Once the abdomen was entered a laparoscopic camera was placed through the port which showed no injury to the intra-abdominal organs upon entry. A suprapubic 5 mm port and a left lower q uadrant 5 mm port were then placed under direct camera visualization after both of these areas were first infiltrated with half percent Marcaine solution. The patient was placed in a Trendelenburg position and the right lower quadrant was examined. The appendix was identified and did not show any gross abnormality or thickening throughout its length, however the decision was made to go ahead and perform an appendectomy. The lateral sidewall attachments were dissected with Bovie cauterization. The base of the appendix was dissected away from the mesentery with the [place] dissector and the mesentery and the base of the appendix were transected with 2 independent farideh using a laparoscopic BRIANNE stapler. Once the appendix was dissected free it was removed from the abdomen via an Endobag. Reinspection of the right lower quadrant demonstrated maintenance of hemostasis and examination of the pelvis showed no gross evidence of an abnormality. There was no overt signs of enteritis or colitis. The right lower quadrant was briefly irrigated with normal saline solution and all ports are then removed from the abdomen after the abdomen was desufflated. The rectus fascia for the supraumbilical incision was reapproximated with a [id number] 0 Vicryl suture. The subcutaneous tissue was reapproximated with 3-0 Vicryl suture and the epidermal and dermal layers for the remaining i ncisions were closed with 4-0 Monocryl sutures. Needle, sponge, and instrument counts were correct 2 and the incisions were covered with Steri-Strips and Band-Aids. The patient was aroused from IV sedation, extubated in the operating room without complication, and transported to the recovery room stable condition.
--- NOTE | 2018-07-27 11:18 | Anesthesia Evaluation Post Op ---
Date of Encounter: 07/27/18 Time of Encounter: 11:18 - Vital Signs Vital Signs: Last Vital Signs Temp 97.7 F 07/27/18 10:56 Pulse 96 07/27/18 11:06 Resp 16 07/27/18 11:06 BP 123/81 07/27/18 11:06 Pulse Ox 100 07/27/18 11:06 - Lungs Lungs: Clear Ascult./Percussion - Airway Airway: Non-obstructed - Cardiovascular Regular Rate - Mental Status Mental Status: Alert & Oriented, Answers Appropriately - Pain Pain Scale: 3 - Nausea Vomiting Nausea Vomiting: Not Present - Hydration Hydration: Ice chips - Discharge PostOp Status: Transfer Patient to floor
[2018-07-27] MEDS ORDERED: *HR* OxyCODONE/APAP 5/325 TABLET PO PRN (11:43)
[2018-07-27] MEDS ORDERED: OXYCODONE Oral CONC 10 MG/0.5 ML ORAL.SYG SL PRN (11:43)
[2018-07-27] MEDS ORDERED: Ketorolac 30 MG/ML VIAL IVP SCH ×2 (12:00)
--- NOTE | 2018-07-27 14:53 | Discharge Summary ---
- NOTES TO OUTPATIENT PROVIDER Notes to Outpatient Provider: Acute care surgery will schedule follow-up with you in 2 weeks Orders not resulted at time of discharge: Pending orders 07/27/18 10:41 Surgical Pathology [PTH] Routine Date of Encounter: 07/27/18 Time of Encounter: 14:49 - Discharge Diagnosis (1) Acute appendicitis Priority: Primary Status: Acute Qualifiers: Acute appendicitis type: with localized peritonitis Appendicitis gangrene presence: without gangrene Appendicitis perforation presence: without perforation Appendicitis abscess presence: without abscess Qualified Code(s): K35.30 - Acute appendicitis with localized peritonitis, without perforation or gangrene General Surgery Exam Initial Vital Signs Temp Pulse Resp BP Pulse Ox 98.3 F 90 15 123/76 99 07/27/18 01:47 07/27/18 01:47 07/27/18 01:47 07/27/18 01:47 07/27/18 01:47 - General physical appearance well developed, well nourished - Eyes normal ocular movement - ENT atraumatic, normocephalic - Neck trachea midline - Respiratory normal expansion, normal respiratory effort, clear to auscultation - Cardiovascular Cardiovascular exam: Present: RRR, regular rhythm, no murmurs/rubs/gallops - Expanded Cardiovascular Exam Peripheral pulses: 2+: Radial (L), Radial (R) - Abdomen Abdomen general surgery: Present: bowel sounds present, soft, tender - Incision Incision: Present: clean and dry, intact - Psychiatric Psychiatric general surgery: Present: A&Ox3, appropriate, oriented to person, oriented to place, oriented to time, speech is normal, memory intact - Hospital Course Hospital course: Ms. Henderson is a 42 year old female with past medical history significant for diabetes mellitus, hyperlipidemia, hypertension, migraine headaches, depression/anxiety who initially presented complaining of right-sided abdominal pain over the past 2 days. Pain had been worsening and so she presented to [facility] for evaluation. She did deny any nausea, vomiting, dysuria, hematuria, hematemesis, hematochezia, melena. On exam it was noted that she had right lower quadrant tenderness. Her CT scan was suspicious for sign suggestive of acute appendicitis including wall thickening of the appendix. There was no evidence of any free air or free fluid or any evidence of abscess formation. Patient was taken to the OR for laparoscopic appendectomy performed by Dr. Renee. There is no complication during the procedure. Patient tolerated the procedure well. Postoperatively she recovered without any difficulty. We will discharge patient home to follow-up with acute care surgery in 2 weeks Time spent discussing smoking cessation with patient: 3 to 10 minutes - Time Spent with Patient Total time spent providing and/or coordinating discharge services: - Discharge Medications Prescriptions: New Docusate [Colace] 100 mg PO BID 14 Days #28 capsule Oxycodone HCl/Acetaminophen [Percocet 5-325 mg Tablet] 1 each PO Q6H PRN 5 Days #20 tablet PRN Reason: Pain Ondansetron ODT [Zofran ODT] 4 mg SL Q6HR PRN 5 Days #20 tab.rapdis PRN Reason: Nausea No Action Methylphenidate HCl [Ritalin] 20 mg PO BID Tizanidine HCl [Zanaflex] 4 mg PO TID Oxycodone HCl/Acetaminophen [Percocet 5-325 mg Tablet] 1 tab PO Q8H PRN PRN Reason: Pain Fluticasone Propionate Nasal [Flonase] 2 spr NS DAILY PRN PRN Reason: Allergy Symptoms Lisinopril 2.5 mg PO DAILY Promethazine [Phenergan] 25 mg PO Q4H PRN PRN Reason: Nausea Metformin HCl 1,000 mg PO BID Fenofibrate [Tricor] 145 mg PO DAILY tablet ALPRAZolam [Xanax 1 MG Tablet] 1 mg PO BID PRN PRN Reason: Anxiety Atorvastatin Calcium 80 mg PO DAILY Cholecalciferol (Vitamin D3) [Vitamin D3] 50,000 unit PO QWEEK cloNIDine HCl [CloNIDine HCl] 0.1 mg PO 2-3XD PRN PRN Reason: Blood Pressure Furosemide [Lasix] 20 mg PO DAILY PRN PRN Reason: SWELLING Gabapentin 800 mg PO TID Morphine Immed Rel [Morphine Sulfate] 15 mg PO Q6H PRN PRN Reason: Pain Quetiapine Fumarate [Seroquel] 100 mg PO BID Ondansetron ODT [Zofran ODT] 4 mg SL Q8HR PRN #12 tab.rapdis PRN Reason: Nausea Venlafaxine XR (24 HR) [Effexor XR] 225 mg PO DAILY Brexpiprazole [Rexulti] 2 mg PO DAILY Home Medications: Methylphenidate HCl [Ritalin] 20 mg PO BID 06/10/17 [History] Oxycodone HCl/Acetaminophen [Percocet 5-325 mg Tablet] 1 tab PO Q8H PRN 06/11/17 [History] Tizanidine HCl [Zanaflex] 4 mg PO TID 06/11/17 [History] Fluticasone Propionate Nasal [Flonase] 2 spr NS DAILY PRN 12/03/17 [History] Lisinopril 2.5 mg PO DAILY 01/28/18 [History] Metformin HCl 1,000 mg PO BID 01/28/18 [History] Promethazine [Phenergan] 25 mg PO Q4H PRN 01/28/18 [History] Fenofibrate [Tricor] 145 mg PO DAILY tablet 02/01/18 [Rx] ALPRAZolam [Xanax 1 MG Tablet] 1 mg PO BID PRN 05/04/18 [History] Atorvastatin Calcium 80 mg PO DAILY 05/05/18 [History] Cholecalciferol (Vitamin D3) [Vitamin D3] 50,000 unit PO QWEEK 05/05/18 [History] Furosemide [Lasix] 20 mg PO DAILY PRN 05/05/18 [History] Gabapentin 800 mg PO TID 05/05/18 [History] Morphine Immed Rel [Morphine Sulfate] 15 mg PO Q6H PRN 05/05/18 [History] Quetiapine Fumarate [Seroquel] 100 mg PO BID 05/05/18 [History] cloNIDine HCl [CloNIDine HCl] 0.1 mg PO 2-3XD PRN 05/05/18 [History] Ondansetron ODT [Zofran ODT] 4 mg SL Q8HR PRN #12 tab.rapdis 07/18/18 [Rx] Brexpiprazole [Rexulti] 2 mg PO DAILY 07/27/18 [History] Docusate [Colace] 100 mg PO BID 14 Days #28 capsule 07/27/18 [Rx] Ondansetron ODT [Zofran ODT] 4 mg SL Q6HR PRN 5 Days #20 tab.rapdis 07/27/18 [Rx] Oxycodone HCl/Acetaminophen [Percocet 5-325 mg Tablet] 1 each PO Q6H PRN 5 Days #20 tablet 07/27/18 [Rx] Venlafaxine XR (24 HR) [Effexor XR] 225 mg PO DAILY 07/27/18 [History] Allergies/Adverse Reactions: Allergy/AdvReac Type Severity Reaction Status Date / Time Amoxicillin Allergy Rash Verified 05/15/18 19:32 clarithromycin [From Biaxin] Allergy Rash Verified 05/15/18 19:32 moxifloxacin [From Avelox] Allergy Rash Verified 05/15/18 19:32 propoxyphene Allergy Rash Verified 05/15/18 19:32 [From Darvocet-N] Date of admission: 07/27/18 01:38 Primary care physician: PCP NONE Discharging clinician: Mj Treviño Anticipated date of discharge: 07/27/18 Labs on day of discharge: Labs from last 24 hours 07/27/18 07/27/18 06:21 06:21 WBC 8.6 RBC 4.21 Hgb 12.2 Hct 37.0 MCV 87.9 MCH 29.0 MCHC 33.0 RDW 12.6 Plt Count 351 MPV 9.7 Immature Gran % 0.2 Seg Neutrophils % 56.6 Lymphocytes % 33.1 Monocytes % 7.7 Eosinophils % 2.1 Basophils % 0.3 Neutrophils # 4.9 Lymphocytes # 2.8 Monocytes # 0.7 Eosinophils # 0.2 Basophils # 0.0 PT 11.5 INR 1.0 - Patient Status Disposition: Home, Self-Care Condition: Good Functional capacity at discharge: independent ambulation Overall status at discharge: patient is progressing back to baseline - Discharge Instructions Instructions: Laparoscopic Appendectomy (DC) Follow Up With: NONE,PCP [Primary Care Provider] - [facility] [Outside] Additional Instructions: General Surgical Discharge Instructions 1. No pushing, pulling, or lifting greater than 15 lbs for 2-4 weeks (depending upon procedure). 2. You may shower beginning today, but no tub baths, soaking, or swimming for 2 weeks. 3. You may resume driving when you are off narcotics and are safe to react in a car. 4. Take ibuprofen every 8 hours for discomfort. If this does not relieve discomfort, you may take the as needed Percocet. Take narcotics as directed. Do not take more narcotics then directed and do not share your narcotics with any other person. Do not drink alcohol while on narcotics. 5. Take stool softeners (Colace) or a water based laxative (Miralax) while taking narcotics. You may hold for loose stools. 6. Report any fevers greater than 100.5F, increase abdominal discomfort, drainage that looks like pus, increased redness or pain at the surgical site, or any vomiting. 7. Report any pain in the calves, shortness of breath, or rapid heartbeat. 8. Follow-up in the office as directed. 9. If you were prescribed antibiotics, do not stop them without talking to your provider. Acute-care surgery will schedule follow-up appointment with you in the next 2-4 weeks - Diet and Activity Activity: increase activity as tolerated, resume usual activities as tolerated Diet: advance to your usual diet
[2018-07-27 16:04] VITALS: BP 124/70
[2018-07-28] MEDS ORDERED: Pantoprazole 40 MG VIAL IVP SCH (06:30)
[2018-07-28] MEDS ORDERED: cefTRIAXone 1,000 MG in Water for inj. (sterile) 20 ML 10 ML IVP SCH (09:00)
== END 2018-07-27 16:20 | disposition home or self-care (01) ==
LOC: 3ANU
PROVIDERS: ADMIT Surgery; ATTEND Surgery

== ENCOUNTER 2019-12-12 17:11 | Observation (INO) ==
[2019-12-12] MEDS ORDERED: Ondansetron 4 MG/2 ML VIAL IVP ONE (17:51)
[2019-12-12] MEDS ORDERED: *HR* FentaNYL (PF) 100 MCG/2 ML VIAL IVP ONE (17:51)
[2019-12-12 18:20] LABS: Basophils % 0.3 %; Eosinophils % 0.2 %; Hematocrit 33.6 % (35.3-44.9); Hemoglobin 11.3 g/dL (11.5-15.4); Immature Granulocytes % 0.4 % (0-4); Lymphocytes # 1.7 K/mcL (0.6-4.6); Lymphocytes % 12.7 %; Mean Corpuscular HGB Conc 33.6 g/dL (31.6-35.5); Mean Corpuscular Hemoglobin 29.4 pg (28.0-33.3); Mean Corpuscular Volume 87.3 fL (83.0-100.0); Mean Platelet Volume 9.3 fL (9.4-12.4); Monocytes # 0.9 K/mcL (0.0-1.3); Monocytes % 6.8 %; Neutrophils # 10.9 K/mcL (1.6-8.9); Platelet Count 318 K/mcL (140-400); Red Blood Count 3.85 M/mcL (3.82-4.97); Red Cell Distribution Width 12.4 % (11.5-14.5); Segmented Neutrophils % 79.6 %; White Blood Count 13.7 K/mcL (4.3-11.1)
[2019-12-12] MEDS ORDERED: 0.9 % Sodium Chloride 1,000 ML IVC ONE (18:23)
[2019-12-12 18:39] LABS: BUN/Creatinine Ratio 15 (6-26); Blood Urea Nitrogen 12 mg/dL (6-20); Calcium 9.4 mg/dL (8.6-10.3); Carbon Dioxide 24 mEq/L (23-29); Chloride 98 mEq/L (98-107); Glucose 212 mg/dL (70-105); Osmolality,Calculated 280 (280-300); Potassium 3.5 mEq/L (3.5-5.1); Sodium 132 mEq/L (136-145); eGFR For African Americans > 60 (> 60); eGFR For Non-African Americans > 60 (> 60)
[2019-12-12 18:57] LABS: Bilirubin,Urine Negative (Negative); Blood,Urine Negative (Negative); Clarity,Urine Clear (Clear); Color,Urine Light-Yellow (Yellow); Glucose,Urine (UA) Normal (Normal); Ketones,Urine Negative (Negative); Leukocyte Esterase,Urine Negative (Negative); Nitrite,Urine Negative (Negative); Protein,Urine Negative (Neg-Trace); Specific Gravity,Urine 1.012 (1.010-1.025); Urobilinogen,Urine Normal (Normal)
[2019-12-12] MEDS ORDERED: cefTRIAXone 1,000 MG in Water for inj. (sterile) 10 ML IVP ONE (19:26)
[2019-12-12] MEDS ORDERED: Tdap (Boostrix) Vaccine 0.5 ML SYRINGE IM ONE (19:26)
[2019-12-12] MEDS ORDERED: Vancomycin 1,250 MG/262.5 ML IV.SOLN IVPB ONE (19:45)
[2019-12-12] MEDS ORDERED: Ondansetron 4 MG/2 ML VIAL IVP PRN (19:46)
[2019-12-12] MEDS ORDERED: Naloxone 0.4 MG/ML INJ IVP PRN (19:46)
[2019-12-12] MEDS ORDERED: *HR* OxyCODONE/APAP 5/325 TABLET PO PRN (19:50)
[2019-12-12] MEDS ORDERED: *HR* Dextrose 50 % in Water (Vial) 50 ML VIAL IVP PRN (19:57)
[2019-12-12] MEDS ORDERED: Dextrose Gel 15 GM/37.5 ML TUBE PO PRN ×2 (19:57)
[2019-12-12] MEDS ORDERED: D5% in Water 1,000 ML IVC PRN (19:57)
[2019-12-12] MEDS: 0.9 % Sodium Chloride 1,000 ML IVC SCH ×2 (20:20→22:24)
[2019-12-12] MEDS ORDERED: Insulin DETEMIR 100 UNIT/ML X5UNITS SQ SCH (21:00)
[2019-12-12] MEDS ORDERED: Fluticasone Propionate Nasal 50 MCG/SPRAY BOTTLE NS PRN (21:37)
[2019-12-12] MEDS: Insulin LISPRO 300 UNITS/3 ML VIAL SQ SCH (22:25)
[2019-12-12] MEDS: *HR* Heparin 5,000 UNIT/ML VIAL SQ SCH (22:27)
[2019-12-12] MEDS: Gabapentin 400 MG CAPSULE PO SCH (22:27)
[2019-12-12] MEDS: ALPRAZolam 1 MG TABLET PO PRN (22:29)
[2019-12-12] MEDS: QUEtiapine Fumarate 100 MG TABLET PO SCH (22:29)
[2019-12-13] MEDS: Ringers Solution, Lactated 1,000 ML IVC SCH ×2 (00:19→10:34)
[2019-12-13 02:14] LABS: Basophils % 0.2 %; Eosinophils % 0.2 %; Hematocrit 30.6 % (35.3-44.9); Hemoglobin 9.9 g/dL (11.5-15.4); Immature Granulocytes % 0.5 % (0-4); Lymphocytes # 2.1 K/mcL (0.6-4.6); Lymphocytes % 17.3 %; Mean Corpuscular HGB Conc 32.4 g/dL (31.6-35.5); Mean Corpuscular Volume 89.7 fL (83.0-100.0); Mean Platelet Volume 9.6 fL (9.4-12.4); Monocytes # 0.8 K/mcL (0.0-1.3); Monocytes % 6.4 %; Neutrophils # 9.2 K/mcL (1.6-8.9); Platelet Count 289 K/mcL (140-400); Red Blood Count 3.41 M/mcL (3.82-4.97); Red Cell Distribution Width 12.4 % (11.5-14.5); Segmented Neutrophils % 75.4 %; White Blood Count 12.2 K/mcL (4.3-11.1)
[2019-12-13 02:15] LABS: Estimated Average Glucose 260 mg/dl
[2019-12-13 02:29] LABS: BUN/Creatinine Ratio 16 (6-26); Blood Urea Nitrogen 13 mg/dL (6-20); Calcium 8.4 mg/dL (8.6-10.3); Carbon Dioxide 24 mEq/L (23-29); Chloride 104 mEq/L (98-107); Glucose 354 mg/dL (70-105); Osmolality,Calculated 296 (280-300); Potassium 3.5 mEq/L (3.5-5.1); Sodium 136 mEq/L (136-145); eGFR For African Americans > 60 (> 60); eGFR For Non-African Americans > 60 (> 60)
[2019-12-13] MEDS: *HR* OxyCODONE/APAP 10/325 TABLET PO PRN ×2 (03:44→10:36)
[2019-12-13] MEDS: *HR* Heparin 5,000 UNIT/ML VIAL SQ SCH ×3 (05:25→21:18)
[2019-12-13] MEDS ORDERED: *HR* Enoxaparin 40 MG/0.4 ML SYRINGE SQ SCH (06:00)
[2019-12-13] MEDS: Insulin LISPRO 300 UNITS/3 ML VIAL SQ SCH ×4 (08:04→20:36)
[2019-12-13] MEDS: Vancomycin 1,250 MG/262.5 ML IV.SOLN IVPB SCH ×2 (08:26→19:44)
[2019-12-13] MEDS: Gabapentin 400 MG CAPSULE PO SCH ×3 (08:26→20:33)
[2019-12-13] MEDS: tiZANidine 4 MG TABLET PO SCH (08:27)
[2019-12-13] MEDS: Fenofibrate 54 MG TABLET PO SCH (08:27)
[2019-12-13] MEDS: lisinopriL 5 MG TABLET PO SCH (08:27)
[2019-12-13] MEDS: QUEtiapine Fumarate 100 MG TABLET PO SCH (08:27)
[2019-12-13] MEDS ORDERED: Methylphenidate HCl 10 MG TABLET PO SCH (09:00)
[2019-12-13] MEDS ORDERED: Venlafaxine XR (24 HR) 75 MG CAP.ER.24H PO SCH (09:00)
[2019-12-13] MEDS: ALPRAZolam 1 MG TABLET PO PRN (13:15)
[2019-12-13] MEDS ORDERED: Acetaminophen 325 MG TABLET PO PRN (15:28)
[2019-12-13] MEDS: *HR* OxyCODONE/APAP 5/325 TABLET PO PRN ×2 (15:39→23:43)
[2019-12-13] MEDS: QUEtiapine Fumarate 300 MG TABLET PO SCH (20:32)
[2019-12-13] MEDS: Methylphenidate HCl 10 MG TABLET PO SCH (20:33)
[2019-12-14] MEDS: *HR* Heparin 5,000 UNIT/ML VIAL SQ SCH ×3 (05:45→20:50)
[2019-12-14 07:45] LABS: Basophils % 0.3 %; Eosinophils # 0.2 K/mcL (0.0-0.6); Eosinophils % 3.1 %; Hematocrit 29.6 % (35.3-44.9); Hemoglobin 9.5 g/dL (11.5-15.4); Immature Granulocytes % 0.2 % (0-4); Lymphocytes % 31.2 %; Mean Corpuscular HGB Conc 32.1 g/dL (31.6-35.5); Mean Corpuscular Hemoglobin 28.4 pg (28.0-33.3); Mean Corpuscular Volume 88.6 fL (83.0-100.0); Mean Platelet Volume 9.8 fL (9.4-12.4); Monocytes # 0.4 K/mcL (0.0-1.3); Monocytes % 6.9 %; Neutrophils # 3.7 K/mcL (1.6-8.9); Platelet Count 287 K/mcL (140-400); Red Blood Count 3.34 M/mcL (3.82-4.97); Red Cell Distribution Width 12.2 % (11.5-14.5); Segmented Neutrophils % 58.3 %; White Blood Count 6.4 K/mcL (4.3-11.1)
[2019-12-14 07:57] LABS: BUN/Creatinine Ratio 18 (6-26); Blood Urea Nitrogen 13 mg/dL (6-20); Calcium 9.7 mg/dL (8.6-10.3); Carbon Dioxide 28 mEq/L (23-29); Chloride 104 mEq/L (98-107); Glucose 348 mg/dL (70-105); Magnesium 1.6 mg/dL (1.6-2.6); Osmolality,Calculated 300 (280-300); Potassium 4.2 mEq/L (3.5-5.1); Sodium 138 mEq/L (136-145); eGFR For African Americans > 60 (> 60); eGFR For Non-African Americans > 60 (> 60)
[2019-12-14] MEDS: Insulin LISPRO 300 UNITS/3 ML VIAL SQ SCH ×4 (08:28→20:50)
[2019-12-14] MEDS: Fenofibrate 54 MG TABLET PO SCH (08:29)
[2019-12-14] MEDS: Methylphenidate HCl 10 MG TABLET PO SCH ×4 (08:30→20:50)
[2019-12-14] MEDS: Gabapentin 400 MG CAPSULE PO SCH ×3 (08:30→20:49)
[2019-12-14] MEDS: lisinopriL 5 MG TABLET PO SCH (08:30)
[2019-12-14] MEDS: Venlafaxine XR (24 HR) 150 MG CAP.ER.24H PO SCH (08:30)
[2019-12-14] MEDS: QUEtiapine Fumarate 25 MG TABLET PO SCH (08:30)
[2019-12-14] MEDS: Vancomycin 1,250 MG/262.5 ML IV.SOLN IVPB SCH ×2 (08:35→16:41)
[2019-12-14] MEDS: *HR* OxyCODONE/APAP 5/325 TABLET PO PRN ×2 (08:46→14:32)
[2019-12-14] MEDS: ALPRAZolam 1 MG TABLET PO PRN (08:46)
[2019-12-14] MEDS: Insulin DETEMIR 100 UNIT/ML X5UNITS SQ SCH ×2 (09:02→20:51)
[2019-12-14] MEDS ORDERED: *HR* OxyCODONE/APAP 5/325 TABLET PO PRN (13:12)
[2019-12-14] MEDS ORDERED: Ergocalciferol (VIT D2) 50,000 UNIT (1.25MG) CAP PO SCH (15:22)
[2019-12-14] MEDS: tiZANidine 4 MG TABLET PO SCH (19:35)
[2019-12-14] MEDS: QUEtiapine Fumarate 300 MG TABLET PO SCH (20:49)
[2019-12-15] MEDS: Vancomycin 1,250 MG/262.5 ML IV.SOLN IVPB SCH ×2 (00:32→08:16)
[2019-12-15] MEDS: *HR* Heparin 5,000 UNIT/ML VIAL SQ SCH (05:18)
[2019-12-15 07:06] LABS: BUN/Creatinine Ratio 16 (6-26); Blood Urea Nitrogen 15 mg/dL (6-20); Calcium 9.8 mg/dL (8.6-10.3); Carbon Dioxide 26 mEq/L (23-29); Chloride 101 mEq/L (98-107); Glucose 420 mg/dL (70-105); Osmolality,Calculated 301 (280-300); Sodium 136 mEq/L (136-145); eGFR For African Americans > 60 (> 60); eGFR For Non-African Americans > 60 (> 60)
[2019-12-15] MEDS: Methylphenidate HCl 10 MG TABLET PO SCH ×3 (08:16→20:21)
[2019-12-15] MEDS: Fenofibrate 54 MG TABLET PO SCH (08:16)
[2019-12-15] MEDS: QUEtiapine Fumarate 25 MG TABLET PO SCH (08:17)
[2019-12-15] MEDS: Venlafaxine XR (24 HR) 150 MG CAP.ER.24H PO SCH (08:17)
[2019-12-15] MEDS: lisinopriL 5 MG TABLET PO SCH (08:17)
[2019-12-15] MEDS: Insulin DETEMIR 100 UNIT/ML X5UNITS SQ SCH ×2 (08:17→20:22)
[2019-12-15] MEDS: Gabapentin 400 MG CAPSULE PO SCH ×3 (08:17→20:21)
[2019-12-15] MEDS: Insulin LISPRO 300 UNITS/3 ML VIAL SQ SCH ×4 (08:18→20:20)
[2019-12-15] MEDS: ALPRAZolam 1 MG TABLET PO PRN ×2 (08:34→20:21)
[2019-12-15] MEDS: *HR* OxyCODONE/APAP 5/325 TABLET PO PRN ×2 (08:35→15:19)
[2019-12-15] MEDS ORDERED: Gadolinium Contrast Agent (WT Based) IV PRN (10:31)
[2019-12-15] MEDS: QUEtiapine Fumarate 300 MG TABLET PO SCH (20:21)
[2019-12-15] MEDS: Sulfamethoxazole/Trimeth DS 1 EACH TABLET PO SCH (20:22)
[2019-12-16 04:46] LABS: Basophils % 0.7 %; Eosinophils # 0.2 K/mcL (0.0-0.6); Eosinophils % 3.8 %; Hematocrit 29.7 % (35.3-44.9); Hemoglobin 9.6 g/dL (11.5-15.4); Immature Granulocytes % 0.3 % (0-4); Lymphocytes # 2.1 K/mcL (0.6-4.6); Lymphocytes % 36.3 %; Mean Corpuscular HGB Conc 32.3 g/dL (31.6-35.5); Mean Corpuscular Hemoglobin 28.1 pg (28.0-33.3); Mean Corpuscular Volume 86.8 fL (83.0-100.0); Mean Platelet Volume 9.1 fL (9.4-12.4); Monocytes # 0.4 K/mcL (0.0-1.3); Monocytes % 6.4 %; Platelet Count 362 K/mcL (140-400); Red Blood Count 3.42 M/mcL (3.82-4.97); Segmented Neutrophils % 52.5 %; White Blood Count 5.8 K/mcL (4.3-11.1)
[2019-12-16 05:06] LABS: BUN/Creatinine Ratio 21 (6-26); Blood Urea Nitrogen 14 mg/dL (6-20); Calcium 9.6 mg/dL (8.6-10.3); Carbon Dioxide 28 mEq/L (23-29); Chloride 103 mEq/L (98-107); Glucose 214 mg/dL (70-105); Osmolality,Calculated 293 (280-300); Potassium 3.8 mEq/L (3.5-5.1); Sodium 138 mEq/L (136-145); eGFR For African Americans > 60 (> 60); eGFR For Non-African Americans > 60 (> 60)
[2019-12-16] MEDS: Sulfamethoxazole/Trimeth DS 1 EACH TABLET PO SCH (08:04)
[2019-12-16] MEDS: Insulin LISPRO 300 UNITS/3 ML VIAL SQ SCH ×2 (08:04→12:44)
[2019-12-16] MEDS: Gabapentin 400 MG CAPSULE PO SCH ×2 (08:04→15:24)
[2019-12-16] MEDS: Venlafaxine XR (24 HR) 150 MG CAP.ER.24H PO SCH (08:04)
[2019-12-16] MEDS: Methylphenidate HCl 10 MG TABLET PO SCH ×2 (08:05→15:24)
[2019-12-16] MEDS: Fenofibrate 54 MG TABLET PO SCH (08:05)
[2019-12-16] MEDS: *HR* OxyCODONE/APAP 5/325 TABLET PO PRN ×2 (08:05→15:24)
[2019-12-16] MEDS: QUEtiapine Fumarate 25 MG TABLET PO SCH (08:05)
[2019-12-16] MEDS: lisinopriL 5 MG TABLET PO SCH (08:05)
[2019-12-16] MEDS: Insulin DETEMIR 100 UNIT/ML X5UNITS SQ SCH (08:07)
[2019-12-16] MEDS ORDERED: Venlafaxine XR (24 HR) 75 MG CAP.ER.24H PO SCH (09:00)
[2019-12-16] MEDS: ALPRAZolam 1 MG TABLET PO PRN (10:28)
[2019-12-16 14:29] VITALS: BP 164/74
== END 2019-12-16 15:57 | disposition home or self-care (01) ==
LOC: EMEROOARM 17:11 → 3ANU 17:11 → SUATTDRO 19:56 → 3ANU 21:00
PROVIDERS: ADMIT Family Medicine; ATTEND Family Medicine

== ENCOUNTER 2020-09-07 12:29 | Observation (INO) ==
[2020-09-07] MEDS ORDERED: 0.9 % Sodium Chloride 1,000 ML IVC ONE ×2 (12:58→13:14)
[2020-09-07 13:24] LABS: Bilirubin,Urine Negative (Negative); Blood,Urine Negative (Negative); Clarity,Urine Clear (Clear); Color,Urine Colorless (Yellow); Glucose,Urine (UA) >=1000 mg/dL (Normal); Ketones,Urine Negative (Negative); Leukocyte Esterase,Urine Negative (Negative); Mucus,Urine Few per lpf (None-Few); Nitrite,Urine Negative (Negative); Protein,Urine Negative (Neg-Trace); RBC,Urine 0-3 per hpf (0-3); Specific Gravity,Urine > 1.030 (1.010-1.025); Squamous Epithelial Cell,Urine Few per hpf (None-Few); Urobilinogen,Urine Normal (Normal); WBC,Urine 0-3 per hpf (0-3)
[2020-09-07 13:26] LABS: VBG HCO3 25 mEq/L (21-27); VBG PCO2 46 mmHg (41-51); VBG PH 7.35 pH Units (7.32-7.42); VBG PO2 36 mmHg (25-50)
[2020-09-07 13:41] LABS: Basophils # 0.1 K/mcL (0.0-0.2); Basophils % 0.7 %; Eosinophils # 0.1 K/mcL (0.0-0.6); Hematocrit 36.8 % (35.3-44.9); Hemoglobin 12.4 g/dL (11.5-15.4); Immature Granulocytes % 0.3 % (0-4); Lymphocytes # 2.5 K/mcL (0.6-4.6); Lymphocytes % 36.6 %; Mean Corpuscular HGB Conc 33.7 g/dL (31.6-35.5); Mean Corpuscular Hemoglobin 28.7 pg (28.0-33.3); Mean Corpuscular Volume 85.2 fL (83.0-100.0); Monocytes # 0.4 K/mcL (0.0-1.3); Monocytes % 5.9 %; Neutrophils # 3.8 K/mcL (1.6-8.9); Platelet Count 280 K/mcL (140-400); Red Blood Count 4.32 M/mcL (3.82-4.97); Red Cell Distribution Width 11.9 % (11.5-14.5); Segmented Neutrophils % 55.5 %; White Blood Count 6.8 K/mcL (4.3-11.1)
[2020-09-07 14:08] LABS: Alanine Aminotransferase 11 Units/L (7-52); Albumin 3.9 g/dL (3.5-5.7); Albumin/Globulin Ratio 1.2 (1.1-2.2); Alkaline Phosphatase 90 Units/L (34-104); Aspartate Amino Transferase 10 Units/L (13-39); BUN/Creatinine Ratio 19 (6-26); Bilirubin,Indirect 0.4 mg/dL (0.0-1.0); Bilirubin,Total 0.4 mg/dL (0.3-1.0); Blood Urea Nitrogen 15 mg/dL (6-20); Calcium 9.3 mg/dL (8.6-10.3); Carbon Dioxide 24 mEq/L (23-29); Chloride 91 mEq/L (98-107); Globulin 3.2 g/dL (2.4-3.5); Glucose 608 mg/dL (70-105); Lipase 90 Units/L (11-82); Magnesium 1.4 mg/dL (1.6-2.6); Osmolality,Calculated 287 (280-300); Potassium 4.1 mEq/L (3.5-5.1); Sodium 124 mEq/L (136-145); Total Protein 7.1 g/dL (6.4-8.9); eGFR For African Americans > 60 (> 60); eGFR For Non-African Americans > 60 (> 60)
[2020-09-07] MEDS ORDERED: *HR* FentaNYL (PF) 100 MCG/2 ML VIAL IVP ONE ×2 (14:12→16:01)
[2020-09-07] MEDS ORDERED: Ondansetron 4 MG/2 ML VIAL IVP ONE ×2 (14:12→16:01)
[2020-09-07] MEDS ORDERED: Insulin Human Regular 10 UNIT in 0.9 % Sodium Chloride 10 ML IV ONE (14:18)
[2020-09-07 15:40] LABS: Troponin I < 0.03 ng/mL (< 0.04)
[2020-09-07] MEDS: 0.9 % Sodium Chloride 1,000 ML IVC SCH ×2 (16:34→19:56)
[2020-09-07] MEDS ORDERED: *HR* HYDROmorphone (PF) 1 MG/ML SYRINGE IVP ONE (19:38)
[2020-09-07] MEDS ORDERED: Acetaminophen 325 MG TABLET PO PRN (20:45)
[2020-09-07] MEDS ORDERED: Naloxone 0.4 MG/ML INJ IVP PRN (20:45)
[2020-09-07] MEDS ORDERED: Ondansetron 4 MG/2 ML VIAL IVP PRN (20:45)
[2020-09-07] MEDS ORDERED: D5% in Water 1,000 ML IVC PRN (20:47)
[2020-09-07] MEDS ORDERED: *HR* Dextrose 50 % in Water (Vial) 50 ML VIAL IVP PRN (20:47)
[2020-09-07] MEDS ORDERED: Dextrose Gel 15 GM/37.5 ML TUBE PO PRN ×2 (20:47)
[2020-09-08] MEDS: Magnesium Oxide 400 MG TABLET PO SCH ×2 (00:44→07:57)
[2020-09-08] MEDS: *HR* Heparin 5,000 UNIT/ML VIAL SQ SCH ×3 (00:44→16:17)
[2020-09-08] MEDS: Insulin DETEMIR 100 UNIT/ML X5UNITS SUBQ SCH ×2 (00:45→20:28)
[2020-09-08] MEDS: 0.9 % Sodium Chloride 1,000 ML IVC SCH ×4 (00:45→08:07)
[2020-09-08] MEDS: Insulin LISPRO 300 UNITS/3 ML VIAL SUBQ SCH ×6 (00:46→20:28)
[2020-09-08 07:18] LABS: Basophils % 0.6 %; Eosinophils # 0.1 K/mcL (0.0-0.6); Eosinophils % 1.6 %; Hematocrit 30.3 % (35.3-44.9); Immature Granulocytes % 0.3 % (0-4); Lymphocytes # 3.6 K/mcL (0.6-4.6); Lymphocytes % 51.6 %; Mean Corpuscular HGB Conc 33.3 g/dL (31.6-35.5); Mean Corpuscular Hemoglobin 28.5 pg (28.0-33.3); Mean Corpuscular Volume 85.4 fL (83.0-100.0); Mean Platelet Volume 9.8 fL (9.4-12.4); Monocytes # 0.4 K/mcL (0.0-1.3); Monocytes % 6.3 %; Neutrophils # 2.8 K/mcL (1.6-8.9); Platelet Count 219 K/mcL (140-400); Red Blood Count 3.55 M/mcL (3.82-4.97); Red Cell Distribution Width 12.2 % (11.5-14.5); Segmented Neutrophils % 39.6 %; White Blood Count 6.9 K/mcL (4.3-11.1)
[2020-09-08 07:22] LABS: Hemoglobin 10.1 g/dL (11.5-15.4)
[2020-09-08 08:58] LABS: BUN/Creatinine Ratio 18 (6-26); Blood Urea Nitrogen 9 mg/dL (6-20); Calcium 7.8 mg/dL (8.6-10.3); Carbon Dioxide 23 mEq/L (23-29); Chloride 110 mEq/L (98-107); Glucose 113 mg/dL (70-105); Lipase 63 Units/L (11-82); Magnesium 1.4 mg/dL (1.6-2.6); Osmolality,Calculated 289 (280-300); Potassium 3.2 mEq/L (3.5-5.1); Sodium 140 mEq/L (136-145); eGFR For African Americans > 60 (> 60); eGFR For Non-African Americans > 60 (> 60)
[2020-09-08] MEDS ORDERED: Magnesium Sulfate 1 GM/102 ML PIGGYBACK IVPB ONE (10:05)
[2020-09-08 14:40] LABS: Magnesium 1.6 mg/dL (1.6-2.6); Potassium 3.5 mEq/L (3.5-5.1)
[2020-09-08] MEDS: Gabapentin 400 MG CAPSULE PO SCH ×2 (16:17→20:24)
[2020-09-08] MEDS: QUEtiapine Fumarate 300 MG TABLET PO SCH (20:24)
[2020-09-08] MEDS: ALPRAZolam 1 MG TABLET PO PRN (20:24)
[2020-09-08] MEDS: METHYLPHENIDATE HCL 20 MG PO SCH (20:34)
[2020-09-09 01:40] LABS: Basophils % 0.3 %; Eosinophils # 0.1 K/mcL (0.0-0.6); Eosinophils % 1.2 %; Hematocrit 30.2 % (35.3-44.9); Hemoglobin 10.4 g/dL (11.5-15.4); Immature Granulocytes % 0.1 % (0-4); Lymphocytes # 2.7 K/mcL (0.6-4.6); Lymphocytes % 39.5 %; Mean Corpuscular HGB Conc 34.4 g/dL (31.6-35.5); Mean Corpuscular Hemoglobin 29.6 pg (28.0-33.3); Mean Platelet Volume 10.1 fL (9.4-12.4); Monocytes # 0.4 K/mcL (0.0-1.3); Monocytes % 5.2 %; Neutrophils # 3.7 K/mcL (1.6-8.9); Platelet Count 245 K/mcL (140-400); Red Blood Count 3.51 M/mcL (3.82-4.97); Red Cell Distribution Width 12.4 % (11.5-14.5); Segmented Neutrophils % 53.7 %; White Blood Count 6.9 K/mcL (4.3-11.1)
[2020-09-09 02:08] LABS: BUN/Creatinine Ratio 20 (6-26); Blood Urea Nitrogen 10 mg/dL (6-20); Calcium 8.8 mg/dL (8.6-10.3); Carbon Dioxide 25 mEq/L (23-29); Chloride 105 mEq/L (98-107); Glucose 338 mg/dL (70-105); Magnesium 1.8 mg/dL (1.6-2.6); Osmolality,Calculated 292 (280-300); Potassium 3.8 mEq/L (3.5-5.1); Sodium 135 mEq/L (136-145); eGFR For African Americans > 60 (> 60); eGFR For Non-African Americans > 60 (> 60)
[2020-09-09] MEDS: *HR* Heparin 5,000 UNIT/ML VIAL SQ SCH ×2 (06:08→18:52)
[2020-09-09] MEDS: Fenofibrate 54 MG TABLET PO SCH (08:06)
[2020-09-09] MEDS: Gabapentin 400 MG CAPSULE PO SCH ×3 (08:06→20:01)
[2020-09-09] MEDS: METHYLPHENIDATE HCL 20 MG PO SCH ×3 (08:06→21:59)
[2020-09-09] MEDS: Venlafaxine XR (24 HR) 75 MG CAP.ER.24H PO SCH (08:06)
[2020-09-09] MEDS: Insulin LISPRO 300 UNITS/3 ML VIAL SUBQ SCH ×4 (08:07→19:47)
[2020-09-09] MEDS: Venlafaxine XR (24 HR) 150 MG CAP.ER.24H PO SCH (08:12)
[2020-09-09] MEDS: ALPRAZolam 1 MG TABLET PO PRN (13:08)
[2020-09-09] MEDS: QUEtiapine Fumarate 300 MG TABLET PO SCH (20:01)
[2020-09-09] MEDS: Insulin DETEMIR 100 UNIT/ML X5UNITS SUBQ SCH (20:02)
[2020-09-09] MEDS ORDERED: Insulin LISPRO 300 UNITS/3 ML VIAL SUBQ SCH (21:00)
[2020-09-10] MEDS: *HR* Heparin 5,000 UNIT/ML VIAL SQ SCH (05:05)
[2020-09-10] MEDS: ALPRAZolam 1 MG TABLET PO PRN (05:15)
[2020-09-10] MEDS: Insulin LISPRO 300 UNITS/3 ML VIAL SUBQ SCH ×2 (07:55→11:33)
[2020-09-10] MEDS: Gabapentin 400 MG CAPSULE PO SCH ×2 (07:56→14:34)
[2020-09-10] MEDS: Venlafaxine XR (24 HR) 150 MG CAP.ER.24H PO SCH (07:56)
[2020-09-10] MEDS: Fenofibrate 54 MG TABLET PO SCH (07:56)
[2020-09-10] MEDS: METHYLPHENIDATE HCL 20 MG PO SCH ×2 (07:56→14:34)
[2020-09-10] MEDS: Venlafaxine XR (24 HR) 75 MG CAP.ER.24H PO SCH (07:56)
[2020-09-10] MEDS ORDERED: lisinopriL 5 MG TABLET PO SCH (09:00)
[2020-09-10 09:42] LABS: Basophils % 0.6 %; Eosinophils # 0.1 K/mcL (0.0-0.6); Eosinophils % 1.3 %; Hematocrit 30.4 % (35.3-44.9); Hemoglobin 10.1 g/dL (11.5-15.4); Immature Granulocytes % 0.2 % (0-4); Lymphocytes # 2.8 K/mcL (0.6-4.6); Lymphocytes % 43.7 %; Mean Corpuscular HGB Conc 33.2 g/dL (31.6-35.5); Mean Corpuscular Hemoglobin 28.8 pg (28.0-33.3); Mean Corpuscular Volume 86.6 fL (83.0-100.0); Monocytes # 0.4 K/mcL (0.0-1.3); Monocytes % 6.6 %; Neutrophils # 3.1 K/mcL (1.6-8.9); Platelet Count 211 K/mcL (140-400); Red Blood Count 3.51 M/mcL (3.82-4.97); Red Cell Distribution Width 12.2 % (11.5-14.5); Segmented Neutrophils % 47.6 %; White Blood Count 6.4 K/mcL (4.3-11.1)
[2020-09-10 10:03] LABS: BUN/Creatinine Ratio 25 (6-26); Blood Urea Nitrogen 14 mg/dL (6-20); Carbon Dioxide 26 mEq/L (23-29); Chloride 101 mEq/L (98-107); Glucose 274 mg/dL (70-105); Osmolality,Calculated 290 (280-300); Potassium 3.9 mEq/L (3.5-5.1); Sodium 135 mEq/L (136-145); eGFR For African Americans > 60 (> 60); eGFR For Non-African Americans > 60 (> 60)
[2020-09-10 11:24] VITALS: BP 119/79
[2020-09-10] MEDS ORDERED: Insulin DETEMIR 100 UNIT/ML X5UNITS SUBQ SCH (21:00)
== END 2020-09-10 17:38 | disposition home or self-care (01) ==
LOC: 3BNU 12:29 → EMEROOARM 12:29 → SUATTDRO 20:40 → 3BNU 21:46
PROVIDERS: ADMIT Student in an Organized Health Care Education/Training Program; ATTEND Registered Nurse